=== PATIENT | female | born 1990 | race Hispanic/Latino ===

== ENCOUNTER 2017-11-10 06:38 | Inpatient (IN) | payer MEDICAID ==
[~2017-11-10] VITALS: Ht 160 cm; Wt 65.3 kg
[2017-11-10 07:06] LABS: HEMATOCRIT 28.2 % (36-48); MEAN CORPUSCULAR HEMOGLOBIN 31.5 pg (27.0-33.0); MEAN CORPUSCULAR HGB CONC 34.1 g/dL (32.0-36.0); MEAN CORPUSCULAR VOLUME 92.4 fL (79-99); NUCLEATED RED BLOOD CELLS 0.1 % (0.0-0.19); PLATELET COUNT (AUTO) 209 K/uL (130-400); RED BLOOD CELL COUNT(AUTO) 3.05 MIL/uL (4.00-5.50); RED CELL DISTRIBUTION WIDTH 19.4 % (11.0-15.5); WHITE BLOOD COUNT (AUTO) 13.5 K/uL (4.8-10.8)
[2017-11-10] MEDS ORDERED: VANCOMYCIN 1GM+NS 250ML 250 ML IV ONE (07:13)
[2017-11-10] MEDS ORDERED: SODIUM CHLORIDE 0.9% 1000ML 2,000 ML IV ONE (07:13)
[2017-11-10] MEDS ORDERED: MEROPENEM 1 GM VIAL ONE (07:13)
[2017-11-10 07:14] LABS: APPEARANCE,URINE Cloudy (CLEAR); BILIRUBIN,URINE Negative (NEGATIVE); COLOR,URINE Yellow (YELLOW); GLUCOSE, URINE (UA) Negative (NEGATIVE); KETONES,URINE Trace mg/dL (NEGATIVE); LEUKOCYTE ESTERASE ,URINE Trace (NEGATIVE); NITRATE,URINE Negative (NEGATIVE); OCCULT BLOOD,URINE Moderate (NEGATIVE); PH,URINE 7.5 (5.0-8.0); PROTEIN,URINE POS 1+ (NEGATIVE); UROBILINOGEN,URINE 0.2 mg/dL (0.2-1.0)
[2017-11-10 07:20] LABS: CARBON DIOXIDE 24 mmol/L (21-32); CHLORIDE 105 mmol/L (101-111); CREATININE 0.9 mg/dL (0.5-1.5); GLOMERULAR FILTR. RATE CALC 81 mL/min (>60); GLUCOSE,RANDOM 169 mg/dL (70-105); POTASSIUM 4.1 mmol/L (3.5-5.1); SODIUM SERUM 141 mmol/L (136-145); UREA NITROGEN, BLOOD 21 mg/dL (7-18)
[2017-11-10 07:22] LABS: INR 1.11 (0.85-1.15); PARTIAL THROMBOPLASTIN TIME 19.3 SEC (26.3-35.5); PROTHROMBIN TIME 11.6 SEC (9.6-11.6)
[2017-11-10 07:29] LABS: LYMPHOCYTES % (MANUAL) 5 % (22-44); MAN.DIFF COMMENT-IMPRESSION MANUAL DIFFERENTIAL; MONOCYTES % (MANUAL) 8 % (2-9); PLATELET MORPHOLOGY COMMENT ADEQUATE; SEGMENTED NEUTROPHILS % 87 % (40-70)
[2017-11-10 07:37] LABS: ALANINE AMINOTRANSFERASE 33 U/L (12-78); ALBUMIN 2.8 g/dL (3.5-5.0); ASPARTATE AMINOTRANSFERASE 58 U/L (10-37); BILIRUBIN,TOTAL 0.3 mg/dL (0.2-1.0); CREATINE KINASE MB 5.1 ng/mL (0.5-3.6); MYOGLOBIN 236 ng/mL (10-92); TOTAL PROTEIN, SERUM 8.4 g/dL (6.0-8.3); TROPONIN I < 0.04 ng/mL (0.00-0.06)
[2017-11-10 07:38] LABS: BACTERIA,URINE Few /HPF (None Seen); SQUAMOUS EPITHELIAL CELL,UR Rare /LPF (0-2)
[2017-11-10 07:50] LABS: CREATINE KINASE, TOTAL 617 U/L (21-232)
[2017-11-10] MEDS ORDERED: ACETAMINOPHEN ELIXIR 650 MG/20.3 ML UDCUP ONE (09:48)
[2017-11-10] MEDS ORDERED: SODIUM CHLORIDE 0.9% 1000ML 1,000 ML IV ONE (11:46)
[2017-11-10] MEDS: SODIUM CHLORIDE 0.9% 1000ML 1,000 ML IV SCH (12:45)
[2017-11-10 13:43] VITALS: BP 149/99
[2017-11-10] MEDS: IPRATROPIUM/ALBUTEROL SULFATE 3 ML SOLUTION IH SCH (14:00)
[2017-11-10] MEDS: MEROPENEM 1 GM VIAL IVP SCH ×2 (14:00→23:26)
[2017-11-10 16:00] VITALS: BP 128/112
[2017-11-10] MEDS ORDERED: ZINC220T PEG (16:02)
[2017-11-10] MEDS ORDERED: VALP250S4 PEG (16:02)
[2017-11-10] MEDS ORDERED: TEMA15CA (16:02)
[2017-11-10] MEDS ORDERED: BACL20TA PEG (16:02)
[2017-11-10] MEDS ORDERED: CLON1TAB5 PEG (16:02)
[2017-11-10] MEDS ORDERED: MULT-1192 PEG (16:02)
[2017-11-10] MEDS ORDERED: ASCO250T5 PEG (16:02)
[2017-11-10] MEDS ORDERED: CARB15DR OP (16:02)
[2017-11-10] MEDS ORDERED: BISA10S PR (16:02)
[2017-11-10] MEDS ORDERED: METO50TA18 PEG (16:02)
[2017-11-10] MEDS ORDERED: FENT-77 TD (16:02)
[2017-11-10] MEDS ORDERED: FAMO20TA8 PEG (16:02)
[2017-11-10] MEDS ORDERED: CLON0.2T PEG (16:02)
[2017-11-10] MEDS ORDERED: PERA12TA PEG (16:02)
[2017-11-10] MEDS ORDERED: ZOLP10TA2 PEG (16:02)
[2017-11-10] MEDS ORDERED: ACET650S28 PEG (16:02)
[2017-11-10] MEDS ORDERED: ENOX40DI8 SQ (16:02)
[2017-11-10] MEDS ORDERED: POLY17PO4 PEG (16:02)
[2017-11-10] MEDS ORDERED: DILT30TA3 PEG (16:02)
[2017-11-10] MEDS ORDERED: BISACODYL 10 MG SUPP.RECT RC PRN (16:45)
[2017-11-10] MEDS ORDERED: NON-FORMULARY MEDICATION 1 EACH (Fentanyl 1 EACH) TD SCH (16:45)
[2017-11-10] MEDS ORDERED: MORPHINE SULFATE 20MG/ML ORAL 0.25 ML PO ONE (17:15)
[2017-11-10] MEDS: ACETAMINOPHEN ELIXIR 650 MG/20.3 ML UDCUP PEG SCH ×2 (17:26→23:51)
[2017-11-10] MEDS: CLONIDINE HCL 0.2 MG TABLET PO SCH (17:27)
[2017-11-10] MEDS ORDERED: MORPHINE SULFATE 2 MG/ML 1ML SYG IVP ONE (17:49)
[2017-11-10 20:00] VITALS: BP 105/76
[2017-11-10] MEDS ORDERED: TEMAZEPAM 15 MG CAPSULE PEG SCH (21:00)
[2017-11-10] MEDS ORDERED: ZOLPIDEM TARTRATE 5 MG TAB PEG SCH (21:00)
[2017-11-10] MEDS: BACLOFEN 10 MG TABLET PO SCH (23:22)
[2017-11-10] MEDS: DILTIAZEM HCL 60 MG TABLET PEG SCH (23:23)
[2017-11-10] MEDS: ARTIFICAL TEARS SOL 15 ML OP SCH (23:23)
[2017-11-10] MEDS: METOPROLOL TARTRATE 50 MG TAB PEG SCH (23:24)
[2017-11-10] MEDS: CLONAZEPAM 0.5 MG TABLET PEG SCH (23:24)
[2017-11-10] MEDS: VALPROATE SOD 250 MG/5 ML (PO) PEG SCH (23:24)
[2017-11-10] MEDS: FAMOTIDINE 20MG TAB 20 MG TAB PEG SCH (23:25)
[2017-11-10] MEDS: ASCORBIC ACID 500 MG TAB PEG SCH (23:25)
[2017-11-10 23:39] VITALS: BP 125/79
[2017-11-10] MEDS: MORPHINE SULFATE 2 MG/ML 1ML SYG IV PRN (23:51)
[2017-11-11] VITALS (7 sets, daily range): BP systolic 120–151; BP diastolic 53–91
[2017-11-11] MEDS: IPRATROPIUM/ALBUTEROL SULFATE 3 ML SOLUTION IH SCH ×7 (00:24→22:35)
[2017-11-11] MEDS: BACLOFEN 10 MG TABLET PO SCH ×4 (02:44→21:28)
[2017-11-11] MEDS: CLONIDINE HCL 0.2 MG TABLET PO SCH ×3 (02:44→17:31)
[2017-11-11] MEDS: DILTIAZEM HCL 60 MG TABLET PEG SCH ×3 (04:30→21:26)
[2017-11-11] MEDS: CLONAZEPAM 0.5 MG TABLET PEG SCH ×4 (04:30→21:26)
[2017-11-11] MEDS: MORPHINE SULFATE 2 MG/ML 1ML SYG IV PRN ×2 (04:30→09:42)
[2017-11-11] MEDS: VALPROATE SOD 250 MG/5 ML (PO) PEG SCH ×3 (04:44→21:28)
[2017-11-11] MEDS: SODIUM CHLORIDE 0.9% 1000ML 1,000 ML IV SCH ×2 (05:42→17:36)
[2017-11-11] MEDS: MEROPENEM 1 GM VIAL IVP SCH ×3 (05:43→22:27)
[2017-11-11 06:11] LABS: MEAN CORPUSCULAR HEMOGLOBIN 30.3 pg (27.0-33.0); MEAN CORPUSCULAR HGB CONC 33.2 g/dL (32.0-36.0); MEAN CORPUSCULAR VOLUME 91.5 fL (79-99); PLATELET COUNT (AUTO) 346 K/uL (130-400); RED BLOOD CELL COUNT(AUTO) 3.39 MIL/uL (4.00-5.50); RED CELL DISTRIBUTION WIDTH 18.9 % (11.0-15.5); WHITE BLOOD COUNT (AUTO) 17.4 K/uL (4.8-10.8)
[2017-11-11 06:32] LABS: CREATININE 0.6 mg/dL (0.5-1.5); POTASSIUM 5.2 mmol/L (3.5-5.1)
[2017-11-11 06:33] LABS: BAND NEUTROPHILS % (MANUAL) 7 % (0-2); BASOPHILS % (MANUAL) 1 % (0-2); LYMPHOCYTES % (MANUAL) 22 % (22-44); MAN.DIFF COMMENT-IMPRESSION MANUAL DIFFERENTIAL; MONOCYTES % (MANUAL) 10 % (2-9); PLATELET MORPHOLOGY COMMENT ADEQUATE; REACTIVE LYMPHOCYTES 2 % (0-0); SEGMENTED NEUTROPHILS % 58 % (40-70)
[2017-11-11] MEDS: SODIUM POLYSTYRENE SULFONATE 15 GM/60 ML ML PO SCH ×2 (06:56→19:27)
[2017-11-11] MEDS: PERAMPANEL 12 MG PEG SCH (09:00)
[2017-11-11] MEDS: MULTIVITAMIN TABLET PEG SCH (09:17)
[2017-11-11] MEDS: ASCORBIC ACID 500 MG TAB PEG SCH ×2 (09:17→21:27)
[2017-11-11] MEDS: ARTIFICAL TEARS SOL 15 ML OP SCH ×2 (09:18→21:29)
[2017-11-11] MEDS: FAMOTIDINE 20MG TAB 20 MG TAB PEG SCH ×2 (09:18→21:26)
[2017-11-11] MEDS: METOPROLOL TARTRATE 50 MG TAB PEG SCH ×2 (09:18→21:29)
[2017-11-11] MEDS: POLYETHYLENE GLYCOL 3350 17 GM POWD.PACK PEG SCH (09:18)
[2017-11-11] MEDS: ENOXAPARIN SODIUM 40 MG/0.4 ML SYRINGE SQ SCH (09:22)
[2017-11-11] MEDS: ZINC SULFATE 220 CAPSULE PEG SCH (11:15)
[2017-11-11] MEDS: FENTANYL 50 MCG/HR PATCH TD SCH (11:24)
[2017-11-11] MEDS: ACETAMINOPHEN ELIXIR 650 MG/20.3 ML UDCUP PEG SCH ×2 (14:01→21:30)
[2017-11-12] MEDS: CLONIDINE HCL 0.2 MG TABLET PO SCH ×3 (00:45→15:42)
[2017-11-12] MEDS: IPRATROPIUM/ALBUTEROL SULFATE 3 ML SOLUTION IH SCH ×6 (02:42→21:37)
[2017-11-12] MEDS: CLONAZEPAM 0.5 MG TABLET PEG SCH ×4 (03:02→23:03)
[2017-11-12] MEDS: BACLOFEN 10 MG TABLET PO SCH ×4 (03:03→23:05)
[2017-11-12 04:12] VITALS: BP 106/52
[2017-11-12 04:22] LABS: BASOPHILS % (AUTO) 0.7 % (0.0-5.0); EOSINOPHILS % (AUTO) 0.4 % (0.0-8.0); LYMPHOCYTES % (AUTO) 25.7 % (21.0-51.0); MEAN CORPUSCULAR HEMOGLOBIN 30.8 pg (27.0-33.0); MEAN CORPUSCULAR HGB CONC 33.1 g/dL (32.0-36.0); MONOCYTES % (AUTO) 14.1 % (3.0-13.0); NEUTROPHILS % (AUTO) 59.1 % (40.0-77.0); NUCLEATED RED BLOOD CELLS 0.1 % (0.0-0.19); PLATELET COUNT (AUTO) 236 K/uL (130-400); RED BLOOD CELL COUNT(AUTO) 3.76 MIL/uL (4.00-5.50); RED CELL DISTRIBUTION WIDTH 18.8 % (11.0-15.5); WHITE BLOOD COUNT (AUTO) 16.5 K/uL (4.8-10.8)
[2017-11-12] MEDS: DILTIAZEM HCL 60 MG TABLET PEG SCH ×3 (05:00→23:03)
[2017-11-12] MEDS: VALPROATE SOD 250 MG/5 ML (PO) PEG SCH ×3 (06:22→23:02)
[2017-11-12] MEDS: MEROPENEM 1 GM VIAL IVP SCH ×3 (06:23→23:01)
[2017-11-12] MEDS: SODIUM CHLORIDE 0.9% 1000ML 1,000 ML IV SCH ×2 (06:27→18:05)
[2017-11-12 07:39] VITALS: BP 111/82
[2017-11-12] MEDS: METOPROLOL TARTRATE 50 MG TAB PEG SCH ×2 (09:00→23:03)
[2017-11-12] MEDS: PERAMPANEL 12 MG PEG SCH (09:00)
[2017-11-12 11:49] VITALS: BP 117/79
[2017-11-12] MEDS: FAMOTIDINE 20MG TAB 20 MG TAB PEG SCH ×2 (11:55→23:03)
[2017-11-12] MEDS: ASCORBIC ACID 500 MG TAB PEG SCH ×2 (11:55→23:02)
[2017-11-12] MEDS: MULTIVITAMIN TABLET PEG SCH (11:55)
[2017-11-12] MEDS: FENTANYL 50 MCG/HR PATCH TD SCH (11:56)
[2017-11-12] MEDS: ENOXAPARIN SODIUM 40 MG/0.4 ML SYRINGE SQ SCH (11:56)
[2017-11-12] MEDS: POLYETHYLENE GLYCOL 3350 17 GM POWD.PACK PEG SCH (11:56)
[2017-11-12] MEDS: ARTIFICAL TEARS SOL 15 ML OP SCH ×2 (11:57→23:05)
[2017-11-12 12:02] LABS: ALBUMIN 2.7 g/dL (3.5-5.0); BILIRUBIN,TOTAL 0.4 mg/dL (0.2-1.0); CREATININE 0.4 mg/dL (0.5-1.5); POTASSIUM 4.7 mmol/L (3.5-5.1); TOTAL PROTEIN, SERUM 7.4 g/dL (6.0-8.3)
[2017-11-12] MEDS: MORPHINE SULFATE 2 MG/ML 1ML SYG IV PRN ×2 (14:09→21:48)
[2017-11-12] MEDS: ZINC SULFATE 220 CAPSULE PEG SCH (15:41)
[2017-11-12 16:16] VITALS: BP 149/114
[2017-11-12] MEDS ORDERED: DIAZEPAM 5 MG/ML 2 ML SYG IM SCH (16:30)
[2017-11-12] MEDS: ACETAMINOPHEN ELIXIR 650 MG/20.3 ML UDCUP PEG SCH (16:31)
[2017-11-12 20:02] VITALS: BP 156/80
[2017-11-12] MEDS ORDERED: BACLOFEN 10 MG TABLET PO ONE ×2 (22:26→22:45)
[2017-11-12] MEDS: LORAZEPAM 2 MG/ML 1 ML VIAL IVP PRN (23:58)
[2017-11-13] VITALS (7 sets, daily range): BP systolic 102–161; BP diastolic 59–99
[2017-11-13] MEDS: ACETAMINOPHEN ELIXIR 650 MG/20.3 ML UDCUP PEG SCH (00:07)
[2017-11-13] MEDS: CLONIDINE HCL 0.2 MG TABLET PO SCH ×3 (01:50→15:47)
[2017-11-13] MEDS: IPRATROPIUM/ALBUTEROL SULFATE 3 ML SOLUTION IH SCH ×6 (02:27→21:33)
[2017-11-13] MEDS: BACLOFEN 10 MG TABLET PO SCH ×4 (02:49→20:05)
[2017-11-13] MEDS: CLONAZEPAM 0.5 MG TABLET PEG SCH ×4 (02:49→20:04)
[2017-11-13] MEDS: MORPHINE SULFATE 2 MG/ML 1ML SYG IV PRN ×3 (03:31→20:02)
[2017-11-13] MEDS: MEROPENEM 1 GM VIAL IVP SCH ×3 (04:57→20:03)
[2017-11-13] MEDS: DILTIAZEM HCL 60 MG TABLET PEG SCH ×3 (04:57→20:04)
[2017-11-13] MEDS: VALPROATE SOD 250 MG/5 ML (PO) PEG SCH ×3 (04:57→20:03)
[2017-11-13] MEDS: SODIUM POLYSTYRENE SULFONATE 15 GM/60 ML ML PO SCH ×2 (05:09→19:36)
[2017-11-13] MEDS: SODIUM CHLORIDE 0.9% 1000ML 1,000 ML IV SCH (06:40)
[2017-11-13] MEDS: MULTIVITAMIN TABLET PEG SCH (08:55)
[2017-11-13] MEDS: METOPROLOL TARTRATE 50 MG TAB PEG SCH ×2 (08:55→20:05)
[2017-11-13] MEDS: POLYETHYLENE GLYCOL 3350 17 GM POWD.PACK PEG SCH (08:55)
[2017-11-13] MEDS: FAMOTIDINE 20MG TAB 20 MG TAB PEG SCH ×2 (08:55→20:04)
[2017-11-13] MEDS: ASCORBIC ACID 500 MG TAB PEG SCH ×2 (08:55→20:04)
[2017-11-13] MEDS: ARTIFICAL TEARS SOL 15 ML OP SCH ×2 (08:55→20:05)
[2017-11-13] MEDS: PERAMPANEL 12 MG PEG SCH (08:55)
[2017-11-13] MEDS: ZINC SULFATE 220 CAPSULE PEG SCH (08:55)
[2017-11-13] MEDS: ENOXAPARIN SODIUM 40 MG/0.4 ML SYRINGE SQ SCH (08:56)
[2017-11-13] MEDS: LORAZEPAM 2 MG/ML 1 ML VIAL IVP PRN (08:59)
[2017-11-13] MEDS ORDERED: HONEY 1 APPL/ML TUBE TP SCH (18:14)
[2017-11-13] MEDS ORDERED: NEOMY SULF/BACITRAC ZN/POLY OINT 30GM TUBE TP SCH (18:15)
[2017-11-13] MEDS ORDERED: FENTANYL 50 MCG/HR PATCH TD SCH (21:00)
[2017-11-14] MEDS: CLONIDINE HCL 0.2 MG TABLET PO SCH ×3 (01:02→21:46)
[2017-11-14] MEDS: BACLOFEN 10 MG TABLET PO SCH ×5 (01:51→23:57)
[2017-11-14] MEDS: CLONAZEPAM 0.5 MG TABLET PEG SCH ×5 (01:51→23:57)
[2017-11-14] MEDS: IPRATROPIUM/ALBUTEROL SULFATE 3 ML SOLUTION IH SCH ×6 (02:10→22:13)
[2017-11-14 03:33] VITALS: BP 122/65
[2017-11-14 04:25] LABS: MEAN CORPUSCULAR HEMOGLOBIN 31.5 pg (27.0-33.0); MEAN CORPUSCULAR HGB CONC 33.9 g/dL (32.0-36.0); MEAN CORPUSCULAR VOLUME 92.8 fL (79-99); PLATELET COUNT (AUTO) 303 K/uL (130-400); RED BLOOD CELL COUNT(AUTO) 2.59 MIL/uL (4.00-5.50); RED CELL DISTRIBUTION WIDTH 17.9 % (11.0-15.5); WHITE BLOOD COUNT (AUTO) 7.4 K/uL (4.8-10.8)
[2017-11-14 04:46] LABS: ALBUMIN 2.5 g/dL (3.5-5.0); BILIRUBIN,TOTAL 0.2 mg/dL (0.2-1.0); CREATININE 0.4 mg/dL (0.5-1.5); POTASSIUM 3.1 mmol/L (3.5-5.1); TOTAL PROTEIN, SERUM 6.7 g/dL (6.0-8.3)
[2017-11-14] MEDS: VALPROATE SOD 250 MG/5 ML (PO) PEG SCH ×3 (05:02→18:03)
[2017-11-14] MEDS: MEROPENEM 1 GM VIAL IVP SCH ×3 (05:03→21:43)
[2017-11-14] MEDS: DILTIAZEM HCL 60 MG TABLET PEG SCH ×3 (05:03→21:45)
[2017-11-14] MEDS: MORPHINE SULFATE 2 MG/ML 1ML SYG IV PRN ×2 (06:41→17:50)
[2017-11-14 07:00] VITALS: BP 146/69
[2017-11-14] MEDS: METOPROLOL TARTRATE 50 MG TAB PEG SCH ×2 (07:59→21:44)
[2017-11-14] MEDS: ASCORBIC ACID 500 MG TAB PEG SCH ×2 (07:59→21:44)
[2017-11-14] MEDS: FAMOTIDINE 20MG TAB 20 MG TAB PEG SCH ×2 (07:59→21:44)
[2017-11-14] MEDS: MULTIVITAMIN TABLET PEG SCH (08:00)
[2017-11-14] MEDS: POLYETHYLENE GLYCOL 3350 17 GM POWD.PACK PEG SCH (08:00)
[2017-11-14] MEDS: ENOXAPARIN SODIUM 40 MG/0.4 ML SYRINGE SQ SCH (08:00)
[2017-11-14] MEDS: LORAZEPAM 2 MG/ML 1 ML VIAL IVP PRN ×2 (08:09→21:53)
[2017-11-14] MEDS: ACETAMINOPHEN ELIXIR 650 MG/20.3 ML UDCUP PEG SCH ×2 (08:09→12:48)
[2017-11-14] MEDS: ARTIFICAL TEARS SOL 15 ML OP SCH ×2 (08:44→21:41)
[2017-11-14] MEDS: PERAMPANEL 12 MG PEG SCH (08:45)
[2017-11-14 11:00] VITALS: BP 93/59
[2017-11-14] MEDS: FENTANYL 50 MCG/HR PATCH TD SCH (11:27)
[2017-11-14] MEDS: ZINC SULFATE 220 CAPSULE PEG SCH (12:45)
[2017-11-14] MEDS ORDERED: VANCOMYCIN PROTOCOL PER PHARMACY IV SCH (13:15)
[2017-11-14 16:36] VITALS: BP 129/65
[2017-11-14] MEDS ORDERED: LIDOCAINE HCL-MPF 1% 2ML VIAL IVP PRN (17:15)
[2017-11-14] MEDS ORDERED: POTASSIUM CHLORIDE 20 MEQ ERTAB PO PRN (17:15)
[2017-11-14] MEDS: POTASSIUM CHLORIDE 10% ELIXIR 20 MEQ/15 ML UDCUP PO PRN (17:40)
[2017-11-14 19:03] VITALS: BP 137/98
[2017-11-14] MEDS: LACTATED RINGERS 1000ML 1,000 ML IV SCH (19:31)
[2017-11-14] MEDS ORDERED: VALPROATE SOD 250 MG/5 ML (PO) PEG SCH (21:00)
[2017-11-14] MEDS ORDERED: CLONAZEPAM 0.5 MG TABLET PEG SCH (21:00)
[2017-11-14] MEDS: VANCOMYCIN 1GM+NS 250ML 250 ML IV SCH (21:41)
[2017-11-14] MEDS: HONEY 1 APPL/ML TUBE TP SCH (21:41)
[2017-11-14] MEDS: NEOMY SULF/BACITRAC ZN/POLY OINT 30GM TUBE TP SCH (21:43)
[2017-11-14 23:37] VITALS: BP 128/75
[2017-11-14] MEDS: SODIUM POLYSTYRENE SULFONATE 15 GM/60 ML ML PO SCH (23:52)
[2017-11-15] MEDS: VALPROATE SOD 250 MG/5 ML (PO) PEG SCH ×3 (02:04→17:32)
[2017-11-15] MEDS: IPRATROPIUM/ALBUTEROL SULFATE 3 ML SOLUTION IH SCH ×6 (02:10→21:43)
[2017-11-15 03:22] VITALS: BP 136/54
[2017-11-15 03:32] LABS: ABG BASE EXCESS 3.7 mmol/L (-2.0-3.0); ABG HCO3 29.8 mmol/L (21.0-28.0); ABG OXYGEN SATURATION 88.1 % (95.0-99.0); ABG PCO2 50 mmHg (32-45)
[2017-11-15] MEDS: DILTIAZEM HCL 60 MG TABLET PEG SCH ×3 (04:58→20:42)
[2017-11-15] MEDS: BACLOFEN 10 MG TABLET PO SCH ×3 (04:59→18:00)
[2017-11-15] MEDS: MEROPENEM 1 GM VIAL IVP SCH ×2 (04:59→17:32)
[2017-11-15] MEDS: CLONIDINE HCL 0.2 MG TABLET PO SCH ×3 (05:00→22:00)
[2017-11-15] MEDS: CLONAZEPAM 0.5 MG TABLET PEG SCH ×3 (05:01→17:32)
[2017-11-15 05:02] LABS: HEMATOCRIT 24.9 % (36-48); MEAN CORPUSCULAR HEMOGLOBIN 30.9 pg (27.0-33.0); MEAN CORPUSCULAR HGB CONC 33.5 g/dL (32.0-36.0); MEAN CORPUSCULAR VOLUME 92.2 fL (79-99); PLATELET COUNT (AUTO) 333 K/uL (130-400); RED CELL DISTRIBUTION WIDTH 17.9 % (11.0-15.5); WHITE BLOOD COUNT (AUTO) 13.2 K/uL (4.8-10.8)
[2017-11-15 05:37] LABS: ALBUMIN 2.9 g/dL (3.5-5.0); BILIRUBIN,TOTAL 0.4 mg/dL (0.2-1.0); CREATININE 0.5 mg/dL (0.5-1.5); PHOSPHORUS 2.8 mg/dL (2.5-4.9); POTASSIUM 3.8 mmol/L (3.5-5.1); TOTAL PROTEIN, SERUM 7.5 g/dL (6.0-8.3)
[2017-11-15 07:00] VITALS: BP 153/79
[2017-11-15] MEDS: LACTATED RINGERS 1000ML 1,000 ML IV SCH ×2 (08:05→21:25)
[2017-11-15] MEDS: ARTIFICAL TEARS SOL 15 ML OP SCH (09:00)
[2017-11-15] MEDS: NEOMY SULF/BACITRAC ZN/POLY OINT 30GM TUBE TP SCH (09:00)
[2017-11-15] MEDS: PERAMPANEL 12 MG PEG SCH (09:00)
[2017-11-15] MEDS: HONEY 1 APPL/ML TUBE TP SCH (09:00)
[2017-11-15] MEDS: LORAZEPAM 2 MG/ML 1 ML VIAL IVP PRN (10:57)
[2017-11-15 11:00] VITALS: BP 144/76
[2017-11-15] MEDS: VANCOMYCIN 1GM+NS 250ML 250 ML IV SCH ×2 (11:00→20:42)
[2017-11-15] MEDS: ASCORBIC ACID 500 MG TAB PEG SCH ×2 (11:01→20:40)
[2017-11-15] MEDS: ZINC SULFATE 220 CAPSULE PEG SCH (11:02)
[2017-11-15] MEDS: FAMOTIDINE 20MG TAB 20 MG TAB PEG SCH ×2 (11:03→20:41)
[2017-11-15] MEDS: MULTIVITAMIN TABLET PEG SCH (11:03)
[2017-11-15] MEDS: METOPROLOL TARTRATE 50 MG TAB PEG SCH ×2 (11:03→20:41)
[2017-11-15] MEDS: ENOXAPARIN SODIUM 40 MG/0.4 ML SYRINGE SQ SCH (11:04)
[2017-11-15] MEDS: POLYETHYLENE GLYCOL 3350 17 GM POWD.PACK PEG SCH (11:04)
[2017-11-15 16:00] VITALS: BP 137/79
[2017-11-15 19:52] VITALS: BP 107/70
[2017-11-15 23:30] VITALS: BP 106/67
[2017-11-16] VITALS (9 sets, daily range): BP systolic 109–162; BP diastolic 43–107
[2017-11-16] MEDS: CLONAZEPAM 0.5 MG TABLET PEG SCH ×5 (00:01→21:39)
[2017-11-16] MEDS: MEROPENEM 1 GM VIAL IVP SCH ×4 (00:01→22:24)
[2017-11-16] MEDS: BACLOFEN 10 MG TABLET PO SCH ×5 (00:01→21:40)
[2017-11-16] MEDS: ARTIFICAL TEARS SOL 15 ML OP SCH ×3 (00:45→20:32)
[2017-11-16] MEDS: IPRATROPIUM/ALBUTEROL SULFATE 3 ML SOLUTION IH SCH ×6 (02:05→22:51)
[2017-11-16 03:59] LABS: ABG HCO3 28.9 mmol/L (21.0-28.0); ABG PCO2 44 mmHg (32-45)
[2017-11-16] MEDS: VALPROATE SOD 250 MG/5 ML (PO) PEG SCH ×3 (05:07→17:51)
[2017-11-16] MEDS: DILTIAZEM HCL 60 MG TABLET PEG SCH ×3 (05:07→20:32)
[2017-11-16] MEDS: CLONIDINE HCL 0.2 MG TABLET PO SCH ×3 (06:00→22:00)
[2017-11-16] MEDS: SODIUM POLYSTYRENE SULFONATE 15 GM/60 ML ML PO SCH ×2 (06:33→19:52)
[2017-11-16 06:58] LABS: CREATININE 0.5 mg/dL (0.5-1.5); MAGNESIUM 1.6 mg/dL (1.80-2.40); PHOSPHORUS 3.3 mg/dL (2.5-4.9); POTASSIUM 3.6 mmol/L (3.5-5.1)
[2017-11-16 07:17] LABS: HEMATOCRIT 24.8 % (36-48); MEAN CORPUSCULAR HEMOGLOBIN 30.9 pg (27.0-33.0); MEAN CORPUSCULAR HGB CONC 33.3 g/dL (32.0-36.0); MEAN CORPUSCULAR VOLUME 92.9 fL (79-99); PLATELET COUNT (AUTO) 285 K/uL (130-400); RED BLOOD CELL COUNT(AUTO) 2.67 MIL/uL (4.00-5.50); RED CELL DISTRIBUTION WIDTH 17.9 % (11.0-15.5)
[2017-11-16] MEDS: POLYETHYLENE GLYCOL 3350 17 GM POWD.PACK PEG SCH (08:17)
[2017-11-16] MEDS: VANCOMYCIN 1GM+NS 250ML 250 ML IV SCH (08:17)
[2017-11-16] MEDS: ENOXAPARIN SODIUM 40 MG/0.4 ML SYRINGE SQ SCH (08:18)
[2017-11-16] MEDS: MORPHINE SULFATE 2 MG/ML 1ML SYG IV PRN ×2 (08:18→12:00)
[2017-11-16] MEDS: NEOMY SULF/BACITRAC ZN/POLY OINT 30GM TUBE TP SCH (08:18)
[2017-11-16] MEDS: HONEY 1 APPL/ML TUBE TP SCH (08:19)
[2017-11-16] MEDS: FAMOTIDINE 20MG TAB 20 MG TAB PEG SCH ×2 (08:19→20:32)
[2017-11-16] MEDS: ASCORBIC ACID 500 MG TAB PEG SCH ×2 (08:19→20:33)
[2017-11-16] MEDS: METOPROLOL TARTRATE 50 MG TAB PEG SCH ×2 (08:19→20:33)
[2017-11-16] MEDS: MULTIVITAMIN TABLET PEG SCH (08:19)
[2017-11-16] MEDS: ZINC SULFATE 220 CAPSULE PEG SCH (08:24)
[2017-11-16] MEDS: PERAMPANEL 12 MG PEG SCH (08:24)
[2017-11-16] MEDS ORDERED: COMPOUND IV REFRIGERATED 1 EACH IVSOLN MISC PRN (10:30)
[2017-11-16] MEDS: LACTATED RINGERS 1000ML 1,000 ML IV SCH ×2 (10:58→21:40)
[2017-11-16] MEDS: VANCOMYCIN 750MG + NS 250 ML IV SCH ×4 (16:06→22:24)
[2017-11-16] MEDS: ACETAMINOPHEN ELIXIR 650 MG/20.3 ML UDCUP PEG SCH (18:23)
[2017-11-16] MEDS ORDERED: SODIUM CHLORIDE 0.9% 1000ML 1,000 ML IV SCH (18:30)
[2017-11-16] MEDS ORDERED: NOREPINEPHRINE 4MG/NS 250ML 250 ML IV SCH (18:30)
[2017-11-16] MEDS: PROPOFOL 1000 MG/100 ML 100 ML IV PRN (18:51)
[2017-11-16 20:31] LABS: ABG BASE EXCESS 1.3 mmol/L (-2.0-3.0); ABG HCO3 24.8 mmol/L (21.0-28.0); ABG OXYGEN SATURATION 99.6 % (95.0-99.0); ABG PCO2 36 mmHg (32-45)
[2017-11-16] MEDS ORDERED: CLONIDINE HCL 0.1 MG TABLET ONE (22:22)
[2017-11-16] MEDS: SODIUM CHLORIDE 0.9% 1000ML 1,000 ML IV SCH (22:24)
[2017-11-17] VITALS (24 sets, daily range): BP systolic 102–154; BP diastolic 51–99
[2017-11-17] MEDS: IPRATROPIUM/ALBUTEROL SULFATE 3 ML SOLUTION IH SCH ×6 (01:43→21:57)
[2017-11-17] MEDS: VALPROATE SOD 250 MG/5 ML (PO) PEG SCH ×3 (02:51→17:29)
[2017-11-17] MEDS: PROPOFOL 1000 MG/100 ML 100 ML IV PRN ×4 (03:01→22:05)
[2017-11-17] MEDS: DILTIAZEM HCL 60 MG TABLET PEG SCH ×3 (04:14→20:12)
[2017-11-17] MEDS: CLONAZEPAM 0.5 MG TABLET PEG SCH ×4 (04:16→23:28)
[2017-11-17] MEDS: BACLOFEN 10 MG TABLET PO SCH ×4 (04:16→23:28)
[2017-11-17] MEDS: VANCOMYCIN 750MG + NS 250 ML IV SCH ×4 (05:12→14:34)
[2017-11-17] MEDS: CLONIDINE HCL 0.2 MG TABLET PO SCH ×3 (05:13→21:47)
[2017-11-17] MEDS: MEROPENEM 1 GM VIAL IVP SCH ×3 (05:16→21:47)
[2017-11-17 06:17] LABS: CREATININE 0.3 mg/dL (0.5-1.5)
[2017-11-17 06:18] LABS: MEAN CORPUSCULAR HEMOGLOBIN 32.8 pg (27.0-33.0); MEAN CORPUSCULAR HGB CONC 35.6 g/dL (32.0-36.0); MEAN CORPUSCULAR VOLUME 92.2 fL (79-99); PLATELET COUNT (AUTO) 255 K/uL (130-400); RED BLOOD CELL COUNT(AUTO) 2.13 MIL/uL (4.00-5.50); RED CELL DISTRIBUTION WIDTH 18.1 % (11.0-15.5); WHITE BLOOD COUNT (AUTO) 6.9 K/uL (4.8-10.8)
[2017-11-17 06:23] LABS: HEMATOCRIT 19.7 % (36-48)
[2017-11-17 07:26] LABS: POTASSIUM 2.3 mmol/L (3.5-5.1)
[2017-11-17] MEDS: POTASSIUM CHLORIDE 20MEQ/100ML 100 ML IV PRN ×3 (07:38→12:32)
[2017-11-17] MEDS: PERAMPANEL 12 MG PEG SCH (09:00)
[2017-11-17] MEDS: FAMOTIDINE 20MG TAB 20 MG TAB PEG SCH ×2 (10:25→20:13)
[2017-11-17] MEDS: ZINC SULFATE 220 CAPSULE PEG SCH (10:25)
[2017-11-17] MEDS: ASCORBIC ACID 500 MG TAB PEG SCH ×2 (10:26→20:13)
[2017-11-17] MEDS: POLYETHYLENE GLYCOL 3350 17 GM POWD.PACK PEG SCH (10:26)
[2017-11-17] MEDS: MULTIVITAMIN TABLET PEG SCH (10:26)
[2017-11-17] MEDS: METOPROLOL TARTRATE 50 MG TAB PEG SCH ×2 (10:26→20:12)
[2017-11-17] MEDS: NEOMY SULF/BACITRAC ZN/POLY OINT 30GM TUBE TP SCH (10:27)
[2017-11-17] MEDS: HONEY 1 APPL/ML TUBE TP SCH (10:27)
[2017-11-17] MEDS: ENOXAPARIN SODIUM 40 MG/0.4 ML SYRINGE SQ SCH (10:27)
[2017-11-17] MEDS: ARTIFICAL TEARS SOL 15 ML OP SCH ×2 (10:37→20:18)
[2017-11-17] MEDS: FENTANYL 50 MCG/HR PATCH TD SCH (10:47)
[2017-11-17] MEDS: LACTATED RINGERS 1000ML 1,000 ML IV SCH ×2 (12:33→23:18)
[2017-11-17] MEDS: SODIUM CHLORIDE 0.9% 1000ML 1,000 ML IV SCH (13:05)
[2017-11-17] MEDS: MORPHINE SULFATE 2 MG/ML 1ML SYG IV PRN (13:43)
[2017-11-17 13:50] LABS: POTASSIUM 3.8 mmol/L (3.5-5.1)
[2017-11-17] MEDS ORDERED: CLONAZEPAM 0.5 MG TABLET PEG SCH (18:00)
[2017-11-17] MEDS: VANCOMYCIN 1GM+NS 250ML 250 ML IV SCH (20:12)
[2017-11-17] MEDS: SODIUM POLYSTYRENE SULFONATE 15 GM/60 ML ML PO SCH (23:19)
[2017-11-18] VITALS (25 sets, daily range): BP systolic 106–176; BP diastolic 36–98
[2017-11-18] MEDS: VALPROATE SOD 250 MG/5 ML (PO) PEG SCH ×3 (01:50→17:06)
[2017-11-18] MEDS: PROPOFOL 1000 MG/100 ML 100 ML IV PRN (01:50)
[2017-11-18] MEDS: IPRATROPIUM/ALBUTEROL SULFATE 3 ML SOLUTION IH SCH ×6 (02:11→22:14)
[2017-11-18] MEDS: VANCOMYCIN 1GM+NS 250ML 250 ML IV SCH (04:00)
[2017-11-18 04:22] LABS: HEMATOCRIT 24.5 % (36-48); MEAN CORPUSCULAR HEMOGLOBIN 30.4 pg (27.0-33.0); MEAN CORPUSCULAR HGB CONC 32.9 g/dL (32.0-36.0); MEAN CORPUSCULAR VOLUME 92.5 fL (79-99); PLATELET COUNT (AUTO) 267 K/uL (130-400); RED BLOOD CELL COUNT(AUTO) 2.65 MIL/uL (4.00-5.50); RED CELL DISTRIBUTION WIDTH 18.5 % (11.0-15.5); WHITE BLOOD COUNT (AUTO) 6.4 K/uL (4.8-10.8)
[2017-11-18 04:44] LABS: CREATININE 0.3 mg/dL (0.5-1.5); MAGNESIUM 1.6 mg/dL (1.80-2.40); POTASSIUM 3.4 mmol/L (3.5-5.1)
[2017-11-18 05:11] LABS: BAND NEUTROPHILS % (MANUAL) 13 % (0-2); BASOPHILS % (MANUAL) 1 % (0-2); EOSINOPHILS % (MANUAL) 1 % (1-6); LYMPHOCYTES % (MANUAL) 36 % (22-44); MAN.DIFF COMMENT-IMPRESSION MANUAL DIFFERENTIAL; MONOCYTES % (MANUAL) 4 % (2-9); SEGMENTED NEUTROPHILS % 45 % (40-70)
[2017-11-18 05:12] LABS: PLATELET MORPHOLOGY COMMENT ADEQUATE
[2017-11-18] MEDS: MEROPENEM 1 GM VIAL IVP SCH (05:15)
[2017-11-18] MEDS: POTASSIUM CHLORIDE 20MEQ/100ML 100 ML IV PRN ×2 (05:16→18:25)
[2017-11-18] MEDS: BACLOFEN 10 MG TABLET PO SCH ×4 (05:17→23:22)
[2017-11-18] MEDS: DILTIAZEM HCL 60 MG TABLET PEG SCH ×3 (05:17→21:37)
[2017-11-18] MEDS: CLONAZEPAM 0.5 MG TABLET PEG SCH ×4 (05:18→23:23)
[2017-11-18] MEDS: CLONIDINE HCL 0.2 MG TABLET PO SCH ×3 (05:19→21:36)
[2017-11-18] MEDS: PERAMPANEL 12 MG PEG SCH (09:00)
[2017-11-18] MEDS: ZINC SULFATE 220 CAPSULE PEG SCH (09:37)
[2017-11-18] MEDS: FAMOTIDINE 20MG TAB 20 MG TAB PEG SCH ×2 (09:37→21:37)
[2017-11-18] MEDS: MULTIVITAMIN TABLET PEG SCH (09:37)
[2017-11-18] MEDS: POLYETHYLENE GLYCOL 3350 17 GM POWD.PACK PEG SCH (09:37)
[2017-11-18] MEDS: ENOXAPARIN SODIUM 40 MG/0.4 ML SYRINGE SQ SCH (09:37)
[2017-11-18] MEDS: ARTIFICAL TEARS SOL 15 ML OP SCH ×2 (09:38→21:35)
[2017-11-18] MEDS: METOPROLOL TARTRATE 50 MG TAB PEG SCH ×2 (09:38→21:36)
[2017-11-18] MEDS: SODIUM CHLORIDE 0.9% 1000ML 1,000 ML IV SCH ×2 (09:38→18:26)
[2017-11-18] MEDS: ASCORBIC ACID 500 MG TAB PEG SCH ×2 (09:39→21:36)
[2017-11-18] MEDS: HONEY 1 APPL/ML TUBE TP SCH (09:41)
[2017-11-18] MEDS: NEOMY SULF/BACITRAC ZN/POLY OINT 30GM TUBE TP SCH (09:41)
[2017-11-18] MEDS: MORPHINE SULFATE 2 MG/ML 1ML SYG IV PRN (11:28)
[2017-11-18] MEDS: MAGNESIUM 2GM PREMIX 50ML 50 ML IV PRN (11:29)
[2017-11-18 14:37] LABS: MAGNESIUM 2.3 mg/dL (1.80-2.40); POTASSIUM 3.3 mmol/L (3.5-5.1)
[2017-11-18] MEDS: LACTATED RINGERS 1000ML 1,000 ML IV SCH (15:48)
[2017-11-18] MEDS ORDERED: PHARMACY COMMUNICATION MISC SCH (19:30)
[2017-11-18] MEDS: LORAZEPAM 2 MG/ML 1 ML VIAL IVP PRN ×2 (19:40→22:45)
[2017-11-19] VITALS (25 sets, daily range): BP systolic 96–169; BP diastolic 20–108
[2017-11-19] MEDS: LORAZEPAM 2 MG/ML 1 ML VIAL IVP PRN ×5 (01:59→20:29)
[2017-11-19] MEDS: VALPROATE SOD 250 MG/5 ML (PO) PEG SCH ×3 (01:59→17:14)
[2017-11-19] MEDS: SODIUM CHLORIDE 0.9% 1000ML 1,000 ML IV SCH ×2 (02:21→20:19)
[2017-11-19] MEDS: IPRATROPIUM/ALBUTEROL SULFATE 3 ML SOLUTION IH SCH ×6 (02:21→22:22)
[2017-11-19 04:05] LABS: BASOPHILS % (AUTO) 0.7 % (0.0-5.0); EOSINOPHILS % (AUTO) 2.1 % (0.0-8.0); HEMATOCRIT 26.3 % (36-48); LYMPHOCYTES % (AUTO) 33.4 % (21.0-51.0); MEAN CORPUSCULAR HEMOGLOBIN 30.7 pg (27.0-33.0); MEAN CORPUSCULAR HGB CONC 33.3 g/dL (32.0-36.0); MEAN CORPUSCULAR VOLUME 92.3 fL (79-99); MONOCYTES % (AUTO) 8.9 % (3.0-13.0); NEUTROPHILS % (AUTO) 54.9 % (40.0-77.0); PLATELET COUNT (AUTO) 241 K/uL (130-400); RED BLOOD CELL COUNT(AUTO) 2.85 MIL/uL (4.00-5.50); RED CELL DISTRIBUTION WIDTH 18.2 % (11.0-15.5); WHITE BLOOD COUNT (AUTO) 11.8 K/uL (4.8-10.8)
[2017-11-19 04:14] LABS: CREATININE 0.4 mg/dL (0.5-1.5); MAGNESIUM 1.8 mg/dL (1.80-2.40); POTASSIUM 4.1 mmol/L (3.5-5.1)
[2017-11-19] MEDS: CLONIDINE HCL 0.2 MG TABLET PO SCH ×3 (05:21→21:35)
[2017-11-19] MEDS: BACLOFEN 10 MG TABLET PO SCH ×3 (05:21→17:14)
[2017-11-19] MEDS: DILTIAZEM HCL 60 MG TABLET PEG SCH ×3 (05:22→20:23)
[2017-11-19] MEDS: CLONAZEPAM 0.5 MG TABLET PEG SCH ×3 (05:22→17:14)
[2017-11-19] MEDS: SODIUM POLYSTYRENE SULFONATE 15 GM/60 ML ML PO SCH ×2 (05:22→20:48)
[2017-11-19] MEDS: METOPROLOL TARTRATE 50 MG TAB PEG SCH ×2 (08:43→20:21)
[2017-11-19] MEDS: MULTIVITAMIN TABLET PEG SCH (08:43)
[2017-11-19] MEDS: MAGNESIUM 2GM PREMIX 50ML 50 ML IV PRN (08:43)
[2017-11-19] MEDS: ZINC SULFATE 220 CAPSULE PEG SCH (08:44)
[2017-11-19] MEDS: POLYETHYLENE GLYCOL 3350 17 GM POWD.PACK PEG SCH (08:44)
[2017-11-19] MEDS: ASCORBIC ACID 500 MG TAB PEG SCH ×2 (08:44→20:21)
[2017-11-19] MEDS: PERAMPANEL 12 MG PEG SCH (08:44)
[2017-11-19] MEDS: ARTIFICAL TEARS SOL 15 ML OP SCH ×2 (08:44→20:22)
[2017-11-19] MEDS: FAMOTIDINE 20MG TAB 20 MG TAB PEG SCH ×2 (08:44→20:21)
[2017-11-19] MEDS: HONEY 1 APPL/ML TUBE TP SCH (08:45)
[2017-11-19] MEDS: NEOMY SULF/BACITRAC ZN/POLY OINT 30GM TUBE TP SCH (08:45)
[2017-11-19] MEDS: ENOXAPARIN SODIUM 40 MG/0.4 ML SYRINGE SQ SCH (09:02)
[2017-11-19] MEDS: MORPHINE SULFATE 2 MG/ML 1ML SYG IV PRN ×3 (11:05→22:42)
[2017-11-19 12:11] LABS: MAGNESIUM 2.9 mg/dL (1.80-2.40)
[2017-11-19 12:17] LABS: POTASSIUM 2.3 mmol/L (3.5-5.1)
[2017-11-19] MEDS: POTASSIUM CHLORIDE 20MEQ/100ML 100 ML IV PRN (12:33)
[2017-11-19 18:36] LABS: POTASSIUM 3.8 mmol/L (3.5-5.1)
[2017-11-19] MEDS: ZOLPIDEM TARTRATE 5 MG TAB PEG PRN (20:21)
[2017-11-20] VITALS (19 sets, daily range): BP systolic 108–171; BP diastolic 25–91
[2017-11-20] MEDS: CLONAZEPAM 0.5 MG TABLET PEG SCH ×5 (00:21→23:52)
[2017-11-20] MEDS: ACETAMINOPHEN ELIXIR 650 MG/20.3 ML UDCUP PEG SCH (00:21)
[2017-11-20] MEDS: BACLOFEN 10 MG TABLET PO SCH ×5 (00:21→23:52)
[2017-11-20] MEDS: IPRATROPIUM/ALBUTEROL SULFATE 3 ML SOLUTION IH SCH ×6 (02:03→22:28)
[2017-11-20] MEDS: VALPROATE SOD 250 MG/5 ML (PO) PEG SCH ×3 (02:11→18:49)
[2017-11-20] MEDS: LORAZEPAM 2 MG/ML 1 ML VIAL IVP PRN ×2 (03:10→13:59)
[2017-11-20 04:46] LABS: BASOPHILS % (AUTO) 1.1 % (0.0-5.0); EOSINOPHILS % (AUTO) 2.6 % (0.0-8.0); HEMATOCRIT 27.2 % (36-48); LYMPHOCYTES % (AUTO) 34.3 % (21.0-51.0); MEAN CORPUSCULAR HEMOGLOBIN 30.3 pg (27.0-33.0); MEAN CORPUSCULAR HGB CONC 32.7 g/dL (32.0-36.0); MEAN CORPUSCULAR VOLUME 92.4 fL (79-99); MONOCYTES % (AUTO) 9.5 % (3.0-13.0); NEUTROPHILS % (AUTO) 52.5 % (40.0-77.0); NUCLEATED RED BLOOD CELLS 0.1 % (0.0-0.19); PLATELET COUNT (AUTO) 316 K/uL (130-400); RED BLOOD CELL COUNT(AUTO) 2.95 MIL/uL (4.00-5.50); WHITE BLOOD COUNT (AUTO) 8.3 K/uL (4.8-10.8)
[2017-11-20 04:49] LABS: CREATININE 0.4 mg/dL (0.5-1.5); POTASSIUM 4.9 mmol/L (3.5-5.1)
[2017-11-20] MEDS: DILTIAZEM HCL 60 MG TABLET PEG SCH ×3 (05:19→21:34)
[2017-11-20] MEDS: CLONIDINE HCL 0.2 MG TABLET PO SCH ×3 (05:23→21:35)
[2017-11-20] MEDS: MULTIVITAMIN TABLET PEG SCH (08:49)
[2017-11-20] MEDS: ZINC SULFATE 220 CAPSULE PEG SCH (08:49)
[2017-11-20] MEDS: ASCORBIC ACID 500 MG TAB PEG SCH ×2 (08:49→21:35)
[2017-11-20] MEDS: FAMOTIDINE 20MG TAB 20 MG TAB PEG SCH ×2 (08:49→21:34)
[2017-11-20] MEDS: NEOMY SULF/BACITRAC ZN/POLY OINT 30GM TUBE TP SCH (08:50)
[2017-11-20] MEDS: ENOXAPARIN SODIUM 40 MG/0.4 ML SYRINGE SQ SCH (08:50)
[2017-11-20] MEDS: ARTIFICAL TEARS SOL 15 ML OP SCH ×2 (08:50→21:34)
[2017-11-20] MEDS: POLYETHYLENE GLYCOL 3350 17 GM POWD.PACK PEG SCH (08:51)
[2017-11-20] MEDS: HONEY 1 APPL/ML TUBE TP SCH (08:51)
[2017-11-20] MEDS: METOPROLOL TARTRATE 50 MG TAB PEG SCH ×2 (08:59→21:34)
[2017-11-20] MEDS: PERAMPANEL 12 MG PEG SCH (09:00)
[2017-11-20] MEDS: FENTANYL 50 MCG/HR PATCH TD SCH (12:50)
[2017-11-20] MEDS: SODIUM CHLORIDE 0.9% 1000ML 1,000 ML IV SCH (12:51)
[2017-11-20] MEDS: MORPHINE SULFATE 2 MG/ML 1ML SYG IV PRN (15:57)
[2017-11-21] MEDS: VALPROATE SOD 250 MG/5 ML (PO) PEG SCH ×3 (01:03→17:15)
[2017-11-21] MEDS: SODIUM CHLORIDE 0.9% 1000ML 1,000 ML IV SCH ×3 (01:03→15:52)
[2017-11-21] MEDS: IPRATROPIUM/ALBUTEROL SULFATE 3 ML SOLUTION IH SCH ×6 (02:34→21:47)
[2017-11-21 03:49] VITALS: BP 119/54
[2017-11-21] MEDS: CLONIDINE HCL 0.2 MG TABLET PO SCH ×3 (05:26→21:10)
[2017-11-21] MEDS: DILTIAZEM HCL 60 MG TABLET PEG SCH ×3 (05:26→21:10)
[2017-11-21] MEDS: CLONAZEPAM 0.5 MG TABLET PEG SCH ×4 (05:27→22:38)
[2017-11-21] MEDS: BACLOFEN 10 MG TABLET PO SCH ×4 (05:27→22:39)
[2017-11-21] MEDS: SODIUM POLYSTYRENE SULFONATE 15 GM/60 ML ML PO SCH (05:45)
[2017-11-21 07:28] VITALS: BP 128/76
[2017-11-21] MEDS: POLYETHYLENE GLYCOL 3350 17 GM POWD.PACK PEG SCH (07:34)
[2017-11-21] MEDS: PERAMPANEL 12 MG PEG SCH (07:34)
[2017-11-21] MEDS: FAMOTIDINE 20MG TAB 20 MG TAB PEG SCH ×2 (07:54→21:09)
[2017-11-21] MEDS: ASCORBIC ACID 500 MG TAB PEG SCH ×2 (07:54→21:09)
[2017-11-21] MEDS: METOPROLOL TARTRATE 50 MG TAB PEG SCH ×2 (07:54→21:09)
[2017-11-21] MEDS: ZINC SULFATE 220 CAPSULE PEG SCH (07:54)
[2017-11-21] MEDS: MULTIVITAMIN TABLET PEG SCH (07:54)
[2017-11-21] MEDS: ENOXAPARIN SODIUM 40 MG/0.4 ML SYRINGE SQ SCH (07:55)
[2017-11-21] MEDS: HONEY 1 APPL/ML TUBE TP SCH (08:08)
[2017-11-21] MEDS: NEOMY SULF/BACITRAC ZN/POLY OINT 30GM TUBE TP SCH (08:08)
[2017-11-21] MEDS: ARTIFICAL TEARS SOL 15 ML OP SCH ×2 (08:08→21:11)
[2017-11-21 11:28] VITALS: BP 132/67
[2017-11-21 16:26] VITALS: BP 156/80
[2017-11-21 19:51] VITALS: BP 152/94
[2017-11-21] MEDS: ACETAMINOPHEN ELIXIR 650 MG/20.3 ML UDCUP PEG SCH (21:09)
[2017-11-21] MEDS: LORAZEPAM 2 MG/ML 1 ML VIAL IVP PRN (21:29)
[2017-11-21 23:35] VITALS: BP 120/66
[2017-11-22] MEDS: IPRATROPIUM/ALBUTEROL SULFATE 3 ML SOLUTION IH SCH ×5 (02:00→18:00)
[2017-11-22] MEDS: VALPROATE SOD 250 MG/5 ML (PO) PEG SCH ×3 (02:03→17:54)
[2017-11-22] MEDS: LORAZEPAM 2 MG/ML 1 ML VIAL IVP PRN ×4 (03:24→13:16)
[2017-11-22] MEDS: MORPHINE SULFATE 2 MG/ML 1ML SYG IV PRN ×3 (03:47→17:55)
[2017-11-22 04:01] VITALS: BP 100/70
[2017-11-22] MEDS: SODIUM CHLORIDE 0.9% 1000ML 1,000 ML IV SCH ×2 (05:08→20:11)
[2017-11-22] MEDS: CLONAZEPAM 0.5 MG TABLET PEG SCH ×3 (05:09→17:54)
[2017-11-22] MEDS: DILTIAZEM HCL 60 MG TABLET PEG SCH ×3 (05:09→20:02)
[2017-11-22] MEDS: BACLOFEN 10 MG TABLET PO SCH ×3 (05:10→18:04)
[2017-11-22] MEDS: CLONIDINE HCL 0.2 MG TABLET PO SCH ×3 (05:10→20:01)
[2017-11-22 05:27] LABS: HEMATOCRIT 24.9 % (36-48); MEAN CORPUSCULAR HEMOGLOBIN 30.4 pg (27.0-33.0); MEAN CORPUSCULAR HGB CONC 32.8 g/dL (32.0-36.0); MEAN CORPUSCULAR VOLUME 92.6 fL (79-99); PLATELET COUNT (AUTO) 347 K/uL (130-400); RED BLOOD CELL COUNT(AUTO) 2.68 MIL/uL (4.00-5.50); RED CELL DISTRIBUTION WIDTH 17.7 % (11.0-15.5); WHITE BLOOD COUNT (AUTO) 12.1 K/uL (4.8-10.8)
[2017-11-22 05:32] LABS: CREATININE 0.4 mg/dL (0.5-1.5); POTASSIUM 3.2 mmol/L (3.5-5.1)
[2017-11-22] MEDS: POTASSIUM CHLORIDE 20MEQ/100ML 100 ML IV PRN ×2 (06:55→19:56)
[2017-11-22 07:20] VITALS: BP 110/62
[2017-11-22] MEDS: PERAMPANEL 12 MG PEG SCH (09:00)
[2017-11-22] MEDS: ZINC SULFATE 220 CAPSULE PEG SCH (09:00)
[2017-11-22] MEDS: ASCORBIC ACID 500 MG TAB PEG SCH ×2 (10:30→20:02)
[2017-11-22] MEDS: MULTIVITAMIN TABLET PEG SCH (10:30)
[2017-11-22] MEDS: METOPROLOL TARTRATE 50 MG TAB PEG SCH ×2 (10:31→20:01)
[2017-11-22] MEDS: ENOXAPARIN SODIUM 40 MG/0.4 ML SYRINGE SQ SCH (10:31)
[2017-11-22] MEDS: FAMOTIDINE 20MG TAB 20 MG TAB PEG SCH ×2 (10:31→20:01)
[2017-11-22] MEDS: ARTIFICAL TEARS SOL 15 ML OP SCH ×2 (10:31→20:00)
[2017-11-22] MEDS: POLYETHYLENE GLYCOL 3350 17 GM POWD.PACK PEG SCH (10:31)
[2017-11-22] MEDS: HONEY 1 APPL/ML TUBE TP SCH (10:50)
[2017-11-22] MEDS: NEOMY SULF/BACITRAC ZN/POLY OINT 30GM TUBE TP SCH (10:50)
[2017-11-22] MEDS ORDERED: PHARMACY COMMUNICATION MISC SCH (11:45)
[2017-11-22 12:08] VITALS: BP 130/93
[2017-11-22 16:23] VITALS: BP 128/66
[2017-11-22] MEDS ORDERED: ZOSYN 3.375GM+NS 50ML 50 ML IV SCH (17:15)
[2017-11-22] MEDS: MEROPENEM 1 GM VIAL IVP SCH (18:11)
[2017-11-22 19:53] VITALS: BP 119/65
[2017-11-23 00:09] VITALS: BP 121/70
[2017-11-23] MEDS: IPRATROPIUM 0.5 MG/2.5 ML INH IH SCH ×4 (00:30→19:24)
[2017-11-23] MEDS: MEROPENEM 1 GM VIAL IVP SCH ×3 (01:12→18:09)
[2017-11-23] MEDS: VALPROATE SOD 250 MG/5 ML (PO) PEG SCH ×3 (01:12→18:09)
[2017-11-23 04:00] VITALS: BP 135/76
[2017-11-23 04:10] LABS: HEMATOCRIT 24.2 % (36-48); MEAN CORPUSCULAR HGB CONC 33.8 g/dL (32.0-36.0); MEAN CORPUSCULAR VOLUME 91.8 fL (79-99); PLATELET COUNT (AUTO) 210 K/uL (130-400); RED BLOOD CELL COUNT(AUTO) 2.64 MIL/uL (4.00-5.50); RED CELL DISTRIBUTION WIDTH 17.7 % (11.0-15.5); WHITE BLOOD COUNT (AUTO) 10.3 K/uL (4.8-10.8)
[2017-11-23 04:12] LABS: CREATININE 0.4 mg/dL (0.5-1.5); POTASSIUM 3.5 mmol/L (3.5-5.1)
[2017-11-23] MEDS: CLONAZEPAM 0.5 MG TABLET PEG SCH ×5 (05:06→23:27)
[2017-11-23] MEDS: BACLOFEN 10 MG TABLET PO SCH ×5 (05:06→23:27)
[2017-11-23] MEDS: DILTIAZEM HCL 60 MG TABLET PEG SCH ×3 (05:06→21:01)
[2017-11-23] MEDS: CLONIDINE HCL 0.2 MG TABLET PO SCH ×3 (05:08→21:02)
[2017-11-23] MEDS: POTASSIUM CHLORIDE 20MEQ/100ML 100 ML IV PRN (05:17)
[2017-11-23 07:00] VITALS: BP 120/65
[2017-11-23] MEDS: POLYETHYLENE GLYCOL 3350 17 GM POWD.PACK PEG SCH (08:20)
[2017-11-23] MEDS: ASCORBIC ACID 500 MG TAB PEG SCH ×2 (08:20→21:02)
[2017-11-23] MEDS: FAMOTIDINE 20MG TAB 20 MG TAB PEG SCH ×2 (08:20→21:01)
[2017-11-23] MEDS: MULTIVITAMIN TABLET PEG SCH (08:20)
[2017-11-23] MEDS: METOPROLOL TARTRATE 50 MG TAB PEG SCH ×2 (08:20→21:02)
[2017-11-23] MEDS: ENOXAPARIN SODIUM 40 MG/0.4 ML SYRINGE SQ SCH (08:21)
[2017-11-23] MEDS: HONEY 1 APPL/ML TUBE TP SCH (08:22)
[2017-11-23] MEDS: MORPHINE SULFATE 2 MG/ML 1ML SYG IV PRN ×2 (08:22→17:08)
[2017-11-23] MEDS: ZINC SULFATE 220 CAPSULE PEG SCH (08:22)
[2017-11-23] MEDS: PERAMPANEL 12 MG PEG SCH (08:22)
[2017-11-23] MEDS: ARTIFICAL TEARS SOL 15 ML OP SCH ×2 (08:22→21:03)
[2017-11-23] MEDS: NEOMY SULF/BACITRAC ZN/POLY OINT 30GM TUBE TP SCH (08:23)
[2017-11-23 11:00] VITALS: BP 122/61
[2017-11-23] MEDS: FENTANYL 50 MCG/HR PATCH TD SCH (11:31)
[2017-11-23] MEDS: SODIUM CHLORIDE 0.9% 1000ML 1,000 ML IV SCH (11:32)
[2017-11-23 16:00] VITALS: BP 125/70
[2017-11-23 19:47] VITALS: BP 130/72
[2017-11-24] VITALS (7 sets, daily range): BP systolic 103–158; BP diastolic 64–78
[2017-11-24] MEDS: IPRATROPIUM 0.5 MG/2.5 ML INH IH SCH ×4 (01:14→19:11)
[2017-11-24] MEDS: VALPROATE SOD 250 MG/5 ML (PO) PEG SCH ×3 (02:25→18:11)
[2017-11-24] MEDS: MEROPENEM 1 GM VIAL IVP SCH ×3 (02:25→18:08)
[2017-11-24] MEDS: SODIUM CHLORIDE 0.9% 1000ML 1,000 ML IV SCH ×2 (02:25→18:11)
[2017-11-24] MEDS: DILTIAZEM HCL 60 MG TABLET PEG SCH ×3 (05:19→22:37)
[2017-11-24] MEDS: BACLOFEN 10 MG TABLET PO SCH ×3 (05:20→18:09)
[2017-11-24] MEDS: CLONAZEPAM 0.5 MG TABLET PEG SCH ×4 (05:20→23:46)
[2017-11-24] MEDS: CLONIDINE HCL 0.2 MG TABLET PO SCH ×2 (05:23→14:00)
[2017-11-24] MEDS: MORPHINE SULFATE 2 MG/ML 1ML SYG IV PRN (05:40)
[2017-11-24 05:54] LABS: HEMATOCRIT 26.1 % (36-48); MEAN CORPUSCULAR HGB CONC 33.7 g/dL (32.0-36.0); PLATELET COUNT (AUTO) 344 K/uL (130-400); RED BLOOD CELL COUNT(AUTO) 2.84 MIL/uL (4.00-5.50); RED CELL DISTRIBUTION WIDTH 17.1 % (11.0-15.5); WHITE BLOOD COUNT (AUTO) 6.7 K/uL (4.8-10.8)
[2017-11-24 06:01] LABS: CREATININE 0.4 mg/dL (0.5-1.5); POTASSIUM 3.8 mmol/L (3.5-5.1)
[2017-11-24] MEDS: POTASSIUM CHLORIDE 20MEQ/100ML 100 ML IV PRN (06:08)
[2017-11-24] MEDS: LORAZEPAM 2 MG/ML 1 ML VIAL IVP PRN ×2 (06:20→18:08)
[2017-11-24] MEDS: ASCORBIC ACID 500 MG TAB PEG SCH ×2 (11:35→22:37)
[2017-11-24] MEDS: FAMOTIDINE 20MG TAB 20 MG TAB PEG SCH ×2 (11:36→22:37)
[2017-11-24] MEDS: ZINC SULFATE 220 CAPSULE PEG SCH (11:36)
[2017-11-24] MEDS: MULTIVITAMIN TABLET PEG SCH (11:37)
[2017-11-24] MEDS: METOPROLOL TARTRATE 50 MG TAB PEG SCH ×2 (11:37→22:37)
[2017-11-24] MEDS: ENOXAPARIN SODIUM 40 MG/0.4 ML SYRINGE SQ SCH (11:37)
[2017-11-24] MEDS: PERAMPANEL 12 MG PEG SCH (11:38)
[2017-11-24] MEDS: POLYETHYLENE GLYCOL 3350 17 GM POWD.PACK PEG SCH (11:44)
[2017-11-24] MEDS: HONEY 1 APPL/ML TUBE TP SCH (12:01)
[2017-11-24] MEDS: ARTIFICAL TEARS SOL 15 ML OP SCH ×2 (12:01→21:00)
[2017-11-24] MEDS: NEOMY SULF/BACITRAC ZN/POLY OINT 30GM TUBE TP SCH (12:01)
[2017-11-24] MEDS ORDERED: ACETAMINOPHEN EXTRA STRENGTH 500 MG TABLET ONE (23:36)
[2017-11-25] MEDS: BACLOFEN 10 MG TABLET PO SCH ×5 (00:12→23:28)
[2017-11-25] MEDS: IPRATROPIUM 0.5 MG/2.5 ML INH IH SCH ×4 (00:23→19:47)
[2017-11-25] MEDS: CLONIDINE HCL 0.2 MG TABLET PO SCH ×4 (01:13→22:06)
[2017-11-25] MEDS: VALPROATE SOD 250 MG/5 ML (PO) PEG SCH ×3 (03:03→18:00)
[2017-11-25] MEDS: MEROPENEM 1 GM VIAL IVP SCH ×3 (03:03→18:00)
[2017-11-25 03:48] VITALS: BP 116/73
[2017-11-25] MEDS: LORAZEPAM 2 MG/ML 1 ML VIAL IVP PRN ×4 (04:01→16:18)
[2017-11-25] MEDS ORDERED: ACETAMINOPHEN EXTRA STRENGTH 500 MG TABLET ONE (04:09)
[2017-11-25] MEDS: DILTIAZEM HCL 60 MG TABLET PEG SCH ×3 (05:00→22:07)
[2017-11-25] MEDS: CLONAZEPAM 0.5 MG TABLET PEG SCH ×4 (06:00→23:28)
[2017-11-25] MEDS: SODIUM CHLORIDE 0.9% 1000ML 1,000 ML IV SCH ×2 (07:12→23:33)
[2017-11-25 07:40] VITALS: BP 141/94
[2017-11-25] MEDS: ARTIFICAL TEARS SOL 15 ML OP SCH ×2 (09:00→23:08)
[2017-11-25] MEDS: HONEY 1 APPL/ML TUBE TP SCH ×2 (09:00→23:13)
[2017-11-25] MEDS: NEOMY SULF/BACITRAC ZN/POLY OINT 30GM TUBE TP SCH (09:00)
[2017-11-25] MEDS: MORPHINE SULFATE 2 MG/ML 1ML SYG IV PRN ×3 (09:49→21:36)
[2017-11-25] MEDS: MULTIVITAMIN TABLET PEG SCH (09:59)
[2017-11-25] MEDS: PERAMPANEL 12 MG PEG SCH (09:59)
[2017-11-25] MEDS: ENOXAPARIN SODIUM 40 MG/0.4 ML SYRINGE SQ SCH (10:00)
[2017-11-25] MEDS: FAMOTIDINE 20MG TAB 20 MG TAB PEG SCH ×2 (10:00→22:06)
[2017-11-25] MEDS: POLYETHYLENE GLYCOL 3350 17 GM POWD.PACK PEG SCH (10:00)
[2017-11-25] MEDS: ASCORBIC ACID 500 MG TAB PEG SCH ×2 (10:01→21:59)
[2017-11-25] MEDS: METOPROLOL TARTRATE 50 MG TAB PEG SCH ×2 (10:01→22:06)
[2017-11-25] MEDS: ZINC SULFATE 220 CAPSULE PEG SCH (10:02)
[2017-11-25 11:29] VITALS: BP 121/70
[2017-11-25] MEDS ORDERED: PHARMACY COMMUNICATION MISC SCH (12:45)
[2017-11-25 16:27] VITALS: BP 124/59
[2017-11-25] MEDS: ZYVOX 600 MG TAB PO SCH (18:00)
[2017-11-25 20:06] VITALS: BP 143/96
[2017-11-25] MEDS: ACETAMINOPHEN ELIXIR 650 MG/20.3 ML UDCUP PEG SCH (21:59)
[2017-11-25 23:41] VITALS: BP 156/59
[2017-11-26] MEDS: IPRATROPIUM 0.5 MG/2.5 ML INH IH SCH ×4 (00:37→18:42)
[2017-11-26] MEDS: MEROPENEM 1 GM VIAL IVP SCH ×3 (02:49→18:22)
[2017-11-26] MEDS: VALPROATE SOD 250 MG/5 ML (PO) PEG SCH ×3 (02:50→18:22)
[2017-11-26] MEDS: ZYVOX 600 MG TAB PO SCH ×2 (02:50→13:11)
[2017-11-26 02:55] VITALS: BP 128/70
[2017-11-26 03:50] LABS: HEMATOCRIT 27.3 % (36-48); MEAN CORPUSCULAR HEMOGLOBIN 31.5 pg (27.0-33.0); MEAN CORPUSCULAR HGB CONC 34.8 g/dL (32.0-36.0); MEAN CORPUSCULAR VOLUME 90.5 fL (79-99); PLATELET COUNT (AUTO) 390 K/uL (130-400); RED BLOOD CELL COUNT(AUTO) 3.01 MIL/uL (4.00-5.50); RED CELL DISTRIBUTION WIDTH 16.8 % (11.0-15.5)
[2017-11-26 03:58] LABS: CREATININE 0.5 mg/dL (0.5-1.5); POTASSIUM 3.4 mmol/L (3.5-5.1)
[2017-11-26] MEDS: CLONIDINE HCL 0.2 MG TABLET PO SCH ×3 (06:20→22:00)
[2017-11-26] MEDS: BACLOFEN 10 MG TABLET PO SCH ×4 (06:20→23:55)
[2017-11-26] MEDS: CLONAZEPAM 0.5 MG TABLET PEG SCH ×4 (06:20→23:55)
[2017-11-26] MEDS: DILTIAZEM HCL 60 MG TABLET PEG SCH ×3 (06:21→22:11)
[2017-11-26 07:15] VITALS: BP 166/97
[2017-11-26] MEDS: MORPHINE SULFATE 2 MG/ML 1ML SYG IV PRN (07:58)
[2017-11-26] MEDS: NEOMY SULF/BACITRAC ZN/POLY OINT 30GM TUBE TP SCH (09:00)
[2017-11-26 11:30] VITALS: BP 156/97
[2017-11-26] MEDS: MULTIVITAMIN TABLET PEG SCH (13:09)
[2017-11-26] MEDS: POLYETHYLENE GLYCOL 3350 17 GM POWD.PACK PEG SCH (13:09)
[2017-11-26] MEDS: METOPROLOL TARTRATE 50 MG TAB PEG SCH ×2 (13:09→22:10)
[2017-11-26] MEDS: ENOXAPARIN SODIUM 40 MG/0.4 ML SYRINGE SQ SCH (13:10)
[2017-11-26] MEDS: FLUCONAZOLE 200 MG/NS 100 ML 100 ML IV SCH (13:11)
[2017-11-26] MEDS: ASCORBIC ACID 500 MG TAB PEG SCH ×2 (13:12→22:10)
[2017-11-26] MEDS: FAMOTIDINE 20MG TAB 20 MG TAB PEG SCH ×2 (13:12→22:11)
[2017-11-26] MEDS: PERAMPANEL 12 MG PEG SCH (13:12)
[2017-11-26] MEDS: FENTANYL 50 MCG/HR PATCH TD SCH (13:12)
[2017-11-26] MEDS: ZINC SULFATE 220 CAPSULE PEG SCH (13:14)
[2017-11-26 16:16] VITALS: BP 153/68
[2017-11-26 19:35] VITALS: BP 109/76
[2017-11-26] MEDS: ARTIFICAL TEARS SOL 15 ML OP SCH (21:00)
[2017-11-26] MEDS: SODIUM CHLORIDE 0.9% 1000ML 1,000 ML IV SCH (22:08)
[2017-11-26 23:25] VITALS: BP 100/72
[2017-11-27] MEDS: IPRATROPIUM 0.5 MG/2.5 ML INH IH SCH ×5 (00:05→23:25)
[2017-11-27] MEDS: SODIUM CHLORIDE 0.9% 1000ML 1,000 ML IV SCH ×2 (02:06→12:33)
[2017-11-27] MEDS: MEROPENEM 1 GM VIAL IVP SCH ×3 (02:28→17:23)
[2017-11-27] MEDS: VALPROATE SOD 250 MG/5 ML (PO) PEG SCH ×3 (02:32→17:23)
[2017-11-27] MEDS: ZYVOX 600 MG TAB PO SCH ×2 (02:32→14:19)
[2017-11-27 03:33] VITALS: BP 118/76
[2017-11-27 04:51] LABS: ABG BASE EXCESS 1.1 mmol/L (-2.0-3.0); ABG HCO3 26.1 mmol/L (21.0-28.0); ABG OXYGEN SATURATION 96.9 % (95.0-99.0); ABG PCO2 43 mmHg (32-45)
[2017-11-27 04:56] LABS: MEAN CORPUSCULAR HEMOGLOBIN 31.3 pg (27.0-33.0); MEAN CORPUSCULAR HGB CONC 33.9 g/dL (32.0-36.0); MEAN CORPUSCULAR VOLUME 92.4 fL (79-99); PLATELET COUNT (AUTO) 367 K/uL (130-400); RED BLOOD CELL COUNT(AUTO) 3.24 MIL/uL (4.00-5.50); RED CELL DISTRIBUTION WIDTH 16.9 % (11.0-15.5); WHITE BLOOD COUNT (AUTO) 6.7 K/uL (4.8-10.8)
[2017-11-27 05:02] LABS: CREATININE 0.4 mg/dL (0.5-1.5); POTASSIUM 3.6 mmol/L (3.5-5.1)
[2017-11-27] MEDS: BACLOFEN 10 MG TABLET PO SCH ×3 (06:00→17:23)
[2017-11-27] MEDS: LORAZEPAM 2 MG/ML 1 ML VIAL IM PRN ×2 (06:30→21:57)
[2017-11-27] MEDS: DILTIAZEM HCL 60 MG TABLET PEG SCH ×3 (06:39→21:00)
[2017-11-27] MEDS: CLONAZEPAM 0.5 MG TABLET PEG SCH ×3 (06:39→17:23)
[2017-11-27] MEDS: CLONIDINE HCL 0.2 MG TABLET PO SCH ×3 (06:40→21:41)
[2017-11-27 07:00] VITALS: BP 110/83
[2017-11-27] MEDS: ZINC SULFATE 220 CAPSULE PEG SCH (09:00)
[2017-11-27] MEDS: POLYETHYLENE GLYCOL 3350 17 GM POWD.PACK PEG SCH (09:00)
[2017-11-27] MEDS: FAMOTIDINE 20MG TAB 20 MG TAB PEG SCH ×2 (09:00→21:40)
[2017-11-27] MEDS: MULTIVITAMIN TABLET PEG SCH (09:00)
[2017-11-27] MEDS: PERAMPANEL 12 MG PEG SCH (09:00)
[2017-11-27] MEDS: METOPROLOL TARTRATE 50 MG TAB PEG SCH ×2 (09:00→21:00)
[2017-11-27] MEDS: ASCORBIC ACID 500 MG TAB PEG SCH ×2 (09:02→21:39)
[2017-11-27] MEDS: ENOXAPARIN SODIUM 40 MG/0.4 ML SYRINGE SQ SCH (09:02)
[2017-11-27] MEDS: HONEY 1 APPL/ML TUBE TP SCH (09:03)
[2017-11-27] MEDS: ARTIFICAL TEARS SOL 15 ML OP SCH ×2 (09:04→21:57)
[2017-11-27] MEDS: NEOMY SULF/BACITRAC ZN/POLY OINT 30GM TUBE TP SCH (09:04)
[2017-11-27 11:44] VITALS: BP 106/65
[2017-11-27] MEDS: FLUCONAZOLE 200 MG/NS 100 ML 100 ML IV SCH (12:17)
[2017-11-27 16:32] VITALS: BP 89/53
[2017-11-27] MEDS ORDERED: PHARMACY COMMUNICATION MISC SCH (17:00)
[2017-11-27] MEDS ORDERED: COMPOUND IV MISC 1 EACH IVSOLN MISC PRN (19:15)
[2017-11-27 20:00] VITALS: BP 91/61
[2017-11-27] MEDS: DAPTOMYCIN IV SCH (21:45)
[2017-11-27] MEDS: SODIUM CHLORIDE 0.9% IV SCH (21:45)
[2017-11-28] MEDS: CLONAZEPAM 0.5 MG TABLET PEG SCH ×4 (00:20→18:00)
[2017-11-28] MEDS: MEROPENEM 1 GM VIAL IVP SCH ×3 (01:53→18:00)
[2017-11-28] MEDS: VALPROATE SOD 250 MG/5 ML (PO) PEG SCH ×3 (01:54→18:47)
[2017-11-28 04:00] VITALS: BP 113/69
[2017-11-28] MEDS: DILTIAZEM HCL 60 MG TABLET PEG SCH ×3 (05:00→21:00)
[2017-11-28] MEDS: LORAZEPAM 2 MG/ML 1 ML VIAL IM PRN ×7 (05:25→22:14)
[2017-11-28] MEDS: CLONIDINE HCL 0.2 MG TABLET PO SCH ×2 (06:00→14:00)
[2017-11-28] MEDS: IPRATROPIUM 0.5 MG/2.5 ML INH IH SCH ×3 (06:05→18:34)
[2017-11-28] MEDS: BACLOFEN 10 MG TABLET PO SCH ×4 (07:01→18:46)
[2017-11-28] MEDS: ZINC SULFATE 220 CAPSULE PEG SCH (09:00)
[2017-11-28] MEDS: METOPROLOL TARTRATE 50 MG TAB PEG SCH ×2 (09:00→22:15)
[2017-11-28] MEDS: FAMOTIDINE 20MG TAB 20 MG TAB PEG SCH ×2 (09:00→22:16)
[2017-11-28] MEDS: PERAMPANEL 12 MG PEG SCH (09:00)
[2017-11-28] MEDS: POLYETHYLENE GLYCOL 3350 17 GM POWD.PACK PEG SCH (09:00)
[2017-11-28] MEDS: ASCORBIC ACID 500 MG TAB PEG SCH ×2 (09:00→22:16)
[2017-11-28] MEDS: MULTIVITAMIN TABLET PEG SCH (09:00)
[2017-11-28] MEDS: ARTIFICAL TEARS SOL 15 ML OP SCH ×2 (09:01→22:17)
[2017-11-28] MEDS: ENOXAPARIN SODIUM 40 MG/0.4 ML SYRINGE SQ SCH (09:02)
[2017-11-28 09:30] VITALS: BP 128/76
[2017-11-28] MEDS: HONEY 1 APPL/ML TUBE TP SCH (10:01)
[2017-11-28] MEDS: NEOMY SULF/BACITRAC ZN/POLY OINT 30GM TUBE TP SCH (10:02)
[2017-11-28] MEDS: FLUCONAZOLE 200 MG/NS 100 ML 100 ML IV SCH (12:15)
[2017-11-28] MEDS ORDERED: OLANZAPINE ODT 5 MG TAB PO SCH (12:30)
[2017-11-28] MEDS ORDERED: OLANZAPINE ODT 5 MG TAB PEG SCH (12:30)
[2017-11-28 16:27] VITALS: BP 114/44
[2017-11-28] MEDS: MORPHINE SULFATE 2 MG/ML 1ML SYG IVP PRN ×2 (16:27→20:45)
[2017-11-28 19:45] VITALS: BP 125/74
[2017-11-28] MEDS: SODIUM CHLORIDE 0.9% IV SCH (20:00)
[2017-11-28] MEDS: DAPTOMYCIN IV SCH (20:00)
[2017-11-28] MEDS: ZOLPIDEM TARTRATE 5 MG TAB PEG PRN (23:30)
[2017-11-29] VITALS (7 sets, daily range): BP systolic 111–185; BP diastolic 77–107
[2017-11-29] MEDS: IPRATROPIUM 0.5 MG/2.5 ML INH IH SCH ×4 (00:18→18:15)
[2017-11-29] MEDS: BACLOFEN 10 MG TABLET PO SCH ×4 (00:40→18:00)
[2017-11-29] MEDS: CLONAZEPAM 0.5 MG TABLET PEG SCH ×4 (00:42→18:00)
[2017-11-29] MEDS ORDERED: ALPRAZOLAM 0.25 MG TABLET PEG ONE (00:45)
[2017-11-29] MEDS: LORAZEPAM 2 MG/ML 1 ML VIAL IM PRN ×4 (01:52→11:37)
[2017-11-29] MEDS: VALPROATE SOD 250 MG/5 ML (PO) PEG SCH ×3 (02:00→18:00)
[2017-11-29] MEDS: MEROPENEM 1 GM VIAL IVP SCH ×3 (02:00→18:00)
[2017-11-29] MEDS: MORPHINE SULFATE 2 MG/ML 1ML SYG IVP PRN ×2 (03:51→09:18)
[2017-11-29 05:17] LABS: CREATININE 0.8 mg/dL (0.5-1.5); POTASSIUM 3.9 mmol/L (3.5-5.1)
[2017-11-29 05:23] LABS: HEMATOCRIT 31.4 % (36-48); MEAN CORPUSCULAR HEMOGLOBIN 31.1 pg (27.0-33.0); MEAN CORPUSCULAR VOLUME 91.4 fL (79-99); NUCLEATED RED BLOOD CELLS 0.1 % (0.0-0.19); PLATELET COUNT (AUTO) 535 K/uL (130-400); RED BLOOD CELL COUNT(AUTO) 3.44 MIL/uL (4.00-5.50)
[2017-11-29] MEDS: CLONIDINE HCL 0.2 MG TABLET PO SCH ×3 (05:48→23:09)
[2017-11-29] MEDS: DILTIAZEM HCL 60 MG TABLET PEG SCH ×3 (05:51→22:47)
[2017-11-29 06:16] LABS: INR 1.11 (0.85-1.15); PARTIAL THROMBOPLASTIN TIME 22.1 SEC (26.3-35.5); PROTHROMBIN TIME 11.6 SEC (9.6-11.6)
[2017-11-29 07:50] LABS: BASOPHILS % (MANUAL) 1 % (0-2); LYMPHOCYTES % (MANUAL) 4 % (22-44); MAN.DIFF COMMENT-IMPRESSION MANUAL DIFFERENTIAL; MONOCYTES % (MANUAL) 5 % (2-9); SEGMENTED NEUTROPHILS % 90 % (40-70)
[2017-11-29 07:51] LABS: PLATELET MORPHOLOGY COMMENT MARKED INCREASED
[2017-11-29] MEDS: ARTIFICAL TEARS SOL 15 ML OP SCH ×2 (09:00→22:43)
[2017-11-29] MEDS: ENOXAPARIN SODIUM 40 MG/0.4 ML SYRINGE SQ SCH (09:00)
[2017-11-29] MEDS: ZINC SULFATE 220 CAPSULE PEG SCH (09:00)
[2017-11-29] MEDS: HONEY 1 APPL/ML TUBE TP SCH (09:00)
[2017-11-29] MEDS: NEOMY SULF/BACITRAC ZN/POLY OINT 30GM TUBE TP SCH (09:00)
[2017-11-29] MEDS: ACETAMINOPHEN ELIXIR 650 MG/20.3 ML UDCUP PEG SCH (09:16)
[2017-11-29] MEDS: SODIUM CHLORIDE 0.9% 1000ML 1,000 ML IV SCH (11:18)
[2017-11-29] MEDS: ASCORBIC ACID 500 MG TAB PEG SCH ×2 (11:35→22:55)
[2017-11-29] MEDS: METOPROLOL TARTRATE 50 MG TAB PEG SCH ×2 (11:35→22:52)
[2017-11-29] MEDS: MULTIVITAMIN TABLET PEG SCH (11:35)
[2017-11-29] MEDS: FAMOTIDINE 20MG TAB 20 MG TAB PEG SCH ×2 (11:36→22:55)
[2017-11-29] MEDS: FLUCONAZOLE 200 MG/NS 100 ML 100 ML IV SCH (11:37)
[2017-11-29] MEDS: FENTANYL 50 MCG/HR PATCH TD SCH (11:37)
[2017-11-29] MEDS: PERAMPANEL 12 MG PEG SCH (11:41)
[2017-11-29] MEDS: POLYETHYLENE GLYCOL 3350 17 GM POWD.PACK PEG SCH (11:41)
[2017-11-29] MEDS: LACTATED RINGERS 1000ML 1,000 ML IV SCH ×2 (15:30→23:21)
[2017-11-29 19:59] LABS: SODIUM,URINE RANDOM 44 mmol/l (40-220)
[2017-11-29 20:12] LABS: BILIRUBIN,URINE NEGATIVE (NEGATIVE); COLOR,URINE YELLOW (YELLOW); GLUCOSE, URINE (UA) NEGATIVE (NEGATIVE); KETONES,URINE 15 mg/dL (NEGATIVE); LEUKOCYTE ESTERASE ,URINE NEGATIVE (NEGATIVE); NITRATE,URINE NEGATIVE (NEGATIVE); OCCULT BLOOD,URINE TRACE-INTACT (NEGATIVE); PROTEIN,URINE 100 (NEGATIVE); UROBILINOGEN,URINE 0.2 mg/dL (0.2-1.0)
[2017-11-29 20:24] LABS: APPEARANCE,URINE HAZY (CLEAR)
[2017-11-29 20:25] LABS: BACTERIA,URINE Few /HPF (None Seen); RBC,URINE None Seen /HPF (0-1)
[2017-11-29 20:26] LABS: CALCIUM OXALATE CRYSTALS,UR Rare /LPF (None Seen); MUCUS,URINE Many LPF (None Seen); TRANSITIONAL EPI CELLS,URINE Few /LPF (None Seen)
[2017-11-29] MEDS: SODIUM CHLORIDE 0.9% IV SCH (22:42)
[2017-11-29] MEDS: DAPTOMYCIN IV SCH (22:42)
[2017-11-30] VITALS (8 sets, daily range): BP systolic 90–129; BP diastolic 47–80
[2017-11-30] MEDS: IPRATROPIUM 0.5 MG/2.5 ML INH IH SCH ×5 (00:10→23:51)
[2017-11-30] MEDS: CLONAZEPAM 0.5 MG TABLET PEG SCH ×5 (00:14→23:25)
[2017-11-30] MEDS: BACLOFEN 10 MG TABLET PO SCH ×3 (00:14→12:12)
[2017-11-30] MEDS: VALPROATE SOD 250 MG/5 ML (PO) PEG SCH ×3 (01:58→18:27)
[2017-11-30] MEDS: MEROPENEM 1 GM VIAL IVP SCH ×3 (01:58→18:27)
[2017-11-30 04:34] LABS: ABG BASE EXCESS 3.6 mmol/L (-2.0-3.0); ABG PCO2 37 mmHg (32-45)
[2017-11-30] MEDS: DILTIAZEM HCL 60 MG TABLET PEG SCH ×2 (05:00→13:00)
[2017-11-30] MEDS: LACTATED RINGERS 1000ML 1,000 ML IV SCH ×3 (05:03→23:01)
[2017-11-30] MEDS: CLONIDINE HCL 0.2 MG TABLET PO SCH ×2 (06:00→13:35)
[2017-11-30 07:09] LABS: HEMATOCRIT 26.7 % (36-48); MEAN CORPUSCULAR HGB CONC 33.6 g/dL (32.0-36.0); MEAN CORPUSCULAR VOLUME 92.1 fL (79-99); PLATELET COUNT (AUTO) 346 K/uL (130-400); RED CELL DISTRIBUTION WIDTH 16.8 % (11.0-15.5); WHITE BLOOD COUNT (AUTO) 7.8 K/uL (4.8-10.8)
[2017-11-30 07:32] LABS: ALANINE AMINOTRANSFERASE 36 U/L (12-78); ALBUMIN 2.6 g/dL (3.5-5.0); ASPARTATE AMINOTRANSFERASE 27 U/L (10-37); BILIRUBIN,TOTAL 0.2 mg/dL (0.2-1.0); CARBON DIOXIDE 32 mmol/L (21-32); CHLORIDE 111 mmol/L (101-111); CREATINE KINASE MB 2.2 ng/mL (0.5-3.6); CREATINE KINASE, TOTAL 228 U/L (21-232); CREATININE 0.4 mg/dL (0.5-1.5); GLOMERULAR FILTR. RATE CALC 207 mL/min (>60); GLUCOSE,RANDOM 123 mg/dL (70-105); MYOGLOBIN 45 ng/mL (10-92); PHOSPHORUS 3.4 mg/dL (2.5-4.9); POTASSIUM 3.4 mmol/L (3.5-5.1); SODIUM SERUM 147 mmol/L (136-145); TOTAL PROTEIN, SERUM 7.1 g/dL (6.0-8.3); TROPONIN I < 0.04 ng/mL (0.00-0.06); UREA NITROGEN, BLOOD 23 mg/dL (7-18)
[2017-11-30 07:49] LABS: LYMPHOCYTES % (MANUAL) 43 % (22-44); MAN.DIFF COMMENT-IMPRESSION MANUAL DIFFERENTIAL; MONOCYTES % (MANUAL) 9 % (2-9); PLATELET MORPHOLOGY COMMENT ADEQUATE; SEGMENTED NEUTROPHILS % 48 % (40-70)
[2017-11-30] MEDS: HONEY 1 APPL/ML TUBE TP SCH (09:00)
[2017-11-30] MEDS: NEOMY SULF/BACITRAC ZN/POLY OINT 30GM TUBE TP SCH (09:00)
[2017-11-30] MEDS: ZINC SULFATE 220 CAPSULE PEG SCH (09:00)
[2017-11-30] MEDS: ARTIFICAL TEARS SOL 15 ML OP SCH ×2 (09:00→22:44)
[2017-11-30] MEDS: FAMOTIDINE 20MG TAB 20 MG TAB PEG SCH ×2 (12:12→22:34)
[2017-11-30] MEDS: ASCORBIC ACID 500 MG TAB PEG SCH ×2 (12:13→22:34)
[2017-11-30] MEDS: MULTIVITAMIN TABLET PEG SCH (12:13)
[2017-11-30] MEDS: METOPROLOL TARTRATE 50 MG TAB PEG SCH (12:13)
[2017-11-30] MEDS: ACETAMINOPHEN ELIXIR 650 MG/20.3 ML UDCUP PEG SCH (12:14)
[2017-11-30] MEDS: ENOXAPARIN SODIUM 40 MG/0.4 ML SYRINGE SQ SCH (12:15)
[2017-11-30] MEDS: FLUCONAZOLE 200 MG/NS 100 ML 100 ML IV SCH (12:15)
[2017-11-30] MEDS: POLYETHYLENE GLYCOL 3350 17 GM POWD.PACK PEG SCH (12:16)
[2017-11-30] MEDS: PERAMPANEL 12 MG PEG SCH (12:16)
[2017-11-30] MEDS: GLUCAGON 1MG KIT 1 MG ML SQ SCH (18:26)
[2017-11-30] MEDS: LEVOFLOXACIN 750 MG/D5W 150 ML 150 ML IV SCH (18:28)
[2017-11-30] MEDS: POTASSIUM CHLORIDE 10% ELIXIR 20 MEQ/15 ML UDCUP PO PRN ×2 (18:30→18:31)
[2017-11-30] MEDS: SODIUM CHLORIDE 0.9% IV SCH (22:34)
[2017-11-30] MEDS: DAPTOMYCIN IV SCH (22:34)
[2017-12-01] MEDS: MEROPENEM 1 GM VIAL IVP SCH ×3 (02:06→17:19)
[2017-12-01] MEDS: VALPROATE SOD 250 MG/5 ML (PO) PEG SCH ×3 (02:06→17:24)
[2017-12-01] MEDS: MORPHINE SULFATE 2 MG/ML 1ML SYG IVP PRN ×4 (02:19→18:17)
[2017-12-01] MEDS: LORAZEPAM 2 MG/ML 1 ML VIAL IM PRN ×4 (03:41→20:07)
[2017-12-01 03:51] VITALS: BP 119/74
[2017-12-01 03:57] LABS: HEMATOCRIT 28.9 % (36-48); MEAN CORPUSCULAR HEMOGLOBIN 29.9 pg (27.0-33.0); MEAN CORPUSCULAR HGB CONC 32.6 g/dL (32.0-36.0); MEAN CORPUSCULAR VOLUME 91.8 fL (79-99); PLATELET COUNT (AUTO) 367 K/uL (130-400); RED BLOOD CELL COUNT(AUTO) 3.15 MIL/uL (4.00-5.50); RED CELL DISTRIBUTION WIDTH 16.7 % (11.0-15.5); WHITE BLOOD COUNT (AUTO) 12.1 K/uL (4.8-10.8)
[2017-12-01 04:14] LABS: CREATININE 0.4 mg/dL (0.5-1.5); MAGNESIUM 1.7 mg/dL (1.80-2.40); POTASSIUM 4.3 mmol/L (3.5-5.1)
[2017-12-01 04:17] LABS: LYMPHOCYTES % (MANUAL) 20 % (22-44); MONOCYTES % (MANUAL) 3 % (2-9); SEGMENTED NEUTROPHILS % 77 % (40-70)
[2017-12-01 04:18] LABS: MAN.DIFF COMMENT-IMPRESSION MANUAL DIFFERENTIAL
[2017-12-01] MEDS: LACTATED RINGERS 1000ML 1,000 ML IV SCH ×2 (05:32→15:43)
[2017-12-01] MEDS: CLONAZEPAM 0.5 MG TABLET PEG SCH ×3 (05:52→17:24)
[2017-12-01] MEDS: IPRATROPIUM 0.5 MG/2.5 ML INH IH SCH ×4 (06:55→23:25)
[2017-12-01 07:24] VITALS: BP 88/75
[2017-12-01] MEDS: ENOXAPARIN SODIUM 40 MG/0.4 ML SYRINGE SQ SCH (08:10)
[2017-12-01] MEDS: POLYETHYLENE GLYCOL 3350 17 GM POWD.PACK PEG SCH (08:10)
[2017-12-01] MEDS: ASCORBIC ACID 500 MG TAB PEG SCH ×2 (08:11→20:06)
[2017-12-01] MEDS: MULTIVITAMIN TABLET PEG SCH (08:11)
[2017-12-01] MEDS: LEVOFLOXACIN 750 MG/D5W 150 ML 150 ML IV SCH (08:11)
[2017-12-01] MEDS: FAMOTIDINE 20MG TAB 20 MG TAB PEG SCH ×2 (08:11→20:06)
[2017-12-01] MEDS: ZINC SULFATE 220 CAPSULE PEG SCH (08:11)
[2017-12-01] MEDS: PERAMPANEL 12 MG PEG SCH (08:11)
[2017-12-01] MEDS: NEOMY SULF/BACITRAC ZN/POLY OINT 30GM TUBE TP SCH (08:12)
[2017-12-01] MEDS: HONEY 1 APPL/ML TUBE TP SCH (08:12)
[2017-12-01] MEDS: ARTIFICAL TEARS SOL 15 ML OP SCH ×2 (08:12→20:09)
[2017-12-01] MEDS ORDERED: MAGNESIUM SULFATE 1 GM in SODIUM CHLORIDE 0.9% 50 ML IV SCH (10:30)
[2017-12-01] MEDS: MAGNESIUM 2GM PREMIX 50ML 50 ML IV PRN (10:33)
[2017-12-01] MEDS: FLUCONAZOLE 200 MG/NS 100 ML 100 ML IV SCH (11:11)
[2017-12-01 11:21] VITALS: BP 139/65
[2017-12-01 16:04] VITALS: BP 139/56
[2017-12-01] MEDS: PROPRANOLOL HCL 10 MG TAB PO SCH (17:40)
[2017-12-01] MEDS: GLUCAGON 1MG KIT 1 MG ML SQ SCH (18:15)
[2017-12-01 19:20] VITALS: BP 156/69
[2017-12-01] MEDS: SODIUM CHLORIDE 0.9% IV SCH (21:37)
[2017-12-01] MEDS: DAPTOMYCIN IV SCH (21:37)
[2017-12-01 23:17] VITALS: BP 159/78
[2017-12-02] MEDS: LACTATED RINGERS 1000ML 1,000 ML IV SCH ×2 (00:38→07:29)
[2017-12-02] MEDS: CLONAZEPAM 0.5 MG TABLET PEG SCH ×4 (00:39→16:58)
[2017-12-02] MEDS: MEROPENEM 1 GM VIAL IVP SCH ×3 (02:25→22:10)
[2017-12-02] MEDS: VALPROATE SOD 250 MG/5 ML (PO) PEG SCH ×3 (02:25→16:58)
[2017-12-02] MEDS: PROPRANOLOL HCL 10 MG TAB PO SCH ×2 (02:26→16:57)
[2017-12-02 03:27] VITALS: BP 121/90
[2017-12-02 05:19] LABS: VITAMIN D, 25-HYDROXY 26.5 ng/mL (30.0-100.0)
[2017-12-02] MEDS: MORPHINE SULFATE 2 MG/ML 1ML SYG IVP PRN (06:11)
[2017-12-02 06:22] LABS: CREATININE 0.4 mg/dL (0.5-1.5); POTASSIUM 4.4 mmol/L (3.5-5.1)
[2017-12-02] MEDS: IPRATROPIUM 0.5 MG/2.5 ML INH IH SCH ×3 (06:40→18:13)
[2017-12-02 06:49] LABS: HEMATOCRIT 31.5 % (36-48); MEAN CORPUSCULAR HEMOGLOBIN 29.8 pg (27.0-33.0); MEAN CORPUSCULAR HGB CONC 32.8 g/dL (32.0-36.0); MEAN CORPUSCULAR VOLUME 90.8 fL (79-99); NUCLEATED RED BLOOD CELLS 0.1 % (0.0-0.19); PLATELET COUNT (AUTO) 460 K/uL (130-400); RED BLOOD CELL COUNT(AUTO) 3.47 MIL/uL (4.00-5.50); RED CELL DISTRIBUTION WIDTH 16.5 % (11.0-15.5); WHITE BLOOD COUNT (AUTO) 12.6 K/uL (4.8-10.8)
[2017-12-02 07:24] VITALS: BP 147/66
[2017-12-02] MEDS: LEVOFLOXACIN 750 MG/D5W 150 ML 150 ML IV SCH (07:29)
[2017-12-02] MEDS: PERAMPANEL 12 MG PEG SCH (07:29)
[2017-12-02] MEDS: ARTIFICAL TEARS SOL 15 ML OP SCH ×2 (07:29→21:00)
[2017-12-02] MEDS: ENOXAPARIN SODIUM 40 MG/0.4 ML SYRINGE SQ SCH (07:30)
[2017-12-02] MEDS: POLYETHYLENE GLYCOL 3350 17 GM POWD.PACK PEG SCH (07:30)
[2017-12-02] MEDS: FAMOTIDINE 20MG TAB 20 MG TAB PEG SCH ×2 (07:30→22:09)
[2017-12-02] MEDS: MULTIVITAMIN TABLET PEG SCH (07:30)
[2017-12-02] MEDS: ASCORBIC ACID 500 MG TAB PEG SCH ×2 (07:30→22:09)
[2017-12-02] MEDS: ZINC SULFATE 220 CAPSULE PEG SCH (07:30)
[2017-12-02 08:22] LABS: EOSINOPHILS % (MANUAL) 2 % (1-6); LYMPHOCYTES % (MANUAL) 26 % (22-44); MAN.DIFF COMMENT-IMPRESSION MANUAL DIFFERENTIAL; MONOCYTES % (MANUAL) 9 % (2-9); REACTIVE LYMPHOCYTES 5 % (0-0); SEGMENTED NEUTROPHILS % 58 % (40-70)
[2017-12-02 08:23] LABS: PLATELET MORPHOLOGY COMMENT SLIGHT INCREASED
[2017-12-02] MEDS: FENTANYL 50 MCG/HR PATCH TD SCH (09:46)
[2017-12-02] MEDS: GLUCAGON 1MG KIT 1 MG ML SQ SCH (11:09)
[2017-12-02] MEDS: FLUCONAZOLE 200 MG/NS 100 ML 100 ML IV SCH (11:13)
[2017-12-02 11:14] VITALS: BP 136/86
[2017-12-02 14:50] LABS: CREATINE KINASE MB 3.5 ng/mL (0.5-3.6)
[2017-12-02 16:18] VITALS: BP 122/61
[2017-12-02] MEDS ORDERED: MEROPENEM 1GM IVPB PREMIXED 1 GM IV SCH (21:00)
[2017-12-02] MEDS: DAPTOMYCIN IV SCH (22:10)
[2017-12-02] MEDS: SODIUM CHLORIDE 0.9% IV SCH (22:10)
[2017-12-02] MEDS: NEOMY SULF/BACITRAC ZN/POLY OINT 30GM TUBE TP SCH (22:11)
[2017-12-02] MEDS: HONEY 1 APPL/ML TUBE TP SCH (22:11)
[2017-12-03 00:14] VITALS: BP 112/78
[2017-12-03] MEDS: IPRATROPIUM 0.5 MG/2.5 ML INH IH SCH ×5 (00:22→23:45)
[2017-12-03] MEDS: CLONAZEPAM 0.5 MG TABLET PEG SCH ×4 (01:02→18:12)
[2017-12-03] MEDS: VALPROATE SOD 250 MG/5 ML (PO) PEG SCH ×3 (03:01→18:11)
[2017-12-03 04:26] VITALS: BP 119/89
[2017-12-03] MEDS: MEROPENEM 1 GM VIAL IVP SCH ×3 (06:05→20:32)
[2017-12-03] MEDS: PROPRANOLOL HCL 10 MG TAB PO SCH ×2 (06:05→18:11)
[2017-12-03] MEDS: FLUCONAZOLE 200 MG/NS 100 ML 100 ML IV SCH ×2 (06:06→11:26)
[2017-12-03 06:52] LABS: CREATININE 0.4 mg/dL (0.5-1.5); POTASSIUM 4.3 mmol/L (3.5-5.1)
[2017-12-03 06:53] LABS: HEMATOCRIT 32.7 % (36-48); MEAN CORPUSCULAR HEMOGLOBIN 30.6 pg (27.0-33.0); MEAN CORPUSCULAR HGB CONC 33.9 g/dL (32.0-36.0); MEAN CORPUSCULAR VOLUME 90.3 fL (79-99); NUCLEATED RED BLOOD CELLS 0.1 % (0.0-0.19); PLATELET COUNT (AUTO) 401 K/uL (130-400); RED BLOOD CELL COUNT(AUTO) 3.62 MIL/uL (4.00-5.50); RED CELL DISTRIBUTION WIDTH 16.7 % (11.0-15.5); WHITE BLOOD COUNT (AUTO) 7.2 K/uL (4.8-10.8)
[2017-12-03 07:00] VITALS: BP 132/91
[2017-12-03 07:57] LABS: BASOPHILS % (MANUAL) 1 % (0-2); EOSINOPHILS % (MANUAL) 3 % (1-6); LYMPHOCYTES % (MANUAL) 29 % (22-44); MONOCYTES % (MANUAL) 8 % (2-9); REACTIVE LYMPHOCYTES 1 % (0-0); SEGMENTED NEUTROPHILS % 58 % (40-70)
[2017-12-03 07:58] LABS: MAN.DIFF COMMENT-IMPRESSION MANUAL DIFFERENTIAL; PLATELET MORPHOLOGY COMMENT SLIGHT INCREASED
[2017-12-03] MEDS: PERAMPANEL 12 MG PEG SCH (09:00)
[2017-12-03] MEDS: LEVOFLOXACIN 750 MG/D5W 150 ML 150 ML IV SCH (10:35)
[2017-12-03] MEDS: POLYETHYLENE GLYCOL 3350 17 GM POWD.PACK PEG SCH (10:35)
[2017-12-03] MEDS: MULTIVITAMIN TABLET PEG SCH (10:35)
[2017-12-03] MEDS: FAMOTIDINE 20MG TAB 20 MG TAB PEG SCH ×2 (10:36→20:33)
[2017-12-03] MEDS: ZINC SULFATE 220 CAPSULE PEG SCH (10:36)
[2017-12-03] MEDS: ASCORBIC ACID 500 MG TAB PEG SCH ×2 (10:36→20:33)
[2017-12-03] MEDS: ENOXAPARIN SODIUM 40 MG/0.4 ML SYRINGE SQ SCH (10:37)
[2017-12-03] MEDS: HONEY 1 APPL/ML TUBE TP SCH (10:39)
[2017-12-03] MEDS: ARTIFICAL TEARS SOL 15 ML OP SCH ×2 (10:47→20:33)
[2017-12-03 11:00] VITALS: BP 137/93
[2017-12-03] MEDS: NEOMY SULF/BACITRAC ZN/POLY OINT 30GM TUBE TP SCH (11:26)
[2017-12-03 16:00] VITALS: BP 126/79
[2017-12-03 20:11] VITALS: BP 128/65
[2017-12-03] MEDS: DAPTOMYCIN IV SCH (20:32)
[2017-12-03] MEDS: SODIUM CHLORIDE 0.9% IV SCH (20:32)
[2017-12-04 00:18] VITALS: BP 119/59
[2017-12-04] MEDS: CLONAZEPAM 0.5 MG TABLET PEG SCH ×4 (00:20→17:00)
[2017-12-04] MEDS: VALPROATE SOD 250 MG/5 ML (PO) PEG SCH ×3 (03:00→17:00)
[2017-12-04] MEDS: MORPHINE SULFATE 2 MG/ML 1ML SYG IVP PRN ×3 (03:01→21:27)
[2017-12-04] MEDS: PROPRANOLOL HCL 10 MG TAB PO SCH ×2 (05:19→17:01)
[2017-12-04] MEDS: MEROPENEM 1 GM VIAL IVP SCH ×3 (05:19→20:48)
[2017-12-04 06:20] VITALS: BP 163/88
[2017-12-04] MEDS: IPRATROPIUM 0.5 MG/2.5 ML INH IH SCH ×4 (06:50→23:28)
[2017-12-04 07:00] LABS: HEMATOCRIT 31.9 % (36-48); MEAN CORPUSCULAR HEMOGLOBIN 30.2 pg (27.0-33.0); MEAN CORPUSCULAR HGB CONC 33.4 g/dL (32.0-36.0); MEAN CORPUSCULAR VOLUME 90.3 fL (79-99); NUCLEATED RED BLOOD CELLS 0.1 % (0.0-0.19); PLATELET COUNT (AUTO) 568 K/uL (130-400); RED BLOOD CELL COUNT(AUTO) 3.54 MIL/uL (4.00-5.50); RED CELL DISTRIBUTION WIDTH 16.5 % (11.0-15.5); WHITE BLOOD COUNT (AUTO) 12.8 K/uL (4.8-10.8)
[2017-12-04 07:14] LABS: CREATININE 0.5 mg/dL (0.5-1.5); POTASSIUM 3.8 mmol/L (3.5-5.1)
[2017-12-04 07:46] LABS: INR 0.97 (0.85-1.15); PROTHROMBIN TIME 10.2 SEC (9.6-11.6)
[2017-12-04 07:54] LABS: EOSINOPHILS % (MANUAL) 1 % (1-6); LYMPHOCYTES % (MANUAL) 18 % (22-44); MAN.DIFF COMMENT-IMPRESSION MANUAL DIFFERENTIAL; MONOCYTES % (MANUAL) 6 % (2-9); SEGMENTED NEUTROPHILS % 75 % (40-70)
[2017-12-04 08:00] VITALS: BP_SYST 148; BP_SYST 157; BP_DIAS 72; BP_DIAS 95
[2017-12-04] MEDS: PERAMPANEL 12 MG PEG SCH (09:00)
[2017-12-04] MEDS: LORAZEPAM 2 MG/ML 1 ML VIAL IVP PRN ×2 (09:28→20:22)
[2017-12-04] MEDS: LEVOFLOXACIN 750 MG/D5W 150 ML 150 ML IV SCH (09:38)
[2017-12-04] MEDS: ACETAMINOPHEN ELIXIR 650 MG/20.3 ML UDCUP PEG SCH ×2 (09:38→23:21)
[2017-12-04] MEDS: ZINC SULFATE 220 CAPSULE PEG SCH (09:39)
[2017-12-04] MEDS: MULTIVITAMIN TABLET PEG SCH (09:39)
[2017-12-04] MEDS: ASCORBIC ACID 500 MG TAB PEG SCH ×2 (09:39→20:48)
[2017-12-04] MEDS: POLYETHYLENE GLYCOL 3350 17 GM POWD.PACK PEG SCH (09:39)
[2017-12-04] MEDS: FAMOTIDINE 20MG TAB 20 MG TAB PEG SCH ×2 (09:39→20:48)
[2017-12-04] MEDS: ARTIFICAL TEARS SOL 15 ML OP SCH ×2 (09:40→20:49)
[2017-12-04] MEDS: NEOMY SULF/BACITRAC ZN/POLY OINT 30GM TUBE TP SCH (09:41)
[2017-12-04] MEDS: HONEY 1 APPL/ML TUBE TP SCH (09:42)
[2017-12-04] MEDS: ENOXAPARIN SODIUM 40 MG/0.4 ML SYRINGE SQ SCH (10:38)
[2017-12-04 11:00] VITALS: BP 92/61
[2017-12-04 12:40] LABS: CREATININE 0.5 mg/dL (0.5-1.5); POTASSIUM 3.8 mmol/L (3.5-5.1)
[2017-12-04] MEDS: FLUCONAZOLE 200 MG/NS 100 ML 100 ML IV SCH (13:22)
[2017-12-04 16:00] VITALS: BP 90/5
[2017-12-04] MEDS: SODIUM CHLORIDE 0.9% IV SCH (20:49)
[2017-12-04] MEDS: DAPTOMYCIN IV SCH (20:49)
[2017-12-04 20:52] VITALS: BP 129/79
[2017-12-04] MEDS: TEMAZEPAM 15 MG CAPSULE PEG PRN (22:20)
[2017-12-04] MEDS ORDERED: ALPRAZOLAM 0.5 MG TABLET PO ONE (22:30)
[2017-12-05] MEDS: CLONAZEPAM 0.5 MG TABLET PEG SCH ×4 (00:45→17:06)
[2017-12-05 00:54] VITALS: BP 150/69
[2017-12-05] MEDS: VALPROATE SOD 250 MG/5 ML (PO) PEG SCH ×3 (02:15→17:07)
[2017-12-05] MEDS: MEROPENEM 1 GM VIAL IVP SCH ×3 (04:09→19:49)
[2017-12-05] MEDS: ACETAMINOPHEN ELIXIR 650 MG/20.3 ML UDCUP PEG SCH ×2 (04:10→20:59)
[2017-12-05] MEDS: LORAZEPAM 2 MG/ML 1 ML VIAL IVP PRN (04:10)
[2017-12-05] MEDS: PROPRANOLOL HCL 10 MG TAB PO SCH ×2 (04:10→17:06)
[2017-12-05 04:37] VITALS: BP 130/67
[2017-12-05 05:35] LABS: HEMATOCRIT 34.6 % (36-48); MEAN CORPUSCULAR HEMOGLOBIN 30.7 pg (27.0-33.0); MEAN CORPUSCULAR VOLUME 90.4 fL (79-99); PLATELET COUNT (AUTO) 502 K/uL (130-400); RED BLOOD CELL COUNT(AUTO) 3.83 MIL/uL (4.00-5.50); RED CELL DISTRIBUTION WIDTH 16.7 % (11.0-15.5); WHITE BLOOD COUNT (AUTO) 14.7 K/uL (4.8-10.8)
[2017-12-05 05:44] LABS: CREATININE 0.7 mg/dL (0.5-1.5); POTASSIUM 4.3 mmol/L (3.5-5.1)
[2017-12-05] MEDS ORDERED: METOPROLOL TARTRATE 1 MG/ML 5ML VIAL IV ONE (06:00)
[2017-12-05] MEDS: METOPROLOL TARTRATE 1 MG/ML 5ML VIAL IV SCH (06:11)
[2017-12-05] MEDS: IPRATROPIUM 0.5 MG/2.5 ML INH IH SCH ×4 (06:21→23:37)
[2017-12-05 07:54] LABS: LYMPHOCYTES % (MANUAL) 24 % (22-44); MONOCYTES % (MANUAL) 6 % (2-9); REACTIVE LYMPHOCYTES 3 % (0-0); SEGMENTED NEUTROPHILS % 67 % (40-70)
[2017-12-05 07:55] LABS: MAN.DIFF COMMENT-IMPRESSION MANUAL DIFFERENTIAL
[2017-12-05 07:56] LABS: PLATELET MORPHOLOGY COMMENT INCREASED
[2017-12-05 08:00] VITALS: BP 164/112
[2017-12-05 08:04] VITALS: BP 123/72
[2017-12-05] MEDS: PERAMPANEL 12 MG PEG SCH (09:00)
[2017-12-05] MEDS: LEVOFLOXACIN 750 MG/D5W 150 ML 150 ML IV SCH (09:42)
[2017-12-05] MEDS: FAMOTIDINE 20MG TAB 20 MG TAB PEG SCH ×2 (10:02→19:49)
[2017-12-05] MEDS: ASCORBIC ACID 500 MG TAB PEG SCH ×2 (10:03→19:49)
[2017-12-05] MEDS: POLYETHYLENE GLYCOL 3350 17 GM POWD.PACK PEG SCH (10:03)
[2017-12-05] MEDS: ZINC SULFATE 220 CAPSULE PEG SCH (10:03)
[2017-12-05] MEDS: MULTIVITAMIN TABLET PEG SCH (10:03)
[2017-12-05] MEDS: ENOXAPARIN SODIUM 40 MG/0.4 ML SYRINGE SQ SCH (10:05)
[2017-12-05] MEDS: HONEY 1 APPL/ML TUBE TP SCH (10:06)
[2017-12-05] MEDS: ARTIFICAL TEARS SOL 15 ML OP SCH ×2 (10:06→20:14)
[2017-12-05] MEDS: NEOMY SULF/BACITRAC ZN/POLY OINT 30GM TUBE TP SCH (10:06)
[2017-12-05] MEDS: FENTANYL 50 MCG/HR PATCH TD SCH (10:14)
[2017-12-05] MEDS: FLUCONAZOLE 200 MG/NS 100 ML 100 ML IV SCH (10:17)
[2017-12-05 17:19] VITALS: BP 121/78
[2017-12-05 20:00] VITALS: BP 120/76
[2017-12-05] MEDS: SODIUM CHLORIDE 0.9% IV SCH (20:14)
[2017-12-05] MEDS: DAPTOMYCIN IV SCH (20:14)
[2017-12-06] VITALS: BP 125/88
[2017-12-06] MEDS: CLONAZEPAM 0.5 MG TABLET PEG SCH ×4 (00:23→17:52)
[2017-12-06] MEDS: VALPROATE SOD 250 MG/5 ML (PO) PEG SCH ×3 (02:23→17:52)
[2017-12-06 04:00] VITALS: BP 136/94
[2017-12-06] MEDS: METOPROLOL TARTRATE 1 MG/ML 5ML VIAL IV SCH (04:11)
[2017-12-06] MEDS: MEROPENEM 1 GM VIAL IVP SCH ×3 (05:24→20:50)
[2017-12-06] MEDS: PROPRANOLOL HCL 10 MG TAB PO SCH ×2 (05:24→17:52)
[2017-12-06 05:40] LABS: HEMATOCRIT 33.6 % (36-48); MEAN CORPUSCULAR HEMOGLOBIN 30.6 pg (27.0-33.0); MEAN CORPUSCULAR HGB CONC 33.5 g/dL (32.0-36.0); MEAN CORPUSCULAR VOLUME 91.2 fL (79-99); PLATELET COUNT (AUTO) 474 K/uL (130-400); RED BLOOD CELL COUNT(AUTO) 3.68 MIL/uL (4.00-5.50); RED CELL DISTRIBUTION WIDTH 16.4 % (11.0-15.5); WHITE BLOOD COUNT (AUTO) 9.6 K/uL (4.8-10.8)
[2017-12-06] MEDS: IPRATROPIUM 0.5 MG/2.5 ML INH IH SCH ×4 (06:29→23:31)
[2017-12-06 08:00] VITALS: BP 135/92
[2017-12-06] MEDS: PERAMPANEL 12 MG PEG SCH (09:00)
[2017-12-06] MEDS: NEOMY SULF/BACITRAC ZN/POLY OINT 30GM TUBE TP SCH (09:00)
[2017-12-06] MEDS: HONEY 1 APPL/ML TUBE TP SCH (09:00)
[2017-12-06] MEDS: ARTIFICAL TEARS SOL 15 ML OP SCH ×2 (09:00→21:00)
[2017-12-06] MEDS: FLUCONAZOLE 200 MG/NS 100 ML 100 ML IV SCH (09:53)
[2017-12-06] MEDS: ASCORBIC ACID 500 MG TAB PEG SCH ×2 (09:53→20:50)
[2017-12-06] MEDS: MULTIVITAMIN TABLET PEG SCH (09:53)
[2017-12-06] MEDS: FAMOTIDINE 20MG TAB 20 MG TAB PEG SCH ×2 (09:53→20:50)
[2017-12-06] MEDS: ENOXAPARIN SODIUM 40 MG/0.4 ML SYRINGE SQ SCH (09:54)
[2017-12-06 11:41] VITALS: BP 159/95
[2017-12-06] MEDS: POLYETHYLENE GLYCOL 3350 17 GM POWD.PACK PEG SCH (12:34)
[2017-12-06] MEDS: ZINC SULFATE 220 CAPSULE PEG SCH (12:34)
[2017-12-06 15:42] VITALS: BP 142/95
[2017-12-06 20:00] VITALS: BP 132/84
[2017-12-06] MEDS: SODIUM CHLORIDE 0.9% IV SCH (21:31)
[2017-12-06] MEDS: DAPTOMYCIN IV SCH (21:31)
[2017-12-07] VITALS: BP 130/79
[2017-12-07] MEDS: CLONAZEPAM 0.5 MG TABLET PEG SCH ×4 (00:52→18:00)
[2017-12-07] MEDS: VALPROATE SOD 250 MG/5 ML (PO) PEG SCH ×3 (00:53→17:18)
[2017-12-07 04:00] VITALS: BP 136/97
[2017-12-07] MEDS: PROPRANOLOL HCL 10 MG TAB PO SCH ×2 (04:41→17:18)
[2017-12-07] MEDS: MEROPENEM 1 GM VIAL IVP SCH ×3 (04:51→21:00)
[2017-12-07] MEDS: IPRATROPIUM 0.5 MG/2.5 ML INH IH SCH ×4 (06:00→23:22)
[2017-12-07 06:18] LABS: HEMATOCRIT 32.1 % (36-48); MEAN CORPUSCULAR HEMOGLOBIN 31.1 pg (27.0-33.0); MEAN CORPUSCULAR HGB CONC 34.1 g/dL (32.0-36.0); MEAN CORPUSCULAR VOLUME 91.3 fL (79-99); PLATELET COUNT (AUTO) 487 K/uL (130-400); RED BLOOD CELL COUNT(AUTO) 3.51 MIL/uL (4.00-5.50); RED CELL DISTRIBUTION WIDTH 16.5 % (11.0-15.5); WHITE BLOOD COUNT (AUTO) 10.1 K/uL (4.8-10.8)
[2017-12-07 06:36] LABS: CREATININE 0.5 mg/dL (0.5-1.5); POTASSIUM 3.5 mmol/L (3.5-5.1)
[2017-12-07 08:28] VITALS: BP 132/82
[2017-12-07] MEDS: FAMOTIDINE 20MG TAB 20 MG TAB PEG SCH ×2 (09:00→21:12)
[2017-12-07] MEDS: FLUCONAZOLE 200 MG/NS 100 ML 100 ML IV SCH (10:54)
[2017-12-07] MEDS: MORPHINE SULFATE 2 MG/ML 1ML SYG IM PRN ×2 (10:57→15:05)
[2017-12-07 11:00] VITALS: BP 142/89
[2017-12-07] MEDS: ARTIFICAL TEARS SOL 15 ML OP SCH ×2 (11:02→21:00)
[2017-12-07] MEDS: LORAZEPAM 2 MG/ML 1 ML VIAL IVP PRN ×2 (11:02→21:12)
[2017-12-07] MEDS: ASCORBIC ACID 500 MG TAB PEG SCH ×3 (11:03→21:11)
[2017-12-07] MEDS: PERAMPANEL 12 MG PEG SCH (11:03)
[2017-12-07] MEDS: POLYETHYLENE GLYCOL 3350 17 GM POWD.PACK PEG SCH (15:04)
[2017-12-07] MEDS: ACETAMINOPHEN 325 MG TAB PO PRN (15:08)
[2017-12-07] MEDS: ZINC SULFATE 220 CAPSULE PEG SCH (15:08)
[2017-12-07] MEDS: MULTIVITAMIN TABLET PEG SCH (15:08)
[2017-12-07] MEDS: ENOXAPARIN SODIUM 40 MG/0.4 ML SYRINGE SQ SCH (15:10)
[2017-12-07 16:00] VITALS: BP 154/84
[2017-12-07 20:00] VITALS: BP 140/96
[2017-12-07] MEDS: TEMAZEPAM 15 MG CAPSULE PEG PRN (21:11)
[2017-12-07] MEDS ORDERED: LORAZEPAM 2 MG/ML 1 ML VIAL IVP PRN (21:15)
[2017-12-07] MEDS: SODIUM CHLORIDE 0.9% IV SCH (23:58)
[2017-12-07] MEDS: DAPTOMYCIN IV SCH (23:58)
[2017-12-08] VITALS (8 sets, daily range): BP systolic 117–189; BP diastolic 73–109
[2017-12-08] MEDS: CLONAZEPAM 0.5 MG TABLET PEG SCH ×4 (00:18→19:32)
[2017-12-08] MEDS: VALPROATE SOD 250 MG/5 ML (PO) PEG SCH ×3 (00:24→19:33)
[2017-12-08 04:25] LABS: HEMATOCRIT 30.1 % (36-48); MEAN CORPUSCULAR HEMOGLOBIN 30.9 pg (27.0-33.0); MEAN CORPUSCULAR HGB CONC 34.4 g/dL (32.0-36.0); PLATELET COUNT (AUTO) 523 K/uL (130-400); RED BLOOD CELL COUNT(AUTO) 3.34 MIL/uL (4.00-5.50); WHITE BLOOD COUNT (AUTO) 10.5 K/uL (4.8-10.8)
[2017-12-08 04:52] LABS: INR 1.02 (0.85-1.15); PARTIAL THROMBOPLASTIN TIME 28.8 SEC (26.3-35.5); PROTHROMBIN TIME 10.7 SEC (9.6-11.6)
[2017-12-08 05:21] LABS: ALANINE AMINOTRANSFERASE 44 U/L (12-78); ASPARTATE AMINOTRANSFERASE 46 U/L (10-37); BILIRUBIN,TOTAL 0.3 mg/dL (0.2-1.0); CARBON DIOXIDE 30 mmol/L (21-32); CHLORIDE 105 mmol/L (101-111); CREATINE KINASE MB 4.8 ng/mL (0.5-3.6); CREATININE 0.5 mg/dL (0.5-1.5); GLOMERULAR FILTR. RATE CALC 160 mL/min (>60); GLUCOSE,RANDOM 120 mg/dL (70-105); MYOGLOBIN 98 ng/mL (10-92); PHOSPHORUS 3.3 mg/dL (2.5-4.9); POTASSIUM 3.7 mmol/L (3.5-5.1); SODIUM SERUM 143 mmol/L (136-145); TOTAL PROTEIN, SERUM 8.3 g/dL (6.0-8.3); TROPONIN I < 0.04 ng/mL (0.00-0.06); UREA NITROGEN, BLOOD 19 mg/dL (7-18)
[2017-12-08 05:29] LABS: CREATINE KINASE, TOTAL 621 U/L (21-232)
[2017-12-08] MEDS ORDERED: SODIUM CHLORIDE 0.9% 1000ML 1,000 ML IV SCH (05:45)
[2017-12-08] MEDS ORDERED: LACTATED RINGERS 1000ML 1,000 ML IV ONE (06:04)
[2017-12-08] MEDS: PROPRANOLOL HCL 10 MG TAB PO SCH ×2 (06:08→19:32)
[2017-12-08] MEDS: MEROPENEM 1 GM VIAL IVP SCH ×3 (06:11→21:00)
[2017-12-08] MEDS ORDERED: METOPROLOL TARTRATE 1 MG/ML 5ML VIAL IV ONE (08:41)
[2017-12-08] MEDS: ACETAMINOPHEN 325 MG TAB PO PRN (08:53)
[2017-12-08] MEDS: ARTIFICAL TEARS SOL 15 ML OP SCH ×2 (08:55→21:02)
[2017-12-08] MEDS: MORPHINE SULFATE 2 MG/ML 1ML SYG IM PRN ×3 (08:57→21:00)
[2017-12-08] MEDS: FAMOTIDINE 20MG TAB 20 MG TAB PEG SCH ×2 (08:58→21:00)
[2017-12-08] MEDS: MULTIVITAMIN TABLET PEG SCH (08:58)
[2017-12-08] MEDS: PERAMPANEL 12 MG PEG SCH (09:00)
[2017-12-08] MEDS: NEOMY SULF/BACITRAC ZN/POLY OINT 30GM TUBE TP SCH ×2 (09:00→09:19)
[2017-12-08] MEDS ORDERED: METOPROLOL TARTRATE 25 MG TAB ONE (09:14)
[2017-12-08] MEDS: FLUCONAZOLE 200 MG/NS 100 ML 100 ML IV SCH (09:19)
[2017-12-08] MEDS: HONEY 1 APPL/ML TUBE TP SCH (09:19)
[2017-12-08] MEDS: ZINC SULFATE 220 CAPSULE PEG SCH (09:20)
[2017-12-08] MEDS: POLYETHYLENE GLYCOL 3350 17 GM POWD.PACK PEG SCH (09:20)
[2017-12-08] MEDS: ENOXAPARIN SODIUM 40 MG/0.4 ML SYRINGE SQ SCH (09:22)
[2017-12-08] MEDS: LACTATED RINGERS 1000ML 1,000 ML IV SCH ×3 (09:23→19:33)
[2017-12-08] MEDS ORDERED: METOPROLOL TARTRATE 25 MG TAB PO PRN (13:00)
[2017-12-08] MEDS ORDERED: MAGNESIUM 2GM PREMIX 50ML 50 ML IV SCH (13:00)
[2017-12-08] MEDS: FENTANYL 50 MCG/HR PATCH TD SCH (13:18)
[2017-12-08] MEDS: ACETAMINOPHEN ELIXIR 650 MG/20.3 ML UDCUP PEG SCH (13:20)
[2017-12-08] MEDS: LORAZEPAM 2 MG/ML 1 ML VIAL IVP PRN ×2 (13:21→13:26)
[2017-12-08] MEDS: METOPROLOL TARTRATE 1 MG/ML 5ML VIAL IV PRN (13:21)
[2017-12-08 14:35] LABS: APPEARANCE,URINE CLOUDY (CLEAR); BILIRUBIN,URINE NEGATIVE (NEGATIVE); COLOR,URINE YELLOW (YELLOW); GLUCOSE, URINE (UA) NEGATIVE (NEGATIVE); KETONES,URINE 40 mg/dL (NEGATIVE); LEUKOCYTE ESTERASE ,URINE NEGATIVE (NEGATIVE); NITRATE,URINE NEGATIVE (NEGATIVE); OCCULT BLOOD,URINE LARGE (NEGATIVE); PH,URINE 8.5 (5.0-8.0); PROTEIN,URINE 100 (NEGATIVE); UROBILINOGEN,URINE 0.2 mg/dL (0.2-1.0)
[2017-12-08 14:52] LABS: BACTERIA,URINE Rare /HPF (None Seen); RBC,URINE TNTC /HPF (0-1); SQUAMOUS EPITHELIAL CELL,UR Rare /HPF (0-2); WBC,URINE 0-1 /HPF (0-1)
[2017-12-08] MEDS: SODIUM CHLORIDE 0.9% IV SCH (20:59)
[2017-12-08] MEDS: DAPTOMYCIN IV SCH (20:59)
[2017-12-08] MEDS: ASCORBIC ACID 500 MG TAB PEG SCH (21:01)
[2017-12-09] VITALS (7 sets, daily range): BP systolic 120–179; BP diastolic 55–101
[2017-12-09] MEDS: VALPROATE SOD 250 MG/5 ML (PO) PEG SCH ×3 (01:39→17:52)
[2017-12-09] MEDS: CLONAZEPAM 0.5 MG TABLET PEG SCH ×5 (01:39→23:43)
[2017-12-09] MEDS: LACTATED RINGERS 1000ML 1,000 ML IV SCH ×3 (01:40→20:34)
[2017-12-09 04:35] LABS: ABG BASE EXCESS 4.2 mmol/L (-2.0-3.0); ABG HCO3 29.4 mmol/L (21.0-28.0); ABG OXYGEN SATURATION 94.7 % (95.0-99.0); ABG PCO2 46 mmHg (32-45)
[2017-12-09 04:41] LABS: BASOPHILS % (AUTO) 0.6 % (0.0-5.0); EOSINOPHILS % (AUTO) 1.9 % (0.0-8.0); HEMATOCRIT 27.8 % (36-48); LYMPHOCYTES % (AUTO) 26.8 % (21.0-51.0); MEAN CORPUSCULAR HEMOGLOBIN 32.2 pg (27.0-33.0); MEAN CORPUSCULAR HGB CONC 35.3 g/dL (32.0-36.0); MEAN CORPUSCULAR VOLUME 91.4 fL (79-99); MONOCYTES % (AUTO) 15.2 % (3.0-13.0); NEUTROPHILS % (AUTO) 55.5 % (40.0-77.0); PLATELET COUNT (AUTO) 373 K/uL (130-400); RED BLOOD CELL COUNT(AUTO) 3.05 MIL/uL (4.00-5.50); RED CELL DISTRIBUTION WIDTH 16.4 % (11.0-15.5); WHITE BLOOD COUNT (AUTO) 8.1 K/uL (4.8-10.8)
[2017-12-09 05:22] LABS: ALANINE AMINOTRANSFERASE 34 U/L (12-78); ALBUMIN 2.4 g/dL (3.5-5.0); ASPARTATE AMINOTRANSFERASE 32 U/L (10-37); BILIRUBIN,TOTAL 0.2 mg/dL (0.2-1.0); CARBON DIOXIDE 33 mmol/L (21-32); CHLORIDE 110 mmol/L (101-111); CREATINE KINASE MB 3.3 ng/mL (0.5-3.6); CREATINE KINASE, TOTAL 232 U/L (21-232); CREATININE 0.4 mg/dL (0.5-1.5); GLOMERULAR FILTR. RATE CALC 207 mL/min (>60); GLUCOSE,RANDOM 101 mg/dL (70-105); MYOGLOBIN 70 ng/mL (10-92); PHOSPHORUS 4.5 mg/dL (2.5-4.9); POTASSIUM 3.4 mmol/L (3.5-5.1); SODIUM SERUM 147 mmol/L (136-145); TOTAL PROTEIN, SERUM 6.9 g/dL (6.0-8.3); TROPONIN I < 0.04 ng/mL (0.00-0.06); UREA NITROGEN, BLOOD 17 mg/dL (7-18)
[2017-12-09] MEDS: PROPRANOLOL HCL 10 MG TAB PO SCH ×2 (05:22→17:53)
[2017-12-09] MEDS: MEROPENEM 1 GM VIAL IVP SCH ×3 (05:22→20:34)
[2017-12-09] MEDS: LORAZEPAM 2 MG/ML 1 ML VIAL IVP PRN ×2 (05:23→16:02)
[2017-12-09] MEDS: FLUCONAZOLE 200 MG/NS 100 ML 100 ML IV SCH (10:56)
[2017-12-09] MEDS: NEOMY SULF/BACITRAC ZN/POLY OINT 30GM TUBE TP SCH (10:57)
[2017-12-09] MEDS: ARTIFICAL TEARS SOL 15 ML OP SCH ×2 (10:57→20:36)
[2017-12-09] MEDS: HONEY 1 APPL/ML TUBE TP SCH (10:57)
[2017-12-09] MEDS: POLYETHYLENE GLYCOL 3350 17 GM POWD.PACK PEG SCH (10:58)
[2017-12-09] MEDS: ASCORBIC ACID 500 MG TAB PEG SCH ×2 (10:59→20:34)
[2017-12-09] MEDS: ZINC SULFATE 220 CAPSULE PEG SCH (10:59)
[2017-12-09] MEDS: ENOXAPARIN SODIUM 40 MG/0.4 ML SYRINGE SQ SCH (10:59)
[2017-12-09] MEDS: PERAMPANEL 12 MG PEG SCH (10:59)
[2017-12-09] MEDS: FAMOTIDINE 20MG TAB 20 MG TAB PEG SCH ×2 (10:59→20:34)
[2017-12-09] MEDS: MULTIVITAMIN TABLET PEG SCH (10:59)
[2017-12-09] MEDS: ACETAMINOPHEN 325 MG TAB PO PRN ×2 (11:31→21:31)
[2017-12-09] MEDS: DILTIAZEM HCL 60 MG TABLET PEG SCH ×3 (12:36→23:43)
[2017-12-09] MEDS: MORPHINE SULFATE 2 MG/ML 1ML SYG IM PRN (14:46)
[2017-12-09] MEDS: DAPTOMYCIN IV SCH (20:33)
[2017-12-09] MEDS: SODIUM CHLORIDE 0.9% IV SCH (20:33)
[2017-12-09] MEDS: MORPHINE SULFATE 2 MG/ML 1ML SYG IVP PRN (20:46)
[2017-12-10] VITALS (7 sets, daily range): BP systolic 114–142; BP diastolic 60–99
[2017-12-10] MEDS: VALPROATE SOD 250 MG/5 ML (PO) PEG SCH ×3 (02:17→18:18)
[2017-12-10] MEDS: LORAZEPAM 2 MG/ML 1 ML VIAL IVP PRN ×3 (02:20→18:18)
[2017-12-10] MEDS: IPRATROPIUM 0.5 MG/2.5 ML INH IH PRN (02:46)
[2017-12-10] MEDS: MORPHINE SULFATE 2 MG/ML 1ML SYG IVP PRN ×2 (03:14→11:55)
[2017-12-10] MEDS: PROPRANOLOL HCL 10 MG TAB PO SCH ×2 (04:39→18:14)
[2017-12-10] MEDS: LACTATED RINGERS 1000ML 1,000 ML IV SCH ×2 (04:39→13:50)
[2017-12-10] MEDS: MEROPENEM 1 GM VIAL IVP SCH ×3 (04:39→22:28)
[2017-12-10] MEDS: CLONAZEPAM 0.5 MG TABLET PEG SCH ×4 (05:45→23:29)
[2017-12-10] MEDS: DILTIAZEM HCL 60 MG TABLET PEG SCH ×4 (05:45→23:29)
[2017-12-10 06:09] LABS: CREATININE 0.4 mg/dL (0.5-1.5); POTASSIUM 3.9 mmol/L (3.5-5.1)
[2017-12-10 06:15] LABS: HEMATOCRIT 32.9 % (36-48); MEAN CORPUSCULAR HEMOGLOBIN 29.7 pg (27.0-33.0); MEAN CORPUSCULAR HGB CONC 32.7 g/dL (32.0-36.0); MEAN CORPUSCULAR VOLUME 90.9 fL (79-99); NUCLEATED RED BLOOD CELLS 0.1 % (0.0-0.19); PLATELET COUNT (AUTO) 335 K/uL (130-400); RED BLOOD CELL COUNT(AUTO) 3.62 MIL/uL (4.00-5.50); RED CELL DISTRIBUTION WIDTH 16.1 % (11.0-15.5)
[2017-12-10] MEDS: PERAMPANEL 12 MG PEG SCH (09:00)
[2017-12-10] MEDS: POLYETHYLENE GLYCOL 3350 17 GM POWD.PACK PEG SCH (09:00)
[2017-12-10] MEDS: ASCORBIC ACID 500 MG TAB PEG SCH (10:55)
[2017-12-10] MEDS: FAMOTIDINE 20MG TAB 20 MG TAB PEG SCH (10:55)
[2017-12-10] MEDS: MULTIVITS W-MIN/FERROUS GLUC 237 ML BOTTLE PO SCH (10:58)
[2017-12-10] MEDS: FLUCONAZOLE 200 MG/NS 100 ML 100 ML IV SCH (11:25)
[2017-12-10] MEDS: ZINC SULFATE 220 CAPSULE PEG SCH (11:43)
[2017-12-10] MEDS: ARTIFICAL TEARS SOL 15 ML OP SCH (11:44)
[2017-12-10] MEDS: ENOXAPARIN SODIUM 40 MG/0.4 ML SYRINGE SQ SCH (11:44)
[2017-12-10] MEDS: HONEY 1 APPL/ML TUBE TP SCH (11:45)
[2017-12-10] MEDS: NEOMY SULF/BACITRAC ZN/POLY OINT 30GM TUBE TP SCH (11:46)
[2017-12-10] MEDS: OLANZAPINE 10MG/ML 1ML VIAL IM PRN (14:14)
[2017-12-10] MEDS: ACETAMINOPHEN ELIXIR 650 MG/20.3 ML UDCUP PEG SCH (14:48)
[2017-12-10] MEDS: METOPROLOL TARTRATE 1 MG/ML 5ML VIAL IV PRN (14:51)
[2017-12-10] MEDS: IBUPROFEN 400 MG TABLET PO PRN (18:36)
[2017-12-10] MEDS: DAPTOMYCIN IV SCH (22:28)
[2017-12-10] MEDS: SODIUM CHLORIDE 0.9% IV SCH (22:28)
[2017-12-10] MEDS: ACETAMINOPHEN 325 MG TAB PO PRN (23:30)
[2017-12-11] MEDS: MORPHINE SULFATE 2 MG/ML 1ML SYG IVP PRN ×2 (01:01→17:21)
[2017-12-11] MEDS: LACTATED RINGERS 1000ML 1,000 ML IV SCH (01:03)
[2017-12-11 04:00] VITALS: BP 124/82
[2017-12-11] MEDS: VALPROATE SOD 250 MG/5 ML (PO) PEG SCH ×3 (04:28→18:13)
[2017-12-11] MEDS: PROPRANOLOL HCL 10 MG TAB PO SCH ×2 (04:29→18:12)
[2017-12-11] MEDS: MEROPENEM 1 GM VIAL IVP SCH ×3 (04:29→20:52)
[2017-12-11] MEDS: DILTIAZEM HCL 60 MG TABLET PEG SCH ×3 (04:29→18:13)
[2017-12-11] MEDS: CLONAZEPAM 0.5 MG TABLET PEG SCH ×3 (06:09→18:13)
[2017-12-11 07:00] VITALS: BP 149/100
[2017-12-11] MEDS: IPRATROPIUM 0.5 MG/2.5 ML INH IH PRN ×2 (07:20→21:01)
[2017-12-11] MEDS: MORPHINE SULFATE 2 MG/ML 1ML SYG IM PRN (08:48)
[2017-12-11] MEDS: FLUCONAZOLE 200 MG/NS 100 ML 100 ML IV SCH (08:48)
[2017-12-11] MEDS: LORAZEPAM 2 MG/ML 1 ML VIAL IVP PRN ×2 (08:48→17:20)
[2017-12-11] MEDS: NEOMY SULF/BACITRAC ZN/POLY OINT 30GM TUBE TP SCH (08:49)
[2017-12-11] MEDS: MULTIVITS W-MIN/FERROUS GLUC 237 ML BOTTLE PO SCH (08:49)
[2017-12-11] MEDS: HONEY 1 APPL/ML TUBE TP SCH (08:50)
[2017-12-11 10:57] VITALS: BP 139/85
[2017-12-11] MEDS ORDERED: ZOLPIDEM TARTRATE 5 MG TAB PEG PRN (12:00)
[2017-12-11] MEDS ORDERED: MORPHINE SULFATE 2 MG/ML 1ML SYG IM PRN ×2 (12:00)
[2017-12-11] MEDS ORDERED: TEMAZEPAM 15 MG CAPSULE PEG PRN (12:00)
[2017-12-11] MEDS: ACETAMINOPHEN ELIXIR 650 MG/20.3 ML UDCUP PEG SCH (12:56)
[2017-12-11] MEDS: FENTANYL 50 MCG/HR PATCH TD SCH (12:57)
[2017-12-11] MEDS: OLANZAPINE 10MG/ML 1ML VIAL IM PRN (12:57)
[2017-12-11 15:48] VITALS: BP 192/107
[2017-12-11] MEDS: SODIUM CHLORIDE 0.9% IV SCH (15:57)
[2017-12-11] MEDS: DAPTOMYCIN IV SCH (15:57)
[2017-12-11 19:10] VITALS: BP 153/88
[2017-12-11] MEDS: FAMOTIDINE 20MG TAB 20 MG TAB PEG SCH (20:52)
[2017-12-11] MEDS: ASCORBIC ACID 500 MG TAB PEG SCH (20:52)
[2017-12-11] MEDS: IBUPROFEN 400 MG TABLET PO PRN (20:54)
[2017-12-11] MEDS: ARTIFICAL TEARS SOL 15 ML OP SCH (21:00)
[2017-12-11 23:10] VITALS: BP 139/90
[2017-12-12] MEDS: DILTIAZEM HCL 60 MG TABLET PEG SCH ×4 (00:33→18:04)
[2017-12-12] MEDS: CLONAZEPAM 0.5 MG TABLET PEG SCH ×2 (00:34→07:09)
[2017-12-12] MEDS: VALPROATE SOD 250 MG/5 ML (PO) PEG SCH ×3 (00:37→18:05)
[2017-12-12 03:10] VITALS: BP 149/97
[2017-12-12] MEDS: MEROPENEM 1 GM VIAL IVP SCH ×3 (04:50→20:12)
[2017-12-12] MEDS: PROPRANOLOL HCL 10 MG TAB PO SCH ×2 (04:50→18:04)
[2017-12-12 06:01] LABS: HEMATOCRIT 31.7 % (36-48); MEAN CORPUSCULAR HEMOGLOBIN 29.7 pg (27.0-33.0); MEAN CORPUSCULAR HGB CONC 33.7 g/dL (32.0-36.0); MEAN CORPUSCULAR VOLUME 88.3 fL (79-99); PLATELET COUNT (AUTO) 459 K/uL (130-400); RED BLOOD CELL COUNT(AUTO) 3.59 MIL/uL (4.00-5.50); RED CELL DISTRIBUTION WIDTH 15.7 % (11.0-15.5); WHITE BLOOD COUNT (AUTO) 4.3 K/uL (4.8-10.8)
[2017-12-12 06:49] LABS: MAN.DIFF COMMENT-IMPRESSION MANUAL DIFFERENTIAL; PLATELET MORPHOLOGY COMMENT ADEQUATE
[2017-12-12 06:58] LABS: LYMPHOCYTES % (MANUAL) 68 % (22-44); MONOCYTES % (MANUAL) 6 % (2-9); SEGMENTED NEUTROPHILS % 26 % (40-70)
[2017-12-12 07:00] VITALS: BP 178/100
[2017-12-12] MEDS: IPRATROPIUM 0.5 MG/2.5 ML INH IH PRN (07:35)
[2017-12-12] MEDS: ARTIFICAL TEARS SOL 15 ML OP SCH ×2 (09:00→20:21)
[2017-12-12] MEDS: PERAMPANEL 12 MG PEG SCH (09:00)
[2017-12-12 10:29] VITALS: BP 134/86
[2017-12-12] MEDS: ZINC SULFATE 220 CAPSULE PEG SCH (10:30)
[2017-12-12] MEDS: FLUCONAZOLE 200 MG/NS 100 ML 100 ML IV SCH (10:30)
[2017-12-12] MEDS: FAMOTIDINE 20MG TAB 20 MG TAB PEG SCH ×2 (10:31→20:12)
[2017-12-12] MEDS: ASCORBIC ACID 500 MG TAB PEG SCH ×2 (10:35→20:13)
[2017-12-12] MEDS: POLYETHYLENE GLYCOL 3350 17 GM POWD.PACK PEG SCH (10:42)
[2017-12-12] MEDS: ENOXAPARIN SODIUM 40 MG/0.4 ML SYRINGE SQ SCH (10:43)
[2017-12-12] MEDS: MULTIVITS W-MIN/FERROUS GLUC 237 ML BOTTLE PO SCH (16:39)
[2017-12-12] MEDS: DAPTOMYCIN IV SCH (16:40)
[2017-12-12] MEDS: HONEY 1 APPL/ML TUBE TP SCH (16:40)
[2017-12-12] MEDS: SODIUM CHLORIDE 0.9% IV SCH (16:40)
[2017-12-12] MEDS: NEOMY SULF/BACITRAC ZN/POLY OINT 30GM TUBE TP SCH (16:42)
[2017-12-12] MEDS: CLONAZEPAM 1 MG TABLET PEG SCH (18:00)
[2017-12-12] MEDS: CLONAZEPAM 2 MG TABLET PEG SCH (18:00)
[2017-12-12 19:15] VITALS: BP 118/73
[2017-12-12] MEDS: ACETAMINOPHEN ELIXIR 650 MG/20.3 ML UDCUP PEG SCH (20:12)
[2017-12-12] MEDS: LORAZEPAM 2 MG/ML 1 ML VIAL IVP PRN (21:50)
[2017-12-12 23:10] VITALS: BP 132/78
[2017-12-13] MEDS: CLONAZEPAM 1 MG TABLET PEG SCH ×5 (00:19→23:48)
[2017-12-13] MEDS: CLONAZEPAM 2 MG TABLET PEG SCH ×5 (00:19→23:48)
[2017-12-13] MEDS: DILTIAZEM HCL 60 MG TABLET PEG SCH ×5 (00:20→23:48)
[2017-12-13 03:10] VITALS: BP 138/97
[2017-12-13] MEDS: VALPROATE SOD 250 MG/5 ML (PO) PEG SCH ×3 (03:25→16:28)
[2017-12-13] MEDS: MORPHINE SULFATE 2 MG/ML 1ML SYG IVP PRN ×3 (03:28→16:31)
[2017-12-13 04:47] LABS: HEMATOCRIT 29.9 % (36-48); MEAN CORPUSCULAR HGB CONC 35.3 g/dL (32.0-36.0); MEAN CORPUSCULAR VOLUME 87.7 fL (79-99); PLATELET COUNT (AUTO) 449 K/uL (130-400); RED BLOOD CELL COUNT(AUTO) 3.41 MIL/uL (4.00-5.50); RED CELL DISTRIBUTION WIDTH 15.8 % (11.0-15.5)
[2017-12-13 04:57] LABS: CREATININE 0.5 mg/dL (0.5-1.5); POTASSIUM 3.3 mmol/L (3.5-5.1)
[2017-12-13 05:21] LABS: BAND NEUTROPHILS % (MANUAL) 4 % (0-2); LYMPHOCYTES % (MANUAL) 30 % (22-44); MAN.DIFF COMMENT-IMPRESSION MANUAL DIFFERENTIAL; MONOCYTES % (MANUAL) 2 % (2-9); PLATELET MORPHOLOGY COMMENT SLIGHT INCREASED; SEGMENTED NEUTROPHILS % 64 % (40-70)
[2017-12-13] MEDS: MEROPENEM 1 GM VIAL IVP SCH ×2 (05:33→13:00)
[2017-12-13] MEDS: PROPRANOLOL HCL 10 MG TAB PO SCH ×2 (05:34→16:27)
[2017-12-13] MEDS: LORAZEPAM 2 MG/ML 1 ML VIAL IVP PRN ×3 (05:34→22:10)
[2017-12-13] MEDS: ACETAMINOPHEN ELIXIR 650 MG/20.3 ML UDCUP PEG SCH ×2 (05:37→23:50)
[2017-12-13] MEDS: POTASSIUM CHLORIDE 10% ELIXIR 20 MEQ/15 ML UDCUP PO PRN (05:38)
[2017-12-13 08:00] VITALS: BP 178/80
[2017-12-13] MEDS: FLUCONAZOLE 200 MG/NS 100 ML 100 ML IV SCH (08:01)
[2017-12-13] MEDS: POLYETHYLENE GLYCOL 3350 17 GM POWD.PACK PEG SCH (08:06)
[2017-12-13] MEDS: FAMOTIDINE 20MG TAB 20 MG TAB PEG SCH ×2 (08:07→22:09)
[2017-12-13] MEDS: ASCORBIC ACID 500 MG TAB PEG SCH ×2 (08:07→22:09)
[2017-12-13] MEDS: ZINC SULFATE 220 CAPSULE PEG SCH (08:07)
[2017-12-13] MEDS: PERAMPANEL 12 MG PEG SCH (09:00)
[2017-12-13] MEDS: ACETAMINOPHEN 325 MG TAB PO PRN (09:10)
[2017-12-13] MEDS: ENOXAPARIN SODIUM 40 MG/0.4 ML SYRINGE SQ SCH (09:15)
[2017-12-13] MEDS: MULTIVITS W-MIN/FERROUS GLUC 237 ML BOTTLE PO SCH (09:25)
[2017-12-13] MEDS: HONEY 1 APPL/ML TUBE TP SCH (09:27)
[2017-12-13] MEDS: ARTIFICAL TEARS SOL 15 ML OP SCH ×2 (09:28→22:22)
[2017-12-13] MEDS: NEOMY SULF/BACITRAC ZN/POLY OINT 30GM TUBE TP SCH (09:29)
[2017-12-13 12:00] VITALS: BP 170/73
[2017-12-13] MEDS: DAPTOMYCIN IV SCH (14:22)
[2017-12-13] MEDS: METOPROLOL TARTRATE 1 MG/ML 5ML VIAL IV PRN (14:22)
[2017-12-13] MEDS: SODIUM CHLORIDE 0.9% IV SCH (14:22)
[2017-12-13 16:00] VITALS: BP 144/74
[2017-12-13] MEDS: DOXYCYCLINE 100MG+NS 250ML 250 ML IV SCH (16:28)
[2017-12-13 19:30] VITALS: BP 163/87
[2017-12-14] MEDS: VALPROATE SOD 250 MG/5 ML (PO) PEG SCH ×3 (02:07→19:57)
[2017-12-14 03:29] VITALS: BP 116/44
[2017-12-14] MEDS: DOXYCYCLINE 100MG+NS 250ML 250 ML IV SCH ×2 (04:24→14:52)
[2017-12-14] MEDS ORDERED: LACTULOSE 20 GM/30 ML UDCUP PO PRN (04:45)
[2017-12-14] MEDS: PROPRANOLOL HCL 10 MG TAB PO SCH ×2 (05:15→19:55)
[2017-12-14] MEDS: DILTIAZEM HCL 60 MG TABLET PEG SCH ×3 (05:16→19:56)
[2017-12-14] MEDS: CLONAZEPAM 1 MG TABLET PEG SCH ×3 (05:16→19:56)
[2017-12-14] MEDS: CLONAZEPAM 2 MG TABLET PEG SCH ×3 (05:17→19:57)
[2017-12-14 06:38] LABS: CREATININE 0.5 mg/dL (0.5-1.5); POTASSIUM 3.9 mmol/L (3.5-5.1)
[2017-12-14 07:59] LABS: BASOPHILS % (AUTO) 1.3 % (0.0-5.0); EOSINOPHILS % (AUTO) 0.3 % (0.0-8.0); HEMATOCRIT 33.5 % (36-48); LYMPHOCYTES % (AUTO) 33.2 % (21.0-51.0); MEAN CORPUSCULAR HEMOGLOBIN 29.3 pg (27.0-33.0); MEAN CORPUSCULAR HGB CONC 33.2 g/dL (32.0-36.0); MEAN CORPUSCULAR VOLUME 88.5 fL (79-99); MONOCYTES % (AUTO) 13.7 % (3.0-13.0); NEUTROPHILS % (AUTO) 51.5 % (40.0-77.0); PLATELET COUNT (AUTO) 379 K/uL (130-400); RED BLOOD CELL COUNT(AUTO) 3.79 MIL/uL (4.00-5.50); RED CELL DISTRIBUTION WIDTH 15.8 % (11.0-15.5); WHITE BLOOD COUNT (AUTO) 10.8 K/uL (4.8-10.8)
[2017-12-14 08:00] VITALS: BP 131/72
[2017-12-14] MEDS: PERAMPANEL 12 MG PEG SCH (09:00)
[2017-12-14] MEDS: METOPROLOL TARTRATE 1 MG/ML 5ML VIAL IV PRN (10:20)
[2017-12-14] MEDS: MORPHINE SULFATE 2 MG/ML 1ML SYG IVP PRN ×3 (10:25→15:10)
[2017-12-14] MEDS: ARTIFICAL TEARS SOL 15 ML OP SCH ×2 (10:31→21:00)
[2017-12-14] MEDS: FAMOTIDINE 20MG TAB 20 MG TAB PEG SCH ×2 (10:33→21:52)
[2017-12-14] MEDS: POLYETHYLENE GLYCOL 3350 17 GM POWD.PACK PEG SCH (10:33)
[2017-12-14] MEDS: ASCORBIC ACID 500 MG TAB PEG SCH ×2 (10:34→21:52)
[2017-12-14] MEDS: MULTIVITS W-MIN/FERROUS GLUC 237 ML BOTTLE PO SCH (10:35)
[2017-12-14] MEDS: ZINC SULFATE 220 CAPSULE PEG SCH (10:35)
[2017-12-14] MEDS: ENOXAPARIN SODIUM 40 MG/0.4 ML SYRINGE SQ SCH (10:36)
[2017-12-14] MEDS: HONEY 1 APPL/ML TUBE TP SCH (10:36)
[2017-12-14] MEDS: NEOMY SULF/BACITRAC ZN/POLY OINT 30GM TUBE TP SCH (10:37)
[2017-12-14] MEDS: ACETAMINOPHEN 325 MG TAB PO PRN (11:04)
[2017-12-14] MEDS: FENTANYL 50 MCG/HR PATCH TD SCH (11:07)
[2017-12-14 12:00] VITALS: BP 190/104
[2017-12-14] MEDS: LORAZEPAM 2 MG/ML 1 ML VIAL IVP PRN (14:51)
[2017-12-14] MEDS: IBUPROFEN 400 MG TABLET PO PRN (14:52)
[2017-12-14] MEDS ORDERED: DIATR MEGLU/DIATRIZOATE SODIUM 30 ML BOTTLE ONE (15:40)
[2017-12-14 16:00] VITALS: BP 169/99
[2017-12-14] MEDS: SODIUM CHLORIDE 0.9% IV SCH (16:32)
[2017-12-14] MEDS: DAPTOMYCIN IV SCH (16:32)
[2017-12-14 19:22] VITALS: BP 133/76
[2017-12-14] MEDS: LACTATED RINGERS 1000ML 1,000 ML IV SCH (19:54)
[2017-12-14 23:28] VITALS: BP 126/71
[2017-12-14] MEDS ORDERED: IOPAMIDOL-370 75 ML VIAL IV ONE (23:41)
[2017-12-15] MEDS ORDERED: NALOXONE HCL 0.4 MG/1 ML ML ONE ×3 (00:47→01:58)
[2017-12-15] MEDS: NALOXONE HCL 0.4 MG/1 ML ML IVP SCH (01:15)
[2017-12-15] MEDS: VALPROATE SOD 250 MG/5 ML (PO) PEG SCH ×4 (02:00→17:31)
[2017-12-15] MEDS: LACTATED RINGERS 1000ML 1,000 ML IV SCH ×4 (02:10→18:07)
[2017-12-15 03:33] VITALS: BP 155/85
[2017-12-15] MEDS: DOXYCYCLINE 100MG+NS 250ML 250 ML IV SCH ×2 (03:46→16:39)
[2017-12-15] MEDS: PROPRANOLOL HCL 10 MG TAB PO SCH ×2 (06:22→16:38)
[2017-12-15] MEDS: DILTIAZEM HCL 60 MG TABLET PEG SCH ×4 (06:22→16:38)
[2017-12-15 08:00] LABS: HEMATOCRIT 31.5 % (36-48); MEAN CORPUSCULAR HEMOGLOBIN 30.7 pg (27.0-33.0); MEAN CORPUSCULAR HGB CONC 34.9 g/dL (32.0-36.0); NUCLEATED RED BLOOD CELLS 0.1 % (0.0-0.19); PLATELET COUNT (AUTO) 399 K/uL (130-400); RED BLOOD CELL COUNT(AUTO) 3.58 MIL/uL (4.00-5.50); RED CELL DISTRIBUTION WIDTH 16.2 % (11.0-15.5); WHITE BLOOD COUNT (AUTO) 5.4 K/uL (4.8-10.8)
[2017-12-15 08:26] LABS: CARBON DIOXIDE 29 mmol/L (21-32); CREATINE KINASE MB 9.8 ng/mL (0.5-3.6); CREATININE 0.5 mg/dL (0.5-1.5); GLOMERULAR FILTR. RATE CALC 160 mL/min (>60); GLUCOSE,RANDOM 107 mg/dL (70-105); MYOGLOBIN 216 ng/mL (10-92); PHOSPHORUS 4.5 mg/dL (2.5-4.9); TROPONIN I < 0.04 ng/mL (0.00-0.06); UREA NITROGEN, BLOOD 16 mg/dL (7-18)
[2017-12-15 08:28] LABS: CREATINE KINASE, TOTAL 819 U/L (21-232)
[2017-12-15 08:31] LABS: CHLORIDE 103 mmol/L (101-111); POTASSIUM 3.6 mmol/L (3.5-5.1); SODIUM SERUM 140 mmol/L (136-145)
[2017-12-15] MEDS ORDERED: ALTEPLASE 2 MG/2 ML IVCATH SCH (08:45)
[2017-12-15 08:57] VITALS: BP 147/79
[2017-12-15] MEDS: PERAMPANEL 12 MG PEG SCH (09:00)
[2017-12-15] MEDS: HONEY 1 APPL/ML TUBE TP SCH (09:00)
[2017-12-15] MEDS: ASCORBIC ACID 500 MG TAB PEG SCH ×2 (10:21→21:22)
[2017-12-15] MEDS: POLYETHYLENE GLYCOL 3350 17 GM POWD.PACK PEG SCH (10:21)
[2017-12-15] MEDS: ZINC SULFATE 220 CAPSULE PEG SCH (10:21)
[2017-12-15] MEDS: FAMOTIDINE 20MG TAB 20 MG TAB PEG SCH ×2 (10:21→21:22)
[2017-12-15] MEDS: MULTIVITS W-MIN/FERROUS GLUC 237 ML BOTTLE PO SCH (10:22)
[2017-12-15] MEDS: NEOMY SULF/BACITRAC ZN/POLY OINT 30GM TUBE TP SCH (10:24)
[2017-12-15] MEDS: ARTIFICAL TEARS SOL 15 ML OP SCH ×2 (10:25→21:24)
[2017-12-15] MEDS: ENOXAPARIN SODIUM 40 MG/0.4 ML SYRINGE SQ SCH (10:28)
[2017-12-15 11:00] VITALS: BP 141/80
[2017-12-15] MEDS: DAPTOMYCIN IV SCH (14:11)
[2017-12-15] MEDS: SODIUM CHLORIDE 0.9% IV SCH (14:11)
[2017-12-15 16:00] VITALS: BP 170/94
[2017-12-15 19:20] VITALS: BP 145/78
[2017-12-15 23:35] VITALS: BP 137/85
[2017-12-16] MEDS ORDERED: MORPHINE SULFATE 4 MG/1ML SYG ONE ×4 (00:27→17:55)
[2017-12-16] MEDS: DILTIAZEM HCL 60 MG TABLET PEG SCH ×4 (00:32→18:01)
[2017-12-16] MEDS: NALOXONE HCL 0.4 MG/1 ML ML IVP SCH (01:15)
[2017-12-16] MEDS: VALPROATE SOD 250 MG/5 ML (PO) PEG SCH ×3 (02:06→18:01)
[2017-12-16] MEDS: LACTATED RINGERS 1000ML 1,000 ML IV SCH ×4 (02:07→22:28)
[2017-12-16 03:25] VITALS: BP 167/83
[2017-12-16] MEDS: DOXYCYCLINE 100MG+NS 250ML 250 ML IV SCH (03:54)
[2017-12-16] MEDS: METOPROLOL TARTRATE 1 MG/ML 5ML VIAL IV PRN (03:55)
[2017-12-16 04:33] LABS: BASOPHILS % (AUTO) 1.5 % (0.0-5.0); EOSINOPHILS % (AUTO) 0.9 % (0.0-8.0); HEMATOCRIT 29.3 % (36-48); LYMPHOCYTES % (AUTO) 27.7 % (21.0-51.0); MEAN CORPUSCULAR HEMOGLOBIN 29.6 pg (27.0-33.0); MEAN CORPUSCULAR HGB CONC 33.8 g/dL (32.0-36.0); MEAN CORPUSCULAR VOLUME 87.6 fL (79-99); MONOCYTES % (AUTO) 11.8 % (3.0-13.0); NEUTROPHILS % (AUTO) 58.1 % (40.0-77.0); PLATELET COUNT (AUTO) 393 K/uL (130-400); RED BLOOD CELL COUNT(AUTO) 3.35 MIL/uL (4.00-5.50); RED CELL DISTRIBUTION WIDTH 16.1 % (11.0-15.5); WHITE BLOOD COUNT (AUTO) 10.1 K/uL (4.8-10.8)
[2017-12-16 04:42] LABS: CREATININE 0.5 mg/dL (0.5-1.5); POTASSIUM 3.2 mmol/L (3.5-5.1)
[2017-12-16 05:25] VITALS: BP 145/76
[2017-12-16] MEDS: PROPRANOLOL HCL 10 MG TAB PO SCH ×2 (05:38→18:01)
[2017-12-16 07:00] VITALS: BP 170/89
[2017-12-16] MEDS: HONEY 1 APPL/ML TUBE TP SCH (09:00)
[2017-12-16] MEDS: NEOMY SULF/BACITRAC ZN/POLY OINT 30GM TUBE TP SCH (09:03)
[2017-12-16] MEDS: ARTIFICAL TEARS SOL 15 ML OP SCH ×2 (09:03→22:42)
[2017-12-16] MEDS: ASCORBIC ACID 500 MG TAB PEG SCH ×2 (09:04→22:23)
[2017-12-16] MEDS: FAMOTIDINE 20MG TAB 20 MG TAB PEG SCH ×2 (09:04→22:23)
[2017-12-16] MEDS: MULTIVITS W-MIN/FERROUS GLUC 237 ML BOTTLE PO SCH (09:04)
[2017-12-16] MEDS: ZINC SULFATE 220 CAPSULE PEG SCH (09:05)
[2017-12-16] MEDS: ENOXAPARIN SODIUM 40 MG/0.4 ML SYRINGE SQ SCH (09:05)
[2017-12-16] MEDS: POLYETHYLENE GLYCOL 3350 17 GM POWD.PACK PEG SCH (09:05)
[2017-12-16] MEDS: PERAMPANEL 12 MG PEG SCH (09:06)
[2017-12-16] MEDS: MORPHINE SULFATE 2 MG/ML 1ML SYG IVP PRN (09:18)
[2017-12-16] MEDS: ACETAMINOPHEN ELIXIR 650 MG/20.3 ML UDCUP PEG SCH (09:29)
[2017-12-16 11:00] VITALS: BP 161/83
[2017-12-16] MEDS ORDERED: IOPAMIDOL-370 100 ML VIAL IV ONE (12:34)
[2017-12-16 16:00] VITALS: BP 143/74
[2017-12-16 20:00] VITALS: BP 144/75
[2017-12-17] VITALS (7 sets, daily range): BP systolic 127–166; BP diastolic 63–102
[2017-12-17] MEDS: DILTIAZEM HCL 60 MG TABLET PEG SCH ×4 (01:59→17:09)
[2017-12-17] MEDS: VALPROATE SOD 250 MG/5 ML (PO) PEG SCH ×2 (01:59→10:03)
[2017-12-17] MEDS: LACTATED RINGERS 1000ML 1,000 ML IV SCH ×2 (04:10→08:57)
[2017-12-17] MEDS: PROPRANOLOL HCL 10 MG TAB PO SCH ×2 (04:40→17:09)
[2017-12-17 05:45] LABS: BASOPHILS % (AUTO) 0.8 % (0.0-5.0); EOSINOPHILS % (AUTO) 2.2 % (0.0-8.0); HEMATOCRIT 29.6 % (36-48); LYMPHOCYTES % (AUTO) 32.7 % (21.0-51.0); MEAN CORPUSCULAR HEMOGLOBIN 30.2 pg (27.0-33.0); MEAN CORPUSCULAR HGB CONC 34.7 g/dL (32.0-36.0); MEAN CORPUSCULAR VOLUME 86.9 fL (79-99); MONOCYTES % (AUTO) 11.3 % (3.0-13.0); PLATELET COUNT (AUTO) 368 K/uL (130-400); RED CELL DISTRIBUTION WIDTH 15.7 % (11.0-15.5); WHITE BLOOD COUNT (AUTO) 7.4 K/uL (4.8-10.8)
[2017-12-17 06:00] LABS: CREATININE 0.4 mg/dL (0.5-1.5); POTASSIUM 3.8 mmol/L (3.5-5.1)
[2017-12-17] MEDS: FAMOTIDINE 20MG TAB 20 MG TAB PEG SCH ×2 (08:39→20:45)
[2017-12-17] MEDS: ZINC SULFATE 220 CAPSULE PEG SCH (08:39)
[2017-12-17] MEDS: ASCORBIC ACID 500 MG TAB PEG SCH ×2 (08:40→20:45)
[2017-12-17] MEDS: HONEY 1 APPL/ML TUBE TP SCH (08:40)
[2017-12-17] MEDS: ENOXAPARIN SODIUM 40 MG/0.4 ML SYRINGE SQ SCH (08:40)
[2017-12-17] MEDS: POLYETHYLENE GLYCOL 3350 17 GM POWD.PACK PEG SCH (08:40)
[2017-12-17] MEDS: NEOMY SULF/BACITRAC ZN/POLY OINT 30GM TUBE TP SCH (08:41)
[2017-12-17] MEDS: MULTIVITS W-MIN/FERROUS GLUC 237 ML BOTTLE PO SCH (08:42)
[2017-12-17] MEDS: PERAMPANEL 12 MG PEG SCH (08:42)
[2017-12-17] MEDS: ARTIFICAL TEARS SOL 15 ML OP SCH ×2 (08:42→20:45)
[2017-12-17] MEDS ORDERED: MORPHINE SULFATE 4 MG/1ML SYG ONE (17:35)
[2017-12-17] MEDS ORDERED: MORPHINE SULFATE 2 MG/ML 1ML SYG IM PRN (22:15)
[2017-12-17] MEDS ORDERED: LORAZEPAM 2 MG/ML 1 ML VIAL ONE (22:21)
[2017-12-17] MEDS: ACETAMINOPHEN ELIXIR 650 MG/20.3 ML UDCUP PEG SCH (22:44)
[2017-12-18] MEDS: DILTIAZEM HCL 60 MG TABLET PEG SCH ×4 (00:02→17:19)
[2017-12-18] MEDS: MORPHINE SULFATE 2 MG/ML 1ML SYG IV PRN ×2 (00:13→13:23)
[2017-12-18] MEDS: ACETAMINOPHEN ELIXIR 650 MG/20.3 ML UDCUP PEG SCH (03:10)
[2017-12-18 03:20] VITALS: BP 148/76
[2017-12-18] MEDS: PROPRANOLOL HCL 10 MG TAB PO SCH ×2 (05:15→17:19)
[2017-12-18 05:35] LABS: BASOPHILS % (AUTO) 0.5 % (0.0-5.0); EOSINOPHILS % (AUTO) 0.6 % (0.0-8.0); HEMATOCRIT 29.2 % (36-48); LYMPHOCYTES % (AUTO) 16.5 % (21.0-51.0); MEAN CORPUSCULAR HEMOGLOBIN 29.4 pg (27.0-33.0); MEAN CORPUSCULAR HGB CONC 33.7 g/dL (32.0-36.0); MEAN CORPUSCULAR VOLUME 87.1 fL (79-99); MONOCYTES % (AUTO) 9.5 % (3.0-13.0); NEUTROPHILS % (AUTO) 72.9 % (40.0-77.0); PLATELET COUNT (AUTO) 347 K/uL (130-400); RED BLOOD CELL COUNT(AUTO) 3.35 MIL/uL (4.00-5.50); RED CELL DISTRIBUTION WIDTH 16.1 % (11.0-15.5); WHITE BLOOD COUNT (AUTO) 9.2 K/uL (4.8-10.8)
[2017-12-18 05:47] LABS: CREATININE 0.4 mg/dL (0.5-1.5)
[2017-12-18 05:50] LABS: POTASSIUM 2.9 mmol/L (3.5-5.1)
[2017-12-18] MEDS ORDERED: POTASSIUM CHLORIDE 10% ELIXIR 20 MEQ/15 ML UDCUP PO SCH (08:00)
[2017-12-18 08:21] VITALS: BP 147/90
[2017-12-18] MEDS: ZINC SULFATE 220 CAPSULE PEG SCH (13:12)
[2017-12-18] MEDS: FAMOTIDINE 20MG TAB 20 MG TAB PEG SCH ×2 (13:12→22:38)
[2017-12-18] MEDS: ASCORBIC ACID 500 MG TAB PEG SCH ×2 (13:12→22:38)
[2017-12-18] MEDS: ENOXAPARIN SODIUM 40 MG/0.4 ML SYRINGE SQ SCH (13:13)
[2017-12-18] MEDS: POLYETHYLENE GLYCOL 3350 17 GM POWD.PACK PEG SCH (13:14)
[2017-12-18] MEDS: MAGNESIUM 2GM PREMIX 50ML 50 ML IV SCH (13:15)
[2017-12-18 14:19] VITALS: BP 125/67
[2017-12-18] MEDS: OLANZAPINE 10MG/ML 1ML VIAL IM PRN (14:45)
[2017-12-18] MEDS: PERAMPANEL 12 MG PEG SCH (16:57)
[2017-12-18] MEDS: MULTIVITS W-MIN/FERROUS GLUC 237 ML BOTTLE PO SCH (16:57)
[2017-12-18] MEDS: ARTIFICAL TEARS SOL 15 ML OP SCH ×2 (16:57→22:39)
[2017-12-18] MEDS: NEOMY SULF/BACITRAC ZN/POLY OINT 30GM TUBE TP SCH (16:58)
[2017-12-18] MEDS: HONEY 1 APPL/ML TUBE TP SCH (16:58)
[2017-12-18] MEDS: LORAZEPAM 2 MG/ML 1 ML VIAL IVP PRN (17:21)
[2017-12-18 19:00] VITALS: BP 121/61
[2017-12-18] MEDS ORDERED: MORPHINE SULFATE 4 MG/1ML SYG ONE (19:42)
[2017-12-18] MEDS: ACETAMINOPHEN 325 MG TAB PO PRN (23:27)
[2017-12-19] MEDS: DILTIAZEM HCL 60 MG TABLET PEG SCH ×4 (00:41→17:28)
[2017-12-19] MEDS ORDERED: MORPHINE SULFATE 4 MG/1ML SYG ONE (02:06)
[2017-12-19 03:00] VITALS: BP 162/83
[2017-12-19] MEDS: IBUPROFEN 400 MG TABLET PO PRN ×3 (03:49→21:48)
[2017-12-19 04:39] LABS: BASOPHILS % (AUTO) 0.8 % (0.0-5.0); HEMATOCRIT 31.8 % (36-48); LYMPHOCYTES % (AUTO) 14.6 % (21.0-51.0); MEAN CORPUSCULAR HEMOGLOBIN 29.6 pg (27.0-33.0); MEAN CORPUSCULAR HGB CONC 34.1 g/dL (32.0-36.0); MONOCYTES % (AUTO) 8.5 % (3.0-13.0); NEUTROPHILS % (AUTO) 76.1 % (40.0-77.0); PLATELET COUNT (AUTO) 431 K/uL (130-400); RED BLOOD CELL COUNT(AUTO) 3.66 MIL/uL (4.00-5.50); RED CELL DISTRIBUTION WIDTH 16.2 % (11.0-15.5); WHITE BLOOD COUNT (AUTO) 8.6 K/uL (4.8-10.8)
[2017-12-19 04:47] LABS: CREATININE 0.7 mg/dL (0.5-1.5); MAGNESIUM 2.3 mg/dL (1.80-2.40); POTASSIUM 3.3 mmol/L (3.5-5.1)
[2017-12-19] MEDS: PROPRANOLOL HCL 10 MG TAB PO SCH ×2 (05:36→17:28)
[2017-12-19 07:37] VITALS: BP 185/93
[2017-12-19] MEDS ORDERED: LIDOCAINE HCL-MPF 1% 2ML VIAL IVP PRN (08:45)
[2017-12-19] MEDS ORDERED: POTASSIUM CHLORIDE 20MEQ/100ML 100 ML IV PRN (08:45)
[2017-12-19] MEDS ORDERED: POTASSIUM CHLORIDE 20 MEQ ERTAB PO PRN (08:45)
[2017-12-19] MEDS: ZINC SULFATE 220 CAPSULE PEG SCH (10:39)
[2017-12-19] MEDS: ASCORBIC ACID 500 MG TAB PEG SCH ×2 (10:39→21:30)
[2017-12-19] MEDS: POLYETHYLENE GLYCOL 3350 17 GM POWD.PACK PEG SCH (10:39)
[2017-12-19] MEDS: FAMOTIDINE 20MG TAB 20 MG TAB PEG SCH ×2 (10:40→21:31)
[2017-12-19] MEDS: ACETAMINOPHEN ELIXIR 650 MG/20.3 ML UDCUP PEG SCH ×2 (10:41→17:27)
[2017-12-19] MEDS: LORAZEPAM 2 MG/ML 1 ML VIAL IVP PRN (10:41)
[2017-12-19] MEDS: POTASSIUM CHLORIDE 10% ELIXIR 20 MEQ/15 ML UDCUP PO PRN ×2 (10:43→14:00)
[2017-12-19] MEDS: ARTIFICAL TEARS SOL 15 ML OP SCH ×2 (10:44→21:56)
[2017-12-19] MEDS: MULTIVITS W-MIN/FERROUS GLUC 237 ML BOTTLE PO SCH (10:46)
[2017-12-19] MEDS: NEOMY SULF/BACITRAC ZN/POLY OINT 30GM TUBE TP SCH (10:47)
[2017-12-19] MEDS: ENOXAPARIN SODIUM 40 MG/0.4 ML SYRINGE SQ SCH (10:48)
[2017-12-19] MEDS: HONEY 1 APPL/ML TUBE TP SCH (10:52)
[2017-12-19] MEDS: PERAMPANEL 12 MG PEG SCH (10:59)
[2017-12-19 11:37] VITALS: BP 114/59
[2017-12-19] MEDS: D5W-1/2 NS/20MEQ KCL 1,000 ML IV SCH (12:32)
[2017-12-19] MEDS: OLANZAPINE 10MG/ML 1ML VIAL IM PRN (13:18)
[2017-12-19 16:20] VITALS: BP 120/56
[2017-12-19 20:00] VITALS: BP 116/65
[2017-12-20] VITALS (7 sets, daily range): BP systolic 116–192; BP diastolic 58–112
[2017-12-20] MEDS: DILTIAZEM HCL 60 MG TABLET PEG SCH ×4 (00:51→16:59)
[2017-12-20] MEDS: ACETAMINOPHEN ELIXIR 650 MG/20.3 ML UDCUP PEG SCH (00:52)
[2017-12-20] MEDS: OLANZAPINE 10MG/ML 1ML VIAL IM PRN (01:25)
[2017-12-20] MEDS: D5W-1/2 NS/20MEQ KCL 1,000 ML IV SCH ×2 (01:26→16:59)
[2017-12-20] MEDS: LORAZEPAM 2 MG/ML 1 ML VIAL IVP PRN ×2 (03:16→21:01)
[2017-12-20] MEDS: PROPRANOLOL HCL 10 MG TAB PO SCH ×2 (07:46→16:59)
[2017-12-20 08:26] LABS: CREATININE 0.5 mg/dL (0.5-1.5); MAGNESIUM 2.1 mg/dL (1.80-2.40); POTASSIUM 4.1 mmol/L (3.5-5.1)
[2017-12-20] MEDS: HONEY 1 APPL/ML TUBE TP SCH (10:55)
[2017-12-20] MEDS: NEOMY SULF/BACITRAC ZN/POLY OINT 30GM TUBE TP SCH (10:55)
[2017-12-20] MEDS: MULTIVITS W-MIN/FERROUS GLUC 237 ML BOTTLE PO SCH (10:55)
[2017-12-20] MEDS: ASCORBIC ACID 500 MG TAB PEG SCH ×2 (10:56→20:25)
[2017-12-20] MEDS: ZINC SULFATE 220 CAPSULE PEG SCH (10:58)
[2017-12-20] MEDS: FAMOTIDINE 20MG TAB 20 MG TAB PEG SCH ×2 (10:58→20:25)
[2017-12-20] MEDS: POLYETHYLENE GLYCOL 3350 17 GM POWD.PACK PEG SCH (10:59)
[2017-12-20] MEDS: ENOXAPARIN SODIUM 40 MG/0.4 ML SYRINGE SQ SCH (11:02)
[2017-12-20] MEDS: PERAMPANEL 12 MG PEG SCH (11:03)
[2017-12-20] MEDS: ARTIFICAL TEARS SOL 15 ML OP SCH ×2 (11:04→20:33)
[2017-12-20] MEDS ORDERED: MORPHINE SULFATE 4 MG/1ML SYG ONE (20:20)
[2017-12-21] VITALS (13 sets, daily range): BP systolic 104–143; BP diastolic 52–90
[2017-12-21] MEDS: DILTIAZEM HCL 60 MG TABLET PEG SCH ×4 (00:31→17:34)
[2017-12-21] MEDS: D5W-1/2 NS/20MEQ KCL 1,000 ML IV SCH ×2 (00:39→21:28)
[2017-12-21] MEDS: PROPRANOLOL HCL 10 MG TAB PO SCH ×2 (05:17→17:34)
[2017-12-21 05:48] LABS: ALBUMIN 2.7 g/dL (3.5-5.0); BILIRUBIN,TOTAL 0.2 mg/dL (0.2-1.0); CREATININE 0.5 mg/dL (0.5-1.5); POTASSIUM 4.5 mmol/L (3.5-5.1); TOTAL PROTEIN, SERUM 7.1 g/dL (6.0-8.3)
[2017-12-21] MEDS: NEOMY SULF/BACITRAC ZN/POLY OINT 30GM TUBE TP SCH (09:00)
[2017-12-21] MEDS: HONEY 1 APPL/ML TUBE TP SCH (09:00)
[2017-12-21] MEDS: ZINC SULFATE 220 CAPSULE PEG SCH (09:47)
[2017-12-21] MEDS: POLYETHYLENE GLYCOL 3350 17 GM POWD.PACK PEG SCH (09:47)
[2017-12-21] MEDS: VALPROATE SOD 250 MG/5 ML (PO) PEG SCH ×2 (09:47→17:33)
[2017-12-21] MEDS: FAMOTIDINE 20MG TAB 20 MG TAB PEG SCH ×2 (09:48→20:43)
[2017-12-21] MEDS: ASCORBIC ACID 500 MG TAB PEG SCH ×2 (09:48→20:42)
[2017-12-21] MEDS: ARTIFICAL TEARS SOL 15 ML OP SCH ×2 (09:49→20:42)
[2017-12-21] MEDS: PERAMPANEL 12 MG PEG SCH (09:50)
[2017-12-21] MEDS: MULTIVITS W-MIN/FERROUS GLUC 237 ML BOTTLE PO SCH (09:50)
[2017-12-21] MEDS: ENOXAPARIN SODIUM 40 MG/0.4 ML SYRINGE SQ SCH (09:53)
[2017-12-21] MEDS ORDERED: MORPHINE SULFATE 4 MG/1ML SYG ONE (10:01)
[2017-12-21] MEDS: LORAZEPAM 2 MG/ML 1 ML VIAL IVP PRN (10:42)
[2017-12-21] MEDS ORDERED: LORAZEPAM 2 MG/ML 1 ML VIAL IVP SCH (11:00)
[2017-12-21] MEDS ORDERED: TEMAZEPAM 15 MG CAPSULE PO PRN (11:45)
[2017-12-21] MEDS: CLONAZEPAM 2 MG TABLET PO SCH ×2 (13:23→18:00)
[2017-12-21 14:21] LABS: BASOPHILS % (AUTO) 0.5 % (0.0-5.0); EOSINOPHILS % (AUTO) 0.5 % (0.0-8.0); HEMATOCRIT 29.4 % (36-48); LYMPHOCYTES % (AUTO) 18.1 % (21.0-51.0); MEAN CORPUSCULAR HEMOGLOBIN 29.3 pg (27.0-33.0); MEAN CORPUSCULAR HGB CONC 33.2 g/dL (32.0-36.0); MEAN CORPUSCULAR VOLUME 88.3 fL (79-99); MONOCYTES % (AUTO) 6.6 % (3.0-13.0); NEUTROPHILS % (AUTO) 74.3 % (40.0-77.0); PLATELET COUNT (AUTO) 381 K/uL (130-400); RED BLOOD CELL COUNT(AUTO) 3.34 MIL/uL (4.00-5.50); RED CELL DISTRIBUTION WIDTH 16.3 % (11.0-15.5); WHITE BLOOD COUNT (AUTO) 15.8 K/uL (4.8-10.8)
[2017-12-21 14:25] LABS: ALBUMIN 2.9 g/dL (3.5-5.0); BILIRUBIN,TOTAL 0.3 mg/dL (0.2-1.0); CREATININE 0.6 mg/dL (0.5-1.5); POTASSIUM 3.9 mmol/L (3.5-5.1); TOTAL PROTEIN, SERUM 7.5 g/dL (6.0-8.3)
[2017-12-21] MEDS: PROPOFOL 1000 MG/100 ML 100 ML IV PRN ×2 (15:07→21:56)
[2017-12-21] MEDS ORDERED: CLONAZEPAM 0.5 MG TABLET ONE ×2 (18:31→18:33)
[2017-12-22] VITALS (30 sets, daily range): BP systolic 98–138; BP diastolic 51–95
[2017-12-22] MEDS: CLONAZEPAM 2 MG TABLET PO SCH ×5 (00:02→23:31)
[2017-12-22] MEDS: DILTIAZEM HCL 60 MG TABLET PEG SCH ×5 (00:03→23:31)
[2017-12-22] MEDS: VALPROATE SOD 250 MG/5 ML (PO) PEG SCH ×3 (00:26→17:18)
[2017-12-22] MEDS: ACETAMINOPHEN ELIXIR 650 MG/20.3 ML UDCUP PEG SCH ×2 (01:05→16:03)
[2017-12-22 04:37] LABS: BASOPHILS % (AUTO) 0.8 % (0.0-5.0); EOSINOPHILS % (AUTO) 2.1 % (0.0-8.0); HEMATOCRIT 26.8 % (36-48); LYMPHOCYTES % (AUTO) 38.1 % (21.0-51.0); MEAN CORPUSCULAR HGB CONC 32.9 g/dL (32.0-36.0); MONOCYTES % (AUTO) 8.8 % (3.0-13.0); NEUTROPHILS % (AUTO) 50.2 % (40.0-77.0); PLATELET COUNT (AUTO) 323 K/uL (130-400); RED BLOOD CELL COUNT(AUTO) 3.04 MIL/uL (4.00-5.50); RED CELL DISTRIBUTION WIDTH 16.3 % (11.0-15.5); WHITE BLOOD COUNT (AUTO) 8.6 K/uL (4.8-10.8)
[2017-12-22 04:58] LABS: CREATININE 0.5 mg/dL (0.5-1.5); POTASSIUM 3.5 mmol/L (3.5-5.1)
[2017-12-22] MEDS: PROPRANOLOL HCL 10 MG TAB PO SCH ×2 (05:00→17:18)
[2017-12-22] MEDS: PROPOFOL 1000 MG/100 ML 100 ML IV PRN ×3 (05:00→19:54)
[2017-12-22] MEDS: CEFAZOLIN 2GM / 50 ML 50 ML IV SCH ×2 (06:00→10:05)
[2017-12-22] MEDS: ENOXAPARIN SODIUM 40 MG/0.4 ML SYRINGE SQ SCH (09:00)
[2017-12-22] MEDS: ARTIFICAL TEARS SOL 15 ML OP SCH ×2 (09:00→19:41)
[2017-12-22] MEDS ORDERED: PROPOFOL 10 MG/ML 20ML VIAL IV ONE (09:34)
[2017-12-22] MEDS ORDERED: CEFAZOLIN SODIUM 1 GM VIAL ONE (10:15)
[2017-12-22] MEDS: IPRATROPIUM 0.5 MG/2.5 ML INH IH PRN (11:01)
[2017-12-22] MEDS: ZINC SULFATE 220 CAPSULE PEG SCH (12:42)
[2017-12-22] MEDS: FAMOTIDINE 20MG TAB 20 MG TAB PEG SCH ×2 (12:42→20:17)
[2017-12-22] MEDS: POLYETHYLENE GLYCOL 3350 17 GM POWD.PACK PEG SCH (12:43)
[2017-12-22] MEDS: ASCORBIC ACID 500 MG TAB PEG SCH ×2 (12:43→20:17)
[2017-12-22] MEDS ORDERED: CEFTAZIDIME 1GM+NS 50ML 50 ML IV SCH (15:30)
[2017-12-22] MEDS ORDERED: VANCOMYCIN PROTOCOL PER PHARMACY IV SCH (15:30)
[2017-12-22] MEDS: CEFTAZIDIME PENTAHYDRATE 1 GM/VIAL IVP SCH ×2 (16:04→23:32)
[2017-12-22] MEDS: PERAMPANEL 12 MG PEG SCH (17:00)
[2017-12-22] MEDS: D5W-1/2 NS/20MEQ KCL 1,000 ML IV SCH (17:00)
[2017-12-22] MEDS: MULTIVITS W-MIN/FERROUS GLUC 237 ML BOTTLE PO SCH (17:16)
[2017-12-22] MEDS: VANCOMYCIN 1GM+NS 250ML 250 ML IV SCH (17:16)
[2017-12-22] MEDS ORDERED: ENOXAPARIN SODIUM 40 MG/0.4 ML SYRINGE SQ SCH (21:00)
[2017-12-23] VITALS (24 sets, daily range): BP systolic 104–139; BP diastolic 60–88
[2017-12-23] MEDS: VALPROATE SOD 250 MG/5 ML (PO) PEG SCH ×3 (01:48→16:02)
[2017-12-23] MEDS: D5W-1/2 NS/20MEQ KCL 1,000 ML IV SCH ×2 (01:56→14:37)
[2017-12-23 04:25] LABS: HEMATOCRIT 24.1 % (36-48); MEAN CORPUSCULAR HEMOGLOBIN 30.1 pg (27.0-33.0); MEAN CORPUSCULAR HGB CONC 33.9 g/dL (32.0-36.0); MEAN CORPUSCULAR VOLUME 88.9 fL (79-99); PLATELET COUNT (AUTO) 293 K/uL (130-400); RED BLOOD CELL COUNT(AUTO) 2.71 MIL/uL (4.00-5.50); RED CELL DISTRIBUTION WIDTH 16.3 % (11.0-15.5); WHITE BLOOD COUNT (AUTO) 6.8 K/uL (4.8-10.8)
[2017-12-23 04:26] LABS: CREATININE 0.5 mg/dL (0.5-1.5); POTASSIUM 3.5 mmol/L (3.5-5.1)
[2017-12-23] MEDS: CLONAZEPAM 2 MG TABLET PO SCH ×4 (05:54→23:59)
[2017-12-23] MEDS: DILTIAZEM HCL 60 MG TABLET PEG SCH ×4 (05:54→23:58)
[2017-12-23] MEDS: PROPRANOLOL HCL 10 MG TAB PO SCH ×2 (05:54→16:02)
[2017-12-23] MEDS: CEFAZOLIN 2GM / 50 ML 50 ML IV SCH (05:55)
[2017-12-23] MEDS: CEFTAZIDIME PENTAHYDRATE 1 GM/VIAL IVP SCH ×3 (06:52→22:52)
[2017-12-23] MEDS: ENOXAPARIN SODIUM 40 MG/0.4 ML SYRINGE SQ SCH (08:31)
[2017-12-23] MEDS: FAMOTIDINE 20MG TAB 20 MG TAB PEG SCH ×2 (08:31→20:28)
[2017-12-23] MEDS: POLYETHYLENE GLYCOL 3350 17 GM POWD.PACK PEG SCH (08:31)
[2017-12-23] MEDS: ZINC SULFATE 220 CAPSULE PEG SCH (08:31)
[2017-12-23] MEDS: VANCOMYCIN 1GM+NS 250ML 250 ML IV SCH ×2 (08:32→20:29)
[2017-12-23] MEDS: ARTIFICAL TEARS SOL 15 ML OP SCH ×2 (08:32→20:29)
[2017-12-23] MEDS: ASCORBIC ACID 500 MG TAB PEG SCH ×2 (08:32→20:28)
[2017-12-23] MEDS: MULTIVITS W-MIN/FERROUS GLUC 237 ML BOTTLE PO SCH (08:39)
[2017-12-23] MEDS: POTASSIUM CHLORIDE 10% ELIXIR 20 MEQ/15 ML UDCUP PO PRN ×2 (08:40→11:04)
[2017-12-23] MEDS: PERAMPANEL 12 MG PEG SCH (08:51)
[2017-12-23] MEDS: PROPOFOL 1000 MG/100 ML 100 ML IV PRN (09:26)
[2017-12-23] MEDS: LORAZEPAM 2 MG/ML 1 ML VIAL IVP PRN ×2 (15:48→20:57)
[2017-12-23] MEDS ORDERED: IPRATROPIUM 0.5 MG/2.5 ML INH IH ONE (22:57)
[2017-12-24] MEDS: VALPROATE SOD 250 MG/5 ML (PO) PEG SCH ×3 (00:37→17:09)
[2017-12-24 03:49] VITALS: BP 151/87
[2017-12-24] MEDS: PROPRANOLOL HCL 10 MG TAB PO SCH ×2 (05:40→17:09)
[2017-12-24] MEDS: CLONAZEPAM 2 MG TABLET PO SCH ×3 (06:00→17:09)
[2017-12-24] MEDS: DILTIAZEM HCL 60 MG TABLET PEG SCH ×3 (06:00→17:09)
[2017-12-24 06:03] LABS: HEMATOCRIT 32.5 % (36-48); MEAN CORPUSCULAR HEMOGLOBIN 29.2 pg (27.0-33.0); MEAN CORPUSCULAR HGB CONC 33.4 g/dL (32.0-36.0); MEAN CORPUSCULAR VOLUME 87.3 fL (79-99); NUCLEATED RED BLOOD CELLS 0.1 % (0.0-0.19); PLATELET COUNT (AUTO) 354 K/uL (130-400); RED BLOOD CELL COUNT(AUTO) 3.72 MIL/uL (4.00-5.50); RED CELL DISTRIBUTION WIDTH 15.9 % (11.0-15.5)
[2017-12-24 06:14] LABS: CREATININE 0.4 mg/dL (0.5-1.5); POTASSIUM 4.3 mmol/L (3.5-5.1)
[2017-12-24] MEDS: D5W-1/2 NS/20MEQ KCL 1,000 ML IV SCH ×3 (06:23→20:58)
[2017-12-24] MEDS: CEFTAZIDIME PENTAHYDRATE 1 GM/VIAL IVP SCH ×3 (06:32→22:56)
[2017-12-24 07:00] VITALS: BP 150/71
[2017-12-24] MEDS: ZINC SULFATE 220 CAPSULE PEG SCH (10:35)
[2017-12-24] MEDS: FAMOTIDINE 20MG TAB 20 MG TAB PEG SCH ×2 (10:35→21:28)
[2017-12-24] MEDS: PERAMPANEL 12 MG PEG SCH (10:36)
[2017-12-24] MEDS: POLYETHYLENE GLYCOL 3350 17 GM POWD.PACK PEG SCH (10:36)
[2017-12-24] MEDS: ASCORBIC ACID 500 MG TAB PEG SCH ×2 (10:36→21:28)
[2017-12-24] MEDS: MULTIVITS W-MIN/FERROUS GLUC 237 ML BOTTLE PO SCH (10:37)
[2017-12-24] MEDS: ENOXAPARIN SODIUM 40 MG/0.4 ML SYRINGE SQ SCH (10:37)
[2017-12-24] MEDS: ARTIFICAL TEARS SOL 15 ML OP SCH ×2 (10:37→21:29)
[2017-12-24 11:00] VITALS: BP 145/97
[2017-12-24] MEDS: VANCOMYCIN 1GM+NS 250ML 250 ML IV SCH ×2 (11:22→23:03)
[2017-12-24 16:00] VITALS: BP 123/74
[2017-12-24 20:10] VITALS: BP 112/71
[2017-12-24 23:32] VITALS: BP 125/66
[2017-12-25] MEDS: DILTIAZEM HCL 60 MG TABLET PEG SCH ×5 (00:23→23:38)
[2017-12-25] MEDS: CLONAZEPAM 2 MG TABLET PO SCH ×5 (00:24→23:39)
[2017-12-25] MEDS: VALPROATE SOD 250 MG/5 ML (PO) PEG SCH ×4 (00:25→23:39)
[2017-12-25 04:03] VITALS: BP 141/70
[2017-12-25] MEDS: PROPRANOLOL HCL 10 MG TAB PO SCH ×2 (05:51→17:10)
[2017-12-25] MEDS: CEFTAZIDIME PENTAHYDRATE 1 GM/VIAL IVP SCH ×3 (05:54→23:38)
[2017-12-25 05:58] LABS: HEMATOCRIT 30.9 % (36-48); MEAN CORPUSCULAR HEMOGLOBIN 30.1 pg (27.0-33.0); MEAN CORPUSCULAR HGB CONC 34.2 g/dL (32.0-36.0); MEAN CORPUSCULAR VOLUME 87.8 fL (79-99); PLATELET COUNT (AUTO) 342 K/uL (130-400); RED BLOOD CELL COUNT(AUTO) 3.51 MIL/uL (4.00-5.50); RED CELL DISTRIBUTION WIDTH 16.4 % (11.0-15.5); WHITE BLOOD COUNT (AUTO) 8.2 K/uL (4.8-10.8)
[2017-12-25 07:29] VITALS: BP 135/42
[2017-12-25] MEDS: POLYETHYLENE GLYCOL 3350 17 GM POWD.PACK PEG SCH (10:11)
[2017-12-25] MEDS: ASCORBIC ACID 500 MG TAB PEG SCH ×2 (10:11→20:12)
[2017-12-25] MEDS: ENOXAPARIN SODIUM 40 MG/0.4 ML SYRINGE SQ SCH (10:12)
[2017-12-25] MEDS: VANCOMYCIN 1GM+NS 250ML 250 ML IV SCH ×2 (10:40→23:53)
[2017-12-25] MEDS: PERAMPANEL 12 MG PEG SCH (10:41)
[2017-12-25] MEDS: ARTIFICAL TEARS SOL 15 ML OP SCH ×2 (10:41→20:13)
[2017-12-25] MEDS: MULTIVITS W-MIN/FERROUS GLUC 237 ML BOTTLE PO SCH (10:41)
[2017-12-25] MEDS: FAMOTIDINE 20MG TAB 20 MG TAB PEG SCH ×2 (10:41→20:11)
[2017-12-25] MEDS: ZINC SULFATE 220 CAPSULE PEG SCH (10:41)
[2017-12-25] MEDS: D5W-1/2 NS/20MEQ KCL 1,000 ML IV SCH (11:38)
[2017-12-25 11:52] VITALS: BP 110/71
[2017-12-25] MEDS: IBUPROFEN 400 MG TABLET PO PRN ×2 (12:10→17:10)
[2017-12-25 16:27] VITALS: BP 113/71
[2017-12-25 20:01] VITALS: BP 122/51
[2017-12-25 23:42] VITALS: BP 122/66
[2017-12-26 04:00] VITALS: BP 156/82
[2017-12-26 04:47] LABS: CREATININE 0.4 mg/dL (0.5-1.5); POTASSIUM 4.3 mmol/L (3.5-5.1)
[2017-12-26] MEDS: PROPRANOLOL HCL 10 MG TAB PO SCH ×2 (05:04→18:03)
[2017-12-26] MEDS: D5W-1/2 NS/20MEQ KCL 1,000 ML IV SCH ×2 (05:10→20:27)
[2017-12-26] MEDS: CLONAZEPAM 2 MG TABLET PO SCH ×3 (05:22→18:03)
[2017-12-26] MEDS: DILTIAZEM HCL 60 MG TABLET PEG SCH ×3 (05:22→18:03)
[2017-12-26] MEDS: CEFTAZIDIME PENTAHYDRATE 1 GM/VIAL IVP SCH ×3 (06:12→22:43)
[2017-12-26 07:00] VITALS: BP 128/60
[2017-12-26] MEDS: ASCORBIC ACID 500 MG TAB PEG SCH ×2 (09:25→20:21)
[2017-12-26] MEDS: FAMOTIDINE 20MG TAB 20 MG TAB PEG SCH ×2 (09:25→20:21)
[2017-12-26] MEDS: POLYETHYLENE GLYCOL 3350 17 GM POWD.PACK PEG SCH (09:25)
[2017-12-26] MEDS: MULTIVITS W-MIN/FERROUS GLUC 237 ML BOTTLE PO SCH (09:26)
[2017-12-26] MEDS: VALPROATE SOD 250 MG/5 ML (PO) PEG SCH ×2 (09:26→18:06)
[2017-12-26] MEDS: ARTIFICAL TEARS SOL 15 ML OP SCH ×2 (09:27→20:21)
[2017-12-26] MEDS: ENOXAPARIN SODIUM 40 MG/0.4 ML SYRINGE SQ SCH (09:30)
[2017-12-26 11:47] VITALS: BP 132/77
[2017-12-26] MEDS: ZINC SULFATE 220 CAPSULE PEG SCH (12:18)
[2017-12-26] MEDS: VANCOMYCIN 1GM+NS 250ML 250 ML IV SCH ×2 (12:19→22:44)
[2017-12-26] MEDS: PERAMPANEL 12 MG PEG SCH (14:11)
[2017-12-26 16:46] VITALS: BP 143/57
[2017-12-26 19:57] VITALS: BP 152/92
[2017-12-26] MEDS: LORAZEPAM 2 MG/ML 1 ML VIAL IVP PRN (21:44)
[2017-12-27] VITALS (21 sets, daily range): BP systolic 115–190; BP diastolic 49–112
[2017-12-27] MEDS: VALPROATE SOD 250 MG/5 ML (PO) PEG SCH ×3 (00:08→16:54)
[2017-12-27] MEDS: CLONAZEPAM 2 MG TABLET PO SCH ×6 (00:08→23:41)
[2017-12-27] MEDS: DILTIAZEM HCL 60 MG TABLET PEG SCH ×5 (00:09→23:41)
[2017-12-27] MEDS: PROPRANOLOL HCL 10 MG TAB PO SCH ×2 (04:10→16:12)
[2017-12-27 04:11] LABS: MEAN CORPUSCULAR HEMOGLOBIN 29.6 pg (27.0-33.0); MEAN CORPUSCULAR HGB CONC 34.2 g/dL (32.0-36.0); MEAN CORPUSCULAR VOLUME 86.3 fL (79-99); PLATELET COUNT (AUTO) 380 K/uL (130-400); RED BLOOD CELL COUNT(AUTO) 3.47 MIL/uL (4.00-5.50); WHITE BLOOD COUNT (AUTO) 8.7 K/uL (4.8-10.8)
[2017-12-27 04:19] LABS: INR 0.99 (0.85-1.15); PROTHROMBIN TIME 10.4 SEC (9.6-11.6)
[2017-12-27 04:27] LABS: CREATININE 0.3 mg/dL (0.5-1.5); PHOSPHORUS 3.8 mg/dL (2.5-4.9); POTASSIUM 3.6 mmol/L (3.5-5.1)
[2017-12-27] MEDS: D5W-1/2 NS/20MEQ KCL 1,000 ML IV SCH ×3 (06:10→20:23)
[2017-12-27] MEDS: LORAZEPAM 2 MG/ML 1 ML VIAL IVP PRN (06:11)
[2017-12-27] MEDS: CEFTAZIDIME PENTAHYDRATE 1 GM/VIAL IVP SCH ×3 (08:00→23:37)
[2017-12-27] MEDS: PERAMPANEL 12 MG PEG SCH (09:00)
[2017-12-27] MEDS: ZINC SULFATE 220 CAPSULE PEG SCH (09:00)
[2017-12-27] MEDS: MULTIVITS W-MIN/FERROUS GLUC 237 ML BOTTLE PO SCH (09:00)
[2017-12-27] MEDS: FAMOTIDINE 20MG TAB 20 MG TAB PEG SCH ×2 (09:00→20:24)
[2017-12-27] MEDS: ENOXAPARIN SODIUM 40 MG/0.4 ML SYRINGE SQ SCH (09:00)
[2017-12-27] MEDS: ASCORBIC ACID 500 MG TAB PEG SCH ×2 (09:00→20:24)
[2017-12-27] MEDS: POLYETHYLENE GLYCOL 3350 17 GM POWD.PACK PEG SCH (09:00)
[2017-12-27] MEDS: VANCOMYCIN 1GM+NS 250ML 250 ML IV SCH ×2 (10:43→23:46)
[2017-12-27] MEDS: ARTIFICAL TEARS SOL 15 ML OP SCH ×2 (10:50→20:30)
[2017-12-27] MEDS ORDERED: FENTANYL CITRATE PF 50 MCG/1 ML 2ML VIAL ONE (13:37)
[2017-12-27] MEDS ORDERED: PROPOFOL 10 MG/ML 20ML VIAL IV ONE (13:44)
[2017-12-27] MEDS ORDERED: SUCCINYLCHOLINE CHLORIDE 20 MG/ML 10 ML VIAL ONE (14:02)
[2017-12-27] MEDS ORDERED: PROPOFOL 1000 MG/100 ML IV PRN (15:30)
[2017-12-27] MEDS ORDERED: PROPOFOL 1000 MG/100 ML 100 ML IV PRN (15:45)
[2017-12-27 16:39] LABS: ABG BASE EXCESS -1.2 mmol/L (-2.0-3.0); ABG HCO3 23.5 mmol/L (21.0-28.0); ABG OXYGEN SATURATION 99.4 % (95.0-99.0); ABG PCO2 39 mmHg (32-45)
[2017-12-28] VITALS (24 sets, daily range): BP systolic 103–180; BP diastolic 37–112
[2017-12-28] MEDS: VALPROATE SOD 250 MG/5 ML (PO) PEG SCH ×3 (00:12→18:18)
[2017-12-28 04:10] LABS: ABG BASE EXCESS 0.8 mmol/L (-2.0-3.0); ABG HCO3 25.5 mmol/L (21.0-28.0); ABG PCO2 41 mmHg (32-45)
[2017-12-28 04:30] LABS: HEMATOCRIT 28.9 % (36-48); MEAN CORPUSCULAR HEMOGLOBIN 30.1 pg (27.0-33.0); MEAN CORPUSCULAR HGB CONC 34.8 g/dL (32.0-36.0); MEAN CORPUSCULAR VOLUME 86.5 fL (79-99); PLATELET COUNT (AUTO) 346 K/uL (130-400); RED BLOOD CELL COUNT(AUTO) 3.34 MIL/uL (4.00-5.50); RED CELL DISTRIBUTION WIDTH 16.1 % (11.0-15.5); WHITE BLOOD COUNT (AUTO) 8.3 K/uL (4.8-10.8)
[2017-12-28] MEDS: CLONAZEPAM 2 MG TABLET PO SCH ×4 (04:47→23:13)
[2017-12-28] MEDS: PROPRANOLOL HCL 10 MG TAB PO SCH ×2 (04:47→16:43)
[2017-12-28] MEDS: DILTIAZEM HCL 60 MG TABLET PEG SCH ×4 (04:48→23:14)
[2017-12-28 05:00] LABS: ALBUMIN 2.6 g/dL (3.5-5.0); BILIRUBIN,TOTAL 0.1 mg/dL (0.2-1.0); CREATININE 0.3 mg/dL (0.5-1.5); MAGNESIUM 1.9 mg/dL (1.80-2.40); PHOSPHORUS 4.1 mg/dL (2.5-4.9); POTASSIUM 3.5 mmol/L (3.5-5.1); TOTAL PROTEIN, SERUM 6.9 g/dL (6.0-8.3)
[2017-12-28] MEDS: MAGNESIUM 2GM PREMIX 50ML 50 ML IV SCH (05:47)
[2017-12-28] MEDS: CEFTAZIDIME PENTAHYDRATE 1 GM/VIAL IVP SCH ×3 (06:28→23:13)
[2017-12-28] MEDS: LORAZEPAM 2 MG/ML 1 ML VIAL IVP PRN (08:59)
[2017-12-28] MEDS: POLYETHYLENE GLYCOL 3350 17 GM POWD.PACK PEG SCH ×2 (09:00→10:04)
[2017-12-28] MEDS: ENOXAPARIN SODIUM 40 MG/0.4 ML SYRINGE SQ SCH (10:03)
[2017-12-28] MEDS: ASCORBIC ACID 500 MG TAB PEG SCH ×2 (10:04→20:09)
[2017-12-28] MEDS: VANCOMYCIN 1GM+NS 250ML 250 ML IV SCH (10:04)
[2017-12-28] MEDS: ZINC SULFATE 220 CAPSULE PEG SCH (10:04)
[2017-12-28] MEDS: FAMOTIDINE 20MG TAB 20 MG TAB PEG SCH ×2 (10:05→20:09)
[2017-12-28] MEDS: ARTIFICAL TEARS SOL 15 ML OP SCH ×2 (10:07→19:32)
[2017-12-28] MEDS: MULTIVITS W-MIN/FERROUS GLUC 237 ML BOTTLE PO SCH (10:18)
[2017-12-28] MEDS: PERAMPANEL 12 MG PEG SCH (10:18)
[2017-12-28] MEDS: ACETAMINOPHEN-CODEINE ELIXIR 5 ML UDCUP PO PRN ×3 (11:46→20:10)
[2017-12-28] MEDS: D5W-1/2 NS/20MEQ KCL 1,000 ML IV SCH (18:13)
[2017-12-29] VITALS (17 sets, daily range): BP systolic 108–154; BP diastolic 62–93
[2017-12-29] MEDS: ACETAMINOPHEN-CODEINE ELIXIR 5 ML UDCUP PO PRN ×3 (00:01→09:31)
[2017-12-29] MEDS: VALPROATE SOD 250 MG/5 ML (PO) PEG SCH ×3 (00:01→18:30)
[2017-12-29 03:55] LABS: BASOPHILS % (AUTO) 0.6 % (0.0-5.0); EOSINOPHILS % (AUTO) 1.5 % (0.0-8.0); HEMATOCRIT 28.9 % (36-48); LYMPHOCYTES % (AUTO) 21.5 % (21.0-51.0); MEAN CORPUSCULAR HEMOGLOBIN 28.9 pg (27.0-33.0); MEAN CORPUSCULAR HGB CONC 33.2 g/dL (32.0-36.0); MONOCYTES % (AUTO) 11.1 % (3.0-13.0); NEUTROPHILS % (AUTO) 65.3 % (40.0-77.0); PLATELET COUNT (AUTO) 377 K/uL (130-400); RED BLOOD CELL COUNT(AUTO) 3.32 MIL/uL (4.00-5.50); RED CELL DISTRIBUTION WIDTH 16.3 % (11.0-15.5); WHITE BLOOD COUNT (AUTO) 10.5 K/uL (4.8-10.8)
[2017-12-29 04:11] LABS: ALBUMIN 2.4 g/dL (3.5-5.0); BILIRUBIN,TOTAL 0.2 mg/dL (0.2-1.0); CREATININE 0.4 mg/dL (0.5-1.5); TOTAL PROTEIN, SERUM 6.8 g/dL (6.0-8.3)
[2017-12-29] MEDS: PROPRANOLOL HCL 10 MG TAB PO SCH ×2 (04:20→19:08)
[2017-12-29] MEDS: DILTIAZEM HCL 60 MG TABLET PEG SCH ×4 (05:04→23:19)
[2017-12-29] MEDS: CLONAZEPAM 2 MG TABLET PO SCH ×4 (05:04→23:19)
[2017-12-29] MEDS: CEFTAZIDIME PENTAHYDRATE 1 GM/VIAL IVP SCH ×3 (06:41→23:08)
[2017-12-29] MEDS: ASCORBIC ACID 500 MG TAB PEG SCH ×2 (08:57→21:49)
[2017-12-29] MEDS: FAMOTIDINE 20MG TAB 20 MG TAB PEG SCH ×2 (08:57→21:49)
[2017-12-29] MEDS: ZINC SULFATE 220 CAPSULE PEG SCH (08:57)
[2017-12-29] MEDS: POLYETHYLENE GLYCOL 3350 17 GM POWD.PACK PEG SCH (09:00)
[2017-12-29] MEDS: MULTIVITS W-MIN/FERROUS GLUC 237 ML BOTTLE PO SCH (09:01)
[2017-12-29] MEDS: PERAMPANEL 12 MG PEG SCH (09:01)
[2017-12-29] MEDS: ARTIFICAL TEARS SOL 15 ML OP SCH ×2 (09:01→21:50)
[2017-12-29] MEDS: ENOXAPARIN SODIUM 40 MG/0.4 ML SYRINGE SQ SCH (09:02)
[2017-12-29] MEDS: D5W-1/2 NS/20MEQ KCL 1,000 ML IV SCH (09:02)
[2017-12-29] MEDS: LORAZEPAM 2 MG/ML 1 ML VIAL IVP PRN (10:38)
[2017-12-30] VITALS: BP 146/70
[2017-12-30] MEDS: VALPROATE SOD 250 MG/5 ML (PO) PEG SCH ×3 (01:05→17:56)
[2017-12-30 04:00] VITALS: BP 109/63
[2017-12-30] MEDS: PROPRANOLOL HCL 10 MG TAB PO SCH ×2 (05:19→17:58)
[2017-12-30] MEDS: ACETAMINOPHEN-CODEINE ELIXIR 5 ML UDCUP PO PRN ×2 (05:21→17:57)
[2017-12-30] MEDS: CLONAZEPAM 2 MG TABLET PO SCH ×3 (05:48→18:39)
[2017-12-30] MEDS: DILTIAZEM HCL 60 MG TABLET PEG SCH ×3 (05:48→17:58)
[2017-12-30] MEDS: CEFTAZIDIME PENTAHYDRATE 1 GM/VIAL IVP SCH ×2 (05:49→15:30)
[2017-12-30 08:00] VITALS: BP 92/56
[2017-12-30] MEDS: ASCORBIC ACID 500 MG TAB PEG SCH ×2 (10:34→21:12)
[2017-12-30] MEDS: POLYETHYLENE GLYCOL 3350 17 GM POWD.PACK PEG SCH (10:34)
[2017-12-30] MEDS: ZINC SULFATE 220 CAPSULE PEG SCH (10:34)
[2017-12-30] MEDS: ENOXAPARIN SODIUM 40 MG/0.4 ML SYRINGE SQ SCH (10:34)
[2017-12-30] MEDS: FAMOTIDINE 20MG TAB 20 MG TAB PEG SCH ×2 (10:34→21:12)
[2017-12-30] MEDS: MULTIVITS W-MIN/FERROUS GLUC 237 ML BOTTLE PO SCH (10:35)
[2017-12-30] MEDS: PERAMPANEL 12 MG PEG SCH (10:35)
[2017-12-30] MEDS: ARTIFICAL TEARS SOL 15 ML OP SCH ×2 (10:35→21:12)
[2017-12-30 12:00] VITALS: BP 138/90
[2017-12-30 16:00] VITALS: BP 141/91
[2017-12-30 19:00] VITALS: BP 130/92
== END 2017-12-30 21:35 | DRG 710 ==
LOC: EDH 06:38 → EDHIP 06:39 → 2DH 13:04 → 2BH 11-16 18:37 → 2DH 11-20 21:07 → 3DH 12-02 20:40 → 2BH 12-21 14:33 → 2AH 12-23 18:00 → 2BH 12-27 15:00 → 3BH 12-29 16:26 → 3AH 12-29 16:34
PROVIDERS: ADMIT Family Medicine; ATTEND Family Medicine
PROC: 5A1955Z Respiratory Ventilation, Greater than 96 Consecutive Hours (ICD-10-PCS; principal; 2017-11-12)
PROC: 0PBL0ZZ Excision of Left Ulna, Open Approach (ICD-10-PCS; 2017-12-22 09:55)
PROC: 0PBL0ZZ Excision of Left Ulna, Open Approach (ICD-10-PCS; 2017-12-27)
DX: A41.9 Sepsis, unspecified organism (principal); J96.21 Acute and chronic respiratory failure with hypoxia; E43 Unspecified severe protein-calorie malnutrition; J18.9 Pneumonia, unspecified organism; G93.1 Anoxic brain damage, not elsewhere classified; R53.2 Functional quadriplegia; Z93.0 Tracheostomy status; G40.89 Other seizures; E87.0 Hyperosmolality and hypernatremia; M62.82 Rhabdomyolysis; R13.12 Dysphagia, oropharyngeal phase; G24.8 Other dystonia; D63.8 Anemia in other chronic diseases classified elsewhere; J96.22 Acute and chronic respiratory failure with hypercapnia; G90.1 Familial dysautonomia [Riley-Day]; I10 Essential (primary) hypertension; I34.0 Nonrheumatic mitral (valve) insufficiency; L89.029 Pressure ulcer of left elbow, unspecified stage; N39.0 Urinary tract infection, site not specified; R62.7 Adult failure to thrive; Y95 Nosocomial condition; Z16.24 Resistance to multiple antibiotics; Z86.14 Personal history of Methicillin resistant Staphylococcus aureus infection; Z87.820 Personal history of traumatic brain injury; Z87.01 Personal history of pneumonia (recurrent); Z86.74 Personal history of sudden cardiac arrest; Z95.2 Presence of prosthetic heart valve; M86.9 Osteomyelitis, unspecified; D63.1 Anemia in chronic kidney disease; E83.42 Hypomagnesemia; E83.51 Hypocalcemia; E83.52 Hypercalcemia; E86.0 Dehydration; E87.1 Hypo-osmolality and hyponatremia; I12.9 Hypertensive chronic kidney disease with stage 1 through stage 4 chronic kidney disease, or unspecified chronic kidney disease
CPT/HCPCS: 36415; 36600; 70450; 71045; 71260; 73070; 73201; 74177; 76536; 80048; 80053; 80164; 80202; 81001; 81025; 82306; 82330; 82550; 82553; 82803; 82948; 83605; 83735; 83874; 83935; 83970; 84100; 84132; 84300; 84484; 84703; 85025; 85027; 85610; 85651; 85730; 86141; 87040; 87070; 87071; 87076; 87077; 87088; 87186; 87205; 87804; 88304; 93005; 94002; 94003; 94640; 94660; 94664; A4218; A4344; A6234; A6250; C1894; J0330; J0690; J0713; J0878; J1450; J1610; J1650; J1956; J2060; J2185; J2270; J2310; J2704; J2997; J3010; J3370; J3475; J3480; J3490; J7030; J7120; Q9963; Q9967

== ENCOUNTER 2018-01-07 09:41 | Inpatient (IN) | payer MEDICAID ==
[~2018-01-07] VITALS: Ht 160 cm; Wt 63.5 kg
[~2018-01-07 09:41] MED LIST: ACET650S28 PEG; ASCO250T5 PEG; BACL20TA PEG; BISA10S PR; CARB15DR OP; CLON0.2T PEG; CLON1TAB5 PEG; DILT30TA3 PEG; ENOX40DI8 SQ; FAMO20TA8 PEG; FENT-77 TD; METO50TA18 PEG; MULT-1192 PEG; PERA12TA PEG; POLY17PO4 PEG; TEMA15CA; VALP250S4 PEG; ZINC220T PEG; ZOLP10TA2 PEG
[2018-01-07] MEDS ORDERED: MEROPENEM 1 GM VIAL ONE (09:56)
[2018-01-07 10:03] LABS: BASOPHILS % (AUTO) 0.3 % (0.0-5.0); HEMATOCRIT 29.5 % (36-48); LYMPHOCYTES % (AUTO) 6.1 % (21.0-51.0); MEAN CORPUSCULAR HEMOGLOBIN 28.3 pg (27.0-33.0); MEAN CORPUSCULAR HGB CONC 32.5 g/dL (32.0-36.0); MEAN CORPUSCULAR VOLUME 86.9 fL (79-99); MONOCYTES % (AUTO) 11.3 % (3.0-13.0); NEUTROPHILS % (AUTO) 82.3 % (40.0-77.0); PLATELET COUNT (AUTO) 335 K/uL (130-400); RED CELL DISTRIBUTION WIDTH 16.3 % (11.0-15.5); WHITE BLOOD COUNT (AUTO) 12.4 K/uL (4.8-10.8)
[2018-01-07 10:10] LABS: CREATININE 0.9 mg/dL (0.5-1.5); POTASSIUM 3.3 mmol/L (3.5-5.1)
[2018-01-07 10:11] LABS: INR 1.17 (0.85-1.15); PROTHROMBIN TIME 12.2 SEC (9.6-11.6)
[2018-01-07] MEDS ORDERED: VANCOMYCIN 750MG + NS 250 ML IV SCH ×2 (10:15)
[2018-01-07 10:26] LABS: ALBUMIN 2.6 g/dL (3.5-5.0); BILIRUBIN,TOTAL 0.2 mg/dL (0.2-1.0); TROPONIN I 0.05 ng/mL (0.00-0.06)
[2018-01-07 10:34] LABS: APPEARANCE,URINE Cloudy (CLEAR); BILIRUBIN,URINE Negative (NEGATIVE); COLOR,URINE Dark Yellow (YELLOW); GLUCOSE, URINE (UA) Negative (NEGATIVE); KETONES,URINE Trace mg/dL (NEGATIVE); LEUKOCYTE ESTERASE ,URINE Negative (NEGATIVE); NITRATE,URINE Negative (NEGATIVE); OCCULT BLOOD,URINE Nonhemolyzed Trace (NEGATIVE); PROTEIN,URINE POS 2+ (NEGATIVE)
[2018-01-07 10:40] LABS: BACTERIA,URINE Rare /HPF (None Seen); RBC,URINE 0-1 /HPF (0-1); WBC,URINE None Seen /HPF (0-1)
[2018-01-07 10:42] LABS: MUCUS,URINE Few LPF (None Seen); SQUAMOUS EPITHELIAL CELL,UR Rare /HPF (0-2)
[2018-01-07] MEDS ORDERED: IBUPROFEN 600 MG TABLET ONE (11:09)
[2018-01-07] MEDS ORDERED: ZIPRASIDONE MESYLATE 20 MG/VIAL IM ONE (11:32)
[2018-01-07] MEDS ORDERED: VANCOMYCIN PROTOCOL PER PHARMACY IV PRN (15:15)
[2018-01-07] MEDS ORDERED: CALDOLOR 800MG+NS 250ML 250 ML IV SCH (15:15)
[2018-01-07] MEDS ORDERED: ONDANSETRON HCL MDV 20ML 2 MG/ML VIAL IV PRN (15:15)
[2018-01-07] MEDS ORDERED: LACTULOSE 20 GM/30 ML UDCUP PO PRN ×2 (15:15→22:15)
[2018-01-07] MEDS ORDERED: MEROPENEM 500MG+NS 50ML 50 ML IV SCH (15:15)
[2018-01-07] MEDS ORDERED: HYDRALAZINE HCL 20 MG/ML VIAL IV PRN (15:15)
[2018-01-07] MEDS: DEXTROSE 5%-WATER 1,000 ML IV SCH (15:30)
[2018-01-07] MEDS: INSULIN HUMULIN R 100 UNIT/ML 3ML SQ SCH ×2 (15:30→21:30)
[2018-01-07] MEDS ORDERED: MEROPENEM 500 MG VIAL IVP SCH (16:00)
[2018-01-07 17:44] VITALS: BP 130/93
[2018-01-07] MEDS ORDERED: MEROPENEM 1GM IVPB PREMIXED 1 GM IV SCH (18:45)
[2018-01-07 19:00] VITALS: BP 128/68
[2018-01-07] MEDS ORDERED: POTASSIUM CHLORIDE 20 MEQ ERTAB PO PRN (19:00)
[2018-01-07] MEDS ORDERED: LIDOCAINE HCL-MPF 1% 2ML VIAL IVP PRN (19:00)
[2018-01-07] MEDS ORDERED: MORPHINE SULFATE 4 MG/1ML SYG ONE (19:47)
[2018-01-07] MEDS: MEROPENEM 1 GM VIAL IVP SCH (19:51)
[2018-01-07] MEDS: ACETAMINOPHEN 325 MG TAB PO PRN (19:51)
[2018-01-07] MEDS: POTASSIUM CHLORIDE 10% ELIXIR 20 MEQ/15 ML UDCUP PO PRN (19:53)
[2018-01-07] MEDS: VANCOMYCIN 1GM+NS 250ML 250 ML IV SCH (20:45)
[2018-01-07] MEDS ORDERED: BISACODYL 10 MG SUPP.RECT RC PRN (22:15)
[2018-01-07] MEDS ORDERED: IBUPROFEN 200 MG TABLET PO PRN (22:15)
[2018-01-07] MEDS ORDERED: NON-FORMULARY MEDICATION 1 EACH (Fentanyl 1 EACH) TD SCH (22:15)
[2018-01-07] MEDS ORDERED: VALPROATE SODIUM 250 MG PEG SCH (22:15)
[2018-01-07] MEDS ORDERED: TYL3LL PO (22:24)
[2018-01-07] MEDS ORDERED: ALBU0.63 IH (22:24)
[2018-01-07] MEDS ORDERED: CLON1TAB23 PEG (22:24)
[2018-01-07] MEDS ORDERED: LACT10SO9 PO (22:24)
[2018-01-07] MEDS ORDERED: DEXT1DRO OP (22:24)
[2018-01-07] MEDS ORDERED: PROP20TA7 PEG (22:24)
[2018-01-07] MEDS ORDERED: ENOX40DI8 SQ (22:24)
[2018-01-07] MEDS ORDERED: IBUP-2353 PEG (22:24)
[2018-01-07 23:00] VITALS: BP 148/65
[2018-01-07] MEDS ORDERED: IBUPROFEN 400 MG TABLET ONE (23:11)
[2018-01-08] MEDS: CLONIDINE HCL 0.2 MG TABLET PO SCH ×4 (00:24→22:41)
[2018-01-08] MEDS: LORAZEPAM 2 MG/ML 1 ML VIAL IM PRN ×2 (01:27→11:42)
[2018-01-08] MEDS: ACETAMINOPHEN ELIXIR 650 MG/20.3 ML UDCUP PEG SCH ×2 (01:27→22:42)
[2018-01-08 03:00] VITALS: BP 92/56
[2018-01-08] MEDS: INSULIN HUMULIN R 100 UNIT/ML 3ML SQ SCH ×3 (03:30→15:30)
[2018-01-08] MEDS: MEROPENEM 1 GM VIAL IVP SCH ×3 (03:36→19:32)
[2018-01-08] MEDS: DEXTROSE 5%-WATER 1,000 ML IV SCH ×2 (04:50→15:03)
[2018-01-08] MEDS ORDERED: VALP250S23 PEG (04:57)
[2018-01-08] MEDS: MORPHINE SULFATE 4 MG/1ML SYG IVP PRN ×2 (05:08→14:53)
[2018-01-08] MEDS: BACLOFEN 10 MG TABLET PO SCH ×3 (06:43→19:32)
[2018-01-08] MEDS: VALPROATE SOD 250 MG/5 ML (PO) PEG SCH ×3 (06:44→20:57)
[2018-01-08] MEDS ORDERED: ACETAMINOPHEN-CODEINE ELIXIR 5 ML UDCUP PO PRN (06:45)
[2018-01-08 08:00] VITALS: BP 96/58
[2018-01-08] MEDS: METOPROLOL TARTRATE 50 MG TAB PEG SCH ×2 (08:51→20:57)
[2018-01-08] MEDS: FAMOTIDINE 20MG TAB 20 MG TAB PEG SCH ×2 (08:51→20:57)
[2018-01-08] MEDS: PROPRANOLOL HCL 20 MG TAB PEG SCH ×2 (08:51→20:57)
[2018-01-08] MEDS: POLYETHYLENE GLYCOL 3350 17 GM POWD.PACK PEG SCH (08:51)
[2018-01-08] MEDS: VANCOMYCIN 1GM+NS 250ML 250 ML IV SCH ×2 (08:51→20:56)
[2018-01-08] MEDS: ASCORBIC ACID 500 MG TAB PEG SCH ×2 (08:51→20:57)
[2018-01-08] MEDS: MULTIVITAMIN TABLET PEG SCH (08:51)
[2018-01-08] MEDS: ENOXAPARIN SODIUM 40 MG/0.4 ML SYRINGE SQ SCH (08:53)
[2018-01-08] MEDS ORDERED: ENOXAPARIN SODIUM 40 MG/0.4 ML SYRINGE SQ SCH ×2 (09:00)
[2018-01-08] MEDS: FYCOMPA 12 MG PEG SCH (09:00)
[2018-01-08] MEDS ORDERED: ALBUTEROL 0.63 MG IH SCH (09:00)
[2018-01-08] MEDS ORDERED: CARBOXYMETHYLCELLULOSE SODIUM OP SCH (09:00)
[2018-01-08] MEDS: LEVOFLOXACIN 750 MG/D5W 150 ML 150 ML IV SCH (09:46)
[2018-01-08] MEDS: ARTIFICAL TEARS SOL 15 ML OP SCH ×2 (09:46→21:01)
[2018-01-08] MEDS: DILTIAZEM HCL 60 MG TABLET PEG SCH ×3 (09:47→21:01)
[2018-01-08] MEDS: CLONAZEPAM 1 MG TABLET PEG SCH ×3 (09:47→22:40)
[2018-01-08] MEDS: ZINC SULFATE 220 CAPSULE PEG SCH (09:48)
[2018-01-08] MEDS: ACETAMINOPHEN 325 MG TAB PO PRN (09:48)
[2018-01-08 11:00] VITALS: BP 127/47
[2018-01-08 16:00] VITALS: BP 124/74
[2018-01-08 20:06] VITALS: BP 119/59
[2018-01-08] MEDS ORDERED: ZOLPIDEM TARTRATE 5 MG TAB PEG SCH (21:00)
[2018-01-08] MEDS ORDERED: TEMAZEPAM 15 MG CAPSULE GT SCH (21:00)
[2018-01-08] MEDS: GUAIFENESIN-DM 200/20 MG 10 ML PO PRN (22:40)
[2018-01-08 23:45] VITALS: BP 92/42
[2018-01-09] VITALS (8 sets, daily range): BP systolic 84–140; BP diastolic 41–100
[2018-01-09] MEDS ORDERED: ALBUTEROL SULFATE 0.083% 2.5 MG/3 ML INH IH ONE ×2 (00:30→06:59)
[2018-01-09] MEDS ORDERED: ALBUTEROL SULFATE 0.042% 1.25 MG/3 ML INH IH ONE (00:30)
[2018-01-09] MEDS: BACLOFEN 10 MG TABLET PO SCH ×4 (00:44→19:00)
[2018-01-09] MEDS: MEROPENEM 1 GM VIAL IVP SCH ×3 (03:16→19:41)
[2018-01-09] MEDS: DILTIAZEM HCL 60 MG TABLET PEG SCH ×4 (03:16→21:27)
[2018-01-09] MEDS: DEXTROSE 5%-WATER 1,000 ML IV SCH ×2 (03:17→06:09)
[2018-01-09 03:49] LABS: HEMATOCRIT 23.5 % (36-48); MEAN CORPUSCULAR HEMOGLOBIN 27.9 pg (27.0-33.0); MEAN CORPUSCULAR HGB CONC 31.8 g/dL (32.0-36.0); MEAN CORPUSCULAR VOLUME 87.7 fL (79-99); PLATELET COUNT (AUTO) 228 K/uL (130-400); RED BLOOD CELL COUNT(AUTO) 2.68 MIL/uL (4.00-5.50); RED CELL DISTRIBUTION WIDTH 15.8 % (11.0-15.5); WHITE BLOOD COUNT (AUTO) 10.9 K/uL (4.8-10.8)
[2018-01-09 04:16] LABS: CREATININE 0.7 mg/dL (0.5-1.5); MAGNESIUM 2.4 mg/dL (1.80-2.40)
[2018-01-09] MEDS: VALPROATE SOD 250 MG/5 ML (PO) PEG SCH ×3 (04:16→21:02)
[2018-01-09] MEDS: CLONAZEPAM 1 MG TABLET PEG SCH ×4 (04:16→21:27)
[2018-01-09 04:32] LABS: POTASSIUM 2.9 mmol/L (3.5-5.1)
[2018-01-09] MEDS: GUAIFENESIN-DM 200/20 MG 10 ML PO PRN (05:37)
[2018-01-09] MEDS: POTASSIUM CHLORIDE 10% ELIXIR 20 MEQ/15 ML UDCUP PO PRN ×3 (05:37→15:45)
[2018-01-09] MEDS: POTASSIUM CHLORIDE 20MEQ/100ML 100 ML IV PRN (05:38)
[2018-01-09] MEDS: CLONIDINE HCL 0.2 MG TABLET PO SCH ×3 (05:51→21:38)
[2018-01-09] MEDS: INSULIN HUMULIN R 100 UNIT/ML 3ML SQ SCH ×4 (06:00→18:00)
[2018-01-09] MEDS: FYCOMPA 12 MG PEG SCH (09:00)
[2018-01-09] MEDS: METOPROLOL TARTRATE 50 MG TAB PEG SCH ×2 (09:00→21:05)
[2018-01-09] MEDS: POLYETHYLENE GLYCOL 3350 17 GM POWD.PACK PEG SCH (09:41)
[2018-01-09] MEDS: MULTIVITAMIN TABLET PEG SCH (09:42)
[2018-01-09] MEDS: FAMOTIDINE 20MG TAB 20 MG TAB PEG SCH ×2 (09:42→21:03)
[2018-01-09] MEDS: ASCORBIC ACID 500 MG TAB PEG SCH ×2 (09:42→21:05)
[2018-01-09] MEDS: PROPRANOLOL HCL 20 MG TAB PEG SCH ×2 (09:42→21:03)
[2018-01-09] MEDS: ENOXAPARIN SODIUM 40 MG/0.4 ML SYRINGE SQ SCH (09:43)
[2018-01-09] MEDS: LEVOFLOXACIN 750 MG/D5W 150 ML 150 ML IV SCH (09:44)
[2018-01-09] MEDS: ARTIFICAL TEARS SOL 15 ML OP SCH ×2 (10:03→21:02)
[2018-01-09] MEDS: ZINC SULFATE 220 CAPSULE PEG SCH (10:17)
[2018-01-09] MEDS: MORPHINE SULFATE 4 MG/1ML SYG IVP PRN ×2 (11:37→21:10)
[2018-01-09] MEDS: VANCOMYCIN 1GM+NS 250ML 250 ML IV SCH ×2 (11:58→21:02)
[2018-01-09] MEDS: LORAZEPAM 2 MG/ML 1 ML VIAL IM PRN (12:07)
[2018-01-09] MEDS: ALBUTEROL SULFATE 0.083% 2.5 MG/3 ML INH IH SCH ×2 (14:41→22:17)
[2018-01-09] MEDS ORDERED: LORAZEPAM 2 MG/ML 1 ML VIAL IVP ONE ×3 (17:30→20:45)
[2018-01-09] MEDS: D5 NS WITH 20 mEq KCl 1000ML 1,000 ML IV SCH ×2 (18:45→21:43)
[2018-01-09 20:05] LABS: ABG BASE EXCESS -0.4 mmol/L (-2.0-3.0); ABG HCO3 23.6 mmol/L (21.0-28.0); ABG PCO2 37 mmHg (32-45)
[2018-01-10] VITALS (25 sets, daily range): BP systolic 83–159; BP diastolic 38–97
[2018-01-10] MEDS: BACLOFEN 10 MG TABLET PO SCH ×4 (00:39→19:00)
[2018-01-10] MEDS: MEROPENEM 1 GM VIAL IVP SCH ×3 (02:51→21:00)
[2018-01-10] MEDS: CLONAZEPAM 1 MG TABLET PEG SCH ×4 (02:52→21:51)
[2018-01-10] MEDS: DILTIAZEM HCL 60 MG TABLET PEG SCH ×4 (02:52→21:51)
[2018-01-10] MEDS: MORPHINE SULFATE 4 MG/1ML SYG IVP PRN ×4 (02:52→23:41)
[2018-01-10 04:44] LABS: HEMATOCRIT 22.9 % (36-48); MEAN CORPUSCULAR HEMOGLOBIN 29.3 pg (27.0-33.0); MEAN CORPUSCULAR HGB CONC 33.3 g/dL (32.0-36.0); MEAN CORPUSCULAR VOLUME 87.8 fL (79-99); PLATELET COUNT (AUTO) 258 K/uL (130-400); RED BLOOD CELL COUNT(AUTO) 2.61 MIL/uL (4.00-5.50); RED CELL DISTRIBUTION WIDTH 15.7 % (11.0-15.5); WHITE BLOOD COUNT (AUTO) 8.2 K/uL (4.8-10.8)
[2018-01-10] MEDS: VALPROATE SOD 250 MG/5 ML (PO) PEG SCH ×3 (04:58→21:51)
[2018-01-10 05:00] LABS: BILIRUBIN,TOTAL 0.2 mg/dL (0.2-1.0); CREATININE 0.6 mg/dL (0.5-1.5); MAGNESIUM 1.9 mg/dL (1.80-2.40); PHOSPHORUS 3.1 mg/dL (2.5-4.9); POTASSIUM 4.2 mmol/L (3.5-5.1)
[2018-01-10] MEDS: INSULIN HUMULIN R 100 UNIT/ML 3ML SQ SCH ×3 (05:20→12:00)
[2018-01-10] MEDS: CLONIDINE HCL 0.2 MG TABLET PO SCH ×3 (05:22→21:52)
[2018-01-10] MEDS: ALBUTEROL SULFATE 0.083% 2.5 MG/3 ML INH IH SCH ×3 (07:14→21:53)
[2018-01-10] MEDS: LORAZEPAM 2 MG/ML 1 ML VIAL IVP PRN ×3 (07:42→20:14)
[2018-01-10] MEDS ORDERED: LORAZEPAM 2 MG TABLET PO PRN (08:15)
[2018-01-10] MEDS ORDERED: LORAZEPAM 1 MG TABLET ONE (08:20)
[2018-01-10] MEDS: LORAZEPAM 1 MG TABLET PO PRN (08:20)
[2018-01-10] MEDS: MULTIVITAMIN TABLET PEG SCH (09:00)
[2018-01-10] MEDS: FYCOMPA 12 MG PEG SCH (09:00)
[2018-01-10] MEDS: PROPRANOLOL HCL 20 MG TAB PEG SCH ×2 (09:48→21:51)
[2018-01-10] MEDS: FAMOTIDINE 20MG TAB 20 MG TAB PEG SCH ×2 (09:48→21:51)
[2018-01-10] MEDS: POLYETHYLENE GLYCOL 3350 17 GM POWD.PACK PEG SCH (09:48)
[2018-01-10] MEDS: ZINC SULFATE 220 CAPSULE PEG SCH (09:48)
[2018-01-10] MEDS: ASCORBIC ACID 500 MG TAB PEG SCH ×2 (09:48→21:51)
[2018-01-10] MEDS: METOPROLOL TARTRATE 50 MG TAB PEG SCH ×2 (09:49→21:51)
[2018-01-10] MEDS: ARTIFICAL TEARS SOL 15 ML OP SCH ×2 (09:51→21:51)
[2018-01-10] MEDS: ENOXAPARIN SODIUM 40 MG/0.4 ML SYRINGE SQ SCH (09:51)
[2018-01-10] MEDS: VANCOMYCIN 1GM+NS 250ML 250 ML IV SCH ×2 (11:03→21:51)
[2018-01-10] MEDS ORDERED: ZIPRASIDONE MESYLATE 20 MG/VIAL IM PRN (11:30)
[2018-01-10] MEDS ORDERED: GENTAMICIN SULFATE 0.3% 3.5 GM OPHTH OINT OU SCH (12:00)
[2018-01-10 12:31] LABS: INR 1.01 (0.85-1.15); PARTIAL THROMBOPLASTIN TIME 32.5 SEC (26.3-35.5); PROTHROMBIN TIME 10.6 SEC (9.6-11.6)
[2018-01-10] MEDS: LEVOFLOXACIN 750 MG/D5W 150 ML 150 ML IV SCH (13:20)
[2018-01-10] MEDS: GENTAMICIN SULFATE 0.3% 5ML DROPS OU SCH ×3 (13:24→21:51)
[2018-01-10] MEDS ORDERED: FENTANYL CITRATE PF 50 MCG/1 ML 5ML AMP IV ONE (20:17)
[2018-01-10] MEDS: D5 NS WITH 20 mEq KCl 1000ML 1,000 ML IV SCH (21:51)
[2018-01-10] MEDS ORDERED: FENTANYL CITRATE PF 50 MCG/1 ML 2ML VIAL IVP ONE (22:00)
[2018-01-11] VITALS (30 sets, daily range): BP systolic 78–172; BP diastolic 42–94
[2018-01-11] MEDS: BACLOFEN 10 MG TABLET PO SCH ×4 (00:55→23:13)
[2018-01-11] MEDS: CLONAZEPAM 1 MG TABLET PEG SCH ×4 (02:46→20:20)
[2018-01-11] MEDS: DILTIAZEM HCL 60 MG TABLET PEG SCH ×4 (02:47→20:20)
[2018-01-11] MEDS: MEROPENEM 1 GM VIAL IVP SCH ×3 (03:19→19:55)
[2018-01-11] MEDS: MORPHINE SULFATE 4 MG/1ML SYG IVP PRN ×3 (04:07→21:20)
[2018-01-11 04:28] LABS: BASOPHILS % (AUTO) 0.3 % (0.0-5.0); HEMATOCRIT 23.7 % (36-48); LYMPHOCYTES % (AUTO) 28.2 % (21.0-51.0); MEAN CORPUSCULAR HGB CONC 32.2 g/dL (32.0-36.0); MEAN CORPUSCULAR VOLUME 87.2 fL (79-99); MONOCYTES % (AUTO) 7.1 % (3.0-13.0); NEUTROPHILS % (AUTO) 63.4 % (40.0-77.0); PLATELET COUNT (AUTO) 279 K/uL (130-400); RED BLOOD CELL COUNT(AUTO) 2.72 MIL/uL (4.00-5.50); RED CELL DISTRIBUTION WIDTH 15.8 % (11.0-15.5); WHITE BLOOD COUNT (AUTO) 5.7 K/uL (4.8-10.8)
[2018-01-11 04:44] LABS: CREATININE 0.5 mg/dL (0.5-1.5); POTASSIUM 4.1 mmol/L (3.5-5.1)
[2018-01-11] MEDS: CLONIDINE HCL 0.2 MG TABLET PO SCH ×3 (05:17→19:57)
[2018-01-11] MEDS: VALPROATE SOD 250 MG/5 ML (PO) PEG SCH ×3 (05:30→20:20)
[2018-01-11] MEDS: ALBUTEROL SULFATE 0.083% 2.5 MG/3 ML INH IH SCH ×3 (06:36→21:59)
[2018-01-11] MEDS: FAMOTIDINE 20MG TAB 20 MG TAB PEG SCH ×2 (08:30→20:21)
[2018-01-11] MEDS: ZINC SULFATE 220 CAPSULE PEG SCH (08:30)
[2018-01-11] MEDS: METOPROLOL TARTRATE 50 MG TAB PEG SCH ×2 (08:31→20:20)
[2018-01-11] MEDS: ASCORBIC ACID 500 MG TAB PEG SCH ×2 (08:31→20:21)
[2018-01-11] MEDS: LEVOFLOXACIN 750 MG/D5W 150 ML 150 ML IV SCH (08:32)
[2018-01-11] MEDS: GENTAMICIN SULFATE 0.3% 5ML DROPS OU SCH ×4 (08:32→20:19)
[2018-01-11] MEDS: ENOXAPARIN SODIUM 40 MG/0.4 ML SYRINGE SQ SCH (09:00)
[2018-01-11] MEDS: FYCOMPA 12 MG PEG SCH (09:00)
[2018-01-11] MEDS: LORAZEPAM 2 MG/ML 1 ML VIAL IVP PRN (09:29)
[2018-01-11] MEDS: POLYETHYLENE GLYCOL 3350 17 GM POWD.PACK PEG SCH (09:29)
[2018-01-11] MEDS: MULTIVITS W-MIN/FERROUS GLUC 237 ML BOTTLE PO SCH (09:30)
[2018-01-11] MEDS: PROPRANOLOL HCL 20 MG TAB PEG SCH ×2 (09:50→20:21)
[2018-01-11] MEDS: D5 NS WITH 20 mEq KCl 1000ML 1,000 ML IV SCH ×2 (10:45→20:23)
[2018-01-11] MEDS: LORAZEPAM 1 MG TABLET PO PRN (10:57)
[2018-01-11] MEDS: ARTIFICAL TEARS SOL 15 ML OP SCH ×2 (11:00→20:19)
[2018-01-11] MEDS ORDERED: PROPOFOL 1000 MG/100 ML IV PRN (11:10)
[2018-01-11] MEDS ORDERED: PROPOFOL 1000 MG/100 ML 100 ML IV ONE ×2 (11:11→19:02)
[2018-01-11] MEDS ORDERED: ZIPRASIDONE MESYLATE 20 MG/VIAL IM SCH (11:15)
[2018-01-11] MEDS ORDERED: COMPOUND IV REFRIGERATED 1 EACH IVSOLN MISC PRN (11:15)
[2018-01-11] MEDS: VANCOMYCIN 1GM+NS 250ML 250 ML IV SCH (11:30)
[2018-01-11] MEDS ORDERED: NOREPINEPHRINE 4MG/NS 250ML 250 ML IV SCH (12:00)
[2018-01-11] MEDS ORDERED: VANCOMYCIN 750MG + NS 250 ML IV SCH ×4 (14:00→21:00)
[2018-01-11] MEDS: ZIPRASIDONE HCL 20 MG CAPSULE PO SCH (20:20)
[2018-01-11] MEDS: VANCOMYCIN 0.75 GM in SODIUM CHLORIDE 0.9% 250 ML IV SCH (20:22)
[2018-01-11] MEDS ORDERED: FENTANYL 2500MCG+NS 250ML 250 ML IV ONE (21:30)
[2018-01-12] VITALS (24 sets, daily range): BP systolic 99–138; BP diastolic 48–90
[2018-01-12] MEDS: CLONAZEPAM 1 MG TABLET PEG SCH ×4 (03:19→20:09)
[2018-01-12] MEDS: DILTIAZEM HCL 60 MG TABLET PEG SCH ×4 (03:20→20:10)
[2018-01-12] MEDS: MEROPENEM 1 GM VIAL IVP SCH ×3 (03:20→20:08)
[2018-01-12] MEDS: VALPROATE SOD 250 MG/5 ML (PO) PEG SCH ×3 (04:08→20:16)
[2018-01-12] MEDS: VANCOMYCIN 0.75 GM in SODIUM CHLORIDE 0.9% 250 ML IV SCH ×3 (05:03→21:09)
[2018-01-12] MEDS: CLONIDINE HCL 0.2 MG TABLET PO SCH ×3 (05:03→20:12)
[2018-01-12] MEDS: BACLOFEN 10 MG TABLET PO SCH ×4 (05:03→23:43)
[2018-01-12] MEDS: ALBUTEROL SULFATE 0.083% 2.5 MG/3 ML INH IH SCH ×3 (07:17→21:14)
[2018-01-12] MEDS: FYCOMPA 12 MG PEG SCH (09:00)
[2018-01-12] MEDS: LEVOFLOXACIN 750 MG/D5W 150 ML 150 ML IV SCH (09:12)
[2018-01-12] MEDS: ZINC SULFATE 220 CAPSULE PEG SCH (09:16)
[2018-01-12] MEDS: ENOXAPARIN SODIUM 40 MG/0.4 ML SYRINGE SQ SCH (09:16)
[2018-01-12] MEDS: PROPRANOLOL HCL 20 MG TAB PEG SCH ×2 (09:16→20:09)
[2018-01-12] MEDS: ZIPRASIDONE HCL 20 MG CAPSULE PO SCH ×2 (09:16→21:09)
[2018-01-12] MEDS: POLYETHYLENE GLYCOL 3350 17 GM POWD.PACK PEG SCH (09:17)
[2018-01-12] MEDS: METOPROLOL TARTRATE 50 MG TAB PEG SCH ×2 (09:17→20:10)
[2018-01-12] MEDS: ASCORBIC ACID 500 MG TAB PEG SCH ×2 (09:17→20:10)
[2018-01-12] MEDS: FAMOTIDINE 20MG TAB 20 MG TAB PEG SCH ×2 (09:17→20:09)
[2018-01-12] MEDS: ARTIFICAL TEARS SOL 15 ML OP SCH ×2 (09:28→20:08)
[2018-01-12] MEDS: GENTAMICIN SULFATE 0.3% 5ML DROPS OU SCH ×4 (09:46→20:09)
[2018-01-12] MEDS: MULTIVITS W-MIN/FERROUS GLUC 237 ML BOTTLE PO SCH (09:47)
[2018-01-12] MEDS: D5 NS WITH 20 mEq KCl 1000ML 1,000 ML IV SCH (12:26)
[2018-01-12] MEDS: FENTANYL 2500MCG+NS 250ML 250 ML IV PRN (18:19)
[2018-01-13] VITALS (25 sets, daily range): BP systolic 93–149; BP diastolic 46–98
[2018-01-13] MEDS: DILTIAZEM HCL 60 MG TABLET PEG SCH ×4 (03:00→22:37)
[2018-01-13] MEDS: MEROPENEM 1 GM VIAL IVP SCH ×3 (03:05→20:48)
[2018-01-13] MEDS: D5 NS WITH 20 mEq KCl 1000ML 1,000 ML IV SCH ×2 (03:06→16:34)
[2018-01-13] MEDS: CLONAZEPAM 1 MG TABLET PEG SCH ×4 (03:06→20:56)
[2018-01-13] MEDS: VALPROATE SOD 250 MG/5 ML (PO) PEG SCH ×3 (04:41→20:49)
[2018-01-13] MEDS: BACLOFEN 10 MG TABLET PO SCH ×3 (05:25→16:34)
[2018-01-13] MEDS: CLONIDINE HCL 0.2 MG TABLET PO SCH ×3 (05:26→22:32)
[2018-01-13] MEDS: VANCOMYCIN 0.75 GM in SODIUM CHLORIDE 0.9% 250 ML IV SCH ×3 (06:01→22:33)
[2018-01-13] MEDS: ALBUTEROL SULFATE 0.083% 2.5 MG/3 ML INH IH SCH ×3 (06:12→21:58)
[2018-01-13] MEDS: FYCOMPA 12 MG PEG SCH (07:42)
[2018-01-13] MEDS: PROPRANOLOL HCL 20 MG TAB PEG SCH ×2 (08:36→22:34)
[2018-01-13] MEDS: LEVOFLOXACIN 750 MG/D5W 150 ML 150 ML IV SCH (08:36)
[2018-01-13] MEDS: ASCORBIC ACID 500 MG TAB PEG SCH ×2 (08:37→22:35)
[2018-01-13] MEDS: POLYETHYLENE GLYCOL 3350 17 GM POWD.PACK PEG SCH (08:38)
[2018-01-13] MEDS: ZINC SULFATE 220 CAPSULE PEG SCH (08:38)
[2018-01-13] MEDS: FAMOTIDINE 20MG TAB 20 MG TAB PEG SCH ×2 (08:38→22:34)
[2018-01-13] MEDS: METOPROLOL TARTRATE 50 MG TAB PEG SCH ×2 (08:39→22:37)
[2018-01-13] MEDS: ENOXAPARIN SODIUM 40 MG/0.4 ML SYRINGE SQ SCH (08:40)
[2018-01-13] MEDS: MULTIVITS W-MIN/FERROUS GLUC 237 ML BOTTLE PO SCH (08:40)
[2018-01-13] MEDS: ARTIFICAL TEARS SOL 15 ML OP SCH ×2 (08:41→22:39)
[2018-01-13] MEDS: GENTAMICIN SULFATE 0.3% 5ML DROPS OU SCH ×4 (08:43→22:40)
[2018-01-13] MEDS: ZIPRASIDONE HCL 20 MG CAPSULE PO SCH ×2 (09:48→20:49)
[2018-01-14] VITALS (22 sets, daily range): BP systolic 92–136; BP diastolic 34–75
[2018-01-14] MEDS: BACLOFEN 10 MG TABLET PO SCH ×5 (00:51→23:39)
[2018-01-14] MEDS: DILTIAZEM HCL 60 MG TABLET PEG SCH ×4 (03:11→21:03)
[2018-01-14] MEDS: MEROPENEM 1 GM VIAL IVP SCH ×3 (03:11→20:37)
[2018-01-14] MEDS: CLONAZEPAM 1 MG TABLET PEG SCH ×4 (03:11→21:03)
[2018-01-14] MEDS: ALBUTEROL SULFATE 0.083% 2.5 MG/3 ML INH IH SCH ×3 (06:00→22:23)
[2018-01-14] MEDS: VALPROATE SOD 250 MG/5 ML (PO) PEG SCH ×3 (06:01→21:04)
[2018-01-14] MEDS: VANCOMYCIN 0.75 GM in SODIUM CHLORIDE 0.9% 250 ML IV SCH ×3 (06:01→22:13)
[2018-01-14] MEDS: CLONIDINE HCL 0.2 MG TABLET PO SCH ×3 (06:02→22:15)
[2018-01-14] MEDS: LORAZEPAM 2 MG/ML 1 ML VIAL IVP PRN (08:32)
[2018-01-14] MEDS: FENTANYL 2500MCG+NS 250ML 250 ML IV PRN (08:36)
[2018-01-14] MEDS: FYCOMPA 12 MG PEG SCH (08:43)
[2018-01-14] MEDS: POLYETHYLENE GLYCOL 3350 17 GM POWD.PACK PEG SCH (09:30)
[2018-01-14] MEDS: ASCORBIC ACID 500 MG TAB PEG SCH ×2 (09:30→21:04)
[2018-01-14] MEDS: PROPRANOLOL HCL 20 MG TAB PEG SCH ×2 (09:30→21:04)
[2018-01-14] MEDS: METOPROLOL TARTRATE 50 MG TAB PEG SCH ×2 (09:30→21:04)
[2018-01-14] MEDS: FAMOTIDINE 20MG TAB 20 MG TAB PEG SCH ×2 (09:30→21:04)
[2018-01-14] MEDS: ZINC SULFATE 220 CAPSULE PEG SCH (09:31)
[2018-01-14] MEDS: LEVOFLOXACIN 750 MG/D5W 150 ML 150 ML IV SCH (09:32)
[2018-01-14] MEDS: MULTIVITS W-MIN/FERROUS GLUC 237 ML BOTTLE PO SCH (09:32)
[2018-01-14] MEDS: ZIPRASIDONE HCL 20 MG CAPSULE PO SCH ×2 (09:32→21:05)
[2018-01-14] MEDS: ARTIFICAL TEARS SOL 15 ML OP SCH ×2 (09:33→21:00)
[2018-01-14] MEDS: GENTAMICIN SULFATE 0.3% 5ML DROPS OU SCH ×4 (09:33→21:00)
[2018-01-14] MEDS: ENOXAPARIN SODIUM 40 MG/0.4 ML SYRINGE SQ SCH (09:34)
[2018-01-14] MEDS: D5 NS WITH 20 mEq KCl 1000ML 1,000 ML IV SCH ×2 (12:14→17:29)
[2018-01-14] MEDS: FENTANYL 75 MCG/HR PATCH TD SCH (18:44)
[2018-01-15] VITALS (22 sets, daily range): BP systolic 82–136; BP diastolic 42–74
[2018-01-15] MEDS: DILTIAZEM HCL 60 MG TABLET PEG SCH ×4 (03:01→22:40)
[2018-01-15] MEDS: MEROPENEM 1 GM VIAL IVP SCH ×3 (03:02→21:25)
[2018-01-15] MEDS: CLONAZEPAM 1 MG TABLET PEG SCH ×4 (03:02→21:34)
[2018-01-15] MEDS: VALPROATE SOD 250 MG/5 ML (PO) PEG SCH ×3 (05:04→21:34)
[2018-01-15] MEDS: BACLOFEN 10 MG TABLET PO SCH ×3 (05:29→17:03)
[2018-01-15] MEDS: VANCOMYCIN 0.75 GM in SODIUM CHLORIDE 0.9% 250 ML IV SCH ×3 (05:29→22:45)
[2018-01-15] MEDS: D5 NS WITH 20 mEq KCl 1000ML 1,000 ML IV SCH ×2 (05:29→22:40)
[2018-01-15] MEDS: CLONIDINE HCL 0.2 MG TABLET PO SCH ×3 (05:30→21:48)
[2018-01-15] MEDS: ALBUTEROL SULFATE 0.083% 2.5 MG/3 ML INH IH SCH ×3 (06:24→22:24)
[2018-01-15] MEDS: LEVOFLOXACIN 750 MG/D5W 150 ML 150 ML IV SCH (08:30)
[2018-01-15] MEDS: ARTIFICAL TEARS SOL 15 ML OP SCH ×2 (08:30→21:37)
[2018-01-15] MEDS: POLYETHYLENE GLYCOL 3350 17 GM POWD.PACK PEG SCH (08:30)
[2018-01-15] MEDS: GENTAMICIN SULFATE 0.3% 5ML DROPS OU SCH ×4 (08:30→21:38)
[2018-01-15] MEDS: FAMOTIDINE 20MG TAB 20 MG TAB PEG SCH ×2 (08:31→21:26)
[2018-01-15] MEDS: ZINC SULFATE 220 CAPSULE PEG SCH (08:31)
[2018-01-15] MEDS: ENOXAPARIN SODIUM 40 MG/0.4 ML SYRINGE SQ SCH (08:31)
[2018-01-15] MEDS: PROPRANOLOL HCL 20 MG TAB PEG SCH ×2 (08:32→21:26)
[2018-01-15] MEDS: FYCOMPA 12 MG PEG SCH (08:32)
[2018-01-15] MEDS: ASCORBIC ACID 500 MG TAB PEG SCH ×2 (08:32→21:26)
[2018-01-15] MEDS: METOPROLOL TARTRATE 50 MG TAB PEG SCH ×2 (08:32→21:26)
[2018-01-15] MEDS: MULTIVITS W-MIN/FERROUS GLUC 237 ML BOTTLE PO SCH (08:34)
[2018-01-15] MEDS: ZIPRASIDONE HCL 20 MG CAPSULE PO SCH ×2 (10:45→21:26)
[2018-01-15 11:37] LABS: BASOPHILS % (AUTO) 0.5 % (0.0-5.0); EOSINOPHILS % (AUTO) 1.8 % (0.0-8.0); LYMPHOCYTES % (AUTO) 33.8 % (21.0-51.0); MEAN CORPUSCULAR HEMOGLOBIN 27.7 pg (27.0-33.0); MEAN CORPUSCULAR HGB CONC 32.4 g/dL (32.0-36.0); MEAN CORPUSCULAR VOLUME 85.3 fL (79-99); MONOCYTES % (AUTO) 16.6 % (3.0-13.0); NEUTROPHILS % (AUTO) 47.3 % (40.0-77.0); PLATELET COUNT (AUTO) 412 K/uL (130-400); RED BLOOD CELL COUNT(AUTO) 3.17 MIL/uL (4.00-5.50); RED CELL DISTRIBUTION WIDTH 16.3 % (11.0-15.5)
[2018-01-15 11:43] LABS: CREATININE 0.4 mg/dL (0.5-1.5); POTASSIUM 4.7 mmol/L (3.5-5.1)
[2018-01-15] MEDS: ACETAMINOPHEN 325 MG TAB PO PRN (16:48)
[2018-01-16] VITALS (24 sets, daily range): BP systolic 91–130; BP diastolic 45–80
[2018-01-16] MEDS: BACLOFEN 10 MG TABLET PO SCH ×4 (00:56→16:48)
[2018-01-16] MEDS: CLONAZEPAM 1 MG TABLET PEG SCH ×4 (02:40→21:12)
[2018-01-16] MEDS: DILTIAZEM HCL 60 MG TABLET PEG SCH ×4 (02:40→21:11)
[2018-01-16] MEDS: MEROPENEM 1 GM VIAL IVP SCH ×3 (03:50→21:05)
[2018-01-16] MEDS: VALPROATE SOD 250 MG/5 ML (PO) PEG SCH ×3 (03:50→21:06)
[2018-01-16] MEDS: VANCOMYCIN 0.75 GM in SODIUM CHLORIDE 0.9% 250 ML IV SCH ×2 (05:01→13:25)
[2018-01-16 05:36] LABS: BASOPHILS % (AUTO) 0.7 % (0.0-5.0); EOSINOPHILS % (AUTO) 1.1 % (0.0-8.0); HEMATOCRIT 22.8 % (36-48); LYMPHOCYTES % (AUTO) 28.4 % (21.0-51.0); MEAN CORPUSCULAR HEMOGLOBIN 28.8 pg (27.0-33.0); MEAN CORPUSCULAR HGB CONC 33.7 g/dL (32.0-36.0); MEAN CORPUSCULAR VOLUME 85.5 fL (79-99); MONOCYTES % (AUTO) 19.3 % (3.0-13.0); NEUTROPHILS % (AUTO) 50.5 % (40.0-77.0); PLATELET COUNT (AUTO) 362 K/uL (130-400); RED BLOOD CELL COUNT(AUTO) 2.67 MIL/uL (4.00-5.50); RED CELL DISTRIBUTION WIDTH 16.1 % (11.0-15.5); WHITE BLOOD COUNT (AUTO) 5.5 K/uL (4.8-10.8)
[2018-01-16 05:43] LABS: CREATININE 0.4 mg/dL (0.5-1.5); POTASSIUM 4.7 mmol/L (3.5-5.1)
[2018-01-16] MEDS: ALBUTEROL SULFATE 0.083% 2.5 MG/3 ML INH IH SCH ×3 (06:13→22:33)
[2018-01-16] MEDS: CLONIDINE HCL 0.2 MG TABLET PO SCH ×3 (06:15→22:15)
[2018-01-16] MEDS: ARTIFICAL TEARS SOL 15 ML OP SCH ×2 (08:42→21:11)
[2018-01-16] MEDS: GENTAMICIN SULFATE 0.3% 5ML DROPS OU SCH ×4 (08:42→21:11)
[2018-01-16] MEDS: LEVOFLOXACIN 750 MG/D5W 150 ML 150 ML IV SCH (08:42)
[2018-01-16] MEDS: PROPRANOLOL HCL 20 MG TAB PEG SCH ×2 (08:44→21:06)
[2018-01-16] MEDS: FAMOTIDINE 20MG TAB 20 MG TAB PEG SCH ×2 (08:44→21:06)
[2018-01-16] MEDS: POLYETHYLENE GLYCOL 3350 17 GM POWD.PACK PEG SCH (08:44)
[2018-01-16] MEDS: METOPROLOL TARTRATE 50 MG TAB PEG SCH ×2 (08:44→21:08)
[2018-01-16] MEDS: ZIPRASIDONE HCL 20 MG CAPSULE PO SCH ×2 (08:45→21:06)
[2018-01-16] MEDS: ZINC SULFATE 220 CAPSULE PEG SCH (08:45)
[2018-01-16] MEDS: ASCORBIC ACID 500 MG TAB PEG SCH ×2 (08:45→21:07)
[2018-01-16] MEDS: ENOXAPARIN SODIUM 40 MG/0.4 ML SYRINGE SQ SCH (08:48)
[2018-01-16] MEDS: FYCOMPA 12 MG PEG SCH (09:23)
[2018-01-16] MEDS: MULTIVITS W-MIN/FERROUS GLUC 237 ML BOTTLE PO SCH (09:24)
[2018-01-16] MEDS: D5 NS WITH 20 mEq KCl 1000ML 1,000 ML IV SCH (10:45)
[2018-01-16] MEDS: VANCOMYCIN 1GM+NS 250ML 250 ML IV SCH (21:05)
[2018-01-17] VITALS (17 sets, daily range): BP systolic 87–143; BP diastolic 48–80
[2018-01-17] MEDS: BACLOFEN 10 MG TABLET PO SCH ×5 (00:28→23:41)
[2018-01-17] MEDS: CLONAZEPAM 1 MG TABLET PEG SCH ×4 (03:00→21:16)
[2018-01-17] MEDS: MEROPENEM 1 GM VIAL IVP SCH ×3 (03:29→21:09)
[2018-01-17] MEDS: VANCOMYCIN 1GM+NS 250ML 250 ML IV SCH ×3 (03:29→21:09)
[2018-01-17] MEDS: DILTIAZEM HCL 60 MG TABLET PEG SCH ×4 (03:30→21:16)
[2018-01-17] MEDS: CLONAZEPAM 0.5 MG TABLET PO SCH ×2 (03:30→08:45)
[2018-01-17] MEDS: VALPROATE SOD 250 MG/5 ML (PO) PEG SCH ×3 (04:00→21:11)
[2018-01-17] MEDS: D5 NS WITH 20 mEq KCl 1000ML 1,000 ML IV SCH ×2 (04:01→11:54)
[2018-01-17 05:17] LABS: BASOPHILS % (AUTO) 0.8 % (0.0-5.0); EOSINOPHILS % (AUTO) 0.6 % (0.0-8.0); HEMATOCRIT 24.9 % (36-48); LYMPHOCYTES % (AUTO) 20.8 % (21.0-51.0); MEAN CORPUSCULAR HEMOGLOBIN 28.1 pg (27.0-33.0); MEAN CORPUSCULAR HGB CONC 33.1 g/dL (32.0-36.0); MEAN CORPUSCULAR VOLUME 85.1 fL (79-99); MONOCYTES % (AUTO) 14.4 % (3.0-13.0); NEUTROPHILS % (AUTO) 63.4 % (40.0-77.0); PLATELET COUNT (AUTO) 427 K/uL (130-400); RED BLOOD CELL COUNT(AUTO) 2.93 MIL/uL (4.00-5.50); RED CELL DISTRIBUTION WIDTH 16.4 % (11.0-15.5); WHITE BLOOD COUNT (AUTO) 6.7 K/uL (4.8-10.8)
[2018-01-17 05:27] LABS: CREATININE 0.4 mg/dL (0.5-1.5); POTASSIUM 4.1 mmol/L (3.5-5.1)
[2018-01-17] MEDS: CLONIDINE HCL 0.2 MG TABLET PO SCH (05:57)
[2018-01-17] MEDS: ALBUTEROL SULFATE 0.083% 2.5 MG/3 ML INH IH SCH ×3 (06:41→22:12)
[2018-01-17] MEDS: ENOXAPARIN SODIUM 40 MG/0.4 ML SYRINGE SQ SCH (08:40)
[2018-01-17] MEDS: ARTIFICAL TEARS SOL 15 ML OP SCH ×2 (08:40→21:21)
[2018-01-17] MEDS: GENTAMICIN SULFATE 0.3% 5ML DROPS OU SCH ×4 (08:40→21:20)
[2018-01-17] MEDS: FYCOMPA 12 MG PEG SCH (08:41)
[2018-01-17] MEDS: ZIPRASIDONE HCL 20 MG CAPSULE PO SCH ×2 (08:43→21:12)
[2018-01-17] MEDS: ZINC SULFATE 220 CAPSULE PEG SCH (08:43)
[2018-01-17] MEDS: METOPROLOL TARTRATE 50 MG TAB PEG SCH ×2 (08:43→21:00)
[2018-01-17] MEDS: FAMOTIDINE 20MG TAB 20 MG TAB PEG SCH ×2 (08:43→21:12)
[2018-01-17] MEDS: ASCORBIC ACID 500 MG TAB PEG SCH ×2 (08:44→21:12)
[2018-01-17] MEDS: PROPRANOLOL HCL 20 MG TAB PEG SCH ×2 (08:44→21:11)
[2018-01-17] MEDS: LEVOFLOXACIN 750 MG/D5W 150 ML 150 ML IV SCH (08:44)
[2018-01-17] MEDS: MULTIVITS W-MIN/FERROUS GLUC 237 ML BOTTLE PO SCH (08:47)
[2018-01-17] MEDS: POLYETHYLENE GLYCOL 3350 17 GM POWD.PACK PEG SCH (08:49)
[2018-01-17] MEDS ORDERED: CLONIDINE HCL 0.2 MG TABLET PO PRN (14:15)
[2018-01-17] MEDS: FENTANYL 75 MCG/HR PATCH TD SCH (17:53)
[2018-01-17] MEDS ORDERED: DRONABINOL 2.5 MG CAP PO ONE (21:00)
[2018-01-18] VITALS (7 sets, daily range): BP systolic 90–151; BP diastolic 45–86
[2018-01-18] MEDS: VANCOMYCIN 1GM+NS 250ML 250 ML IV SCH ×3 (03:49→19:27)
[2018-01-18] MEDS: MEROPENEM 1 GM VIAL IVP SCH ×3 (03:50→19:27)
[2018-01-18] MEDS: DILTIAZEM HCL 60 MG TABLET PEG SCH ×4 (03:50→21:41)
[2018-01-18] MEDS: CLONAZEPAM 1 MG TABLET PEG SCH ×4 (03:50→21:41)
[2018-01-18] MEDS: VALPROATE SOD 250 MG/5 ML (PO) PEG SCH ×3 (04:06→21:34)
[2018-01-18 05:32] LABS: BASOPHILS % (AUTO) 0.5 % (0.0-5.0); EOSINOPHILS % (AUTO) 0.8 % (0.0-8.0); HEMATOCRIT 25.4 % (36-48); LYMPHOCYTES % (AUTO) 42.6 % (21.0-51.0); MEAN CORPUSCULAR HEMOGLOBIN 29.5 pg (27.0-33.0); MEAN CORPUSCULAR HGB CONC 34.5 g/dL (32.0-36.0); MEAN CORPUSCULAR VOLUME 85.5 fL (79-99); MONOCYTES % (AUTO) 14.2 % (3.0-13.0); NEUTROPHILS % (AUTO) 41.9 % (40.0-77.0); PLATELET COUNT (AUTO) 413 K/uL (130-400); RED BLOOD CELL COUNT(AUTO) 2.97 MIL/uL (4.00-5.50); RED CELL DISTRIBUTION WIDTH 15.8 % (11.0-15.5); WHITE BLOOD COUNT (AUTO) 4.8 K/uL (4.8-10.8)
[2018-01-18 05:40] LABS: CREATININE 0.4 mg/dL (0.5-1.5); POTASSIUM 3.9 mmol/L (3.5-5.1)
[2018-01-18] MEDS: BACLOFEN 10 MG TABLET PO SCH ×3 (05:47→18:34)
[2018-01-18] MEDS: ALBUTEROL SULFATE 0.083% 2.5 MG/3 ML INH IH SCH ×3 (06:16→21:59)
[2018-01-18] MEDS: POLYETHYLENE GLYCOL 3350 17 GM POWD.PACK PEG SCH (09:00)
[2018-01-18] MEDS: D5 NS WITH 20 mEq KCl 1000ML 1,000 ML IV SCH (09:34)
[2018-01-18] MEDS: LEVOFLOXACIN 750 MG/D5W 150 ML 150 ML IV SCH (10:27)
[2018-01-18] MEDS: GENTAMICIN SULFATE 0.3% 5ML DROPS OU SCH ×4 (10:28→19:28)
[2018-01-18] MEDS: ARTIFICAL TEARS SOL 15 ML OP SCH ×2 (10:28→19:29)
[2018-01-18] MEDS: PROPRANOLOL HCL 20 MG TAB PEG SCH ×2 (10:28→21:34)
[2018-01-18] MEDS: ASCORBIC ACID 500 MG TAB PEG SCH ×2 (10:28→21:34)
[2018-01-18] MEDS: METOPROLOL TARTRATE 50 MG TAB PEG SCH ×2 (10:28→21:00)
[2018-01-18] MEDS: FAMOTIDINE 20MG TAB 20 MG TAB PEG SCH ×2 (10:29→21:34)
[2018-01-18] MEDS: ZIPRASIDONE HCL 20 MG CAPSULE PO SCH ×2 (10:29→21:34)
[2018-01-18] MEDS: ENOXAPARIN SODIUM 40 MG/0.4 ML SYRINGE SQ SCH (10:29)
[2018-01-18] MEDS: ZINC SULFATE 220 CAPSULE PEG SCH (10:29)
[2018-01-18] MEDS: MULTIVITS W-MIN/FERROUS GLUC 237 ML BOTTLE PO SCH (10:32)
[2018-01-18] MEDS: FYCOMPA 12 MG PEG SCH (10:32)
[2018-01-19] VITALS (24 sets, daily range): BP systolic 74–139; BP diastolic 39–79
[2018-01-19] MEDS: BACLOFEN 10 MG TABLET PO SCH ×4 (00:10→17:06)
[2018-01-19] MEDS: CLONAZEPAM 0.5 MG TABLET PO SCH (03:00)
[2018-01-19 03:57] LABS: HEMATOCRIT 25.4 % (36-48); MEAN CORPUSCULAR HGB CONC 33.1 g/dL (32.0-36.0); MEAN CORPUSCULAR VOLUME 84.8 fL (79-99); PLATELET COUNT (AUTO) 394 K/uL (130-400); RED BLOOD CELL COUNT(AUTO) 2.99 MIL/uL (4.00-5.50); RED CELL DISTRIBUTION WIDTH 15.4 % (11.0-15.5); WHITE BLOOD COUNT (AUTO) 4.9 K/uL (4.8-10.8)
[2018-01-19] MEDS: VALPROATE SOD 250 MG/5 ML (PO) PEG SCH ×3 (04:11→21:26)
[2018-01-19] MEDS: DILTIAZEM HCL 60 MG TABLET PEG SCH ×4 (04:11→21:27)
[2018-01-19] MEDS: CLONAZEPAM 1 MG TABLET PEG SCH ×4 (04:11→21:26)
[2018-01-19] MEDS: MEROPENEM 1 GM VIAL IVP SCH ×3 (04:11→20:17)
[2018-01-19 04:12] LABS: BAND NEUTROPHILS % (MANUAL) 8 % (0-2); BASOPHILS % (MANUAL) 2 % (0-2); CREATININE 0.3 mg/dL (0.5-1.5); LYMPHOCYTES % (MANUAL) 30 % (22-44); POTASSIUM 4.3 mmol/L (3.5-5.1); SEGMENTED NEUTROPHILS % 60 % (40-70)
[2018-01-19] MEDS: VANCOMYCIN 1GM+NS 250ML 250 ML IV SCH ×3 (04:12→20:17)
[2018-01-19 04:13] LABS: MAN.DIFF COMMENT-IMPRESSION MANUAL DIFFERENTIAL; PLATELET MORPHOLOGY COMMENT ADEQUATE
[2018-01-19] MEDS: ALBUTEROL SULFATE 0.083% 2.5 MG/3 ML INH IH SCH ×3 (05:58→21:39)
[2018-01-19] MEDS ORDERED: FENTANYL CITRATE PF 50 MCG/1 ML 2ML VIAL ONE (07:18)
[2018-01-19] MEDS: ENOXAPARIN SODIUM 40 MG/0.4 ML SYRINGE SQ SCH (09:00)
[2018-01-19] MEDS: FYCOMPA 12 MG PEG SCH (09:00)
[2018-01-19] MEDS: LEVOFLOXACIN 750 MG/D5W 150 ML 150 ML IV SCH (09:58)
[2018-01-19] MEDS: ASCORBIC ACID 500 MG TAB PEG SCH ×2 (09:58→21:27)
[2018-01-19] MEDS: PROPRANOLOL HCL 20 MG TAB PEG SCH ×2 (09:58→21:27)
[2018-01-19] MEDS: ZIPRASIDONE HCL 20 MG CAPSULE PO SCH ×2 (09:58→21:26)
[2018-01-19] MEDS: POLYETHYLENE GLYCOL 3350 17 GM POWD.PACK PEG SCH (09:58)
[2018-01-19] MEDS: FAMOTIDINE 20MG TAB 20 MG TAB PEG SCH ×2 (09:58→21:27)
[2018-01-19] MEDS: METOPROLOL TARTRATE 50 MG TAB PEG SCH (09:58)
[2018-01-19] MEDS: MULTIVITS W-MIN/FERROUS GLUC 237 ML BOTTLE PO SCH (10:04)
[2018-01-19] MEDS: ARTIFICAL TEARS SOL 15 ML OP SCH ×2 (10:04→20:25)
[2018-01-19] MEDS: GENTAMICIN SULFATE 0.3% 5ML DROPS OU SCH ×4 (10:07→20:26)
[2018-01-19] MEDS: ZINC SULFATE 220 CAPSULE PEG SCH (10:18)
[2018-01-19] MEDS: D5 NS WITH 20 mEq KCl 1000ML 1,000 ML IV SCH ×3 (10:52→16:58)
[2018-01-19] MEDS: ACETAMINOPHEN 325 MG TAB PO PRN (17:54)
[2018-01-20] MEDS: METOPROLOL TARTRATE 50 MG TAB PEG SCH ×3 (01:10→20:49)
[2018-01-20] MEDS: BACLOFEN 10 MG TABLET PO SCH ×4 (01:10→17:27)
[2018-01-20] MEDS: CLONAZEPAM 0.5 MG TABLET PO SCH (03:00)
[2018-01-20] MEDS: CLONAZEPAM 1 MG TABLET PEG SCH ×4 (03:14→21:32)
[2018-01-20] MEDS: DILTIAZEM HCL 60 MG TABLET PEG SCH ×4 (03:14→20:49)
[2018-01-20] MEDS: MEROPENEM 1 GM VIAL IVP SCH ×3 (03:14→21:01)
[2018-01-20] MEDS: VANCOMYCIN 1GM+NS 250ML 250 ML IV SCH ×3 (03:15→21:00)
[2018-01-20 03:56] VITALS: BP 106/66
[2018-01-20 04:25] LABS: BASOPHILS % (AUTO) 0.5 % (0.0-5.0); EOSINOPHILS % (AUTO) 0.3 % (0.0-8.0); HEMATOCRIT 25.4 % (36-48); LYMPHOCYTES % (AUTO) 14.4 % (21.0-51.0); MEAN CORPUSCULAR HGB CONC 34.3 g/dL (32.0-36.0); MEAN CORPUSCULAR VOLUME 84.5 fL (79-99); MONOCYTES % (AUTO) 7.5 % (3.0-13.0); NEUTROPHILS % (AUTO) 77.3 % (40.0-77.0); PLATELET COUNT (AUTO) 428 K/uL (130-400); RED CELL DISTRIBUTION WIDTH 15.8 % (11.0-15.5); WHITE BLOOD COUNT (AUTO) 8.7 K/uL (4.8-10.8)
[2018-01-20] MEDS: ACETAMINOPHEN ELIXIR 650 MG/20.3 ML UDCUP PEG SCH (04:32)
[2018-01-20 04:45] LABS: CREATININE 0.5 mg/dL (0.5-1.5); POTASSIUM 4.2 mmol/L (3.5-5.1)
[2018-01-20] MEDS: VALPROATE SOD 250 MG/5 ML (PO) PEG SCH ×3 (05:45→21:28)
[2018-01-20] MEDS: ALBUTEROL SULFATE 0.083% 2.5 MG/3 ML INH IH SCH ×3 (06:32→21:55)
[2018-01-20 07:27] VITALS: BP 118/71
[2018-01-20] MEDS: LEVOFLOXACIN 750 MG/D5W 150 ML 150 ML IV SCH (07:42)
[2018-01-20] MEDS: POLYETHYLENE GLYCOL 3350 17 GM POWD.PACK PEG SCH (07:43)
[2018-01-20] MEDS: ENOXAPARIN SODIUM 40 MG/0.4 ML SYRINGE SQ SCH (07:43)
[2018-01-20] MEDS: FAMOTIDINE 20MG TAB 20 MG TAB PEG SCH ×2 (07:43→21:28)
[2018-01-20] MEDS: ASCORBIC ACID 500 MG TAB PEG SCH ×2 (07:43→21:28)
[2018-01-20] MEDS: ZIPRASIDONE HCL 20 MG CAPSULE PO SCH ×2 (07:43→21:29)
[2018-01-20] MEDS: PROPRANOLOL HCL 20 MG TAB PEG SCH ×2 (07:43→20:49)
[2018-01-20] MEDS: MULTIVITS W-MIN/FERROUS GLUC 237 ML BOTTLE PO SCH (07:45)
[2018-01-20] MEDS: FYCOMPA 12 MG PEG SCH (07:45)
[2018-01-20] MEDS: ARTIFICAL TEARS SOL 15 ML OP SCH ×2 (07:45→21:01)
[2018-01-20] MEDS: GENTAMICIN SULFATE 0.3% 5ML DROPS OU SCH ×4 (07:45→21:02)
[2018-01-20] MEDS: ZINC SULFATE 220 CAPSULE PEG SCH (07:52)
[2018-01-20] MEDS: D5 NS WITH 20 mEq KCl 1000ML 1,000 ML IV SCH (07:53)
[2018-01-20] MEDS: ACETAMINOPHEN 325 MG TAB PO PRN (09:10)
[2018-01-20 11:01] VITALS: BP 95/54
[2018-01-20 16:03] VITALS: BP 96/62
[2018-01-20] MEDS: FENTANYL 75 MCG/HR PATCH TD SCH (17:27)
[2018-01-20 19:28] VITALS: BP 94/59
[2018-01-20 23:34] VITALS: BP 101/41
[2018-01-21] VITALS (7 sets, daily range): BP systolic 99–137; BP diastolic 57–95
[2018-01-21] MEDS: CLONAZEPAM 0.5 MG TABLET PO SCH (00:01)
[2018-01-21] MEDS: BACLOFEN 10 MG TABLET PO SCH ×5 (00:21→23:59)
[2018-01-21] MEDS: D5 NS WITH 20 mEq KCl 1000ML 1,000 ML IV SCH ×3 (01:08→23:38)
[2018-01-21] MEDS: MEROPENEM 1 GM VIAL IVP SCH ×3 (03:35→20:18)
[2018-01-21] MEDS: VANCOMYCIN 1GM+NS 250ML 250 ML IV SCH ×3 (03:35→20:18)
[2018-01-21] MEDS: CLONAZEPAM 1 MG TABLET PEG SCH ×4 (03:53→23:59)
[2018-01-21] MEDS: DILTIAZEM HCL 60 MG TABLET PEG SCH ×4 (03:53→23:59)
[2018-01-21 04:28] LABS: BASOPHILS % (AUTO) 1.3 % (0.0-5.0); EOSINOPHILS % (AUTO) 0.7 % (0.0-8.0); HEMATOCRIT 24.3 % (36-48); LYMPHOCYTES % (AUTO) 33.6 % (21.0-51.0); MEAN CORPUSCULAR HEMOGLOBIN 27.5 pg (27.0-33.0); MEAN CORPUSCULAR HGB CONC 32.5 g/dL (32.0-36.0); MEAN CORPUSCULAR VOLUME 84.5 fL (79-99); MONOCYTES % (AUTO) 11.7 % (3.0-13.0); NEUTROPHILS % (AUTO) 52.7 % (40.0-77.0); PLATELET COUNT (AUTO) 326 K/uL (130-400); RED BLOOD CELL COUNT(AUTO) 2.88 MIL/uL (4.00-5.50); RED CELL DISTRIBUTION WIDTH 15.5 % (11.0-15.5)
[2018-01-21 04:40] LABS: CREATININE 0.4 mg/dL (0.5-1.5)
[2018-01-21] MEDS: VALPROATE SOD 250 MG/5 ML (PO) PEG SCH ×3 (05:14→21:12)
[2018-01-21] MEDS: ALBUTEROL SULFATE 0.083% 2.5 MG/3 ML INH IH SCH ×3 (06:21→21:51)
[2018-01-21] MEDS: LEVOFLOXACIN 750 MG/D5W 150 ML 150 ML IV SCH (07:54)
[2018-01-21] MEDS: PROPRANOLOL HCL 20 MG TAB PEG SCH ×2 (07:54→21:15)
[2018-01-21] MEDS: ASCORBIC ACID 500 MG TAB PEG SCH ×2 (07:54→21:13)
[2018-01-21] MEDS: ZIPRASIDONE HCL 20 MG CAPSULE PO SCH ×2 (07:54→21:00)
[2018-01-21] MEDS: METOPROLOL TARTRATE 50 MG TAB PEG SCH ×2 (07:54→21:12)
[2018-01-21] MEDS: FAMOTIDINE 20MG TAB 20 MG TAB PEG SCH ×2 (07:54→21:14)
[2018-01-21] MEDS: POLYETHYLENE GLYCOL 3350 17 GM POWD.PACK PEG SCH (07:54)
[2018-01-21] MEDS: ENOXAPARIN SODIUM 40 MG/0.4 ML SYRINGE SQ SCH (07:55)
[2018-01-21] MEDS: ZINC SULFATE 220 CAPSULE PEG SCH (07:58)
[2018-01-21] MEDS: GENTAMICIN SULFATE 0.3% 5ML DROPS OU SCH ×4 (08:08→21:23)
[2018-01-21] MEDS: ARTIFICAL TEARS SOL 15 ML OP SCH ×2 (08:08→21:22)
[2018-01-21] MEDS: FYCOMPA 12 MG PEG SCH (08:09)
[2018-01-21] MEDS: MULTIVITS W-MIN/FERROUS GLUC 237 ML BOTTLE PO SCH (08:09)
[2018-01-22 03:00] VITALS: BP 133/67
[2018-01-22] MEDS: VANCOMYCIN 1GM+NS 250ML 250 ML IV SCH ×3 (03:53→21:31)
[2018-01-22] MEDS: MEROPENEM 1 GM VIAL IVP SCH ×3 (03:53→21:31)
[2018-01-22] MEDS: BACLOFEN 10 MG TABLET PO SCH ×3 (05:00→17:56)
[2018-01-22] MEDS: CLONAZEPAM 1 MG TABLET PEG SCH ×4 (05:00→21:30)
[2018-01-22] MEDS: VALPROATE SOD 250 MG/5 ML (PO) PEG SCH ×3 (05:00→21:18)
[2018-01-22] MEDS: DILTIAZEM HCL 60 MG TABLET PEG SCH ×4 (05:02→21:19)
[2018-01-22 06:00] LABS: BASOPHILS % (AUTO) 0.8 % (0.0-5.0); EOSINOPHILS % (AUTO) 0.7 % (0.0-8.0); HEMATOCRIT 24.1 % (36-48); LYMPHOCYTES % (AUTO) 35.3 % (21.0-51.0); MEAN CORPUSCULAR HEMOGLOBIN 28.1 pg (27.0-33.0); MEAN CORPUSCULAR HGB CONC 33.3 g/dL (32.0-36.0); MEAN CORPUSCULAR VOLUME 84.3 fL (79-99); MONOCYTES % (AUTO) 9.1 % (3.0-13.0); NEUTROPHILS % (AUTO) 54.1 % (40.0-77.0); NUCLEATED RED BLOOD CELLS 0.1 % (0.0-0.19); PLATELET COUNT (AUTO) 364 K/uL (130-400); RED BLOOD CELL COUNT(AUTO) 2.86 MIL/uL (4.00-5.50); RED CELL DISTRIBUTION WIDTH 15.7 % (11.0-15.5); WHITE BLOOD COUNT (AUTO) 4.6 K/uL (4.8-10.8)
[2018-01-22 06:04] LABS: CREATININE 0.4 mg/dL (0.5-1.5); POTASSIUM 3.8 mmol/L (3.5-5.1)
[2018-01-22] MEDS: ALBUTEROL SULFATE 0.083% 2.5 MG/3 ML INH IH SCH ×3 (06:33→22:01)
[2018-01-22 08:08] VITALS: BP 123/68
[2018-01-22] MEDS: FYCOMPA 12 MG PEG SCH (09:00)
[2018-01-22] MEDS: GENTAMICIN SULFATE 0.3% 5ML DROPS OU SCH ×4 (11:22→21:21)
[2018-01-22] MEDS: ARTIFICAL TEARS SOL 15 ML OP SCH ×2 (11:23→21:20)
[2018-01-22] MEDS: POLYETHYLENE GLYCOL 3350 17 GM POWD.PACK PEG SCH (11:24)
[2018-01-22 11:26] VITALS: BP 144/72
[2018-01-22] MEDS: PROPRANOLOL HCL 20 MG TAB PEG SCH ×2 (11:26→21:18)
[2018-01-22] MEDS: METOPROLOL TARTRATE 50 MG TAB PEG SCH ×2 (11:27→21:18)
[2018-01-22] MEDS: ASCORBIC ACID 500 MG TAB PEG SCH ×2 (11:27→21:19)
[2018-01-22] MEDS: ZINC SULFATE 220 CAPSULE PEG SCH (11:27)
[2018-01-22] MEDS: ZIPRASIDONE HCL 20 MG CAPSULE PO SCH ×2 (11:27→21:19)
[2018-01-22] MEDS: FAMOTIDINE 20MG TAB 20 MG TAB PEG SCH ×2 (11:28→21:19)
[2018-01-22] MEDS: MULTIVITS W-MIN/FERROUS GLUC 237 ML BOTTLE PO SCH (11:29)
[2018-01-22] MEDS: ENOXAPARIN SODIUM 40 MG/0.4 ML SYRINGE SQ SCH (11:31)
[2018-01-22 12:05] LABS: INR 0.97 (0.85-1.15); PROTHROMBIN TIME 10.2 SEC (9.6-11.6)
[2018-01-22] MEDS: D5 NS WITH 20 mEq KCl 1000ML 1,000 ML IV SCH (15:17)
[2018-01-22 16:28] VITALS: BP 147/84
[2018-01-22 19:40] VITALS: BP 131/78
[2018-01-23] VITALS (27 sets, daily range): BP systolic 118–173; BP diastolic 53–95
[2018-01-23] MEDS: BACLOFEN 10 MG TABLET PO SCH ×4 (01:02→17:52)
[2018-01-23] MEDS: DILTIAZEM HCL 60 MG TABLET PEG SCH ×4 (03:22→20:53)
[2018-01-23] MEDS: CLONAZEPAM 1 MG TABLET PEG SCH ×4 (03:23→20:52)
[2018-01-23] MEDS: D5 NS WITH 20 mEq KCl 1000ML 1,000 ML IV SCH ×2 (03:23→17:53)
[2018-01-23] MEDS: VANCOMYCIN 1GM+NS 250ML 250 ML IV SCH ×4 (04:23→20:50)
[2018-01-23] MEDS: MEROPENEM 1 GM VIAL IVP SCH ×4 (04:24→20:49)
[2018-01-23] MEDS: ACETAMINOPHEN 325 MG TAB PO PRN (04:25)
[2018-01-23] MEDS: VALPROATE SOD 250 MG/5 ML (PO) PEG SCH ×3 (04:27→20:53)
[2018-01-23 04:59] LABS: EOSINOPHILS % (AUTO) 0.4 % (0.0-8.0); HEMATOCRIT 25.2 % (36-48); LYMPHOCYTES % (AUTO) 19.9 % (21.0-51.0); MEAN CORPUSCULAR HEMOGLOBIN 27.5 pg (27.0-33.0); MEAN CORPUSCULAR VOLUME 83.3 fL (79-99); MONOCYTES % (AUTO) 9.6 % (3.0-13.0); NEUTROPHILS % (AUTO) 69.1 % (40.0-77.0); PLATELET COUNT (AUTO) 406 K/uL (130-400); RED BLOOD CELL COUNT(AUTO) 3.02 MIL/uL (4.00-5.50); RED CELL DISTRIBUTION WIDTH 15.5 % (11.0-15.5); WHITE BLOOD COUNT (AUTO) 6.5 K/uL (4.8-10.8)
[2018-01-23 05:08] LABS: CREATININE 0.4 mg/dL (0.5-1.5); POTASSIUM 4.5 mmol/L (3.5-5.1)
[2018-01-23] MEDS: ALBUTEROL SULFATE 0.083% 2.5 MG/3 ML INH IH SCH ×3 (06:37→21:46)
[2018-01-23] MEDS: FYCOMPA 12 MG PEG SCH (09:00)
[2018-01-23] MEDS ORDERED: LACTATED RINGERS 1000ML 1,000 ML IV ONE (10:46)
[2018-01-23] MEDS ORDERED: PROPOFOL 10 MG/ML 20ML VIAL IV ONE (11:11)
[2018-01-23] MEDS: ARTIFICAL TEARS SOL 15 ML OP SCH ×2 (15:52→21:11)
[2018-01-23] MEDS: GENTAMICIN SULFATE 0.3% 5ML DROPS OU SCH ×4 (15:52→21:11)
[2018-01-23] MEDS: METOPROLOL TARTRATE 50 MG TAB PEG SCH ×2 (15:53→20:53)
[2018-01-23] MEDS: PROPRANOLOL HCL 20 MG TAB PEG SCH ×2 (15:53→20:52)
[2018-01-23] MEDS: POLYETHYLENE GLYCOL 3350 17 GM POWD.PACK PEG SCH (15:54)
[2018-01-23] MEDS: ASCORBIC ACID 500 MG TAB PEG SCH ×2 (15:54→20:53)
[2018-01-23] MEDS: FAMOTIDINE 20MG TAB 20 MG TAB PEG SCH ×2 (15:54→20:52)
[2018-01-23] MEDS: MULTIVITS W-MIN/FERROUS GLUC 237 ML BOTTLE PO SCH (15:55)
[2018-01-23] MEDS: ZIPRASIDONE HCL 20 MG CAPSULE PO SCH ×2 (15:55→20:52)
[2018-01-23] MEDS: ZINC SULFATE 220 CAPSULE PEG SCH (15:55)
[2018-01-23] MEDS: ENOXAPARIN SODIUM 40 MG/0.4 ML SYRINGE SQ SCH (15:56)
[2018-01-23] MEDS: FENTANYL 75 MCG/HR PATCH TD SCH (17:57)
[2018-01-24] VITALS: BP 115/64
[2018-01-24] MEDS: BACLOFEN 10 MG TABLET PO SCH ×4 (00:35→18:02)
[2018-01-24] MEDS: D5 NS WITH 20 mEq KCl 1000ML 1,000 ML IV SCH ×2 (02:24→18:02)
[2018-01-24] MEDS: CLONAZEPAM 1 MG TABLET PEG SCH ×4 (03:22→21:03)
[2018-01-24] MEDS: DILTIAZEM HCL 60 MG TABLET PEG SCH ×4 (03:22→21:02)
[2018-01-24] MEDS: MEROPENEM 1 GM VIAL IVP SCH ×3 (03:23→21:06)
[2018-01-24] MEDS: VANCOMYCIN 1GM+NS 250ML 250 ML IV SCH ×3 (03:23→20:57)
[2018-01-24 04:00] VITALS: BP 116/69
[2018-01-24] MEDS: VALPROATE SOD 250 MG/5 ML (PO) PEG SCH ×3 (06:12→20:57)
[2018-01-24] MEDS: ALBUTEROL SULFATE 0.083% 2.5 MG/3 ML INH IH SCH ×3 (06:31→22:10)
[2018-01-24 08:03] VITALS: BP 145/97
[2018-01-24] MEDS: ACETAMINOPHEN 325 MG TAB PO PRN ×2 (08:16→15:04)
[2018-01-24] MEDS: FYCOMPA 12 MG PEG SCH (09:00)
[2018-01-24] MEDS: POLYETHYLENE GLYCOL 3350 17 GM POWD.PACK PEG SCH (10:02)
[2018-01-24] MEDS: ASCORBIC ACID 500 MG TAB PEG SCH ×2 (10:03→20:58)
[2018-01-24] MEDS: ENOXAPARIN SODIUM 40 MG/0.4 ML SYRINGE SQ SCH (10:03)
[2018-01-24] MEDS: PROPRANOLOL HCL 20 MG TAB PEG SCH ×2 (10:03→20:58)
[2018-01-24] MEDS: ZIPRASIDONE HCL 20 MG CAPSULE PO SCH ×2 (10:04→20:58)
[2018-01-24] MEDS: METOPROLOL TARTRATE 50 MG TAB PEG SCH ×2 (10:04→21:03)
[2018-01-24] MEDS: ZINC SULFATE 220 CAPSULE PEG SCH (10:04)
[2018-01-24] MEDS: FAMOTIDINE 20MG TAB 20 MG TAB PEG SCH ×2 (10:04→20:58)
[2018-01-24] MEDS: GENTAMICIN SULFATE 0.3% 5ML DROPS OU SCH ×3 (10:07→21:31)
[2018-01-24] MEDS: ARTIFICAL TEARS SOL 15 ML OP SCH ×2 (10:07→21:31)
[2018-01-24] MEDS: MULTIVITS W-MIN/FERROUS GLUC 237 ML BOTTLE PO SCH (10:08)
[2018-01-24 11:02] VITALS: BP 134/85
[2018-01-24 16:30] VITALS: BP 95/56
[2018-01-24] MEDS: FLUCONAZOLE 400 MG/NS 200 ML 200 ML IV SCH (18:02)
[2018-01-24 19:00] VITALS: BP 107/62
[2018-01-24] MEDS: ACETAMINOPHEN ELIXIR 650 MG/20.3 ML UDCUP PEG SCH (21:07)
[2018-01-25] VITALS (24 sets, daily range): BP systolic 85–137; BP diastolic 44–96
[2018-01-25] MEDS: BACLOFEN 10 MG TABLET PO SCH ×4 (00:29→17:30)
[2018-01-25 04:22] LABS: EOSINOPHILS % (AUTO) 0.5 % (0.0-8.0); HEMATOCRIT 25.2 % (36-48); LYMPHOCYTES % (AUTO) 15.8 % (21.0-51.0); MEAN CORPUSCULAR HEMOGLOBIN 27.6 pg (27.0-33.0); MEAN CORPUSCULAR HGB CONC 32.9 g/dL (32.0-36.0); MONOCYTES % (AUTO) 9.8 % (3.0-13.0); NEUTROPHILS % (AUTO) 72.9 % (40.0-77.0); PLATELET COUNT (AUTO) 307 K/uL (130-400); RED CELL DISTRIBUTION WIDTH 15.7 % (11.0-15.5); WHITE BLOOD COUNT (AUTO) 9.5 K/uL (4.8-10.8)
[2018-01-25 04:43] LABS: CREATININE 0.3 mg/dL (0.5-1.5); POTASSIUM 4.1 mmol/L (3.5-5.1)
[2018-01-25] MEDS: VALPROATE SOD 250 MG/5 ML (PO) PEG SCH ×3 (05:00→22:59)
[2018-01-25] MEDS: DILTIAZEM HCL 60 MG TABLET PEG SCH ×4 (05:39→23:01)
[2018-01-25] MEDS: CLONAZEPAM 1 MG TABLET PEG SCH ×4 (05:40→23:00)
[2018-01-25] MEDS: MEROPENEM 1 GM VIAL IVP SCH ×3 (05:42→22:59)
[2018-01-25] MEDS: VANCOMYCIN 1GM+NS 250ML 250 ML IV SCH ×3 (05:50→23:00)
[2018-01-25] MEDS: ALBUTEROL SULFATE 0.083% 2.5 MG/3 ML INH IH SCH ×3 (06:46→21:21)
[2018-01-25] MEDS: FYCOMPA 12 MG PEG SCH (09:00)
[2018-01-25] MEDS: ENOXAPARIN SODIUM 40 MG/0.4 ML SYRINGE SQ SCH ×2 (09:00→09:15)
[2018-01-25] MEDS: ASCORBIC ACID 500 MG TAB PEG SCH ×2 (09:16→23:01)
[2018-01-25] MEDS: FAMOTIDINE 20MG TAB 20 MG TAB PEG SCH ×2 (09:16→23:02)
[2018-01-25] MEDS: ZINC SULFATE 220 CAPSULE PEG SCH (09:16)
[2018-01-25] MEDS: PROPRANOLOL HCL 20 MG TAB PEG SCH ×2 (09:16→23:01)
[2018-01-25] MEDS: METOPROLOL TARTRATE 50 MG TAB PEG SCH ×2 (09:17→23:02)
[2018-01-25] MEDS: ZIPRASIDONE HCL 20 MG CAPSULE PO SCH ×2 (09:17→23:01)
[2018-01-25] MEDS: ARTIFICAL TEARS SOL 15 ML OP SCH ×2 (09:18→23:36)
[2018-01-25] MEDS: GENTAMICIN SULFATE 0.3% 5ML DROPS OU SCH ×4 (09:19→23:36)
[2018-01-25] MEDS: POLYETHYLENE GLYCOL 3350 17 GM POWD.PACK PEG SCH (09:20)
[2018-01-25] MEDS: MULTIVITS W-MIN/FERROUS GLUC 237 ML BOTTLE PO SCH (09:26)
[2018-01-25] MEDS: D5 NS WITH 20 mEq KCl 1000ML 1,000 ML IV SCH ×2 (10:09→21:25)
[2018-01-25] MEDS ORDERED: LACTATED RINGERS 1000ML 1,000 ML IV ONE (11:32)
[2018-01-25] MEDS ORDERED: FENTANYL CITRATE PF 50 MCG/1 ML 2ML VIAL ONE (12:19)
[2018-01-25] MEDS: FLUCONAZOLE 400 MG/NS 200 ML 200 ML IV SCH (15:56)
[2018-01-26] VITALS: BP 109/73
[2018-01-26] MEDS: BACLOFEN 10 MG TABLET PO SCH ×4 (00:21→18:15)
[2018-01-26] MEDS: CLONAZEPAM 1 MG TABLET PEG SCH ×3 (02:57→12:34)
[2018-01-26] MEDS: DILTIAZEM HCL 60 MG TABLET PEG SCH ×4 (02:57→21:57)
[2018-01-26] MEDS: ACETAMINOPHEN ELIXIR 650 MG/20.3 ML UDCUP PEG SCH ×2 (03:02→15:16)
[2018-01-26 04:35] VITALS: BP 128/80
[2018-01-26] MEDS: VALPROATE SOD 250 MG/5 ML (PO) PEG SCH ×3 (05:02→21:54)
[2018-01-26] MEDS: VANCOMYCIN 1GM+NS 250ML 250 ML IV SCH ×3 (05:03→20:41)
[2018-01-26] MEDS: MEROPENEM 1 GM VIAL IVP SCH ×3 (05:03→20:47)
[2018-01-26] MEDS: ALBUTEROL SULFATE 0.083% 2.5 MG/3 ML INH IH SCH ×3 (06:36→21:11)
[2018-01-26 08:00] VITALS: BP 130/91
[2018-01-26] MEDS: ARTIFICAL TEARS SOL 15 ML OP SCH ×2 (09:00→21:55)
[2018-01-26] MEDS: MULTIVITS W-MIN/FERROUS GLUC 237 ML BOTTLE PO SCH (09:00)
[2018-01-26] MEDS: GENTAMICIN SULFATE 0.3% 5ML DROPS OU SCH ×4 (09:00→21:55)
[2018-01-26] MEDS: FYCOMPA 12 MG PEG SCH (09:00)
[2018-01-26] MEDS ORDERED: MORPHINE SULFATE 4 MG/1ML SYG IVP PRN (10:00)
[2018-01-26] MEDS: POLYETHYLENE GLYCOL 3350 17 GM POWD.PACK PEG SCH (10:28)
[2018-01-26] MEDS: PROPRANOLOL HCL 20 MG TAB PEG SCH ×2 (10:28→20:46)
[2018-01-26] MEDS: ENOXAPARIN SODIUM 40 MG/0.4 ML SYRINGE SQ SCH (10:28)
[2018-01-26] MEDS: ZIPRASIDONE HCL 20 MG CAPSULE PO SCH ×2 (10:29→20:47)
[2018-01-26] MEDS: FAMOTIDINE 20MG TAB 20 MG TAB PEG SCH ×2 (10:29→20:46)
[2018-01-26] MEDS: ZINC SULFATE 220 CAPSULE PEG SCH (10:29)
[2018-01-26] MEDS: METOPROLOL TARTRATE 50 MG TAB PEG SCH ×2 (10:29→20:46)
[2018-01-26] MEDS: ASCORBIC ACID 500 MG TAB PEG SCH ×2 (10:29→20:47)
[2018-01-26] MEDS: D5 NS WITH 20 mEq KCl 1000ML 1,000 ML IV SCH ×2 (10:45→19:59)
[2018-01-26 11:45] VITALS: BP 120/72
[2018-01-26 16:00] VITALS: BP 136/91
[2018-01-26] MEDS: FLUCONAZOLE 400 MG/NS 200 ML 200 ML IV SCH (16:52)
[2018-01-26] MEDS: FENTANYL 75 MCG/HR PATCH TD SCH (18:14)
[2018-01-26 19:30] VITALS: BP 113/57
[2018-01-26] MEDS: CLONAZEPAM 2 MG TABLET PEG SCH (23:09)
[2018-01-27] MEDS: BACLOFEN 10 MG TABLET PO SCH ×4 (00:04→17:14)
[2018-01-27 00:40] VITALS: BP 139/77
[2018-01-27] MEDS: DILTIAZEM HCL 60 MG TABLET PEG SCH ×4 (03:06→20:16)
[2018-01-27] MEDS: VANCOMYCIN 1GM+NS 250ML 250 ML IV SCH ×3 (04:05→20:04)
[2018-01-27] MEDS: CLONAZEPAM 2 MG TABLET PEG SCH ×3 (04:06→17:13)
[2018-01-27] MEDS: MEROPENEM 1 GM VIAL IVP SCH ×3 (04:31→21:33)
[2018-01-27 04:45] VITALS: BP 137/67
[2018-01-27] MEDS: VALPROATE SOD 250 MG/5 ML (PO) PEG SCH ×3 (05:09→20:15)
[2018-01-27] MEDS: ALBUTEROL SULFATE 0.083% 2.5 MG/3 ML INH IH SCH ×3 (06:39→22:17)
[2018-01-27 08:00] VITALS: BP 94/47
[2018-01-27] MEDS: POLYETHYLENE GLYCOL 3350 17 GM POWD.PACK PEG SCH (08:59)
[2018-01-27] MEDS: FYCOMPA 12 MG PEG SCH (09:00)
[2018-01-27] MEDS: ZIPRASIDONE HCL 20 MG CAPSULE PO SCH ×2 (09:00→20:04)
[2018-01-27] MEDS: ZINC SULFATE 220 CAPSULE PEG SCH (09:00)
[2018-01-27] MEDS: ENOXAPARIN SODIUM 40 MG/0.4 ML SYRINGE SQ SCH (09:00)
[2018-01-27] MEDS: MULTIVITS W-MIN/FERROUS GLUC 237 ML BOTTLE PO SCH (09:00)
[2018-01-27] MEDS: ASCORBIC ACID 500 MG TAB PEG SCH ×2 (09:01→20:04)
[2018-01-27] MEDS: FAMOTIDINE 20MG TAB 20 MG TAB PEG SCH ×2 (09:01→20:04)
[2018-01-27] MEDS: GENTAMICIN SULFATE 0.3% 5ML DROPS OU SCH ×4 (09:13→21:34)
[2018-01-27] MEDS: ARTIFICAL TEARS SOL 15 ML OP SCH ×2 (09:13→21:34)
[2018-01-27 11:50] VITALS: BP 119/72
[2018-01-27] MEDS: METOPROLOL TARTRATE 50 MG TAB PEG SCH (13:00)
[2018-01-27] MEDS: PROPRANOLOL HCL 20 MG TAB PEG SCH ×2 (13:00→17:13)
[2018-01-27] MEDS: D5 NS WITH 20 mEq KCl 1000ML 1,000 ML IV SCH (13:25)
[2018-01-27 16:00] VITALS: BP 116/57
[2018-01-27] MEDS: FLUCONAZOLE 400 MG/NS 200 ML 200 ML IV SCH (17:12)
[2018-01-27 20:00] VITALS: BP 137/98
[2018-01-28] VITALS (7 sets, daily range): BP systolic 118–157; BP diastolic 58–74
[2018-01-28] MEDS: BACLOFEN 10 MG TABLET PO SCH ×4 (00:22→16:46)
[2018-01-28] MEDS: CLONAZEPAM 2 MG TABLET PEG SCH ×5 (00:23→20:46)
[2018-01-28] MEDS: PROPRANOLOL HCL 20 MG TAB PEG SCH ×3 (01:01→16:46)
[2018-01-28] MEDS: D5 NS WITH 20 mEq KCl 1000ML 1,000 ML IV SCH ×2 (02:09→16:05)
[2018-01-28] MEDS: VANCOMYCIN 1GM+NS 250ML 250 ML IV SCH ×3 (04:18→20:43)
[2018-01-28] MEDS: DILTIAZEM HCL 60 MG TABLET PEG SCH ×4 (04:24→20:44)
[2018-01-28] MEDS: VALPROATE SOD 250 MG/5 ML (PO) PEG SCH ×3 (04:56→20:49)
[2018-01-28] MEDS: MEROPENEM 1 GM VIAL IVP SCH ×3 (04:57→20:43)
[2018-01-28 06:25] LABS: HEMATOCRIT 25.2 % (36-48); MEAN CORPUSCULAR HEMOGLOBIN 28.5 pg (27.0-33.0); MEAN CORPUSCULAR HGB CONC 34.4 g/dL (32.0-36.0); MEAN CORPUSCULAR VOLUME 82.9 fL (79-99); NUCLEATED RED BLOOD CELLS 0.1 % (0.0-0.19); PLATELET COUNT (AUTO) 406 K/uL (130-400); RED BLOOD CELL COUNT(AUTO) 3.04 MIL/uL (4.00-5.50); RED CELL DISTRIBUTION WIDTH 15.8 % (11.0-15.5); WHITE BLOOD COUNT (AUTO) 3.8 K/uL (4.8-10.8)
[2018-01-28 06:35] LABS: CREATININE 0.4 mg/dL (0.5-1.5); MAGNESIUM 1.5 mg/dL (1.80-2.40); POTASSIUM 4.4 mmol/L (3.5-5.1)
[2018-01-28 06:37] LABS: INR 0.97 (0.85-1.15); PARTIAL THROMBOPLASTIN TIME 30.8 SEC (26.3-35.5); PROTHROMBIN TIME 10.2 SEC (9.6-11.6)
[2018-01-28] MEDS: ALBUTEROL SULFATE 0.083% 2.5 MG/3 ML INH IH SCH (06:56)
[2018-01-28] MEDS: ENOXAPARIN SODIUM 40 MG/0.4 ML SYRINGE SQ SCH (09:12)
[2018-01-28] MEDS: POLYETHYLENE GLYCOL 3350 17 GM POWD.PACK PEG SCH (09:12)
[2018-01-28] MEDS: ACETAMINOPHEN ELIXIR 650 MG/20.3 ML UDCUP PEG SCH (09:13)
[2018-01-28] MEDS: ZINC SULFATE 220 CAPSULE PEG SCH (09:13)
[2018-01-28] MEDS: FYCOMPA 12 MG PEG SCH (09:14)
[2018-01-28] MEDS: ZIPRASIDONE HCL 20 MG CAPSULE PO SCH ×2 (09:14→20:49)
[2018-01-28] MEDS: GENTAMICIN SULFATE 0.3% 5ML DROPS OU SCH ×4 (09:14→20:48)
[2018-01-28] MEDS: FAMOTIDINE 20MG TAB 20 MG TAB PEG SCH ×2 (09:14→20:49)
[2018-01-28] MEDS: ARTIFICAL TEARS SOL 15 ML OP SCH ×2 (09:14→20:48)
[2018-01-28] MEDS: ASCORBIC ACID 500 MG TAB PEG SCH ×2 (09:14→20:50)
[2018-01-28] MEDS: MULTIVITS W-MIN/FERROUS GLUC 237 ML BOTTLE PO SCH (09:45)
[2018-01-28] MEDS: MAGNESIUM 2GM PREMIX 50ML 50 ML IV SCH (11:59)
[2018-01-28] MEDS: IPRATROPIUM 0.5 MG/2.5 ML INH IH SCH ×2 (13:10→21:26)
[2018-01-28] MEDS: FLUCONAZOLE 400 MG/NS 200 ML 200 ML IV SCH (16:46)
[2018-01-29] VITALS (7 sets, daily range): BP systolic 105–151; BP diastolic 58–98
[2018-01-29] MEDS: BACLOFEN 10 MG TABLET PO SCH ×4 (00:36→18:25)
[2018-01-29] MEDS: PROPRANOLOL HCL 20 MG TAB PEG SCH ×3 (01:38→17:05)
[2018-01-29] MEDS: DILTIAZEM HCL 60 MG TABLET PEG SCH ×4 (03:02→21:22)
[2018-01-29] MEDS: D5 NS WITH 20 mEq KCl 1000ML 1,000 ML IV SCH ×2 (03:08→19:41)
[2018-01-29] MEDS: VANCOMYCIN 1GM+NS 250ML 250 ML IV SCH ×3 (04:06→21:23)
[2018-01-29] MEDS: CLONAZEPAM 2 MG TABLET PEG SCH ×4 (04:06→21:22)
[2018-01-29] MEDS: VALPROATE SOD 250 MG/5 ML (PO) PEG SCH ×3 (05:08→21:23)
[2018-01-29] MEDS: MEROPENEM 1 GM VIAL IVP SCH ×2 (05:09→13:11)
[2018-01-29 06:27] LABS: HEMATOCRIT 28.2 % (36-48); MEAN CORPUSCULAR HEMOGLOBIN 26.9 pg (27.0-33.0); MEAN CORPUSCULAR HGB CONC 32.9 g/dL (32.0-36.0); MEAN CORPUSCULAR VOLUME 81.6 fL (79-99); PLATELET COUNT (AUTO) 501 K/uL (130-400); RED BLOOD CELL COUNT(AUTO) 3.45 MIL/uL (4.00-5.50); RED CELL DISTRIBUTION WIDTH 15.8 % (11.0-15.5); WHITE BLOOD COUNT (AUTO) 5.1 K/uL (4.8-10.8)
[2018-01-29 06:39] LABS: CREATININE 0.5 mg/dL (0.5-1.5); MAGNESIUM 1.8 mg/dL (1.80-2.40); POTASSIUM 4.8 mmol/L (3.5-5.1)
[2018-01-29] MEDS: IPRATROPIUM 0.5 MG/2.5 ML INH IH SCH ×3 (07:18→21:39)
[2018-01-29] MEDS: MULTIVITS W-MIN/FERROUS GLUC 237 ML BOTTLE PO SCH (09:00)
[2018-01-29] MEDS: ENOXAPARIN SODIUM 40 MG/0.4 ML SYRINGE SQ SCH (09:00)
[2018-01-29] MEDS: FYCOMPA 12 MG PEG SCH (09:00)
[2018-01-29] MEDS: ARTIFICAL TEARS SOL 15 ML OP SCH ×2 (09:30→21:24)
[2018-01-29] MEDS: GENTAMICIN SULFATE 0.3% 5ML DROPS OU SCH ×4 (09:30→21:24)
[2018-01-29] MEDS: ZINC SULFATE 220 CAPSULE PEG SCH (09:38)
[2018-01-29] MEDS: FAMOTIDINE 20MG TAB 20 MG TAB PEG SCH ×2 (09:38→21:22)
[2018-01-29] MEDS: ASCORBIC ACID 500 MG TAB PEG SCH ×2 (09:38→21:22)
[2018-01-29] MEDS: ZIPRASIDONE HCL 20 MG CAPSULE PO SCH ×2 (09:39→21:22)
[2018-01-29] MEDS: POLYETHYLENE GLYCOL 3350 17 GM POWD.PACK PEG SCH (09:39)
[2018-01-29] MEDS: ACETAMINOPHEN 325 MG TAB PO PRN (14:04)
[2018-01-29] MEDS: FLUCONAZOLE 400 MG/NS 200 ML 200 ML IV SCH (17:05)
[2018-01-29] MEDS: FENTANYL 75 MCG/HR PATCH TD SCH (17:50)
[2018-01-30] MEDS: BACLOFEN 10 MG TABLET PO SCH ×4 (01:19→17:33)
[2018-01-30] MEDS: PROPRANOLOL HCL 20 MG TAB PEG SCH ×3 (01:19→17:00)
[2018-01-30] MEDS: DILTIAZEM HCL 60 MG TABLET PEG SCH ×4 (03:17→20:39)
[2018-01-30 03:20] VITALS: BP 127/76
[2018-01-30] MEDS: VANCOMYCIN 1GM+NS 250ML 250 ML IV SCH ×2 (03:30→12:16)
[2018-01-30] MEDS: CLONAZEPAM 2 MG TABLET PEG SCH ×4 (03:30→21:01)
[2018-01-30] MEDS: VALPROATE SOD 250 MG/5 ML (PO) PEG SCH ×3 (04:42→20:39)
[2018-01-30] MEDS: IPRATROPIUM 0.5 MG/2.5 ML INH IH SCH ×3 (07:18→21:13)
[2018-01-30 08:32] VITALS: BP 111/55
[2018-01-30] MEDS: D5 NS WITH 20 mEq KCl 1000ML 1,000 ML IV SCH (08:41)
[2018-01-30] MEDS: MULTIVITS W-MIN/FERROUS GLUC 237 ML BOTTLE PO SCH (09:00)
[2018-01-30] MEDS: ENOXAPARIN SODIUM 40 MG/0.4 ML SYRINGE SQ SCH ×2 (09:00→09:05)
[2018-01-30] MEDS: POLYETHYLENE GLYCOL 3350 17 GM POWD.PACK PEG SCH (09:00)
[2018-01-30] MEDS: FYCOMPA 12 MG PEG SCH (09:00)
[2018-01-30] MEDS: FAMOTIDINE 20MG TAB 20 MG TAB PEG SCH ×2 (09:05→20:39)
[2018-01-30] MEDS: ASCORBIC ACID 500 MG TAB PEG SCH ×2 (09:05→20:40)
[2018-01-30] MEDS: ZINC SULFATE 220 CAPSULE PEG SCH (09:05)
[2018-01-30] MEDS: ZIPRASIDONE HCL 20 MG CAPSULE PO SCH ×2 (09:06→20:38)
[2018-01-30] MEDS: ARTIFICAL TEARS SOL 15 ML OP SCH ×2 (09:07→20:44)
[2018-01-30] MEDS: GENTAMICIN SULFATE 0.3% 5ML DROPS OU SCH ×4 (09:07→20:44)
[2018-01-30] MEDS: ACETAMINOPHEN ELIXIR 650 MG/20.3 ML UDCUP PEG SCH (09:10)
[2018-01-30 12:09] VITALS: BP 99/57
[2018-01-30] MEDS: FLUCONAZOLE 400 MG/NS 200 ML 200 ML IV SCH (15:46)
[2018-01-30 16:28] VITALS: BP 110/65
[2018-01-30 19:59] VITALS: BP 118/69
[2018-01-31] VITALS: BP 124/69
[2018-01-31] MEDS: BACLOFEN 10 MG TABLET PO SCH ×5 (00:11→23:43)
[2018-01-31] MEDS: PROPRANOLOL HCL 20 MG TAB PEG SCH ×3 (00:11→17:45)
[2018-01-31] MEDS: CLONAZEPAM 2 MG TABLET PEG SCH ×4 (03:28→23:43)
[2018-01-31] MEDS: DILTIAZEM HCL 60 MG TABLET PEG SCH ×4 (03:28→17:45)
[2018-01-31] MEDS: D5 NS WITH 20 mEq KCl 1000ML 1,000 ML IV SCH ×2 (03:51→10:45)
[2018-01-31 04:00] VITALS: BP 116/68
[2018-01-31] MEDS: VALPROATE SOD 250 MG/5 ML (PO) PEG SCH ×3 (05:24→23:43)
[2018-01-31] MEDS: IPRATROPIUM 0.5 MG/2.5 ML INH IH SCH ×3 (05:57→22:18)
[2018-01-31 06:27] LABS: HEMATOCRIT 26.4 % (36-48); MEAN CORPUSCULAR HEMOGLOBIN 26.1 pg (27.0-33.0); MEAN CORPUSCULAR HGB CONC 31.8 g/dL (32.0-36.0); PLATELET COUNT (AUTO) 392 K/uL (130-400); RED BLOOD CELL COUNT(AUTO) 3.21 MIL/uL (4.00-5.50); RED CELL DISTRIBUTION WIDTH 16.1 % (11.0-15.5); WHITE BLOOD COUNT (AUTO) 6.1 K/uL (4.8-10.8)
[2018-01-31 06:37] LABS: CREATININE 0.4 mg/dL (0.5-1.5); MAGNESIUM 1.6 mg/dL (1.80-2.40); POTASSIUM 5.6 mmol/L (3.5-5.1)
[2018-01-31 06:41] LABS: PARTIAL THROMBOPLASTIN TIME 30.5 SEC (26.3-35.5); PROTHROMBIN TIME 10.5 SEC (9.6-11.6)
[2018-01-31 08:17] VITALS: BP 109/70
[2018-01-31] MEDS ORDERED: MAGNESIUM 2GM PREMIX 50ML 50 ML IV SCH (10:15)
[2018-01-31] MEDS: ZINC SULFATE 220 CAPSULE PEG SCH (11:24)
[2018-01-31] MEDS: SODIUM POLYSTYRENE SULFONATE 15 GM/60 ML ML PO SCH (11:24)
[2018-01-31] MEDS: ASCORBIC ACID 500 MG TAB PEG SCH ×2 (11:24→23:44)
[2018-01-31] MEDS: ZIPRASIDONE HCL 20 MG CAPSULE PO SCH ×2 (11:24→23:43)
[2018-01-31] MEDS: FAMOTIDINE 20MG TAB 20 MG TAB PEG SCH ×2 (11:25→23:43)
[2018-01-31] MEDS: POLYETHYLENE GLYCOL 3350 17 GM POWD.PACK PEG SCH (11:25)
[2018-01-31] MEDS: FYCOMPA 12 MG PEG SCH (11:26)
[2018-01-31] MEDS: GENTAMICIN SULFATE 0.3% 5ML DROPS OU SCH ×4 (11:27→21:00)
[2018-01-31] MEDS: ARTIFICAL TEARS SOL 15 ML OP SCH ×2 (11:27→21:00)
[2018-01-31] MEDS: MULTIVITS W-MIN/FERROUS GLUC 237 ML BOTTLE PO SCH (11:28)
[2018-01-31] MEDS: ENOXAPARIN SODIUM 40 MG/0.4 ML SYRINGE SQ SCH (11:32)
[2018-01-31 12:06] VITALS: BP 135/77
[2018-01-31] MEDS: FLUCONAZOLE 400 MG/NS 200 ML 200 ML IV SCH (15:31)
[2018-01-31] MEDS: VANCOMYCIN 1GM+NS 250ML 250 ML IV SCH ×2 (15:31→23:42)
[2018-01-31] MEDS: MAGNESIUM 2GM PREMIX 50ML 50 ML IV SCH (15:31)
[2018-01-31 17:12] VITALS: BP 129/79
[2018-01-31] MEDS: LORAZEPAM 1 MG TABLET PO PRN (17:45)
[2018-01-31 20:00] VITALS: BP 128/81
[2018-01-31] MEDS ORDERED: IOPAMIDOL-370 75 ML VIAL IV ONE ×2 (21:16→23:21)
[2018-01-31] MEDS: DEXTROSE 5 % AND 0.9 % NACL 1,000 ML IV SCH (23:42)
[2018-02-01] VITALS (7 sets, daily range): BP systolic 109–160; BP diastolic 51–79
[2018-02-01] MEDS: PROPRANOLOL HCL 20 MG TAB PEG SCH ×3 (01:00→18:41)
[2018-02-01] MEDS: DILTIAZEM HCL 60 MG TABLET PEG SCH ×4 (03:00→18:18)
[2018-02-01] MEDS ORDERED: LORAZEPAM 2 MG/ML 1 ML VIAL IVP PRN (03:15)
[2018-02-01] MEDS: BACLOFEN 10 MG TABLET PO SCH ×4 (03:57→23:51)
[2018-02-01] MEDS: CLONAZEPAM 2 MG TABLET PEG SCH ×4 (03:57→23:50)
[2018-02-01] MEDS: VALPROATE SOD 250 MG/5 ML (PO) PEG SCH ×3 (03:57→23:50)
[2018-02-01 05:33] LABS: CREATININE 0.4 mg/dL (0.5-1.5); MAGNESIUM 1.6 mg/dL (1.80-2.40); POTASSIUM 4.1 mmol/L (3.5-5.1)
[2018-02-01] MEDS: MAGNESIUM 2GM PREMIX 50ML 50 ML IV SCH (05:48)
[2018-02-01] MEDS: IPRATROPIUM 0.5 MG/2.5 ML INH IH SCH ×3 (06:54→21:49)
[2018-02-01] MEDS: VANCOMYCIN 1GM+NS 250ML 250 ML IV SCH ×3 (06:55→23:51)
[2018-02-01] MEDS: FYCOMPA 12 MG PEG SCH ×2 (09:00→15:00)
[2018-02-01] MEDS: ASCORBIC ACID 500 MG TAB PEG SCH ×3 (09:00→23:51)
[2018-02-01] MEDS: FAMOTIDINE 20MG TAB 20 MG TAB PEG SCH ×3 (09:00→23:51)
[2018-02-01] MEDS: ZIPRASIDONE HCL 20 MG CAPSULE PO SCH ×2 (09:00→23:51)
[2018-02-01] MEDS: POLYETHYLENE GLYCOL 3350 17 GM POWD.PACK PEG SCH ×2 (09:00→14:59)
[2018-02-01] MEDS: ZINC SULFATE 220 CAPSULE PEG SCH (09:00)
[2018-02-01] MEDS: MULTIVITS W-MIN/FERROUS GLUC 237 ML BOTTLE PO SCH ×2 (09:00→15:20)
[2018-02-01] MEDS: ENOXAPARIN SODIUM 40 MG/0.4 ML SYRINGE SQ SCH ×2 (09:00→15:03)
[2018-02-01] MEDS: SODIUM POLYSTYRENE SULFONATE 15 GM/60 ML ML PO SCH (10:15)
[2018-02-01] MEDS: LORAZEPAM 1 MG TABLET PO PRN ×2 (14:56→23:51)
[2018-02-01] MEDS: FLUCONAZOLE 400 MG/NS 200 ML 200 ML IV SCH (15:00)
[2018-02-01] MEDS: FENTANYL 75 MCG/HR PATCH TD SCH (17:04)
[2018-02-01] MEDS: ACETAMINOPHEN 325 MG TAB PO PRN (18:19)
[2018-02-02] MEDS: GENTAMICIN SULFATE 0.3% 5ML DROPS OU SCH ×5 (00:20→21:07)
[2018-02-02] MEDS: ARTIFICAL TEARS SOL 15 ML OP SCH ×3 (00:20→21:07)
[2018-02-02] MEDS: PROPRANOLOL HCL 20 MG TAB PEG SCH ×3 (03:57→17:01)
[2018-02-02] MEDS: DILTIAZEM HCL 60 MG TABLET PEG SCH ×4 (04:48→21:07)
[2018-02-02] MEDS: CLONAZEPAM 2 MG TABLET PEG SCH ×4 (04:49→21:04)
[2018-02-02] MEDS: VALPROATE SOD 250 MG/5 ML (PO) PEG SCH ×3 (04:49→21:03)
[2018-02-02 04:55] VITALS: BP 128/63
[2018-02-02] MEDS: BACLOFEN 10 MG TABLET PO SCH ×4 (05:22→23:46)
[2018-02-02] MEDS: IPRATROPIUM 0.5 MG/2.5 ML INH IH SCH ×3 (07:08→22:41)
[2018-02-02] MEDS: VANCOMYCIN 1GM+NS 250ML 250 ML IV SCH ×3 (07:29→23:46)
[2018-02-02] MEDS: DEXTROSE 5 % AND 0.9 % NACL 1,000 ML IV SCH ×2 (07:37→12:30)
[2018-02-02 08:00] VITALS: BP 112/53
[2018-02-02] MEDS: ZINC SULFATE 220 CAPSULE PEG SCH (09:32)
[2018-02-02] MEDS: ZIPRASIDONE HCL 20 MG CAPSULE PO SCH ×2 (09:32→21:03)
[2018-02-02] MEDS: FYCOMPA 12 MG PEG SCH (09:34)
[2018-02-02] MEDS: FAMOTIDINE 20MG TAB 20 MG TAB PEG SCH (09:35)
[2018-02-02] MEDS: ASCORBIC ACID 500 MG TAB PEG SCH (09:36)
[2018-02-02] MEDS: ENOXAPARIN SODIUM 40 MG/0.4 ML SYRINGE SQ SCH (09:37)
[2018-02-02] MEDS: POLYETHYLENE GLYCOL 3350 17 GM POWD.PACK PEG SCH (09:38)
[2018-02-02] MEDS: MULTIVITS W-MIN/FERROUS GLUC 237 ML BOTTLE PO SCH (09:39)
[2018-02-02] MEDS: SODIUM POLYSTYRENE SULFONATE 15 GM/60 ML ML PO SCH (10:15)
[2018-02-02 11:35] VITALS: BP 129/71
[2018-02-02] MEDS: FLUCONAZOLE 400 MG/NS 200 ML 200 ML IV SCH (15:26)
[2018-02-02 15:59] VITALS: BP 114/53
[2018-02-02 19:19] VITALS: BP 111/59
[2018-02-02] MEDS ORDERED: ALTEPLASE 2 MG/2 ML IVCATH SCH (21:30)
[2018-02-02 23:17] VITALS: BP 121/72
[2018-02-03] MEDS: MAGNESIUM 2GM PREMIX 50ML 50 ML IV SCH (00:45)
[2018-02-03] MEDS: PROPRANOLOL HCL 20 MG TAB PEG SCH ×3 (01:06→17:01)
[2018-02-03] MEDS: DILTIAZEM HCL 60 MG TABLET PEG SCH ×4 (03:00→20:22)
[2018-02-03 03:19] VITALS: BP 123/67
[2018-02-03] MEDS: CLONAZEPAM 2 MG TABLET PEG SCH ×4 (04:07→23:12)
[2018-02-03 04:46] LABS: INR 1.09 (0.85-1.15); PARTIAL THROMBOPLASTIN TIME 33.8 SEC (26.3-35.5); PROTHROMBIN TIME 11.4 SEC (9.6-11.6)
[2018-02-03] MEDS: VALPROATE SOD 250 MG/5 ML (PO) PEG SCH ×3 (05:00→20:22)
[2018-02-03] MEDS: DEXTROSE 5 % AND 0.9 % NACL 1,000 ML IV SCH ×2 (05:00→17:14)
[2018-02-03 05:59] LABS: HEMATOCRIT 30.8 % (36-48)
[2018-02-03 06:13] LABS: ALBUMIN 2.5 g/dL (3.5-5.0); BILIRUBIN,TOTAL 0.1 mg/dL (0.2-1.0); CREATININE 0.4 mg/dL (0.5-1.5); POTASSIUM 4.1 mmol/L (3.5-5.1); TOTAL PROTEIN, SERUM 7.9 g/dL (6.0-8.3)
[2018-02-03] MEDS: BACLOFEN 10 MG TABLET PO SCH ×4 (06:14→23:12)
[2018-02-03 06:23] LABS: MEAN CORPUSCULAR HEMOGLOBIN 27.4 pg (27.0-33.0); MEAN CORPUSCULAR HGB CONC 32.8 g/dL (32.0-36.0); MEAN CORPUSCULAR VOLUME 83.6 fL (79-99); PLATELET COUNT (AUTO) 531 K/uL (130-400); RED BLOOD CELL COUNT(AUTO) 3.68 MIL/uL (4.00-5.50)
[2018-02-03] MEDS: VANCOMYCIN 1GM+NS 250ML 250 ML IV SCH ×3 (07:10→23:12)
[2018-02-03] MEDS: IPRATROPIUM 0.5 MG/2.5 ML INH IH SCH ×3 (07:14→22:31)
[2018-02-03 08:00] VITALS: BP 133/78
[2018-02-03 11:00] VITALS: BP 146/95
[2018-02-03] MEDS: ARTIFICAL TEARS SOL 15 ML OP SCH ×2 (11:00→20:14)
[2018-02-03] MEDS: GENTAMICIN SULFATE 0.3% 5ML DROPS OU SCH ×4 (11:00→20:27)
[2018-02-03] MEDS: ZINC SULFATE 220 CAPSULE PEG SCH (11:11)
[2018-02-03] MEDS: ZIPRASIDONE HCL 20 MG CAPSULE PO SCH ×2 (11:11→20:15)
[2018-02-03] MEDS: ASCORBIC ACID 500 MG TAB PEG SCH ×2 (11:12→20:15)
[2018-02-03] MEDS: FAMOTIDINE 20MG TAB 20 MG TAB PEG SCH ×2 (11:12→20:15)
[2018-02-03] MEDS: SODIUM POLYSTYRENE SULFONATE 15 GM/60 ML ML PO SCH (12:55)
[2018-02-03] MEDS: FYCOMPA 12 MG PEG SCH (13:01)
[2018-02-03] MEDS: ENOXAPARIN SODIUM 40 MG/0.4 ML SYRINGE SQ SCH (13:05)
[2018-02-03 15:52] VITALS: BP 118/62
[2018-02-03] MEDS: FLUCONAZOLE 400 MG/NS 200 ML 200 ML IV SCH (17:26)
[2018-02-03 19:52] VITALS: BP 128/72
[2018-02-03 23:40] VITALS: BP 118/77
[2018-02-04] MEDS: PROPRANOLOL HCL 20 MG TAB PEG SCH ×3 (00:58→17:00)
[2018-02-04] MEDS: DILTIAZEM HCL 60 MG TABLET PEG SCH ×4 (03:35→20:44)
[2018-02-04] MEDS: CLONAZEPAM 2 MG TABLET PEG SCH ×4 (03:36→22:01)
[2018-02-04 03:59] VITALS: BP 122/74
[2018-02-04] MEDS: IPRATROPIUM 0.5 MG/2.5 ML INH IH SCH ×3 (06:15→22:18)
[2018-02-04 06:26] LABS: CREATININE 0.3 mg/dL (0.5-1.5); POTASSIUM 3.6 mmol/L (3.5-5.1)
[2018-02-04 06:44] LABS: BASOPHILS % (AUTO) 0.6 % (0.0-5.0); EOSINOPHILS % (AUTO) 3.6 % (0.0-8.0); HEMATOCRIT 26.8 % (36-48); LYMPHOCYTES % (AUTO) 34.8 % (21.0-51.0); MEAN CORPUSCULAR HGB CONC 33.6 g/dL (32.0-36.0); MEAN CORPUSCULAR VOLUME 80.3 fL (79-99); MONOCYTES % (AUTO) 9.5 % (3.0-13.0); NEUTROPHILS % (AUTO) 51.5 % (40.0-77.0); PLATELET COUNT (AUTO) 412 K/uL (130-400); RED BLOOD CELL COUNT(AUTO) 3.34 MIL/uL (4.00-5.50); WHITE BLOOD COUNT (AUTO) 4.5 K/uL (4.8-10.8)
[2018-02-04] MEDS: BACLOFEN 10 MG TABLET PO SCH ×4 (06:45→23:52)
[2018-02-04] MEDS: VANCOMYCIN 1GM+NS 250ML 250 ML IV SCH ×3 (06:45→22:54)
[2018-02-04] MEDS: VALPROATE SOD 250 MG/5 ML (PO) PEG SCH ×3 (06:45→20:44)
[2018-02-04 08:00] VITALS: BP 142/76
[2018-02-04] MEDS: ARTIFICAL TEARS SOL 15 ML OP SCH ×2 (09:21→20:45)
[2018-02-04] MEDS: GENTAMICIN SULFATE 0.3% 5ML DROPS OU SCH ×4 (09:22→20:46)
[2018-02-04] MEDS: ZINC SULFATE 220 CAPSULE PEG SCH (09:26)
[2018-02-04] MEDS: ASCORBIC ACID 500 MG TAB PEG SCH ×2 (09:26→20:44)
[2018-02-04] MEDS: ZIPRASIDONE HCL 20 MG CAPSULE PO SCH ×2 (09:27→20:44)
[2018-02-04] MEDS: FAMOTIDINE 20MG TAB 20 MG TAB PEG SCH ×2 (09:27→20:44)
[2018-02-04] MEDS: POLYETHYLENE GLYCOL 3350 17 GM POWD.PACK PEG SCH (09:29)
[2018-02-04] MEDS: MULTIVITS W-MIN/FERROUS GLUC 237 ML BOTTLE PO SCH (09:30)
[2018-02-04] MEDS: SODIUM POLYSTYRENE SULFONATE 15 GM/60 ML ML PO SCH (09:47)
[2018-02-04 11:00] VITALS: BP 140/75
[2018-02-04] MEDS: DEXTROSE 5 % AND 0.9 % NACL 1,000 ML IV SCH ×2 (11:31→17:31)
[2018-02-04] MEDS: FLUCONAZOLE 400 MG/NS 200 ML 200 ML IV SCH (15:42)
[2018-02-04 16:00] VITALS: BP 126/54
[2018-02-04] MEDS: FENTANYL 75 MCG/HR PATCH TD SCH (17:37)
[2018-02-04 19:32] VITALS: BP 114/54
[2018-02-04 23:50] VITALS: BP 124/76
[2018-02-05] VITALS (18 sets, daily range): BP systolic 109–151; BP diastolic 63–105
[2018-02-05] MEDS: PROPRANOLOL HCL 20 MG TAB PEG SCH ×3 (01:04→17:00)
[2018-02-05] MEDS: DILTIAZEM HCL 60 MG TABLET PEG SCH ×4 (03:01→20:37)
[2018-02-05] MEDS: CLONAZEPAM 2 MG TABLET PEG SCH ×4 (04:00→21:18)
[2018-02-05] MEDS: VALPROATE SOD 250 MG/5 ML (PO) PEG SCH ×3 (04:57→20:38)
[2018-02-05] MEDS: BACLOFEN 10 MG TABLET PO SCH ×4 (06:18→23:09)
[2018-02-05] MEDS: VANCOMYCIN 1GM+NS 250ML 250 ML IV SCH ×4 (06:42→23:00)
[2018-02-05] MEDS: IPRATROPIUM 0.5 MG/2.5 ML INH IH SCH ×3 (06:48→21:38)
[2018-02-05 06:54] LABS: BASOPHILS % (AUTO) 0.9 % (0.0-5.0); EOSINOPHILS % (AUTO) 3.7 % (0.0-8.0); HEMATOCRIT 27.8 % (36-48); LYMPHOCYTES % (AUTO) 31.8 % (21.0-51.0); MEAN CORPUSCULAR HEMOGLOBIN 25.6 pg (27.0-33.0); MEAN CORPUSCULAR HGB CONC 31.2 g/dL (32.0-36.0); MEAN CORPUSCULAR VOLUME 82.1 fL (79-99); MONOCYTES % (AUTO) 7.3 % (3.0-13.0); NEUTROPHILS % (AUTO) 56.3 % (40.0-77.0); NUCLEATED RED BLOOD CELLS 0.1 % (0.0-0.19); PLATELET COUNT (AUTO) 351 K/uL (130-400); RED BLOOD CELL COUNT(AUTO) 3.39 MIL/uL (4.00-5.50); RED CELL DISTRIBUTION WIDTH 16.2 % (11.0-15.5); WHITE BLOOD COUNT (AUTO) 5.6 K/uL (4.8-10.8)
[2018-02-05] MEDS ORDERED: LACTATED RINGERS 1000ML 1,000 ML IV ONE (07:03)
[2018-02-05 07:10] LABS: INR 0.99 (0.85-1.15); PARTIAL THROMBOPLASTIN TIME 29.7 SEC (26.3-35.5); PROTHROMBIN TIME 10.4 SEC (9.6-11.6)
[2018-02-05] MEDS: DEXTROSE 5 % AND 0.9 % NACL 1,000 ML IV SCH ×2 (07:10→19:51)
[2018-02-05 07:29] LABS: CREATININE 0.5 mg/dL (0.5-1.5); POTASSIUM 3.5 mmol/L (3.5-5.1)
[2018-02-05] MEDS ORDERED: PROPOFOL 10 MG/ML 20ML VIAL IV ONE (08:14)
[2018-02-05] MEDS ORDERED: FENTANYL CITRATE PF 50 MCG/1 ML 2ML VIAL ONE (08:17)
[2018-02-05] MEDS ORDERED: LIDOCAINE HCL/EPINEPHRINE 50 ML VIAL IJ ONE (08:26)
[2018-02-05] MEDS ORDERED: ROCURONIUM BROMIDE 10MG/1ML 5ML VL ONE ×2 (08:28→10:52)
[2018-02-05] MEDS: POLYETHYLENE GLYCOL 3350 17 GM POWD.PACK PEG SCH (09:00)
[2018-02-05] MEDS: MULTIVITS W-MIN/FERROUS GLUC 237 ML BOTTLE PO SCH (09:00)
[2018-02-05] MEDS: ASCORBIC ACID 500 MG TAB PEG SCH ×2 (09:00→20:38)
[2018-02-05] MEDS: GENTAMICIN SULFATE 0.3% 5ML DROPS OU SCH ×4 (09:00→20:39)
[2018-02-05] MEDS: ENOXAPARIN SODIUM 40 MG/0.4 ML SYRINGE SQ SCH (09:00)
[2018-02-05] MEDS: ZINC SULFATE 220 CAPSULE PEG SCH (09:00)
[2018-02-05] MEDS: ARTIFICAL TEARS SOL 15 ML OP SCH ×2 (09:00→20:39)
[2018-02-05] MEDS ORDERED: LIDOCAINE HCL 1% 20 ML VIAL ONE (09:13)
[2018-02-05] MEDS ORDERED: PAPAVERINE HCL 30 MG/ML 2ML VIAL ONE (11:23)
[2018-02-05] MEDS ORDERED: GENTAMICIN SULFATE 80 MG/2 ML VIAL ONE (16:25)
[2018-02-05] MEDS ORDERED: CEFAZOLIN SODIUM 1 GM VIAL ONE (16:25)
[2018-02-05] MEDS ORDERED: BACITRACIN 50,000 UNIT VIAL ONE (16:25)
[2018-02-05] MEDS: FYCOMPA 12 MG PEG SCH (19:25)
[2018-02-05] MEDS: FAMOTIDINE 20MG TAB 20 MG TAB PEG SCH ×2 (19:25→20:38)
[2018-02-05] MEDS: ZIPRASIDONE HCL 20 MG CAPSULE PO SCH ×2 (19:26→20:36)
[2018-02-05] MEDS: SODIUM POLYSTYRENE SULFONATE 15 GM/60 ML ML PO SCH (19:27)
[2018-02-05] MEDS ORDERED: PHARMACY COMMUNICATION MISC SCH (19:30)
[2018-02-05] MEDS ORDERED: MIDAZOLAM 100MG-0.9% NS 100ML 100 ML IV PRN (19:30)
[2018-02-05] MEDS ORDERED: FENTANYL 2500MCG+NS 250ML 250 ML IV PRN (19:30)
[2018-02-05] MEDS ORDERED: CISATRACURIUM BESYLATE 200 MG in SODIUM CHLORIDE 0.9% 180 ML IV SCH (19:45)
[2018-02-05] MEDS: FLUCONAZOLE 400 MG/NS 200 ML 200 ML IV SCH (20:21)
[2018-02-06] VITALS (27 sets, daily range): BP systolic 100–138; BP diastolic 43–92
[2018-02-06] MEDS: PROPRANOLOL HCL 20 MG TAB PEG SCH ×3 (00:11→17:56)
[2018-02-06] MEDS: DILTIAZEM HCL 60 MG TABLET PEG SCH ×4 (02:14→19:58)
[2018-02-06] MEDS: CLONAZEPAM 2 MG TABLET PEG SCH ×4 (03:05→21:07)
[2018-02-06 03:55] LABS: BASOPHILS % (AUTO) 0.1 % (0.0-5.0); EOSINOPHILS % (AUTO) 0.9 % (0.0-8.0); HEMATOCRIT 24.1 % (36-48); MEAN CORPUSCULAR HEMOGLOBIN 26.4 pg (27.0-33.0); MEAN CORPUSCULAR HGB CONC 32.7 g/dL (32.0-36.0); MEAN CORPUSCULAR VOLUME 80.7 fL (79-99); PLATELET COUNT (AUTO) 367 K/uL (130-400); RED BLOOD CELL COUNT(AUTO) 2.99 MIL/uL (4.00-5.50); RED CELL DISTRIBUTION WIDTH 16.1 % (11.0-15.5); WHITE BLOOD COUNT (AUTO) 9.2 K/uL (4.8-10.8)
[2018-02-06 04:11] LABS: CREATININE 0.4 mg/dL (0.5-1.5); POTASSIUM 3.6 mmol/L (3.5-5.1)
[2018-02-06] MEDS: VALPROATE SOD 250 MG/5 ML (PO) PEG SCH ×3 (04:11→19:59)
[2018-02-06 04:12] LABS: ABG BASE EXCESS 0.9 mmol/L (-2.0-3.0); ABG HCO3 24.4 mmol/L (21.0-28.0); ABG OXYGEN SATURATION 97.9 % (95.0-99.0); ABG PCO2 36 mmHg (32-45)
[2018-02-06] MEDS: POTASSIUM CHLORIDE 20MEQ/100ML 100 ML IV PRN (04:39)
[2018-02-06] MEDS: BACLOFEN 10 MG TABLET PO SCH ×4 (05:39→23:36)
[2018-02-06] MEDS: VANCOMYCIN 1GM+NS 250ML 250 ML IV SCH (06:22)
[2018-02-06] MEDS: IPRATROPIUM 0.5 MG/2.5 ML INH IH SCH ×3 (06:29→21:07)
[2018-02-06] MEDS ORDERED: COMPOUND IV REFRIGERATED 1 EACH IVSOLN MISC PRN (07:30)
[2018-02-06] MEDS: FYCOMPA 12 MG PEG SCH (09:00)
[2018-02-06] MEDS: POLYETHYLENE GLYCOL 3350 17 GM POWD.PACK PEG SCH (09:12)
[2018-02-06] MEDS: GENTAMICIN SULFATE 0.3% 5ML DROPS OU SCH ×4 (09:13→20:02)
[2018-02-06] MEDS: ARTIFICAL TEARS SOL 15 ML OP SCH ×2 (09:13→20:02)
[2018-02-06] MEDS: ZINC SULFATE 220 CAPSULE PEG SCH (09:14)
[2018-02-06] MEDS: ASCORBIC ACID 500 MG TAB PEG SCH ×2 (09:15→19:59)
[2018-02-06] MEDS: FAMOTIDINE 20MG TAB 20 MG TAB PEG SCH ×2 (09:16→19:58)
[2018-02-06] MEDS: MULTIVITS W-MIN/FERROUS GLUC 237 ML BOTTLE PO SCH (09:16)
[2018-02-06] MEDS: ZIPRASIDONE HCL 20 MG CAPSULE PO SCH ×2 (09:16→19:59)
[2018-02-06] MEDS: SODIUM POLYSTYRENE SULFONATE 15 GM/60 ML ML PO SCH (10:15)
[2018-02-06 15:14] LABS: ABG BASE EXCESS 1.5 mmol/L (-2.0-3.0); ABG HCO3 25.8 mmol/L (21.0-28.0); ABG OXYGEN SATURATION 97.3 % (95.0-99.0); ABG PCO2 40 mmHg (32-45)
[2018-02-06] MEDS: VANCOMYCIN 750MG + NS 250 ML IV SCH ×4 (15:30→22:33)
[2018-02-06] MEDS: DEXTROSE 5 % AND 0.9 % NACL 1,000 ML IV SCH ×2 (16:33→23:05)
[2018-02-06] MEDS: ENOXAPARIN SODIUM 40 MG/0.4 ML SYRINGE SQ SCH (17:56)
[2018-02-06] MEDS: FLUCONAZOLE 400 MG/NS 200 ML 200 ML IV SCH (19:26)
[2018-02-06] MEDS: ACETAMINOPHEN ELIXIR 650 MG/20.3 ML UDCUP PEG SCH (20:33)
[2018-02-07] VITALS (13 sets, daily range): BP systolic 115–149; BP diastolic 65–89
[2018-02-07] MEDS: PROPRANOLOL HCL 20 MG TAB PEG SCH ×3 (00:14→16:26)
[2018-02-07] MEDS: DILTIAZEM HCL 60 MG TABLET PEG SCH (02:53)
[2018-02-07] MEDS: CLONAZEPAM 2 MG TABLET PEG SCH ×4 (03:40→21:23)
[2018-02-07 03:59] LABS: BASOPHILS % (AUTO) 0.7 % (0.0-5.0); EOSINOPHILS % (AUTO) 0.8 % (0.0-8.0); HEMATOCRIT 24.1 % (36-48); LYMPHOCYTES % (AUTO) 16.8 % (21.0-51.0); MEAN CORPUSCULAR HEMOGLOBIN 25.4 pg (27.0-33.0); MEAN CORPUSCULAR VOLUME 79.6 fL (79-99); MONOCYTES % (AUTO) 6.9 % (3.0-13.0); NEUTROPHILS % (AUTO) 74.8 % (40.0-77.0); PLATELET COUNT (AUTO) 292 K/uL (130-400); RED BLOOD CELL COUNT(AUTO) 3.02 MIL/uL (4.00-5.50); RED CELL DISTRIBUTION WIDTH 16.5 % (11.0-15.5); WHITE BLOOD COUNT (AUTO) 9.5 K/uL (4.8-10.8)
[2018-02-07 04:31] LABS: CREATININE 0.4 mg/dL (0.5-1.5); POTASSIUM 3.8 mmol/L (3.5-5.1)
[2018-02-07] MEDS: IPRATROPIUM 0.5 MG/2.5 ML INH IH SCH ×3 (05:34→21:36)
[2018-02-07] MEDS: BACLOFEN 10 MG TABLET PO SCH ×3 (05:35→18:29)
[2018-02-07] MEDS: VANCOMYCIN 750MG + NS 250 ML IV SCH ×2 (06:19)
[2018-02-07] MEDS: MULTIVITS W-MIN/FERROUS GLUC 237 ML BOTTLE PO SCH (08:47)
[2018-02-07] MEDS: GENTAMICIN SULFATE 0.3% 5ML DROPS OU SCH ×4 (08:47→21:22)
[2018-02-07] MEDS: ZIPRASIDONE HCL 20 MG CAPSULE PO SCH ×2 (08:48→21:23)
[2018-02-07] MEDS: SODIUM POLYSTYRENE SULFONATE 15 GM/60 ML ML PO SCH (08:50)
[2018-02-07] MEDS: FLUCONAZOLE 400 MG/NS 200 ML 200 ML IV SCH (14:33)
[2018-02-07] MEDS: VANCOMYCIN 1GM+NS 250ML 250 ML IV SCH (18:26)
[2018-02-07] MEDS: FENTANYL 75 MCG/HR PATCH TD SCH (18:27)
[2018-02-08] MEDS: VANCOMYCIN 1GM+NS 250ML 250 ML IV SCH ×2 (01:09→09:18)
[2018-02-08] MEDS: PROPRANOLOL HCL 20 MG TAB PEG SCH ×3 (01:10→17:04)
[2018-02-08] MEDS: BACLOFEN 10 MG TABLET PO SCH ×5 (01:10→22:20)
[2018-02-08 03:16] VITALS: BP 123/88
[2018-02-08] MEDS: CLONAZEPAM 2 MG TABLET PEG SCH ×4 (04:29→22:20)
[2018-02-08 05:18] LABS: BASOPHILS % (AUTO) 0.8 % (0.0-5.0); EOSINOPHILS % (AUTO) 1.4 % (0.0-8.0); HEMATOCRIT 23.9 % (36-48); LYMPHOCYTES % (AUTO) 21.4 % (21.0-51.0); MEAN CORPUSCULAR HGB CONC 32.9 g/dL (32.0-36.0); MONOCYTES % (AUTO) 5.4 % (3.0-13.0); NUCLEATED RED BLOOD CELLS 0.1 % (0.0-0.19); PLATELET COUNT (AUTO) 124 K/uL (130-400); RED BLOOD CELL COUNT(AUTO) 3.02 MIL/uL (4.00-5.50); RED CELL DISTRIBUTION WIDTH 16.4 % (11.0-15.5); WHITE BLOOD COUNT (AUTO) 8.4 K/uL (4.8-10.8)
[2018-02-08 05:29] LABS: CREATININE 0.4 mg/dL (0.5-1.5); POTASSIUM 3.5 mmol/L (3.5-5.1)
[2018-02-08] MEDS: IPRATROPIUM 0.5 MG/2.5 ML INH IH SCH ×3 (07:04→21:38)
[2018-02-08 08:20] VITALS: BP 135/91
[2018-02-08] MEDS: ZIPRASIDONE HCL 20 MG CAPSULE PO SCH ×2 (09:18→20:21)
[2018-02-08] MEDS: SODIUM POLYSTYRENE SULFONATE 15 GM/60 ML ML PO SCH (10:15)
[2018-02-08 11:41] VITALS: BP 134/86
[2018-02-08] MEDS: MULTIVITS W-MIN/FERROUS GLUC 237 ML BOTTLE PO SCH (11:48)
[2018-02-08] MEDS: FLUCONAZOLE 400 MG/NS 200 ML 200 ML IV SCH (16:07)
[2018-02-08 16:23] VITALS: BP 131/78
[2018-02-08] MEDS: LORAZEPAM 1 MG TABLET PO PRN (16:52)
[2018-02-08 19:37] VITALS: BP 126/79
[2018-02-08] MEDS: VANCOMYCIN 1.25 GM in SODIUM CHLORIDE 0.9% 250 ML IV SCH (20:20)
[2018-02-08 23:24] VITALS: BP 145/98
[2018-02-09] MEDS: CLONAZEPAM 2 MG TABLET PEG SCH ×4 (03:34→22:35)
[2018-02-09] MEDS: LORAZEPAM 1 MG TABLET PO PRN ×3 (03:34→22:35)
[2018-02-09 03:50] VITALS: BP 141/93
[2018-02-09 05:27] LABS: BASOPHILS % (AUTO) 0.6 % (0.0-5.0); EOSINOPHILS % (AUTO) 1.2 % (0.0-8.0); HEMATOCRIT 25.9 % (36-48); LYMPHOCYTES % (AUTO) 15.6 % (21.0-51.0); MEAN CORPUSCULAR HEMOGLOBIN 26.5 pg (27.0-33.0); MEAN CORPUSCULAR HGB CONC 33.5 g/dL (32.0-36.0); MONOCYTES % (AUTO) 9.1 % (3.0-13.0); NEUTROPHILS % (AUTO) 73.5 % (40.0-77.0); PLATELET COUNT (AUTO) 320 K/uL (130-400); RED BLOOD CELL COUNT(AUTO) 3.28 MIL/uL (4.00-5.50); RED CELL DISTRIBUTION WIDTH 16.4 % (11.0-15.5); WHITE BLOOD COUNT (AUTO) 11.6 K/uL (4.8-10.8)
[2018-02-09] MEDS: BACLOFEN 10 MG TABLET PO SCH ×3 (05:28→18:11)
[2018-02-09 05:38] LABS: CREATININE 0.5 mg/dL (0.5-1.5); POTASSIUM 4.1 mmol/L (3.5-5.1)
[2018-02-09] MEDS: IPRATROPIUM 0.5 MG/2.5 ML INH IH SCH ×3 (06:16→22:13)
[2018-02-09 08:00] VITALS: BP 125/66
[2018-02-09] MEDS: ZIPRASIDONE HCL 20 MG CAPSULE PO SCH ×2 (08:12→22:35)
[2018-02-09] MEDS: VANCOMYCIN 1.25 GM in SODIUM CHLORIDE 0.9% 250 ML IV SCH ×2 (08:48→22:35)
[2018-02-09] MEDS: MULTIVITS W-MIN/FERROUS GLUC 237 ML BOTTLE PO SCH (10:07)
[2018-02-09] MEDS: SODIUM POLYSTYRENE SULFONATE 15 GM/60 ML ML PO SCH (10:15)
[2018-02-09] MEDS ORDERED: LORAZEPAM 2 MG TABLET PO PRN (10:30)
[2018-02-09 12:00] VITALS: BP 122/66
[2018-02-09] MEDS ORDERED: MEROPENEM 1GM IVPB PREMIXED 1 GM IV SCH (15:15)
[2018-02-09] MEDS: FLUCONAZOLE 400 MG/NS 200 ML 200 ML IV SCH (15:16)
[2018-02-09 16:00] VITALS: BP 122/80
[2018-02-09] MEDS: MEROPENEM 1 GM VIAL IVP SCH (16:26)
[2018-02-09 19:00] VITALS: BP 104/44
[2018-02-10] VITALS (7 sets, daily range): BP systolic 104–150; BP diastolic 51–91
[2018-02-10] MEDS: MEROPENEM 1 GM VIAL IVP SCH ×3 (00:08→17:43)
[2018-02-10] MEDS: BACLOFEN 10 MG TABLET PO SCH ×4 (00:08→17:43)
[2018-02-10] MEDS: CLONAZEPAM 2 MG TABLET PEG SCH ×4 (04:23→17:43)
[2018-02-10] MEDS: LORAZEPAM 1 MG TABLET PO PRN ×3 (04:24→22:14)
[2018-02-10 05:00] LABS: BASOPHILS % (AUTO) 0.8 % (0.0-5.0); EOSINOPHILS % (AUTO) 0.1 % (0.0-8.0); HEMATOCRIT 26.9 % (36-48); LYMPHOCYTES % (AUTO) 18.7 % (21.0-51.0); MEAN CORPUSCULAR VOLUME 78.8 fL (79-99); MONOCYTES % (AUTO) 13.6 % (3.0-13.0); NEUTROPHILS % (AUTO) 66.8 % (40.0-77.0); PLATELET COUNT (AUTO) 534 K/uL (130-400); RED BLOOD CELL COUNT(AUTO) 3.42 MIL/uL (4.00-5.50); RED CELL DISTRIBUTION WIDTH 16.2 % (11.0-15.5); WHITE BLOOD COUNT (AUTO) 10.5 K/uL (4.8-10.8)
[2018-02-10 05:13] LABS: CREATININE 0.6 mg/dL (0.5-1.5); POTASSIUM 3.6 mmol/L (3.5-5.1)
[2018-02-10] MEDS: IPRATROPIUM 0.5 MG/2.5 ML INH IH SCH ×3 (06:31→21:32)
[2018-02-10] MEDS: ZIPRASIDONE HCL 20 MG CAPSULE PO SCH (08:24)
[2018-02-10] MEDS ORDERED: VANCOMYCIN 2 GM in SODIUM CHLORIDE 0.9% 500ML 500 ML IV SCH (11:19)
[2018-02-10] MEDS: ENOXAPARIN SODIUM 40 MG/0.4 ML SYRINGE SQ SCH (11:36)
[2018-02-10] MEDS: SODIUM POLYSTYRENE SULFONATE 15 GM/60 ML ML PO SCH (11:36)
[2018-02-10] MEDS ORDERED: ACETAMINOPHEN ELIXIR 325 MG/10.15ML UDCUP ONE (12:20)
[2018-02-10] MEDS: ACETAMINOPHEN ELIXIR 650 MG/20.3 ML UDCUP PEG PRN (12:37)
[2018-02-10] MEDS ORDERED: PHARMACY COMMUNICATION MISC SCH (14:00)
[2018-02-10] MEDS: VALPROATE SOD 250 MG/5 ML (PO) PO SCH ×2 (15:03→22:14)
[2018-02-10] MEDS: LACTATED RINGERS 1000ML 1,000 ML IV SCH ×2 (15:03→22:48)
[2018-02-10] MEDS: PERAMPANEL 12 MG PEG SCH (15:03)
[2018-02-10] MEDS: FLUCONAZOLE 400 MG/NS 200 ML 200 ML IV SCH (15:03)
[2018-02-10] MEDS: PROPRANOLOL HCL 20 MG TAB PO SCH ×2 (15:03→22:48)
[2018-02-10] MEDS: FENTANYL 75 MCG/HR PATCH TD SCH (17:44)
[2018-02-10] MEDS: FAMOTIDINE 20MG TAB 20 MG TAB PO SCH (22:14)
[2018-02-10] MEDS: VANCOMYCIN 1.25 GM in SODIUM CHLORIDE 0.9% 250 ML IV SCH (22:15)
[2018-02-11] VITALS: BP 118/65
[2018-02-11] MEDS: MEROPENEM 1 GM VIAL IVP SCH ×3 (00:26→16:11)
[2018-02-11] MEDS: CLONAZEPAM 2 MG TABLET PEG SCH ×4 (00:27→18:49)
[2018-02-11] MEDS: BACLOFEN 10 MG TABLET PO SCH (00:27)
[2018-02-11 03:39] LABS: ABG BASE EXCESS 0.2 mmol/L (-2.0-3.0); ABG HCO3 25.3 mmol/L (21.0-28.0); ABG OXYGEN SATURATION 94.7 % (95.0-99.0); ABG PCO2 43 mmHg (32-45)
[2018-02-11 04:00] VITALS: BP 116/59
[2018-02-11] MEDS: VANCOMYCIN 1.25 GM in SODIUM CHLORIDE 0.9% 250 ML IV SCH ×2 (05:19→14:08)
[2018-02-11] MEDS: LORAZEPAM 1 MG TABLET PO PRN ×2 (05:21→13:46)
[2018-02-11] MEDS: PROPRANOLOL HCL 20 MG TAB PO SCH ×3 (06:19→21:34)
[2018-02-11] MEDS: IPRATROPIUM 0.5 MG/2.5 ML INH IH SCH ×3 (06:41→21:46)
[2018-02-11 06:56] LABS: HEMATOCRIT 23.9 % (36-48); MEAN CORPUSCULAR HEMOGLOBIN 27.1 pg (27.0-33.0); MEAN CORPUSCULAR HGB CONC 33.8 g/dL (32.0-36.0); MEAN CORPUSCULAR VOLUME 80.1 fL (79-99); PLATELET COUNT (AUTO) 291 K/uL (130-400); RED BLOOD CELL COUNT(AUTO) 2.99 MIL/uL (4.00-5.50); RED CELL DISTRIBUTION WIDTH 16.8 % (11.0-15.5); WHITE BLOOD COUNT (AUTO) 6.3 K/uL (4.8-10.8)
[2018-02-11 07:26] LABS: ALBUMIN 2.3 g/dL (3.5-5.0); BILIRUBIN,TOTAL 0.1 mg/dL (0.2-1.0); CREATININE 0.5 mg/dL (0.5-1.5); MAGNESIUM 1.9 mg/dL (1.80-2.40); TOTAL PROTEIN, SERUM 6.8 g/dL (6.0-8.3)
[2018-02-11 08:00] VITALS: BP 102/59
[2018-02-11] MEDS: VALPROATE SOD 250 MG/5 ML (PO) PO SCH ×3 (09:00→21:34)
[2018-02-11] MEDS: ENOXAPARIN SODIUM 40 MG/0.4 ML SYRINGE SQ SCH (09:00)
[2018-02-11] MEDS: PERAMPANEL 12 MG PEG SCH (09:00)
[2018-02-11] MEDS: FAMOTIDINE 20MG TAB 20 MG TAB PO SCH ×2 (09:00→21:34)
[2018-02-11] MEDS: LACTATED RINGERS 1000ML 1,000 ML IV SCH ×2 (09:15→18:50)
[2018-02-11] MEDS: SODIUM POLYSTYRENE SULFONATE 15 GM/60 ML ML PO SCH (10:15)
[2018-02-11 12:00] VITALS: BP 106/67
[2018-02-11] MEDS ORDERED: MAGNESIUM 2GM PREMIX 50ML 50 ML IV SCH (15:45)
[2018-02-11 16:00] VITALS: BP 122/69
[2018-02-11] MEDS ORDERED: POTASSIUM CHLORIDE 10% ELIXIR 20 MEQ/15 ML UDCUP ONE (16:07)
[2018-02-11] MEDS: FLUCONAZOLE 400 MG/NS 200 ML 200 ML IV SCH (16:12)
[2018-02-11] MEDS ORDERED: POTASSIUM CHLORIDE 20 MEQ ERTAB PO PRN (16:15)
[2018-02-11] MEDS: POTASSIUM CHLORIDE 10% ELIXIR 20 MEQ/15 ML UDCUP PO PRN ×2 (18:50→21:34)
[2018-02-11 19:50] VITALS: BP 109/65
[2018-02-12] VITALS (7 sets, daily range): BP systolic 96–136; BP diastolic 56–100
[2018-02-12] MEDS: MEROPENEM 1 GM VIAL IVP SCH ×4 (00:06→23:37)
[2018-02-12] MEDS: CLONAZEPAM 2 MG TABLET PEG SCH ×5 (00:07→23:37)
[2018-02-12] MEDS: LACTATED RINGERS 1000ML 1,000 ML IV SCH ×4 (02:27→23:37)
[2018-02-12] MEDS: PROPRANOLOL HCL 20 MG TAB PO SCH ×3 (05:42→20:42)
[2018-02-12] MEDS: IPRATROPIUM 0.5 MG/2.5 ML INH IH SCH ×3 (07:05→22:07)
[2018-02-12 07:48] LABS: CREATININE 0.4 mg/dL (0.5-1.5); MAGNESIUM 1.8 mg/dL (1.80-2.40); PHOSPHORUS 3.4 mg/dL (2.5-4.9); POTASSIUM 4.5 mmol/L (3.5-5.1)
[2018-02-12] MEDS: SODIUM POLYSTYRENE SULFONATE 15 GM/60 ML ML PO SCH (07:50)
[2018-02-12 08:53] LABS: BASOPHILS % (AUTO) 0.7 % (0.0-5.0); HEMATOCRIT 25.3 % (36-48); LYMPHOCYTES % (AUTO) 21.2 % (21.0-51.0); MEAN CORPUSCULAR HGB CONC 32.5 g/dL (32.0-36.0); NEUTROPHILS % (AUTO) 63.1 % (40.0-77.0); PLATELET COUNT (AUTO) 382 K/uL (130-400); RED BLOOD CELL COUNT(AUTO) 3.16 MIL/uL (4.00-5.50); WHITE BLOOD COUNT (AUTO) 6.5 K/uL (4.8-10.8)
[2018-02-12] MEDS: ACETAMINOPHEN ELIXIR 650 MG/20.3 ML UDCUP PEG PRN (08:54)
[2018-02-12] MEDS: ENOXAPARIN SODIUM 40 MG/0.4 ML SYRINGE SQ SCH (08:55)
[2018-02-12] MEDS: VALPROATE SOD 250 MG/5 ML (PO) PO SCH ×3 (08:55→20:42)
[2018-02-12] MEDS: LORAZEPAM 2 MG/ML 1 ML VIAL IVP PRN (08:55)
[2018-02-12] MEDS: FAMOTIDINE 20MG TAB 20 MG TAB PO SCH ×2 (08:55→20:42)
[2018-02-12] MEDS: PERAMPANEL 12 MG PEG SCH (08:56)
[2018-02-12] MEDS: FLUCONAZOLE 400 MG/NS 200 ML 200 ML IV SCH (16:27)
[2018-02-12] MEDS ORDERED: VANCOMYCIN 1.5 GM in SODIUM CHLORIDE 0.9% 250 ML IV ONE (17:00)
[2018-02-12] MEDS ORDERED: MAGNESIUM 2GM PREMIX 50ML 50 ML IV SCH (19:30)
[2018-02-12] MEDS: LORAZEPAM 1 MG TABLET PO PRN (20:42)
[2018-02-13] VITALS (7 sets, daily range): BP systolic 61–119; BP diastolic 33–78
[2018-02-13] MEDS: VANCOMYCIN 1GM+NS 250ML 250 ML IV SCH ×3 (01:18→20:28)
[2018-02-13] MEDS: LORAZEPAM 2 MG/ML 1 ML VIAL IVP PRN (01:30)
[2018-02-13] MEDS: ACETAMINOPHEN ELIXIR 650 MG/20.3 ML UDCUP PEG PRN ×2 (04:32→12:30)
[2018-02-13 05:22] LABS: MEAN CORPUSCULAR HGB CONC 34.2 g/dL (32.0-36.0); MEAN CORPUSCULAR VOLUME 78.9 fL (79-99); PLATELET COUNT (AUTO) 455 K/uL (130-400); RED BLOOD CELL COUNT(AUTO) 3.16 MIL/uL (4.00-5.50); RED CELL DISTRIBUTION WIDTH 16.3 % (11.0-15.5); WHITE BLOOD COUNT (AUTO) 8.5 K/uL (4.8-10.8)
[2018-02-13] MEDS: CLONAZEPAM 2 MG TABLET PEG SCH ×4 (05:30→23:41)
[2018-02-13] MEDS: BACLOFEN 10 MG TABLET PO SCH ×4 (05:30→23:41)
[2018-02-13] MEDS: PROPRANOLOL HCL 20 MG TAB PO SCH ×3 (05:30→20:47)
[2018-02-13 05:38] LABS: CREATININE 0.5 mg/dL (0.5-1.5); MAGNESIUM 2.4 mg/dL (1.80-2.40); POTASSIUM 4.2 mmol/L (3.5-5.1)
[2018-02-13] MEDS: MEROPENEM 1 GM VIAL IVP SCH (06:33)
[2018-02-13] MEDS: IPRATROPIUM 0.5 MG/2.5 ML INH IH SCH ×3 (07:33→21:57)
[2018-02-13] MEDS: SODIUM POLYSTYRENE SULFONATE 15 GM/60 ML ML PO SCH (07:58)
[2018-02-13] MEDS: PERAMPANEL 12 MG PEG SCH (09:00)
[2018-02-13] MEDS: VALPROATE SOD 250 MG/5 ML (PO) PO SCH ×3 (11:00→20:28)
[2018-02-13] MEDS: LORAZEPAM 1 MG TABLET PO PRN (11:00)
[2018-02-13] MEDS: FAMOTIDINE 20MG TAB 20 MG TAB PO SCH ×2 (11:01→20:28)
[2018-02-13] MEDS: ENOXAPARIN SODIUM 40 MG/0.4 ML SYRINGE SQ SCH (11:02)
[2018-02-13] MEDS: LACTATED RINGERS 1000ML 1,000 ML IV SCH ×2 (11:21→20:29)
[2018-02-13] MEDS ORDERED: CEFTAZIDIME 1GM+NS 50ML 50 ML IV SCH (12:00)
[2018-02-13] MEDS: FENTANYL 75 MCG/HR PATCH TD SCH (13:32)
[2018-02-13] MEDS: CEFTAZIDIME PENTAHYDRATE 1 GM/VIAL IVP SCH ×2 (16:12→20:28)
[2018-02-14 03:35] VITALS: BP 114/56
[2018-02-14] MEDS: CEFTAZIDIME PENTAHYDRATE 1 GM/VIAL IVP SCH ×3 (04:08→21:37)
[2018-02-14] MEDS: PROPRANOLOL HCL 20 MG TAB PO SCH ×3 (04:09→21:39)
[2018-02-14] MEDS: LORAZEPAM 2 MG/ML 1 ML VIAL IVP PRN ×2 (04:52→23:24)
[2018-02-14 05:11] LABS: MEAN CORPUSCULAR HEMOGLOBIN 25.4 pg (27.0-33.0); MEAN CORPUSCULAR HGB CONC 31.8 g/dL (32.0-36.0); MEAN CORPUSCULAR VOLUME 79.8 fL (79-99); PLATELET COUNT (AUTO) 461 K/uL (130-400); RED BLOOD CELL COUNT(AUTO) 3.26 MIL/uL (4.00-5.50); RED CELL DISTRIBUTION WIDTH 16.7 % (11.0-15.5); WHITE BLOOD COUNT (AUTO) 6.9 K/uL (4.8-10.8)
[2018-02-14 05:43] LABS: ALANINE AMINOTRANSFERASE 27 U/L (12-78); ALBUMIN 2.7 g/dL (3.5-5.0); ASPARTATE AMINOTRANSFERASE 28 U/L (10-37); BILIRUBIN,TOTAL 0.2 mg/dL (0.2-1.0); CARBON DIOXIDE 30 mmol/L (21-32); CHLORIDE 105 mmol/L (101-111); CREATINE KINASE MB 4.4 ng/mL (0.5-3.6); CREATINE KINASE, TOTAL 352 U/L (21-232); CREATININE 0.4 mg/dL (0.5-1.5); GLOMERULAR FILTR. RATE CALC 207 mL/min (>60); GLUCOSE,RANDOM 103 mg/dL (70-105); MYOGLOBIN 64 ng/mL (10-92); PHOSPHORUS 4.3 mg/dL (2.5-4.9); POTASSIUM 4.4 mmol/L (3.5-5.1); SODIUM SERUM 143 mmol/L (136-145); TOTAL PROTEIN, SERUM 7.7 g/dL (6.0-8.3); TROPONIN I < 0.04 ng/mL (0.00-0.06); UREA NITROGEN, BLOOD 20 mg/dL (7-18)
[2018-02-14] MEDS: CLONAZEPAM 2 MG TABLET PEG SCH ×4 (05:44→23:44)
[2018-02-14] MEDS: BACLOFEN 10 MG TABLET PO SCH ×4 (05:44→23:44)
[2018-02-14] MEDS: IPRATROPIUM 0.5 MG/2.5 ML INH IH SCH ×3 (06:40→21:47)
[2018-02-14] MEDS: LACTATED RINGERS 1000ML 1,000 ML IV SCH ×2 (06:44→21:38)
[2018-02-14 07:00] VITALS: BP 126/83
[2018-02-14] MEDS: PERAMPANEL 12 MG PEG SCH ×2 (09:00→12:00)
[2018-02-14] MEDS: VANCOMYCIN 1GM+NS 250ML 250 ML IV SCH ×2 (09:14→21:38)
[2018-02-14] MEDS: FAMOTIDINE 20MG TAB 20 MG TAB PO SCH ×2 (09:16→21:39)
[2018-02-14] MEDS: VALPROATE SOD 250 MG/5 ML (PO) PO SCH ×3 (09:16→21:39)
[2018-02-14] MEDS: ENOXAPARIN SODIUM 40 MG/0.4 ML SYRINGE SQ SCH (09:17)
[2018-02-14] MEDS: SODIUM POLYSTYRENE SULFONATE 15 GM/60 ML ML PO SCH (09:46)
[2018-02-14 11:15] VITALS: BP 139/100
[2018-02-14] MEDS ORDERED: MORPHINE SULFATE 2 MG/ML 1ML SYG ONE (12:01)
[2018-02-14] MEDS: ACETAMINOPHEN ELIXIR 650 MG/20.3 ML UDCUP PEG PRN (12:11)
[2018-02-14 15:15] VITALS: BP 127/76
[2018-02-14 19:30] VITALS: BP 126/46
[2018-02-14 23:37] VITALS: BP 143/84
[2018-02-15] MEDS: LACTATED RINGERS 1000ML 1,000 ML IV SCH ×2 (03:15→23:15)
[2018-02-15 04:00] VITALS: BP 122/67
[2018-02-15] MEDS: CEFTAZIDIME PENTAHYDRATE 1 GM/VIAL IVP SCH ×3 (04:01→20:51)
[2018-02-15] MEDS: PROPRANOLOL HCL 20 MG TAB PO SCH ×3 (04:01→20:50)
[2018-02-15] MEDS: ACETAMINOPHEN ELIXIR 650 MG/20.3 ML UDCUP PEG PRN ×3 (04:12→20:50)
[2018-02-15] MEDS: BACLOFEN 10 MG TABLET PO SCH ×3 (05:49→18:04)
[2018-02-15] MEDS: CLONAZEPAM 2 MG TABLET PEG SCH ×3 (05:50→18:04)
[2018-02-15] MEDS: IPRATROPIUM 0.5 MG/2.5 ML INH IH SCH ×3 (06:47→21:40)
[2018-02-15 08:00] VITALS: BP 124/68
[2018-02-15] MEDS: ENOXAPARIN SODIUM 40 MG/0.4 ML SYRINGE SQ SCH ×2 (09:00→10:07)
[2018-02-15] MEDS: PERAMPANEL 12 MG PEG SCH (10:00)
[2018-02-15] MEDS: FAMOTIDINE 20MG TAB 20 MG TAB PO SCH ×2 (10:07→20:35)
[2018-02-15] MEDS: VANCOMYCIN 1GM+NS 250ML 250 ML IV SCH ×2 (10:07→21:50)
[2018-02-15] MEDS: VALPROATE SOD 250 MG/5 ML (PO) PO SCH ×3 (10:07→20:35)
[2018-02-15] MEDS: SODIUM POLYSTYRENE SULFONATE 15 GM/60 ML ML PO SCH (10:15)
[2018-02-15] MEDS: LORAZEPAM 2 MG/ML 1 ML VIAL IVP PRN ×2 (10:52→20:27)
[2018-02-15 12:00] VITALS: BP 152/87
[2018-02-15 16:00] VITALS: BP 135/79
[2018-02-15 20:05] VITALS: BP 138/89
[2018-02-16] VITALS (7 sets, daily range): BP systolic 122–157; BP diastolic 34–108
[2018-02-16] MEDS: BACLOFEN 10 MG TABLET PO SCH ×5 (00:48→23:05)
[2018-02-16] MEDS: CLONAZEPAM 2 MG TABLET PEG SCH ×5 (00:48→23:04)
[2018-02-16] MEDS: CEFTAZIDIME PENTAHYDRATE 1 GM/VIAL IVP SCH ×3 (04:51→20:33)
[2018-02-16] MEDS: PROPRANOLOL HCL 20 MG TAB PO SCH ×3 (04:51→21:41)
[2018-02-16] MEDS: LORAZEPAM 2 MG/ML 1 ML VIAL IVP PRN ×3 (04:56→16:05)
[2018-02-16 05:48] LABS: HEMATOCRIT 25.4 % (36-48); MEAN CORPUSCULAR HEMOGLOBIN 26.5 pg (27.0-33.0); MEAN CORPUSCULAR HGB CONC 33.7 g/dL (32.0-36.0); MEAN CORPUSCULAR VOLUME 78.9 fL (79-99); PLATELET COUNT (AUTO) 445 K/uL (130-400); RED BLOOD CELL COUNT(AUTO) 3.22 MIL/uL (4.00-5.50); RED CELL DISTRIBUTION WIDTH 16.8 % (11.0-15.5); WHITE BLOOD COUNT (AUTO) 5.9 K/uL (4.8-10.8)
[2018-02-16 05:56] LABS: CREATININE 0.5 mg/dL (0.5-1.5); POTASSIUM 3.8 mmol/L (3.5-5.1)
[2018-02-16] MEDS: IPRATROPIUM 0.5 MG/2.5 ML INH IH SCH ×3 (06:48→21:39)
[2018-02-16] MEDS: MORPHINE SULFATE 2 MG/ML 1ML SYG IVP PRN ×2 (08:54→13:27)
[2018-02-16] MEDS: FAMOTIDINE 20MG TAB 20 MG TAB PO SCH ×2 (08:54→21:36)
[2018-02-16] MEDS: VANCOMYCIN 1GM+NS 250ML 250 ML IV SCH ×2 (08:54→20:35)
[2018-02-16] MEDS: VALPROATE SOD 250 MG/5 ML (PO) PO SCH ×3 (08:55→20:35)
[2018-02-16] MEDS: ENOXAPARIN SODIUM 40 MG/0.4 ML SYRINGE SQ SCH (08:55)
[2018-02-16] MEDS: PERAMPANEL 12 MG PEG SCH (08:59)
[2018-02-16] MEDS: LACTATED RINGERS 1000ML 1,000 ML IV SCH ×3 (09:15→19:15)
[2018-02-16] MEDS: SODIUM POLYSTYRENE SULFONATE 15 GM/60 ML ML PO SCH (10:15)
[2018-02-16] MEDS: FENTANYL 75 MCG/HR PATCH TD SCH (13:26)
[2018-02-16] MEDS: ACETAMINOPHEN ELIXIR 650 MG/20.3 ML UDCUP PEG PRN ×2 (17:14→21:42)
[2018-02-16] MEDS: MORPHINE SULFATE 4 MG/1ML SYG IVP PRN (17:31)
[2018-02-17 03:00] VITALS: BP 147/99
[2018-02-17] MEDS: LORAZEPAM 2 MG/ML 1 ML VIAL IVP PRN ×2 (03:46→10:11)
[2018-02-17] MEDS: CEFTAZIDIME PENTAHYDRATE 1 GM/VIAL IVP SCH ×3 (03:54→19:36)
[2018-02-17] MEDS: PROPRANOLOL HCL 20 MG TAB PO SCH ×3 (05:10→21:39)
[2018-02-17] MEDS: CLONAZEPAM 2 MG TABLET PEG SCH ×4 (05:12→23:36)
[2018-02-17] MEDS: BACLOFEN 10 MG TABLET PO SCH ×4 (05:12→23:36)
[2018-02-17] MEDS: LACTATED RINGERS 1000ML 1,000 ML IV SCH ×2 (05:14→15:15)
[2018-02-17] MEDS: ACETAMINOPHEN ELIXIR 650 MG/20.3 ML UDCUP PEG PRN ×2 (05:16→12:28)
[2018-02-17 05:57] VITALS: BP 146/90
[2018-02-17] MEDS: IPRATROPIUM 0.5 MG/2.5 ML INH IH SCH ×3 (06:19→21:50)
[2018-02-17 08:00] VITALS: BP 116/41
[2018-02-17] MEDS: PERAMPANEL 12 MG PEG SCH (09:00)
[2018-02-17] MEDS: VALPROATE SOD 250 MG/5 ML (PO) PO SCH ×3 (10:10→21:38)
[2018-02-17] MEDS: FAMOTIDINE 20MG TAB 20 MG TAB PO SCH ×2 (10:10→21:39)
[2018-02-17] MEDS: ENOXAPARIN SODIUM 40 MG/0.4 ML SYRINGE SQ SCH (10:11)
[2018-02-17] MEDS: MORPHINE SULFATE 4 MG/1ML SYG IVP PRN ×2 (10:12→15:55)
[2018-02-17 12:00] VITALS: BP 142/99
[2018-02-17] MEDS: VANCOMYCIN 1GM+NS 250ML 250 ML IV SCH ×2 (12:30→21:38)
[2018-02-17 16:00] VITALS: BP 133/106
[2018-02-17] MEDS ORDERED: CLONIDINE HCL 0.2 MG TABLET PO PRN (16:15)
[2018-02-17 20:00] VITALS: BP 102/57
[2018-02-17] MEDS ORDERED: ACETAMINOPHEN ELIXIR 325 MG/10.15ML UDCUP ONE (20:34)
[2018-02-18] VITALS: BP 123/60
[2018-02-18] MEDS: LACTATED RINGERS 1000ML 1,000 ML IV SCH ×3 (00:59→20:14)
[2018-02-18] MEDS: CEFTAZIDIME PENTAHYDRATE 1 GM/VIAL IVP SCH ×3 (03:45→20:04)
[2018-02-18 04:00] VITALS: BP 130/72
[2018-02-18] MEDS: PROPRANOLOL HCL 20 MG TAB PO SCH ×3 (05:07→20:13)
[2018-02-18] MEDS: BACLOFEN 10 MG TABLET PO SCH ×4 (05:35→23:40)
[2018-02-18] MEDS: CLONAZEPAM 2 MG TABLET PEG SCH ×4 (05:35→23:40)
[2018-02-18 05:45] LABS: BASOPHILS % (AUTO) 0.8 % (0.0-5.0); EOSINOPHILS % (AUTO) 0.7 % (0.0-8.0); HEMATOCRIT 25.1 % (36-48); LYMPHOCYTES % (AUTO) 19.6 % (21.0-51.0); MEAN CORPUSCULAR HEMOGLOBIN 24.9 pg (27.0-33.0); MEAN CORPUSCULAR HGB CONC 31.1 g/dL (32.0-36.0); MEAN CORPUSCULAR VOLUME 80.1 fL (79-99); MONOCYTES % (AUTO) 10.4 % (3.0-13.0); NEUTROPHILS % (AUTO) 68.5 % (40.0-77.0); PLATELET COUNT (AUTO) 364 K/uL (130-400); RED BLOOD CELL COUNT(AUTO) 3.14 MIL/uL (4.00-5.50); RED CELL DISTRIBUTION WIDTH 16.6 % (11.0-15.5); WHITE BLOOD COUNT (AUTO) 11.5 K/uL (4.8-10.8)
[2018-02-18 06:00] LABS: ALBUMIN 2.5 g/dL (3.5-5.0); BILIRUBIN,TOTAL 0.2 mg/dL (0.2-1.0); CREATININE 0.4 mg/dL (0.5-1.5); TOTAL PROTEIN, SERUM 7.1 g/dL (6.0-8.3)
[2018-02-18] MEDS: IPRATROPIUM 0.5 MG/2.5 ML INH IH SCH ×3 (06:22→21:14)
[2018-02-18] MEDS: PERAMPANEL 12 MG PEG SCH (09:00)
[2018-02-18] MEDS: ENOXAPARIN SODIUM 40 MG/0.4 ML SYRINGE SQ SCH (10:30)
[2018-02-18] MEDS: VALPROATE SOD 250 MG/5 ML (PO) PO SCH ×3 (10:30→20:05)
[2018-02-18] MEDS: FAMOTIDINE 20MG TAB 20 MG TAB PO SCH ×2 (10:30→20:04)
[2018-02-18] MEDS: VANCOMYCIN 1GM+NS 250ML 250 ML IV SCH ×2 (10:31→20:05)
[2018-02-18 11:00] VITALS: BP 122/62
[2018-02-18 16:00] VITALS: BP 114/68
[2018-02-18] MEDS: MORPHINE SULFATE 4 MG/1ML SYG IVP PRN (18:50)
[2018-02-18 19:32] VITALS: BP 152/87
[2018-02-18 23:38] VITALS: BP 149/98
[2018-02-18] MEDS: FENTANYL 75 MCG/HR PATCH TD SCH (23:59)
[2018-02-19 03:58] VITALS: BP 124/84
[2018-02-19] MEDS: CEFTAZIDIME PENTAHYDRATE 1 GM/VIAL IVP SCH ×3 (04:49→19:59)
[2018-02-19] MEDS: CLONAZEPAM 2 MG TABLET PEG SCH ×3 (05:25→18:20)
[2018-02-19] MEDS: PROPRANOLOL HCL 20 MG TAB PO SCH ×3 (05:25→20:01)
[2018-02-19] MEDS: BACLOFEN 10 MG TABLET PO SCH ×3 (05:26→18:20)
[2018-02-19] MEDS: LACTATED RINGERS 1000ML 1,000 ML IV SCH ×2 (05:28→18:19)
[2018-02-19 06:05] LABS: BASOPHILS % (AUTO) 0.8 % (0.0-5.0); EOSINOPHILS % (AUTO) 2.6 % (0.0-8.0); HEMATOCRIT 26.5 % (36-48); LYMPHOCYTES % (AUTO) 31.1 % (21.0-51.0); MEAN CORPUSCULAR HEMOGLOBIN 25.3 pg (27.0-33.0); MEAN CORPUSCULAR HGB CONC 31.9 g/dL (32.0-36.0); MEAN CORPUSCULAR VOLUME 79.2 fL (79-99); MONOCYTES % (AUTO) 8.4 % (3.0-13.0); NEUTROPHILS % (AUTO) 57.1 % (40.0-77.0); PLATELET COUNT (AUTO) 384 K/uL (130-400); RED BLOOD CELL COUNT(AUTO) 3.34 MIL/uL (4.00-5.50); RED CELL DISTRIBUTION WIDTH 16.5 % (11.0-15.5); WHITE BLOOD COUNT (AUTO) 5.7 K/uL (4.8-10.8)
[2018-02-19] MEDS: IPRATROPIUM 0.5 MG/2.5 ML INH IH SCH ×3 (06:11→21:59)
[2018-02-19 07:00] VITALS: BP 126/67
[2018-02-19] MEDS: PERAMPANEL 12 MG PEG SCH (09:00)
[2018-02-19] MEDS: VALPROATE SOD 250 MG/5 ML (PO) PO SCH ×3 (10:05→20:01)
[2018-02-19] MEDS: VANCOMYCIN 1.25 GM in SODIUM CHLORIDE 0.9% 250 ML IV SCH ×2 (10:05→20:01)
[2018-02-19] MEDS: FAMOTIDINE 20MG TAB 20 MG TAB PO SCH ×2 (10:05→20:01)
[2018-02-19] MEDS: ENOXAPARIN SODIUM 40 MG/0.4 ML SYRINGE SQ SCH (10:06)
[2018-02-19 11:00] VITALS: BP 107/60
[2018-02-19 16:00] VITALS: BP 120/72
[2018-02-19 20:00] VITALS: BP 126/78
[2018-02-20] VITALS: BP 138/78
[2018-02-20] MEDS: BACLOFEN 10 MG TABLET PO SCH ×4 (00:51→18:44)
[2018-02-20] MEDS: CLONAZEPAM 2 MG TABLET PEG SCH ×4 (00:51→18:44)
[2018-02-20 04:00] VITALS: BP 137/86
[2018-02-20] MEDS: CEFTAZIDIME PENTAHYDRATE 1 GM/VIAL IVP SCH ×3 (04:49→21:34)
[2018-02-20] MEDS: LACTATED RINGERS 1000ML 1,000 ML IV SCH ×2 (04:49→13:15)
[2018-02-20] MEDS: PROPRANOLOL HCL 20 MG TAB PO SCH ×3 (04:49→21:34)
[2018-02-20] MEDS: IPRATROPIUM 0.5 MG/2.5 ML INH IH SCH ×3 (05:42→21:23)
[2018-02-20 08:37] VITALS: BP 142/87
[2018-02-20] MEDS: PERAMPANEL 12 MG PEG SCH (09:00)
[2018-02-20] MEDS: VALPROATE SOD 250 MG/5 ML (PO) PO SCH ×3 (09:34→21:34)
[2018-02-20] MEDS: FAMOTIDINE 20MG TAB 20 MG TAB PO SCH ×2 (09:34→21:34)
[2018-02-20] MEDS: VANCOMYCIN 1.25 GM in SODIUM CHLORIDE 0.9% 250 ML IV SCH ×2 (09:34→21:36)
[2018-02-20] MEDS: ENOXAPARIN SODIUM 40 MG/0.4 ML SYRINGE SQ SCH (09:38)
[2018-02-20 11:26] VITALS: BP 150/88
[2018-02-20 16:06] VITALS: BP 139/85
[2018-02-20] MEDS: ACETAMINOPHEN ELIXIR 650 MG/20.3 ML UDCUP PEG PRN (18:44)
[2018-02-20 20:30] VITALS: BP 132/89
[2018-02-20] MEDS: LORAZEPAM 2 MG/ML 1 ML VIAL IVP PRN (22:45)
[2018-02-21] MEDS: LACTATED RINGERS 1000ML 1,000 ML IV SCH ×2 (00:05→09:15)
[2018-02-21] MEDS: CLONAZEPAM 2 MG TABLET PEG SCH ×4 (00:06→18:18)
[2018-02-21] MEDS: BACLOFEN 10 MG TABLET PO SCH ×4 (00:06→18:18)
[2018-02-21 04:00] VITALS: BP 139/79
[2018-02-21] MEDS: CEFTAZIDIME PENTAHYDRATE 1 GM/VIAL IVP SCH ×3 (04:21→21:25)
[2018-02-21] MEDS: PROPRANOLOL HCL 20 MG TAB PO SCH ×3 (04:21→21:18)
[2018-02-21] MEDS: ACETAMINOPHEN ELIXIR 650 MG/20.3 ML UDCUP PEG PRN ×2 (04:31→21:36)
[2018-02-21] MEDS: IPRATROPIUM 0.5 MG/2.5 ML INH IH SCH ×3 (05:54→21:42)
[2018-02-21 08:07] VITALS: BP 136/86
[2018-02-21] MEDS: VANCOMYCIN 1.25 GM in SODIUM CHLORIDE 0.9% 250 ML IV SCH ×2 (09:59→21:17)
[2018-02-21] MEDS: PERAMPANEL 12 MG PEG SCH (09:59)
[2018-02-21] MEDS: ENOXAPARIN SODIUM 40 MG/0.4 ML SYRINGE SQ SCH (10:00)
[2018-02-21] MEDS: VALPROATE SOD 250 MG/5 ML (PO) PO SCH ×3 (10:00→21:18)
[2018-02-21] MEDS: FAMOTIDINE 20MG TAB 20 MG TAB PO SCH ×2 (10:00→21:18)
[2018-02-21 10:47] VITALS: BP 138/86
[2018-02-21] MEDS: FENTANYL 75 MCG/HR PATCH TD SCH (13:20)
[2018-02-21 15:20] VITALS: BP 125/82
[2018-02-21 19:00] VITALS: BP 127/75
[2018-02-21 23:00] VITALS: BP 125/85
[2018-02-22] MEDS: CLONAZEPAM 2 MG TABLET PEG SCH ×5 (00:35→23:59)
[2018-02-22] MEDS: BACLOFEN 10 MG TABLET PO SCH ×5 (00:35→23:59)
[2018-02-22 03:00] VITALS: BP 118/82
[2018-02-22] MEDS: CEFTAZIDIME PENTAHYDRATE 1 GM/VIAL IVP SCH ×3 (04:22→20:00)
[2018-02-22] MEDS: PROPRANOLOL HCL 20 MG TAB PO SCH ×3 (05:55→22:08)
[2018-02-22 06:00] LABS: HEMATOCRIT 26.7 % (36-48); MEAN CORPUSCULAR HGB CONC 33.1 g/dL (32.0-36.0); MEAN CORPUSCULAR VOLUME 78.4 fL (79-99); PLATELET COUNT (AUTO) 478 K/uL (130-400); RED CELL DISTRIBUTION WIDTH 16.7 % (11.0-15.5); WHITE BLOOD COUNT (AUTO) 4.6 K/uL (4.8-10.8)
[2018-02-22 06:20] LABS: ALBUMIN 2.4 g/dL (3.5-5.0); BILIRUBIN,TOTAL 0.1 mg/dL (0.2-1.0); CREATININE 0.4 mg/dL (0.5-1.5); POTASSIUM 3.8 mmol/L (3.5-5.1); TOTAL PROTEIN, SERUM 7.2 g/dL (6.0-8.3)
[2018-02-22] MEDS: IPRATROPIUM 0.5 MG/2.5 ML INH IH SCH ×3 (06:31→22:04)
[2018-02-22 08:06] VITALS: BP 111/74
[2018-02-22] MEDS: FAMOTIDINE 20MG TAB 20 MG TAB PO SCH ×2 (10:16→22:09)
[2018-02-22] MEDS: ENOXAPARIN SODIUM 40 MG/0.4 ML SYRINGE SQ SCH (10:16)
[2018-02-22] MEDS: PERAMPANEL 12 MG PEG SCH (10:16)
[2018-02-22] MEDS: VANCOMYCIN 1.25 GM in SODIUM CHLORIDE 0.9% 250 ML IV SCH ×2 (10:17→22:09)
[2018-02-22 11:51] VITALS: BP 111/60
[2018-02-22] MEDS: VALPROATE SOD 250 MG/5 ML (PO) PO SCH ×3 (14:00→22:09)
[2018-02-22 16:17] VITALS: BP 116/74
[2018-02-22 19:00] VITALS: BP 138/88
[2018-02-22] MEDS: ACETAMINOPHEN ELIXIR 650 MG/20.3 ML UDCUP PEG PRN (22:10)
[2018-02-22 23:00] VITALS: BP 138/95
[2018-02-23] MEDS: LORAZEPAM 2 MG/ML 1 ML VIAL IVP PRN ×2 (00:58→17:58)
[2018-02-23 03:00] VITALS: BP 127/82
[2018-02-23] MEDS: CEFTAZIDIME PENTAHYDRATE 1 GM/VIAL IVP SCH ×3 (04:21→22:12)
[2018-02-23] MEDS: ACETAMINOPHEN ELIXIR 650 MG/20.3 ML UDCUP PEG PRN (04:21)
[2018-02-23] MEDS: BACLOFEN 10 MG TABLET PO SCH ×3 (05:27→17:58)
[2018-02-23] MEDS: PROPRANOLOL HCL 20 MG TAB PO SCH ×3 (05:27→22:13)
[2018-02-23] MEDS: CLONAZEPAM 2 MG TABLET PEG SCH ×3 (05:28→17:58)
[2018-02-23] MEDS: IPRATROPIUM 0.5 MG/2.5 ML INH IH SCH ×3 (06:32→22:25)
[2018-02-23 08:00] VITALS: BP 111/72
[2018-02-23] MEDS: FAMOTIDINE 20MG TAB 20 MG TAB PO SCH ×2 (09:14→22:13)
[2018-02-23] MEDS: VALPROATE SOD 250 MG/5 ML (PO) PO SCH ×3 (09:14→22:13)
[2018-02-23] MEDS: ENOXAPARIN SODIUM 40 MG/0.4 ML SYRINGE SQ SCH (09:14)
[2018-02-23] MEDS: PERAMPANEL 12 MG PEG SCH (09:23)
[2018-02-23 11:00] VITALS: BP 118/74
[2018-02-23] MEDS ORDERED: VANCOMYCIN 2 GM in SODIUM CHLORIDE 0.9% 500ML 500 ML IV SCH (11:15)
[2018-02-23 16:00] VITALS: BP_SYST 116; BP_SYST 121; BP_DIAS 78; BP_DIAS 82
[2018-02-23 19:00] VITALS: BP 121/73
[2018-02-23] MEDS: VANCOMYCIN 1GM+NS 250ML 250 ML IV SCH (22:17)
[2018-02-24] MEDS: FENTANYL 75 MCG/HR PATCH TD SCH (00:26)
[2018-02-24] MEDS: BACLOFEN 10 MG TABLET PO SCH ×4 (00:27→20:05)
[2018-02-24] MEDS: CLONAZEPAM 2 MG TABLET PEG SCH ×4 (00:27→20:04)
[2018-02-24 03:00] VITALS: BP 134/94
[2018-02-24 05:52] LABS: BASOPHILS % (AUTO) 0.6 % (0.0-5.0); HEMATOCRIT 28.9 % (36-48); MEAN CORPUSCULAR HEMOGLOBIN 25.1 pg (27.0-33.0); MEAN CORPUSCULAR VOLUME 78.5 fL (79-99); MONOCYTES % (AUTO) 8.5 % (3.0-13.0); NEUTROPHILS % (AUTO) 73.9 % (40.0-77.0); PLATELET COUNT (AUTO) 542 K/uL (130-400); RED BLOOD CELL COUNT(AUTO) 3.69 MIL/uL (4.00-5.50); RED CELL DISTRIBUTION WIDTH 16.8 % (11.0-15.5); WHITE BLOOD COUNT (AUTO) 10.2 K/uL (4.8-10.8)
[2018-02-24] MEDS: PROPRANOLOL HCL 20 MG TAB PO SCH ×3 (05:52→22:22)
[2018-02-24] MEDS: VANCOMYCIN 1GM+NS 250ML 250 ML IV SCH ×2 (05:52→16:45)
[2018-02-24] MEDS: CEFTAZIDIME PENTAHYDRATE 1 GM/VIAL IVP SCH ×3 (05:55→22:22)
[2018-02-24 06:09] LABS: ALBUMIN 2.9 g/dL (3.5-5.0); BILIRUBIN,TOTAL 0.2 mg/dL (0.2-1.0); CREATININE 0.5 mg/dL (0.5-1.5); MAGNESIUM 1.9 mg/dL (1.80-2.40); PHOSPHORUS 4.1 mg/dL (2.5-4.9); POTASSIUM 4.4 mmol/L (3.5-5.1); TOTAL PROTEIN, SERUM 8.1 g/dL (6.0-8.3)
[2018-02-24] MEDS: IPRATROPIUM 0.5 MG/2.5 ML INH IH SCH ×3 (06:45→21:47)
[2018-02-24 08:00] VITALS: BP 128/72
[2018-02-24] MEDS: FAMOTIDINE 20MG TAB 20 MG TAB PO SCH ×2 (08:11→22:22)
[2018-02-24] MEDS: VALPROATE SOD 250 MG/5 ML (PO) PO SCH ×3 (08:11→22:22)
[2018-02-24] MEDS: ACETAMINOPHEN ELIXIR 650 MG/20.3 ML UDCUP PEG PRN (08:11)
[2018-02-24] MEDS: PERAMPANEL 12 MG PEG SCH (09:00)
[2018-02-24] MEDS: ENOXAPARIN SODIUM 40 MG/0.4 ML SYRINGE SQ SCH (10:43)
[2018-02-24] MEDS ORDERED: SODIUM CHLORIDE 0.9% 500ML 500 ML IV ONE (10:50)
[2018-02-24 11:00] VITALS: BP 120/71
[2018-02-24 16:00] VITALS: BP 110/70
[2018-02-24 20:39] VITALS: BP 136/90
[2018-02-25 00:37] VITALS: BP 143/91
[2018-02-25] MEDS: BACLOFEN 10 MG TABLET PO SCH ×4 (00:38→18:02)
[2018-02-25] MEDS: CLONAZEPAM 2 MG TABLET PEG SCH ×4 (00:39→18:02)
[2018-02-25] MEDS: VANCOMYCIN 1GM+NS 250ML 250 ML IV SCH (01:29)
[2018-02-25] MEDS: CEFTAZIDIME PENTAHYDRATE 1 GM/VIAL IVP SCH ×3 (04:50→21:16)
[2018-02-25] MEDS: PROPRANOLOL HCL 20 MG TAB PO SCH ×3 (04:51→21:17)
[2018-02-25] MEDS: ACETAMINOPHEN ELIXIR 650 MG/20.3 ML UDCUP PEG PRN ×2 (04:54→21:17)
[2018-02-25 06:17] VITALS: BP 99/55
[2018-02-25] MEDS ORDERED: VANCOMYCIN 1.75 GM in SODIUM CHLORIDE 0.9% 250 ML IV SCH (06:43)
[2018-02-25] MEDS ORDERED: VANCOMYCIN 1.25 GM in SODIUM CHLORIDE 0.9% 250 ML IV SCH (06:45)
[2018-02-25] MEDS: IPRATROPIUM 0.5 MG/2.5 ML INH IH SCH ×3 (07:03→22:14)
[2018-02-25 08:00] VITALS: BP 149/111
[2018-02-25] MEDS: PERAMPANEL 12 MG PEG SCH (10:00)
[2018-02-25] MEDS: FAMOTIDINE 20MG TAB 20 MG TAB PO SCH ×2 (10:00→21:17)
[2018-02-25] MEDS: VALPROATE SOD 250 MG/5 ML (PO) PO SCH ×3 (10:00→21:16)
[2018-02-25] MEDS: ENOXAPARIN SODIUM 40 MG/0.4 ML SYRINGE SQ SCH (10:03)
[2018-02-25 11:00] VITALS: BP 137/79
[2018-02-25] MEDS ORDERED: LORAZEPAM 2 MG/ML 1 ML VIAL IVP PRN (14:00)
[2018-02-25] MEDS: VANCOMYCIN 1.75 GM in SODIUM CHLORIDE 0.9% 250 ML IV SCH (14:10)
[2018-02-25] MEDS: DEXTROSE 5 % AND 0.9 % NACL 1,000 ML IV SCH (14:27)
[2018-02-25 16:00] VITALS: BP 121/76
[2018-02-25 20:00] VITALS: BP 138/96
[2018-02-25] MEDS: VANCOMYCIN 1.25 GM in SODIUM CHLORIDE 0.9% 250 ML IV SCH (22:13)
[2018-02-26] VITALS (7 sets, daily range): BP systolic 102–171; BP diastolic 65–92
[2018-02-26] MEDS: BACLOFEN 10 MG TABLET PO SCH ×4 (00:06→18:13)
[2018-02-26] MEDS: DEXTROSE 5 % AND 0.9 % NACL 1,000 ML IV SCH ×2 (00:07→13:12)
[2018-02-26] MEDS: CLONAZEPAM 2 MG TABLET PEG SCH ×4 (00:07→18:13)
[2018-02-26] MEDS: CEFTAZIDIME PENTAHYDRATE 1 GM/VIAL IVP SCH ×2 (06:33→13:11)
[2018-02-26] MEDS: PROPRANOLOL HCL 20 MG TAB PO SCH ×2 (06:33→12:55)
[2018-02-26] MEDS: VANCOMYCIN 1.25 GM in SODIUM CHLORIDE 0.9% 250 ML IV SCH ×3 (06:37→22:00)
[2018-02-26 07:13] LABS: BASOPHILS % (AUTO) 0.7 % (0.0-5.0); HEMATOCRIT 26.8 % (36-48); LYMPHOCYTES % (AUTO) 7.1 % (21.0-51.0); MEAN CORPUSCULAR HEMOGLOBIN 25.2 pg (27.0-33.0); MEAN CORPUSCULAR HGB CONC 32.1 g/dL (32.0-36.0); MEAN CORPUSCULAR VOLUME 78.4 fL (79-99); MONOCYTES % (AUTO) 8.9 % (3.0-13.0); NEUTROPHILS % (AUTO) 83.3 % (40.0-77.0); PLATELET COUNT (AUTO) 447 K/uL (130-400); RED BLOOD CELL COUNT(AUTO) 3.42 MIL/uL (4.00-5.50); RED CELL DISTRIBUTION WIDTH 16.9 % (11.0-15.5); WHITE BLOOD COUNT (AUTO) 17.1 K/uL (4.8-10.8)
[2018-02-26] MEDS: IPRATROPIUM 0.5 MG/2.5 ML INH IH SCH ×3 (07:16→22:19)
[2018-02-26 07:40] LABS: CREATININE 0.5 mg/dL (0.5-1.5)
[2018-02-26] MEDS: FAMOTIDINE 20MG TAB 20 MG TAB PO SCH (12:01)
[2018-02-26] MEDS: VALPROATE SOD 250 MG/5 ML (PO) PO SCH ×2 (12:02→18:13)
[2018-02-26] MEDS: ENOXAPARIN SODIUM 40 MG/0.4 ML SYRINGE SQ SCH (12:03)
[2018-02-26] MEDS: FENTANYL 75 MCG/HR PATCH TD SCH (12:54)
[2018-02-26] MEDS: PERAMPANEL 12 MG PEG SCH (12:57)
[2018-02-26] MEDS: POTASSIUM CHLORIDE 10% ELIXIR 20 MEQ/15 ML UDCUP PO PRN ×2 (13:11→18:27)
[2018-02-26] MEDS: VANCOMYCIN 1.75 GM in SODIUM CHLORIDE 0.9% 250 ML IV SCH (14:00)
[2018-02-26] MEDS: POTASSIUM CHLORIDE 20MEQ/100ML 100 ML IV PRN (18:16)
[2018-02-26] MEDS: LIDOCAINE HCL-MPF 1% 2ML VIAL IVP PRN (18:16)
[2018-02-27] MEDS: CEFTAZIDIME PENTAHYDRATE 1 GM/VIAL IVP SCH ×2 (00:39→07:07)
[2018-02-27] MEDS: CLONAZEPAM 1 MG TABLET PEG SCH ×4 (00:40→20:47)
[2018-02-27] MEDS: PROPRANOLOL HCL 20 MG TAB PO SCH ×2 (00:40→14:56)
[2018-02-27] MEDS: BACLOFEN 10 MG TABLET PO SCH ×4 (00:40→20:47)
[2018-02-27] MEDS: FAMOTIDINE 20MG TAB 20 MG TAB PO SCH ×3 (00:40→20:47)
[2018-02-27] MEDS: VALPROATE SOD 250 MG/5 ML (PO) PO SCH ×4 (00:40→20:46)
[2018-02-27 03:00] VITALS: BP 105/58
[2018-02-27 05:22] LABS: HEMATOCRIT 26.6 % (36-48); MEAN CORPUSCULAR HEMOGLOBIN 25.6 pg (27.0-33.0); MEAN CORPUSCULAR HGB CONC 32.1 g/dL (32.0-36.0); MEAN CORPUSCULAR VOLUME 79.9 fL (79-99); PLATELET COUNT (AUTO) 417 K/uL (130-400); RED BLOOD CELL COUNT(AUTO) 3.33 MIL/uL (4.00-5.50); RED CELL DISTRIBUTION WIDTH 16.8 % (11.0-15.5); WHITE BLOOD COUNT (AUTO) 13.5 K/uL (4.8-10.8)
[2018-02-27 05:34] LABS: CREATININE 0.5 mg/dL (0.5-1.5); MAGNESIUM 1.9 mg/dL (1.80-2.40)
[2018-02-27] MEDS: IPRATROPIUM 0.5 MG/2.5 ML INH IH SCH ×2 (06:30→13:30)
[2018-02-27] MEDS: VANCOMYCIN 1.25 GM in SODIUM CHLORIDE 0.9% 250 ML IV SCH ×3 (07:08→17:51)
[2018-02-27 07:57] VITALS: BP 124/79
[2018-02-27] MEDS: DEXTROSE 5 % AND 0.9 % NACL 1,000 ML IV SCH ×2 (10:13→16:00)
[2018-02-27] MEDS: PERAMPANEL 12 MG PEG SCH (10:15)
[2018-02-27] MEDS: ENOXAPARIN SODIUM 40 MG/0.4 ML SYRINGE SQ SCH (10:17)
[2018-02-27 11:35] VITALS: BP 132/84
[2018-02-27 16:24] VITALS: BP 109/65
[2018-02-27 19:00] VITALS: BP 116/74
[2018-02-27] MEDS ORDERED: MAGNESIUM 2GM PREMIX 50ML 50 ML IV SCH (19:40)
[2018-02-27 23:00] VITALS: BP 108/57
[2018-02-28] MEDS: DEXTROSE 5 % AND 0.9 % NACL 1,000 ML IV SCH ×3 (02:00→17:37)
[2018-02-28] MEDS: PROPRANOLOL HCL 20 MG TAB PO SCH ×2 (02:24→12:36)
[2018-02-28] MEDS: BACLOFEN 10 MG TABLET PO SCH ×4 (02:24→17:38)
[2018-02-28] MEDS: CLONAZEPAM 1 MG TABLET PEG SCH ×4 (02:25→17:38)
[2018-02-28] MEDS: VANCOMYCIN 1.25 GM in SODIUM CHLORIDE 0.9% 250 ML IV SCH ×3 (02:25→17:37)
[2018-02-28 03:00] VITALS: BP 116/56
[2018-02-28 05:48] LABS: HEMATOCRIT 25.2 % (36-48); MEAN CORPUSCULAR HEMOGLOBIN 25.3 pg (27.0-33.0); MEAN CORPUSCULAR HGB CONC 32.2 g/dL (32.0-36.0); MEAN CORPUSCULAR VOLUME 78.5 fL (79-99); PLATELET COUNT (AUTO) 352 K/uL (130-400); RED BLOOD CELL COUNT(AUTO) 3.22 MIL/uL (4.00-5.50); RED CELL DISTRIBUTION WIDTH 16.6 % (11.0-15.5); WHITE BLOOD COUNT (AUTO) 6.6 K/uL (4.8-10.8)
[2018-02-28 06:01] LABS: CREATININE 0.4 mg/dL (0.5-1.5); MAGNESIUM 2.2 mg/dL (1.80-2.40); POTASSIUM 3.8 mmol/L (3.5-5.1)
[2018-02-28 08:00] VITALS: BP 159/105
[2018-02-28] MEDS: PERAMPANEL 12 MG PEG SCH (10:18)
[2018-02-28] MEDS: VALPROATE SOD 250 MG/5 ML (PO) PO SCH ×3 (10:19→20:25)
[2018-02-28] MEDS: FAMOTIDINE 20MG TAB 20 MG TAB PO SCH ×2 (10:19→20:25)
[2018-02-28] MEDS: ENOXAPARIN SODIUM 40 MG/0.4 ML SYRINGE SQ SCH (10:29)
[2018-02-28 11:00] VITALS: BP 151/96
[2018-02-28 16:00] VITALS: BP 134/64
[2018-02-28 19:40] VITALS: BP 137/82
[2018-03-01 00:32] VITALS: BP 138/87
[2018-03-01] MEDS: BACLOFEN 10 MG TABLET PO SCH ×4 (01:22→18:32)
[2018-03-01] MEDS: PROPRANOLOL HCL 20 MG TAB PO SCH ×2 (01:22→13:50)
[2018-03-01] MEDS: CLONAZEPAM 1 MG TABLET PEG SCH ×4 (01:23→18:32)
[2018-03-01] MEDS: FENTANYL 75 MCG/HR PATCH TD SCH (01:23)
[2018-03-01] MEDS: VANCOMYCIN 1.25 GM in SODIUM CHLORIDE 0.9% 250 ML IV SCH ×3 (01:24→18:32)
[2018-03-01 04:00] VITALS: BP 147/99
[2018-03-01] MEDS: IPRATROPIUM 0.5 MG/2.5 ML INH IH SCH ×3 (06:12→22:03)
[2018-03-01 08:00] VITALS: BP 128/82
[2018-03-01] MEDS: FAMOTIDINE 20MG TAB 20 MG TAB PO SCH ×2 (08:58→20:27)
[2018-03-01] MEDS: VALPROATE SOD 250 MG/5 ML (PO) PO SCH ×3 (08:58→20:27)
[2018-03-01] MEDS: PERAMPANEL 12 MG PEG SCH (08:59)
[2018-03-01] MEDS: ENOXAPARIN SODIUM 40 MG/0.4 ML SYRINGE SQ SCH (08:59)
[2018-03-01] MEDS: DEXTROSE 5 % AND 0.9 % NACL 1,000 ML IV SCH ×2 (10:23→22:13)
[2018-03-01 11:22] VITALS: BP 94/56
[2018-03-01 16:00] VITALS: BP 129/72
[2018-03-01 19:40] VITALS: BP 108/90
[2018-03-02] VITALS (9 sets, daily range): BP systolic 103–151; BP diastolic 71–99
[2018-03-02] MEDS: BACLOFEN 10 MG TABLET PO SCH ×4 (00:59→18:27)
[2018-03-02] MEDS: CLONAZEPAM 1 MG TABLET PEG SCH ×4 (00:59→18:00)
[2018-03-02] MEDS: PROPRANOLOL HCL 20 MG TAB PO SCH ×2 (01:00→13:49)
[2018-03-02] MEDS: VANCOMYCIN 1.25 GM in SODIUM CHLORIDE 0.9% 250 ML IV SCH ×2 (01:00→10:06)
[2018-03-02 06:08] LABS: HEMATOCRIT 26.7 % (36-48); MEAN CORPUSCULAR HEMOGLOBIN 24.8 pg (27.0-33.0); MEAN CORPUSCULAR HGB CONC 31.8 g/dL (32.0-36.0); MEAN CORPUSCULAR VOLUME 78.2 fL (79-99); NUCLEATED RED BLOOD CELLS 0.1 % (0.0-0.19); PLATELET COUNT (AUTO) 408 K/uL (130-400); RED BLOOD CELL COUNT(AUTO) 3.41 MIL/uL (4.00-5.50); RED CELL DISTRIBUTION WIDTH 15.9 % (11.0-15.5); WHITE BLOOD COUNT (AUTO) 4.9 K/uL (4.8-10.8)
[2018-03-02 06:20] LABS: CREATININE 0.4 mg/dL (0.5-1.5)
[2018-03-02 06:22] LABS: POTASSIUM 2.9 mmol/L (3.5-5.1)
[2018-03-02] MEDS: IPRATROPIUM 0.5 MG/2.5 ML INH IH SCH ×3 (06:25→22:28)
[2018-03-02] MEDS: POTASSIUM CHLORIDE 20MEQ/100ML 100 ML IV PRN (07:16)
[2018-03-02] MEDS: LIDOCAINE HCL-MPF 1% 2ML VIAL IVP PRN (07:17)
[2018-03-02] MEDS: FAMOTIDINE 20MG TAB 20 MG TAB PO SCH ×2 (09:52→20:53)
[2018-03-02] MEDS: VALPROATE SOD 250 MG/5 ML (PO) PO SCH ×3 (09:52→20:53)
[2018-03-02] MEDS: POTASSIUM CHLORIDE 10% ELIXIR 20 MEQ/15 ML UDCUP PO PRN ×2 (10:05→13:54)
[2018-03-02] MEDS: PERAMPANEL 12 MG PEG SCH (10:07)
[2018-03-02] MEDS ORDERED: DEXTROSE 5%-WATER 1,000 ML IV SCH (13:00)
[2018-03-02] MEDS: ENOXAPARIN SODIUM 40 MG/0.4 ML SYRINGE SQ SCH (14:17)
[2018-03-02] MEDS ORDERED: PHARMACY COMMUNICATION MISC SCH (15:00)
[2018-03-02] MEDS: ZYVOX 600 MG TAB PEG SCH (20:53)
[2018-03-03] MEDS: BACLOFEN 10 MG TABLET PO SCH ×4 (00:49→21:04)
[2018-03-03] MEDS: PROPRANOLOL HCL 20 MG TAB PO SCH ×2 (00:49→19:53)
[2018-03-03 03:00] VITALS: BP 125/81
[2018-03-03 05:26] LABS: HEMATOCRIT 24.9 % (36-48); MEAN CORPUSCULAR HEMOGLOBIN 25.3 pg (27.0-33.0); MEAN CORPUSCULAR HGB CONC 32.3 g/dL (32.0-36.0); MEAN CORPUSCULAR VOLUME 78.3 fL (79-99); PLATELET COUNT (AUTO) 416 K/uL (130-400); RED BLOOD CELL COUNT(AUTO) 3.18 MIL/uL (4.00-5.50); RED CELL DISTRIBUTION WIDTH 16.1 % (11.0-15.5); WHITE BLOOD COUNT (AUTO) 5.8 K/uL (4.8-10.8)
[2018-03-03] MEDS: CLONAZEPAM 1 MG TABLET PEG SCH ×3 (05:32→12:00)
[2018-03-03 05:40] LABS: BAND NEUTROPHILS % (MANUAL) 3 % (0-2); EOSINOPHILS % (MANUAL) 3 % (1-6); LYMPHOCYTES % (MANUAL) 28 % (22-44); MAN.DIFF COMMENT-IMPRESSION MANUAL DIFFERENTIAL; MONOCYTES % (MANUAL) 5 % (2-9); PLATELET MORPHOLOGY COMMENT INCREASED; SEGMENTED NEUTROPHILS % 61 % (40-70)
[2018-03-03 05:43] LABS: CREATININE 0.5 mg/dL (0.5-1.5); POTASSIUM 3.2 mmol/L (3.5-5.1)
[2018-03-03] MEDS: IPRATROPIUM 0.5 MG/2.5 ML INH IH SCH ×3 (06:44→22:00)
[2018-03-03 08:00] VITALS: BP 147/88
[2018-03-03] MEDS: PERAMPANEL 12 MG PEG SCH (09:00)
[2018-03-03] MEDS: VALPROATE SOD 250 MG/5 ML (PO) PO SCH ×3 (10:16→21:04)
[2018-03-03] MEDS: ZYVOX 600 MG TAB PEG SCH ×2 (10:16→21:04)
[2018-03-03] MEDS: FAMOTIDINE 20MG TAB 20 MG TAB PO SCH ×2 (10:16→21:04)
[2018-03-03] MEDS: ENOXAPARIN SODIUM 40 MG/0.4 ML SYRINGE SQ SCH (10:17)
[2018-03-03 12:00] VITALS: BP 136/94
[2018-03-03] MEDS: ACETAMINOPHEN ELIXIR 650 MG/20.3 ML UDCUP PEG PRN (12:12)
[2018-03-03] MEDS: POTASSIUM CHLORIDE 10% ELIXIR 20 MEQ/15 ML UDCUP PO PRN (12:13)
[2018-03-03] MEDS ORDERED: CLONAZEPAM 2 MG TABLET ONE (15:22)
[2018-03-03 16:00] VITALS: BP 123/84
[2018-03-03 19:29] VITALS: BP 108/64
[2018-03-03] MEDS: FENTANYL 75 MCG/HR PATCH TD SCH (19:53)
[2018-03-03 23:25] VITALS: BP 115/75
[2018-03-04] MEDS: PROPRANOLOL HCL 20 MG TAB PO SCH ×2 (01:28→12:54)
[2018-03-04 03:31] VITALS: BP 128/91
[2018-03-04] MEDS: BACLOFEN 10 MG TABLET PO SCH ×4 (05:20→17:02)
[2018-03-04] MEDS: CLONAZEPAM 2 MG TABLET PEG SCH ×4 (05:20→17:03)
[2018-03-04 05:40] LABS: BASOPHILS % (AUTO) 0.8 % (0.0-5.0); EOSINOPHILS % (AUTO) 1.1 % (0.0-8.0); HEMATOCRIT 29.4 % (36-48); LYMPHOCYTES % (AUTO) 19.5 % (21.0-51.0); MEAN CORPUSCULAR HEMOGLOBIN 24.9 pg (27.0-33.0); MEAN CORPUSCULAR HGB CONC 32.6 g/dL (32.0-36.0); MEAN CORPUSCULAR VOLUME 76.4 fL (79-99); MONOCYTES % (AUTO) 5.4 % (3.0-13.0); NEUTROPHILS % (AUTO) 73.2 % (40.0-77.0); PLATELET COUNT (AUTO) 513 K/uL (130-400); RED BLOOD CELL COUNT(AUTO) 3.85 MIL/uL (4.00-5.50); RED CELL DISTRIBUTION WIDTH 16.7 % (11.0-15.5); WHITE BLOOD COUNT (AUTO) 8.5 K/uL (4.8-10.8)
[2018-03-04 05:51] LABS: CREATININE 0.5 mg/dL (0.5-1.5); POTASSIUM 5.2 mmol/L (3.5-5.1)
[2018-03-04] MEDS: IPRATROPIUM 0.5 MG/2.5 ML INH IH SCH ×3 (07:10→21:19)
[2018-03-04 07:40] VITALS: BP 156/80
[2018-03-04] MEDS: ZYVOX 600 MG TAB PEG SCH ×2 (09:09→21:18)
[2018-03-04] MEDS: FAMOTIDINE 20MG TAB 20 MG TAB PO SCH ×2 (09:09→21:18)
[2018-03-04] MEDS: VALPROATE SOD 250 MG/5 ML (PO) PO SCH ×3 (09:09→21:18)
[2018-03-04] MEDS: ENOXAPARIN SODIUM 40 MG/0.4 ML SYRINGE SQ SCH (09:10)
[2018-03-04] MEDS: PERAMPANEL 12 MG PEG SCH (09:10)
[2018-03-04 11:31] VITALS: BP 112/89
[2018-03-04 16:00] VITALS: BP 116/83
[2018-03-04 19:36] VITALS: BP 121/83
[2018-03-04 23:35] VITALS: BP 146/103
[2018-03-05] MEDS: CLONAZEPAM 2 MG TABLET PEG SCH ×4 (00:04→18:37)
[2018-03-05] MEDS: BACLOFEN 10 MG TABLET PO SCH ×4 (00:04→18:37)
[2018-03-05] MEDS: PROPRANOLOL HCL 20 MG TAB PO SCH ×2 (01:31→12:22)
[2018-03-05 03:46] VITALS: BP 146/104
[2018-03-05 06:11] LABS: BASOPHILS % (AUTO) 0.5 % (0.0-5.0); EOSINOPHILS % (AUTO) 0.5 % (0.0-8.0); HEMATOCRIT 32.4 % (36-48); LYMPHOCYTES % (AUTO) 17.2 % (21.0-51.0); MEAN CORPUSCULAR HEMOGLOBIN 24.8 pg (27.0-33.0); MEAN CORPUSCULAR HGB CONC 32.3 g/dL (32.0-36.0); MEAN CORPUSCULAR VOLUME 76.7 fL (79-99); MONOCYTES % (AUTO) 7.5 % (3.0-13.0); NEUTROPHILS % (AUTO) 74.3 % (40.0-77.0); PLATELET COUNT (AUTO) 698 K/uL (130-400); RED BLOOD CELL COUNT(AUTO) 4.22 MIL/uL (4.00-5.50); RED CELL DISTRIBUTION WIDTH 16.8 % (11.0-15.5); WHITE BLOOD COUNT (AUTO) 10.9 K/uL (4.8-10.8)
[2018-03-05 06:18] LABS: CREATININE 0.6 mg/dL (0.5-1.5); POTASSIUM 4.5 mmol/L (3.5-5.1)
[2018-03-05] MEDS: IPRATROPIUM 0.5 MG/2.5 ML INH IH SCH ×3 (07:04→21:15)
[2018-03-05 07:54] VITALS: BP 121/88
[2018-03-05] MEDS: ZYVOX 600 MG TAB PEG SCH ×2 (09:39→22:36)
[2018-03-05] MEDS: VALPROATE SOD 250 MG/5 ML (PO) PO SCH ×3 (09:39→22:36)
[2018-03-05] MEDS: FAMOTIDINE 20MG TAB 20 MG TAB PO SCH ×2 (09:39→22:36)
[2018-03-05] MEDS: ENOXAPARIN SODIUM 40 MG/0.4 ML SYRINGE SQ SCH (09:39)
[2018-03-05] MEDS: PERAMPANEL 12 MG PEG SCH (09:40)
[2018-03-05] MEDS: ACETAMINOPHEN ELIXIR 650 MG/20.3 ML UDCUP PEG PRN (11:12)
[2018-03-05] MEDS: FENTANYL 75 MCG/HR PATCH TD SCH (12:16)
[2018-03-05 12:27] VITALS: BP 134/93
[2018-03-05] MEDS: LORAZEPAM 1 MG TABLET PO PRN (15:51)
[2018-03-05 16:00] VITALS: BP 123/90
[2018-03-05 20:39] VITALS: BP 157/77
[2018-03-06] VITALS: BP 131/88
[2018-03-06] MEDS: PROPRANOLOL HCL 20 MG TAB PO SCH ×2 (00:57→11:58)
[2018-03-06] MEDS: BACLOFEN 10 MG TABLET PO SCH ×4 (00:57→17:21)
[2018-03-06] MEDS: CLONAZEPAM 2 MG TABLET PEG SCH ×4 (00:57→17:20)
[2018-03-06 04:00] VITALS: BP 132/88
[2018-03-06] MEDS: IPRATROPIUM 0.5 MG/2.5 ML INH IH SCH ×3 (06:47→21:19)
[2018-03-06 08:19] VITALS: BP 119/82
[2018-03-06] MEDS: ZYVOX 600 MG TAB PEG SCH ×2 (09:00→21:42)
[2018-03-06] MEDS: ENOXAPARIN SODIUM 40 MG/0.4 ML SYRINGE SQ SCH (09:15)
[2018-03-06] MEDS: LORAZEPAM 1 MG TABLET PO PRN ×2 (09:15→21:42)
[2018-03-06] MEDS: FAMOTIDINE 20MG TAB 20 MG TAB PO SCH ×2 (09:15→21:42)
[2018-03-06] MEDS: VALPROATE SOD 250 MG/5 ML (PO) PO SCH ×3 (09:15→21:43)
[2018-03-06] MEDS: PERAMPANEL 12 MG PEG SCH (09:16)
[2018-03-06 12:00] VITALS: BP 116/84
[2018-03-06 16:00] VITALS: BP 126/84
[2018-03-06 19:00] VITALS: BP 113/73
[2018-03-07] VITALS (7 sets, daily range): BP systolic 120–179; BP diastolic 81–91
[2018-03-07] MEDS: BACLOFEN 10 MG TABLET PO SCH ×4 (00:40→19:48)
[2018-03-07] MEDS: CLONAZEPAM 2 MG TABLET PEG SCH ×4 (00:40→19:48)
[2018-03-07] MEDS: PROPRANOLOL HCL 20 MG TAB PO SCH ×2 (00:41→15:08)
[2018-03-07] MEDS: LORAZEPAM 1 MG TABLET PO PRN (04:34)
[2018-03-07] MEDS: IPRATROPIUM 0.5 MG/2.5 ML INH IH SCH ×3 (06:25→21:21)
[2018-03-07] MEDS: PERAMPANEL 12 MG PEG SCH (09:00)
[2018-03-07] MEDS: FAMOTIDINE 20MG TAB 20 MG TAB PO SCH ×2 (12:21→21:03)
[2018-03-07] MEDS: ENOXAPARIN SODIUM 40 MG/0.4 ML SYRINGE SQ SCH (12:21)
[2018-03-07] MEDS: VALPROATE SOD 250 MG/5 ML (PO) PO SCH ×3 (12:21→21:03)
[2018-03-07] MEDS: ZYVOX 600 MG TAB PEG SCH ×2 (12:21→21:03)
[2018-03-07] MEDS ORDERED: PHARMACY COMMUNICATION MISC SCH (13:15)
[2018-03-07] MEDS: FENTANYL 75 MCG/HR PATCH TD SCH (15:20)
[2018-03-07 15:24] LABS: HEMATOCRIT 33.8 % (36-48); MEAN CORPUSCULAR HEMOGLOBIN 24.4 pg (27.0-33.0); MEAN CORPUSCULAR HGB CONC 31.3 g/dL (32.0-36.0); MEAN CORPUSCULAR VOLUME 77.8 fL (79-99); NUCLEATED RED BLOOD CELLS 0.1 % (0.0-0.19); PLATELET COUNT (AUTO) 549 K/uL (130-400); RED BLOOD CELL COUNT(AUTO) 4.34 MIL/uL (4.00-5.50); RED CELL DISTRIBUTION WIDTH 17.1 % (11.0-15.5); WHITE BLOOD COUNT (AUTO) 11.4 K/uL (4.8-10.8)
[2018-03-08] VITALS (25 sets, daily range): BP systolic 85–123; BP diastolic 48–81
[2018-03-08] MEDS: PROPRANOLOL HCL 20 MG TAB PO SCH ×2 (00:23→12:43)
[2018-03-08] MEDS: CLONAZEPAM 2 MG TABLET PEG SCH ×4 (00:23→17:00)
[2018-03-08] MEDS: BACLOFEN 10 MG TABLET PO SCH ×4 (00:24→17:00)
[2018-03-08 05:18] LABS: BASOPHILS % (AUTO) 0.5 % (0.0-5.0); EOSINOPHILS % (AUTO) 0.5 % (0.0-8.0); HEMATOCRIT 29.2 % (36-48); MEAN CORPUSCULAR HEMOGLOBIN 25.3 pg (27.0-33.0); MEAN CORPUSCULAR HGB CONC 32.8 g/dL (32.0-36.0); MEAN CORPUSCULAR VOLUME 77.2 fL (79-99); PLATELET COUNT (AUTO) 481 K/uL (130-400); RED BLOOD CELL COUNT(AUTO) 3.78 MIL/uL (4.00-5.50); WHITE BLOOD COUNT (AUTO) 9.5 K/uL (4.8-10.8)
[2018-03-08 05:37] LABS: CREATININE 0.5 mg/dL (0.5-1.5); POTASSIUM 4.1 mmol/L (3.5-5.1)
[2018-03-08] MEDS: IPRATROPIUM 0.5 MG/2.5 ML INH IH SCH ×3 (06:55→22:26)
[2018-03-08] MEDS ORDERED: LACTATED RINGERS 1000ML 1,000 ML IV ONE (08:58)
[2018-03-08] MEDS: PERAMPANEL 12 MG PEG SCH (09:00)
[2018-03-08] MEDS: FAMOTIDINE 20MG TAB 20 MG TAB PO SCH ×2 (09:00→20:33)
[2018-03-08] MEDS: ENOXAPARIN SODIUM 40 MG/0.4 ML SYRINGE SQ SCH (09:00)
[2018-03-08] MEDS: ZYVOX 600 MG TAB PEG SCH ×2 (09:00→20:33)
[2018-03-08] MEDS: VALPROATE SOD 250 MG/5 ML (PO) PO SCH ×3 (09:00→20:33)
[2018-03-08] MEDS ORDERED: LIDOCAINE PF 2% 5ML ABBOJECT ONE (09:33)
[2018-03-08] MEDS ORDERED: ROCURONIUM BROMIDE 10MG/1ML 5ML VL ONE (09:33)
[2018-03-08] MEDS ORDERED: PROPOFOL 10 MG/ML 20ML VIAL IV ONE (09:33)
[2018-03-09] MEDS: PROPRANOLOL HCL 20 MG TAB PO SCH ×2 (00:09→14:00)
[2018-03-09] MEDS: CLONAZEPAM 2 MG TABLET PEG SCH ×4 (00:09→18:40)
[2018-03-09] MEDS: BACLOFEN 10 MG TABLET PO SCH ×4 (00:10→18:40)
[2018-03-09 04:00] VITALS: BP 109/70
[2018-03-09] MEDS: ACETAMINOPHEN ELIXIR 650 MG/20.3 ML UDCUP PEG PRN ×3 (05:26→20:25)
[2018-03-09] MEDS: IPRATROPIUM 0.5 MG/2.5 ML INH IH SCH ×3 (07:16→22:31)
[2018-03-09 07:30] VITALS: BP 104/65
[2018-03-09] MEDS: PERAMPANEL 12 MG PEG SCH (09:00)
[2018-03-09] MEDS: LORAZEPAM 1 MG TABLET PO PRN ×2 (09:57→22:24)
[2018-03-09] MEDS: FAMOTIDINE 20MG TAB 20 MG TAB PO SCH ×2 (09:57→20:24)
[2018-03-09] MEDS: VALPROATE SOD 250 MG/5 ML (PO) PO SCH ×3 (10:07→20:24)
[2018-03-09 11:00] VITALS: BP 145/87
[2018-03-09] MEDS ORDERED: LACTULOSE 20 GM/30 ML UDCUP PO PRN (12:45)
[2018-03-09 13:37] LABS: ABG BASE EXCESS 7.1 mmol/L (-2.0-3.0); ABG HCO3 32.4 mmol/L (21.0-28.0); ABG OXYGEN SATURATION 91.4 % (95.0-99.0); ABG PCO2 48 mmHg (32-45)
[2018-03-09] MEDS: ZYVOX 600 MG TAB PEG SCH ×2 (14:00→22:23)
[2018-03-09] MEDS ORDERED: LACTULOSE 20 GM/30 ML UDCUP ONE (14:34)
[2018-03-09 16:00] VITALS: BP 110/61
[2018-03-09 19:45] VITALS: BP 128/74
[2018-03-09 23:30] VITALS: BP 100/67
[2018-03-10] MEDS: BACLOFEN 10 MG TABLET PO SCH ×4 (00:40→17:17)
[2018-03-10] MEDS: PROPRANOLOL HCL 20 MG TAB PO SCH ×2 (00:40→13:15)
[2018-03-10] MEDS: CLONAZEPAM 2 MG TABLET PEG SCH ×4 (00:40→17:16)
[2018-03-10] MEDS: FENTANYL 75 MCG/HR PATCH TD SCH (03:15)
[2018-03-10] MEDS: LORAZEPAM 1 MG TABLET PO PRN (03:15)
[2018-03-10 03:55] VITALS: BP 104/62
[2018-03-10] MEDS: ACETAMINOPHEN ELIXIR 650 MG/20.3 ML UDCUP PEG PRN ×2 (04:10→19:27)
[2018-03-10] MEDS: IPRATROPIUM 0.5 MG/2.5 ML INH IH SCH ×3 (06:41→22:00)
[2018-03-10 07:30] VITALS: BP 116/67
[2018-03-10] MEDS: PERAMPANEL 12 MG PEG SCH (09:00)
[2018-03-10] MEDS: FAMOTIDINE 20MG TAB 20 MG TAB PO SCH ×2 (10:32→21:36)
[2018-03-10] MEDS: VALPROATE SOD 250 MG/5 ML (PO) PO SCH ×3 (10:32→21:36)
[2018-03-10] MEDS: ENOXAPARIN SODIUM 40 MG/0.4 ML SYRINGE SQ SCH ×2 (10:33→11:54)
[2018-03-10 11:10] VITALS: BP 98/54
[2018-03-10 16:00] VITALS: BP 100/59
[2018-03-10] MEDS ORDERED: PHARMACY COMMUNICATION MISC SCH (18:30)
[2018-03-10 19:40] VITALS: BP 100/60
== END 2018-03-10 21:40 | disposition home health service (06) | DRG 710 ==
LOC: EDH 09:41 → EDHIP 09:42 → 3BH 16:34 → 2CH 01-09 20:12 → 2DH 01-17 16:17 → 3CH 01-21 16:38 → 2BH 02-05 18:13 → 3CH 02-07 17:24
PROVIDERS: ADMIT Family Medicine; ATTEND Family Medicine
PROC: 5A09357 Assistance with Respiratory Ventilation, Less than 24 Consecutive Hours, Continuous Positive Airway Pressure (ICD-10-PCS; 2018-01-09)
PROC: 5A09357 Assistance with Respiratory Ventilation, Less than 24 Consecutive Hours, Continuous Positive Airway Pressure (ICD-10-PCS; 2018-01-10)
PROC: 05HM33Z Insertion of Infusion Device into Right Internal Jugular Vein, Percutaneous Approach (ICD-10-PCS; 2018-01-10)
PROC: 02HV33Z Insertion of Infusion Device into Superior Vena Cava, Percutaneous Approach (ICD-10-PCS; principal; 2018-01-11)
PROC: 5A1955Z Respiratory Ventilation, Greater than 96 Consecutive Hours (ICD-10-PCS; 2018-01-11)
PROC: 0B21XFZ Change Tracheostomy Device in Trachea, External Approach (ICD-10-PCS; 2018-01-11)
PROC: 5A1935Z Respiratory Ventilation, Less than 24 Consecutive Hours (ICD-10-PCS; 2018-01-16)
PROC: 0RBM0ZZ Excision of Left Elbow Joint, Open Approach (ICD-10-PCS; 2018-01-19)
PROC: 5A09357 Assistance with Respiratory Ventilation, Less than 24 Consecutive Hours, Continuous Positive Airway Pressure (ICD-10-PCS; 2018-01-19)
PROC: 5A1935Z Respiratory Ventilation, Less than 24 Consecutive Hours (ICD-10-PCS; 2018-01-23)
PROC: 0RBM0ZZ Excision of Left Elbow Joint, Open Approach (ICD-10-PCS; 2018-01-23)
PROC: 0R9M0ZZ Drainage of Left Elbow Joint, Open Approach (ICD-10-PCS; 2018-01-25)
PROC: 5A1935Z Respiratory Ventilation, Less than 24 Consecutive Hours (ICD-10-PCS; 2018-01-26)
PROC: 02HV33Z Insertion of Infusion Device into Superior Vena Cava, Percutaneous Approach (ICD-10-PCS; 2018-01-31)
PROC: 0HREX74 Replacement of Left Lower Arm Skin with Autologous Tissue Substitute, Partial Thickness, External Approach (ICD-10-PCS; 2018-02-05)
PROC: 5A1935Z Respiratory Ventilation, Less than 24 Consecutive Hours (ICD-10-PCS; 2018-02-05)
PROC: 0HBEXZZ Excision of Left Lower Arm Skin, External Approach (ICD-10-PCS; 2018-02-05)
PROC: 5A09357 Assistance with Respiratory Ventilation, Less than 24 Consecutive Hours, Continuous Positive Airway Pressure (ICD-10-PCS; 2018-02-06)
PROC: 5A1935Z Respiratory Ventilation, Less than 24 Consecutive Hours (ICD-10-PCS; 2018-02-09)
PROC: 5A09357 Assistance with Respiratory Ventilation, Less than 24 Consecutive Hours, Continuous Positive Airway Pressure (ICD-10-PCS; 2018-02-18)
PROC: 5A1935Z Respiratory Ventilation, Less than 24 Consecutive Hours (ICD-10-PCS; 2018-02-28)
PROC: 5A1935Z Respiratory Ventilation, Less than 24 Consecutive Hours (ICD-10-PCS; 2018-03-01)
PROC: 2W1DX6Z Compression of Left Lower Arm using Pressure Dressing (ICD-10-PCS; 2018-03-08)
PROC: 0R9M0ZZ Drainage of Left Elbow Joint, Open Approach (ICD-10-PCS; 2018-03-08)
DX: A41.02 Sepsis due to Methicillin resistant Staphylococcus aureus (principal); J96.21 Acute and chronic respiratory failure with hypoxia; E43 Unspecified severe protein-calorie malnutrition; J15.212 Pneumonia due to Methicillin resistant Staphylococcus aureus; G93.1 Anoxic brain damage, not elsewhere classified; L89.024 Pressure ulcer of left elbow, stage 4; R53.2 Functional quadriplegia; Z93.0 Tracheostomy status; E11.22 Type 2 diabetes mellitus with diabetic chronic kidney disease; E11.69 Type 2 diabetes mellitus with other specified complication; R13.10 Dysphagia, unspecified; E87.0 Hyperosmolality and hypernatremia; M62.82 Rhabdomyolysis; Y95 Nosocomial condition; G24.9 Dystonia, unspecified; J96.22 Acute and chronic respiratory failure with hypercapnia; R13.12 Dysphagia, oropharyngeal phase; N18.9 Chronic kidney disease, unspecified; I12.9 Hypertensive chronic kidney disease with stage 1 through stage 4 chronic kidney disease, or unspecified chronic kidney disease; G40.909 Epilepsy, unspecified, not intractable, without status epilepticus; D63.1 Anemia in chronic kidney disease; E83.42 Hypomagnesemia; M21.922 Unspecified acquired deformity of left upper arm; E86.0 Dehydration; R65.20 Severe sepsis without septic shock; F41.9 Anxiety disorder, unspecified; M86.9 Osteomyelitis, unspecified; F90.9 Attention-deficit hyperactivity disorder, unspecified type; I47.1 Supraventricular tachycardia; E78.5 Hyperlipidemia, unspecified; Z68.24 Body mass index [BMI] 24.0-24.9, adult; Z91.5 Personal history of self-harm; Z88.8 Allergy status to other drugs, medicaments and biological substances; Z88.1 Allergy status to other antibiotic agents; Z74.01 Bed confinement status
CPT/HCPCS: 36415; 36600; 71045; 73201; 74018; 80048; 80053; 80164; 80202; 81001; 82270; 82550; 82553; 82803; 82948; 83605; 83735; 83874; 84100; 84132; 84295; 84484; 85025; 85027; 85610; 85730; 86922; 87040; 87070; 87071; 87076; 87077; 87088; 87186; 87205; 87507; 93005; 94002; 94003; 94640; 94660; 94760; 99291; A4218; A4344; A4606; A6453; C1751; C1894; J0690; J0713; J1450; J1580; J1650; J1741; J1956; J2001; J2060; J2185; J2270; J2440; J2704; J2997; J3010; J3370; J3475; J3480; J3486; J3490; J7030; J7040; J7042; J7070; J7120; L3260; Q0167; Q9967

== ENCOUNTER 2018-03-11 00:22 | Inpatient (IN) | payer MEDICAID ==
[~2018-03-11] VITALS: Ht 152.4 cm; Wt 50.8 kg
[~2018-03-11 00:22] MED LIST changes: +ALBU0.63 IH; -CLON0.2T PEG; +CLON1TAB23 PEG; -CLON1TAB5 PEG; +DEXT1DRO OP; -DILT30TA3 PEG; -ENOX40DI8 SQ; -FAMO20TA8 PEG; -FENT-77 TD; -METO50TA18 PEG; +PROP20TA7 PEG; +VALP250S23 PEG; -VALP250S4 PEG; -ZOLP10TA2 PEG
[2018-03-11] MEDS ORDERED: BACLOFEN 10 MG TABLET PO ONE ×3 (01:17→17:19)
[2018-03-11 01:27] LABS: BASOPHILS % (AUTO) 0.5 % (0.0-5.0); EOSINOPHILS % (AUTO) 0.5 % (0.0-8.0); HEMATOCRIT 31.3 % (36-48); LYMPHOCYTES % (AUTO) 16.6 % (21.0-51.0); MEAN CORPUSCULAR HEMOGLOBIN 25.6 pg (27.0-33.0); MEAN CORPUSCULAR HGB CONC 31.3 g/dL (32.0-36.0); MEAN CORPUSCULAR VOLUME 81.7 fL (79-99); MONOCYTES % (AUTO) 6.5 % (3.0-13.0); NEUTROPHILS % (AUTO) 75.9 % (40.0-77.0); PLATELET COUNT (AUTO) 409 K/uL (130-400); RED BLOOD CELL COUNT(AUTO) 3.83 MIL/uL (4.00-5.50); RED CELL DISTRIBUTION WIDTH 17.5 % (11.0-15.5); WHITE BLOOD COUNT (AUTO) 9.5 K/uL (4.8-10.8)
[2018-03-11 01:35] LABS: CREATININE 0.6 mg/dL (0.5-1.5); POTASSIUM 4.5 mmol/L (3.5-5.1)
[2018-03-11 01:48] LABS: ALBUMIN 2.7 g/dL (3.5-5.0); BILIRUBIN,TOTAL 0.1 mg/dL (0.2-1.0); CREATINE KINASE MB 4.4 ng/mL (0.5-3.6); TOTAL PROTEIN, SERUM 8.9 g/dL (6.0-8.3)
[2018-03-11] MEDS ORDERED: CLONAZEPAM 0.5 MG TABLET ONE ×2 (02:03)
[2018-03-11 02:08] LABS: APPEARANCE,URINE Turbid (CLEAR); BILIRUBIN,URINE Negative (NEGATIVE); COLOR,URINE Dark Yellow (YELLOW); GLUCOSE, URINE (UA) Negative (NEGATIVE); KETONES,URINE Trace mg/dL (NEGATIVE); LEUKOCYTE ESTERASE ,URINE Moderate (NEGATIVE); NITRATE,URINE Positive (NEGATIVE); OCCULT BLOOD,URINE Large (NEGATIVE); PH,URINE 5.5 (5.0-8.0); PROTEIN,URINE 300 (NEGATIVE)
[2018-03-11] MEDS ORDERED: ACETAMINOPHEN 650 MG SUPPOSITORY RC ONE ×4 (02:16→13:39)
[2018-03-11 02:26] LABS: BACTERIA,URINE Moderate /HPF (None Seen); RBC,URINE 51-100 /HPF (0-1); SQUAMOUS EPITHELIAL CELL,UR Rare /HPF (0-2); WBC,URINE 26-50 /HPF (0-1)
[2018-03-11] MEDS ORDERED: CEFTRIAXONE SODIUM 1 GM ONE (02:51)
[2018-03-11] MEDS ORDERED: KETOROLAC TROMETHAMINE 30MG/ML ONE (03:03)
[2018-03-11] MEDS ORDERED: LORAZEPAM 2 MG/ML 1 ML VIAL ONE ×3 (04:02→13:39)
[2018-03-11] MEDS ORDERED: FENTANYL CITRATE PF 50 MCG/1 ML 2ML VIAL ONE (04:02)
[2018-03-11 04:03] LABS: BASOPHILS % (AUTO) 0.5 % (0.0-5.0); EOSINOPHILS % (AUTO) 0.2 % (0.0-8.0); HEMATOCRIT 29.9 % (36-48); MEAN CORPUSCULAR HEMOGLOBIN 24.9 pg (27.0-33.0); MEAN CORPUSCULAR HGB CONC 31.5 g/dL (32.0-36.0); MEAN CORPUSCULAR VOLUME 78.9 fL (79-99); MONOCYTES % (AUTO) 6.7 % (3.0-13.0); NEUTROPHILS % (AUTO) 80.6 % (40.0-77.0); PLATELET COUNT (AUTO) 422 K/uL (130-400); RED BLOOD CELL COUNT(AUTO) 3.79 MIL/uL (4.00-5.50); RED CELL DISTRIBUTION WIDTH 17.3 % (11.0-15.5); WHITE BLOOD COUNT (AUTO) 13.2 K/uL (4.8-10.8)
[2018-03-11 04:12] LABS: CREATININE 0.7 mg/dL (0.5-1.5)
[2018-03-11 04:17] LABS: ALBUMIN 2.7 g/dL (3.5-5.0); BILIRUBIN,TOTAL 0.1 mg/dL (0.2-1.0); TOTAL PROTEIN, SERUM 8.5 g/dL (6.0-8.3)
[2018-03-11] MEDS ORDERED: ONDANSETRON HCL MDV 20ML 2 MG/ML VIAL IVP PRN (04:30)
[2018-03-11] MEDS ORDERED: ACETAMINOPHEN 650 MG SUPPOSITORY RC PRN (04:30)
[2018-03-11] MEDS ORDERED: ACETAMINOPHEN ELIXIR 650 MG/20.3 ML UDCUP PEG PRN (04:30)
[2018-03-11] MEDS: SODIUM CHLORIDE 0.9% 1000ML 1,000 ML IV SCH ×3 (05:00→20:33)
[2018-03-11] MEDS: BACLOFEN 10 MG TABLET PO SCH ×4 (06:00→23:21)
[2018-03-11] MEDS ORDERED: SODIUM CHLORIDE 0.9% 1000ML 1,000 ML IV ONE ×4 (06:03→21:15)
[2018-03-11] MEDS: FAMOTIDINE/PF 20 MG/2 ML VIAL IV SCH ×2 (09:00→20:33)
[2018-03-11] MEDS ORDERED: CLONAZEPAM 2 MG TABLET PO SCH ×2 (10:45→21:15)
[2018-03-11] MEDS ORDERED: BACLOFEN 10 MG TABLET PO SCH (10:45)
[2018-03-11] MEDS ORDERED: CLONAZEPAM 2 MG TABLET ONE ×3 (10:54→21:34)
[2018-03-11] MEDS ORDERED: MEROPENEM 500 MG VIAL ONE (12:09)
[2018-03-11] MEDS ORDERED: SODIUM CHLORIDE 0.9% 100 ML IV ONE (12:09)
[2018-03-11] MEDS ORDERED: IBUPROFEN 100 MG/5 ML SUSP UDCUP ONE (14:15)
[2018-03-11] MEDS: VALPROATE SOD 250 MG/5 ML (PO) GT SCH ×2 (14:30→21:28)
[2018-03-11] MEDS: MEROPENEM 1GM IVPB PREMIXED 1 GM IV SCH ×2 (15:15→21:57)
[2018-03-11] MEDS: MEROPENEM 1 GM VIAL IVP SCH ×2 (15:30→23:21)
[2018-03-11] MEDS ORDERED: FENTANYL 75 MCG/HR PATCH TD ONE (17:20)
[2018-03-11] MEDS: FENTANYL 75 MCG/HR PATCH TD SCH (17:30)
[2018-03-11 20:30] VITALS: BP 189/95
[2018-03-11] MEDS: LORAZEPAM 1 MG TABLET PEG PRN (20:32)
[2018-03-11] MEDS: ENOXAPARIN SODIUM 40 MG/0.4 ML SYRINGE SQ SCH (20:33)
[2018-03-11 20:45] VITALS: BP 175/104
[2018-03-11 21:02] VITALS: BP 182/113
[2018-03-11] MEDS ORDERED: POTASSIUM CHLORIDE 20MEQ/100ML 100 ML IV PRN (21:15)
[2018-03-11] MEDS ORDERED: LIDOCAINE HCL-MPF 1% 2ML VIAL IVP PRN (21:15)
[2018-03-11] MEDS ORDERED: MAGNESIUM 2GM PREMIX 50ML 50 ML IV PRN (21:15)
[2018-03-11] MEDS: PROPRANOLOL HCL 20 MG TAB PO SCH (21:15)
[2018-03-11] MEDS ORDERED: CLONIDINE HCL 0.2 MG TABLET PO PRN (21:15)
[2018-03-11] MEDS ORDERED: LACTULOSE 20 GM/30 ML UDCUP PO PRN (21:15)
[2018-03-11] MEDS ORDERED: POTASSIUM CHLORIDE 20 MEQ ERTAB PO PRN (21:15)
[2018-03-11] MEDS ORDERED: PROPRANOLOL HCL 20 MG TAB ONE (21:34)
[2018-03-11 22:01] VITALS: BP 177/99
[2018-03-11 23:00] VITALS: BP 156/94
[2018-03-11] MEDS: ACETAMINOPHEN ELIXIR 325 MG/10.15ML UDCUP ONE ×2 (23:21→23:25)
[2018-03-11] MEDS ORDERED: ACETAMINOPHEN ELIXIR 325 MG/10.15ML UDCUP PO PRN (23:30)
[2018-03-11] MEDS ORDERED: ACETAMINOPHEN 325 MG TAB PO PRN (23:30)
[2018-03-12] VITALS (24 sets, daily range): BP systolic 109–183; BP diastolic 58–107
[2018-03-12] MEDS ORDERED: CEFTRIAXONE SODIUM 1 GM IVP SCH
[2018-03-12] MEDS: SODIUM CHLORIDE 0.9% 1000ML 1,000 ML IV ONE ×2 (00:44→03:24)
[2018-03-12] MEDS ORDERED: CLONAZEPAM 2 MG TABLET PO SCH (03:00)
[2018-03-12 04:34] LABS: BASOPHILS % (AUTO) 0.3 % (0.0-5.0); HEMATOCRIT 26.5 % (36-48); LYMPHOCYTES % (AUTO) 13.6 % (21.0-51.0); MEAN CORPUSCULAR HEMOGLOBIN 25.2 pg (27.0-33.0); MEAN CORPUSCULAR HGB CONC 31.2 g/dL (32.0-36.0); MEAN CORPUSCULAR VOLUME 80.8 fL (79-99); MONOCYTES % (AUTO) 13.5 % (3.0-13.0); NEUTROPHILS % (AUTO) 72.6 % (40.0-77.0); PLATELET COUNT (AUTO) 236 K/uL (130-400); RED BLOOD CELL COUNT(AUTO) 3.28 MIL/uL (4.00-5.50); RED CELL DISTRIBUTION WIDTH 17.8 % (11.0-15.5); WHITE BLOOD COUNT (AUTO) 14.4 K/uL (4.8-10.8)
[2018-03-12 04:49] LABS: CREATININE 0.5 mg/dL (0.5-1.5); MAGNESIUM 1.5 mg/dL (1.80-2.40); PHOSPHORUS 2.5 mg/dL (2.5-4.9); POTASSIUM 3.2 mmol/L (3.5-5.1)
[2018-03-12] MEDS ORDERED: ACETAMINOPHEN 325 MG TAB PO PRN (05:15)
[2018-03-12] MEDS: POTASSIUM CHLORIDE 10% ELIXIR 20 MEQ/15 ML UDCUP PO PRN (05:19)
[2018-03-12] MEDS: ACETAMINOPHEN ELIXIR 650 MG/20.3 ML UDCUP PEG PRN ×2 (05:21→12:43)
[2018-03-12] MEDS: BACLOFEN 10 MG TABLET PO SCH ×3 (05:34→18:01)
[2018-03-12] MEDS: SODIUM CHLORIDE 0.9% 1000ML 1,000 ML IV SCH ×3 (05:35→19:18)
[2018-03-12] MEDS: MEROPENEM 1 GM VIAL IVP SCH (06:39)
[2018-03-12] MEDS: CLONAZEPAM 2 MG TABLET PO SCH ×3 (07:17→18:01)
[2018-03-12] MEDS: ENOXAPARIN SODIUM 40 MG/0.4 ML SYRINGE SQ SCH (10:22)
[2018-03-12] MEDS: FAMOTIDINE/PF 20 MG/2 ML VIAL IV SCH ×2 (10:22→20:18)
[2018-03-12] MEDS: PROPRANOLOL HCL 20 MG TAB PO SCH ×2 (10:22→20:19)
[2018-03-12] MEDS: VALPROATE SOD 250 MG/5 ML (PO) PO SCH ×3 (10:37→20:18)
[2018-03-12] MEDS ORDERED: MEROPENEM 1 GM VIAL IVP SCH (16:00)
[2018-03-13] VITALS (16 sets, daily range): BP systolic 107–154; BP diastolic 40–88
[2018-03-13] MEDS: BACLOFEN 10 MG TABLET PO SCH ×5 (00:25→23:51)
[2018-03-13] MEDS: MEROPENEM 1 GM VIAL IVP SCH ×4 (00:25→23:51)
[2018-03-13] MEDS: CLONAZEPAM 2 MG TABLET PO SCH ×5 (00:25→23:51)
[2018-03-13] MEDS: SODIUM CHLORIDE 0.9% 1000ML 1,000 ML IV SCH ×4 (01:00→23:52)
[2018-03-13] MEDS: LORAZEPAM 1 MG TABLET PEG PRN ×2 (03:29→08:09)
[2018-03-13] MEDS: FAMOTIDINE/PF 20 MG/2 ML VIAL IV SCH ×2 (08:07→20:48)
[2018-03-13] MEDS: ENOXAPARIN SODIUM 40 MG/0.4 ML SYRINGE SQ SCH (08:08)
[2018-03-13] MEDS: VALPROATE SOD 250 MG/5 ML (PO) PO SCH ×3 (08:08→20:49)
[2018-03-13] MEDS: PROPRANOLOL HCL 20 MG TAB PO SCH ×2 (08:08→20:48)
[2018-03-13] MEDS: POTASSIUM CHLORIDE 10% ELIXIR 20 MEQ/15 ML UDCUP PO PRN ×2 (08:49→11:03)
[2018-03-14 00:18] VITALS: BP 120/51
[2018-03-14 04:00] VITALS: BP 118/75
[2018-03-14] MEDS: CLONAZEPAM 2 MG TABLET PO SCH ×3 (06:00→18:14)
[2018-03-14] MEDS: BACLOFEN 10 MG TABLET PO SCH ×3 (06:00→18:14)
[2018-03-14 06:07] LABS: HEMATOCRIT 31.1 % (36-48); MEAN CORPUSCULAR HGB CONC 31.5 g/dL (32.0-36.0); MEAN CORPUSCULAR VOLUME 79.3 fL (79-99); NUCLEATED RED BLOOD CELLS 0.1 % (0.0-0.19); PLATELET COUNT (AUTO) 447 K/uL (130-400); RED BLOOD CELL COUNT(AUTO) 3.92 MIL/uL (4.00-5.50); RED CELL DISTRIBUTION WIDTH 18.1 % (11.0-15.5); WHITE BLOOD COUNT (AUTO) 7.1 K/uL (4.8-10.8)
[2018-03-14 06:11] LABS: CREATININE 0.5 mg/dL (0.5-1.5); MAGNESIUM 1.8 mg/dL (1.80-2.40); POTASSIUM 4.4 mmol/L (3.5-5.1)
[2018-03-14] MEDS ORDERED: CLONAZEPAM 0.5 MG TABLET ONE ×3 (06:11→12:33)
[2018-03-14 08:00] VITALS: BP 178/89
[2018-03-14] MEDS: MEROPENEM 1 GM VIAL IVP SCH ×2 (08:00→15:28)
[2018-03-14] MEDS: VALPROATE SOD 250 MG/5 ML (PO) PO SCH ×3 (09:00→20:46)
[2018-03-14] MEDS: FAMOTIDINE/PF 20 MG/2 ML VIAL IV SCH ×2 (09:00→20:45)
[2018-03-14] MEDS: ENOXAPARIN SODIUM 40 MG/0.4 ML SYRINGE SQ SCH (09:00)
[2018-03-14] MEDS: PROPRANOLOL HCL 20 MG TAB PO SCH ×2 (09:00→20:46)
[2018-03-14] MEDS: FENTANYL 75 MCG/HR PATCH TD SCH (15:33)
[2018-03-14] MEDS: SODIUM CHLORIDE 0.9% 1000ML 1,000 ML IV SCH ×2 (18:20→21:00)
[2018-03-14 19:15] VITALS: BP 134/67
[2018-03-14] MEDS ORDERED: VANCOMYCIN PROTOCOL PER PHARMACY IV SCH (19:30)
[2018-03-14] MEDS: VANCOMYCIN 1GM+NS 250ML 250 ML IV SCH (20:45)
[2018-03-14] MEDS: ACETAMINOPHEN ELIXIR 650 MG/20.3 ML UDCUP PEG PRN (20:48)
[2018-03-14] MEDS: LORAZEPAM 2 MG/ML 1 ML VIAL IVP PRN (21:12)
[2018-03-15] MEDS: BACLOFEN 10 MG TABLET PO SCH ×4 (00:19→18:41)
[2018-03-15] MEDS: MEROPENEM 1 GM VIAL IVP SCH ×3 (00:19→15:58)
[2018-03-15] MEDS: CLONAZEPAM 2 MG TABLET PO SCH ×4 (00:19→18:41)
[2018-03-15] MEDS: LORAZEPAM 2 MG/ML 1 ML VIAL IVP PRN (03:31)
[2018-03-15 04:00] VITALS: BP 132/64
[2018-03-15 08:00] VITALS: BP 98/33
[2018-03-15] MEDS: SODIUM CHLORIDE 0.9% 1000ML 1,000 ML IV SCH ×3 (08:45→20:23)
[2018-03-15] MEDS: VANCOMYCIN 1GM+NS 250ML 250 ML IV SCH ×2 (08:50→20:23)
[2018-03-15] MEDS: ENOXAPARIN SODIUM 40 MG/0.4 ML SYRINGE SQ SCH (08:54)
[2018-03-15] MEDS: VALPROATE SOD 250 MG/5 ML (PO) PO SCH ×3 (09:02→20:22)
[2018-03-15] MEDS: PROPRANOLOL HCL 20 MG TAB PO SCH ×2 (09:08→20:23)
[2018-03-15] MEDS: FAMOTIDINE/PF 20 MG/2 ML VIAL IV SCH ×2 (09:09→20:22)
[2018-03-15] MEDS: ACETAMINOPHEN ELIXIR 650 MG/20.3 ML UDCUP PEG PRN (10:42)
[2018-03-15] MEDS: LORAZEPAM 1 MG TABLET PEG PRN (10:42)
[2018-03-15 16:00] VITALS: BP 97/62
[2018-03-15 19:40] VITALS: BP 101/63
[2018-03-16 00:03] VITALS: BP 111/69
[2018-03-16] MEDS: MEROPENEM 1 GM VIAL IVP SCH ×3 (00:27→17:12)
[2018-03-16] MEDS: BACLOFEN 10 MG TABLET PO SCH ×4 (00:28→17:46)
[2018-03-16] MEDS: CLONAZEPAM 2 MG TABLET PO SCH ×4 (00:28→17:45)
[2018-03-16 04:12] VITALS: BP 115/83
[2018-03-16] MEDS: SODIUM CHLORIDE 0.9% 1000ML 1,000 ML IV SCH ×2 (04:50→13:56)
[2018-03-16 05:41] LABS: HEMATOCRIT 25.3 % (36-48); MEAN CORPUSCULAR HEMOGLOBIN 25.9 pg (27.0-33.0); MEAN CORPUSCULAR HGB CONC 33.2 g/dL (32.0-36.0); MEAN CORPUSCULAR VOLUME 78.2 fL (79-99); PLATELET COUNT (AUTO) 249 K/uL (130-400); RED BLOOD CELL COUNT(AUTO) 3.23 MIL/uL (4.00-5.50); RED CELL DISTRIBUTION WIDTH 17.6 % (11.0-15.5); WHITE BLOOD COUNT (AUTO) 4.9 K/uL (4.8-10.8)
[2018-03-16 06:00] LABS: CREATININE 0.4 mg/dL (0.5-1.5); POTASSIUM 3.6 mmol/L (3.5-5.1)
[2018-03-16 07:52] VITALS: BP 132/66
[2018-03-16] MEDS: PROPRANOLOL HCL 20 MG TAB PO SCH ×2 (09:10→20:55)
[2018-03-16] MEDS: VALPROATE SOD 250 MG/5 ML (PO) PO SCH ×3 (09:10→20:56)
[2018-03-16] MEDS: LORAZEPAM 1 MG TABLET PEG PRN (09:10)
[2018-03-16] MEDS: ENOXAPARIN SODIUM 40 MG/0.4 ML SYRINGE SQ SCH (09:11)
[2018-03-16 11:37] VITALS: BP 183/93
[2018-03-16] MEDS: FAMOTIDINE/PF 20 MG/2 ML VIAL IV SCH ×2 (12:22→20:56)
[2018-03-16] MEDS: VANCOMYCIN 1GM+NS 250ML 250 ML IV SCH ×2 (12:23→20:56)
[2018-03-16] MEDS: ACETAMINOPHEN ELIXIR 650 MG/20.3 ML UDCUP PEG PRN (12:24)
[2018-03-16 13:13] LABS: ABG BASE EXCESS 1.1 mmol/L (-2.0-3.0); ABG HCO3 25.2 mmol/L (21.0-28.0); ABG OXYGEN SATURATION 95.7 % (95.0-99.0); ABG PCO2 38 mmHg (32-45)
[2018-03-16 16:03] VITALS: BP 117/64
[2018-03-16 20:01] VITALS: BP 103/54
[2018-03-16] MEDS ORDERED: SANTYL TP SCH (21:00)
[2018-03-17 00:07] VITALS: BP 121/78
[2018-03-17 04:07] VITALS: BP 134/84
[2018-03-17] MEDS: MEROPENEM 1 GM VIAL IVP SCH (04:18)
[2018-03-17 05:06] LABS: HEMATOCRIT 26.2 % (36-48); MEAN CORPUSCULAR HEMOGLOBIN 25.1 pg (27.0-33.0); MEAN CORPUSCULAR HGB CONC 32.2 g/dL (32.0-36.0); MEAN CORPUSCULAR VOLUME 77.9 fL (79-99); PLATELET COUNT (AUTO) 375 K/uL (130-400); RED BLOOD CELL COUNT(AUTO) 3.36 MIL/uL (4.00-5.50); RED CELL DISTRIBUTION WIDTH 17.8 % (11.0-15.5); WHITE BLOOD COUNT (AUTO) 5.5 K/uL (4.8-10.8)
[2018-03-17 05:17] LABS: CREATININE 0.5 mg/dL (0.5-1.5); POTASSIUM 3.3 mmol/L (3.5-5.1)
[2018-03-17] MEDS: BACLOFEN 10 MG TABLET PO SCH ×2 (06:12)
[2018-03-17] MEDS: CLONAZEPAM 2 MG TABLET PO SCH ×2 (06:13)
[2018-03-17 08:08] VITALS: BP 140/75
[2018-03-17] MEDS: PROPRANOLOL HCL 20 MG TAB PO SCH (08:38)
[2018-03-17] MEDS: LORAZEPAM 1 MG TABLET PEG PRN (08:38)
[2018-03-17] MEDS: ENOXAPARIN SODIUM 40 MG/0.4 ML SYRINGE SQ SCH (08:39)
[2018-03-17] MEDS: VALPROATE SOD 250 MG/5 ML (PO) PO SCH (08:39)
[2018-03-17] MEDS: POTASSIUM CHLORIDE 10% ELIXIR 20 MEQ/15 ML UDCUP PO PRN (08:39)
[2018-03-17] MEDS: FENTANYL 75 MCG/HR PATCH TD SCH (08:52)
== END 2018-03-17 11:15 | disposition home health service (06) | DRG 720 ==
LOC: EDH 00:22 → EDHIP 00:23 → OBSVTOIN 00:23 → 2CH 19:43 → 3CH 03-13 11:56
PROVIDERS: ADMIT Internal Medicine Nephrology; ATTEND Internal Medicine Nephrology
DX: A41.9 Sepsis, unspecified organism (principal); G93.1 Anoxic brain damage, not elsewhere classified; E43 Unspecified severe protein-calorie malnutrition; J96.10 Chronic respiratory failure, unspecified whether with hypoxia or hypercapnia; J15.212 Pneumonia due to Methicillin resistant Staphylococcus aureus; R53.2 Functional quadriplegia; E87.0 Hyperosmolality and hypernatremia; N30.00 Acute cystitis without hematuria; M86.9 Osteomyelitis, unspecified; G24.9 Dystonia, unspecified; R13.12 Dysphagia, oropharyngeal phase; D63.8 Anemia in other chronic diseases classified elsewhere; E83.42 Hypomagnesemia; E87.6 Hypokalemia; G40.909 Epilepsy, unspecified, not intractable, without status epilepticus; B96.1 Klebsiella pneumoniae [K. pneumoniae] as the cause of diseases classified elsewhere; B96.89 Other specified bacterial agents as the cause of diseases classified elsewhere; L97.529 Non-pressure chronic ulcer of other part of left foot with unspecified severity; M00.9 Pyogenic arthritis, unspecified; R47.02 Dysphasia; Z93.1 Gastrostomy status; Z93.0 Tracheostomy status; Z74.01 Bed confinement status; Z99.81 Dependence on supplemental oxygen; Z68.21 Body mass index [BMI] 21.0-21.9, adult; Z88.8 Allergy status to other drugs, medicaments and biological substances
CPT/HCPCS: 36415; 36600; 71045; 80048; 80053; 80202; 81001; 82550; 82553; 82803; 82948; 83605; 83735; 84100; 84484; 85025; 85027; 87040; 87071; 87088; 87186; 87205; 93005; 94640; 99291; A4218; A6453; J0696; J1650; J1885; J2060; J2185; J3010; J3370; J3475; J3490; J7030

== ENCOUNTER 2018-07-05 19:42 | Inpatient (IN) | payer MEDICAID ==
[~2018-07-05] VITALS: Ht 152.4 cm; Wt 42.9 kg
[2018-07-05 20:43] LABS: BASOPHILS % (AUTO) 0.2 % (0.0-5.0); HEMATOCRIT 35.3 % (36-48); LYMPHOCYTES % (AUTO) 17.8 % (21.0-51.0); MEAN CORPUSCULAR HEMOGLOBIN 28.5 pg (27.0-33.0); MEAN CORPUSCULAR HGB CONC 32.2 g/dL (32.0-36.0); MEAN CORPUSCULAR VOLUME 88.6 fL (79-99); MONOCYTES % (AUTO) 7.4 % (3.0-13.0); NEUTROPHILS % (AUTO) 74.6 % (40.0-77.0); PLATELET COUNT (AUTO) 201 K/uL (130-400); RED BLOOD CELL COUNT(AUTO) 3.99 MIL/uL (4.00-5.50); RED CELL DISTRIBUTION WIDTH 17.8 % (11.0-15.5); WHITE BLOOD COUNT (AUTO) 7.8 K/uL (4.8-10.8)
[2018-07-05 20:49] LABS: BILIRUBIN,URINE Negative (NEGATIVE); COLOR,URINE Dark Yellow (YELLOW); GLUCOSE, URINE (UA) Negative (NEGATIVE); KETONES,URINE Negative (NEGATIVE); LEUKOCYTE ESTERASE ,URINE Moderate (NEGATIVE); NITRATE,URINE Negative (NEGATIVE); OCCULT BLOOD,URINE Nonhemolyzed Trace (NEGATIVE); PH,URINE 7.5 (5.0-8.0); PROTEIN,URINE Trace (NEGATIVE)
[2018-07-05 20:50] LABS: APPEARANCE,URINE SLIGHTLY CLOUDY (CLEAR)
[2018-07-05 21:04] LABS: CARBON DIOXIDE 30 mmol/L (21-32); CHLORIDE 112 mmol/L (101-111); CREATININE 0.6 mg/dL (0.5-1.5); GLOMERULAR FILTR. RATE CALC 128 mL/min (>60); GLUCOSE,RANDOM 97 mg/dL (70-105); INR 1.01 (0.85-1.15); PARTIAL THROMBOPLASTIN TIME 25.8 SEC (26.3-35.5); POTASSIUM 4.1 mmol/L (3.5-5.1); PROTHROMBIN TIME 10.6 SEC (9.6-11.6); SODIUM SERUM 153 mmol/L (136-145); UREA NITROGEN, BLOOD 20 mg/dL (7-18)
[2018-07-05 21:10] LABS: BACTERIA,URINE Few /HPF (None Seen)
[2018-07-05 21:12] LABS: SQUAMOUS EPITHELIAL CELL,UR Rare /HPF (0-2)
[2018-07-05 21:13] LABS: AMORPHOUS SEDIMENT,UR Few /LPF (None Seen)
[2018-07-05 21:17] LABS: ALANINE AMINOTRANSFERASE 28 U/L (12-78); ALBUMIN 4.1 g/dL (3.5-5.0); ASPARTATE AMINOTRANSFERASE 25 U/L (10-37); BILIRUBIN,TOTAL 0.2 mg/dL (0.2-1.0); CREATINE KINASE, TOTAL 255 U/L (21-232); MYOGLOBIN 132 ng/mL (10-92); TROPONIN I < 0.04 ng/mL (0.00-0.06)
[2018-07-05] MEDS ORDERED: LORAZEPAM 2 MG/ML 1 ML VIAL ONE (22:08)
[2018-07-05] MEDS ORDERED: MEROPENEM 1 GM VIAL ONE (23:28)
[2018-07-05] MEDS ORDERED: SODIUM CHLORIDE 0.9% 1000ML 2,000 ML IV ONE (23:28)
[2018-07-05] MEDS ORDERED: SODIUM CHLORIDE 0.9% 50 ML IV ONE (23:29)
[2018-07-06] MEDS ORDERED: BACLOFEN 10 MG TABLET PO ONE (01:27)
[2018-07-06] MEDS ORDERED: CLONAZEPAM 0.5 MG TABLET ONE (01:28)
[2018-07-06] MEDS ORDERED: CLONAZEPAM 2 MG TABLET ONE (01:29)
[2018-07-06] MEDS ORDERED: KETOROLAC TROMETHAMINE 30MG/ML ONE (02:03)
[2018-07-06] MEDS ORDERED: ZOSYN 3.375GM+NS 50ML 50 ML IV ONE ×2 (03:39→11:33)
[2018-07-06] MEDS ORDERED: SODIUM CHLORIDE 0.9% 50 ML IV ONE (03:44)
[2018-07-06] MEDS ORDERED: SODIUM CHLORIDE 0.9% 1000ML 1,000 ML IV ONE (04:43)
[2018-07-06] MEDS ORDERED: LORAZEPAM 2 MG/ML 1 ML VIAL ONE (04:45)
[2018-07-06 05:09] LABS: ABG BASE EXCESS -5.2 mmol/L (-2.0-3.0); ABG HCO3 17.9 mmol/L (21.0-28.0); ABG OXYGEN SATURATION 95.7 % (95.0-99.0); ABG PCO2 29 mmHg (32-45)
[2018-07-06] MEDS ORDERED: VANCOMYCIN 1GM+NS 250ML 250 ML IV ONE (06:11)
[2018-07-06 06:31] LABS: BASOPHILS % (AUTO) 0.2 % (0.0-5.0); HEMATOCRIT 33.7 % (36-48); LYMPHOCYTES % (AUTO) 17.5 % (21.0-51.0); MEAN CORPUSCULAR HEMOGLOBIN 29.3 pg (27.0-33.0); MEAN CORPUSCULAR HGB CONC 32.3 g/dL (32.0-36.0); MEAN CORPUSCULAR VOLUME 90.8 fL (79-99); MONOCYTES % (AUTO) 8.6 % (3.0-13.0); NEUTROPHILS % (AUTO) 73.7 % (40.0-77.0); PLATELET COUNT (AUTO) 212 K/uL (130-400); RED BLOOD CELL COUNT(AUTO) 3.71 MIL/uL (4.00-5.50); RED CELL DISTRIBUTION WIDTH 17.6 % (11.0-15.5); WHITE BLOOD COUNT (AUTO) 7.5 K/uL (4.8-10.8)
[2018-07-06 06:47] LABS: CREATININE 0.7 mg/dL (0.5-1.5); POTASSIUM 3.9 mmol/L (3.5-5.1)
[2018-07-06 06:53] LABS: ALBUMIN 3.8 g/dL (3.5-5.0); BILIRUBIN,TOTAL 0.3 mg/dL (0.2-1.0); MAGNESIUM 2.1 mg/dL (1.80-2.40); PHOSPHORUS 4.2 mg/dL (2.5-4.9); TOTAL PROTEIN, SERUM 8.4 g/dL (6.0-8.3)
[2018-07-06] MEDS ORDERED: ACETAMINOPHEN 650 MG SUPPOSITORY RC ONE (06:58)
[2018-07-06] MEDS ORDERED: OSELTAMIVIR PHOSPHATE 75 MG CAP ONE (07:21)
[2018-07-06] MEDS ORDERED: ACETAMINOPHEN ELIXIR 650 MG/20.3 ML UDCUP ONE (11:33)
[2018-07-06 14:00] VITALS: BP 169/102
[2018-07-06 14:31] VITALS: BP 157/103
[2018-07-06 15:13] VITALS: BP 102/42
[2018-07-06] MEDS ORDERED: BACLOFEN 10 MG TABLET PO SCH (15:45)
[2018-07-06] MEDS ORDERED: VALPROATE SOD 250 MG/5 ML (PO) PEG SCH (15:45)
[2018-07-06] MEDS ORDERED: BISACODYL 10 MG SUPP.RECT RC PRN (15:45)
[2018-07-06 16:00] VITALS: BP 118/85
[2018-07-06] MEDS ORDERED: ALBUTEROL SULFATE 0.083% 2.5 MG/3 ML INH IH SCH (16:25)
[2018-07-06] MEDS ORDERED: PHEN20EL7 PO (16:58)
[2018-07-06] MEDS ORDERED: METH5SOL3 PO (16:58)
[2018-07-06] MEDS ORDERED: QUET50TA PO (16:58)
[2018-07-06] MEDS ORDERED: LEVE500L PO (16:58)
[2018-07-06] MEDS ORDERED: DSSL PO (16:58)
[2018-07-06] MEDS: SODIUM CHLORIDE 0.9% 1000ML 1,000 ML IV SCH (17:59)
[2018-07-06] MEDS ORDERED: CLONAZEPAM 1 MG TABLET PEG SCH (18:00)
[2018-07-06] MEDS: IPRATROPIUM/ALBUTEROL SULFATE 3 ML SOLUTION IH SCH (18:42)
[2018-07-06 20:00] VITALS: BP 162/92
[2018-07-06] MEDS ORDERED: ASCORBIC ACID 500 MG TAB PEG SCH (21:00)
[2018-07-06] MEDS ORDERED: HYPROMELLOSE OP SCH (21:00)
[2018-07-06] MEDS ORDERED: DEXTRAN OP SCH (21:00)
[2018-07-06] MEDS: DOCUSATE NA 100MG/10ML UDCUP PO SCH (21:00)
[2018-07-06] MEDS ORDERED: ARTIFICAL TEARS SOL 15 ML OP SCH (21:00)
[2018-07-06] MEDS ORDERED: PROPRANOLOL HCL 20 MG TAB PEG SCH (21:00)
[2018-07-06] MEDS ORDERED: TEMAZEPAM 15 MG CAPSULE GT SCH (21:00)
[2018-07-06] MEDS: ACETAMINOPHEN ELIXIR 650 MG/20.3 ML UDCUP PEG SCH (21:02)
[2018-07-06] MEDS: LEVETIRACETAM 100 MG/ML 5 ML UDCUP PO SCH (21:02)
[2018-07-06] MEDS: BACLOFEN 10 MG TABLET PO SCH (21:03)
[2018-07-06] MEDS: FAMOTIDINE 20MG TAB 20 MG TAB PO SCH (21:04)
[2018-07-06] MEDS: QUETIAPINE FUMARATE 25 MG TAB PO SCH (21:04)
[2018-07-06] MEDS: METHADONE HCL 10 MG TABLET PO SCH (21:04)
[2018-07-06] MEDS: ENOXAPARIN SODIUM 40 MG/0.4 ML SYRINGE SQ SCH (21:07)
[2018-07-07] VITALS (7 sets, daily range): BP systolic 92–161; BP diastolic 49–99
[2018-07-07] MEDS: IPRATROPIUM/ALBUTEROL SULFATE 3 ML SOLUTION IH SCH ×4 (00:02→19:37)
[2018-07-07] MEDS: PHENOBARBITAL 20 MG/5 ML PO SCH ×4 (00:38→20:32)
[2018-07-07] MEDS: ACETAMINOPHEN ELIXIR 650 MG/20.3 ML UDCUP PEG SCH ×2 (00:39→09:58)
[2018-07-07 04:05] LABS: HEMATOCRIT 35.2 % (36-48); MEAN CORPUSCULAR HEMOGLOBIN 29.3 pg (27.0-33.0); MEAN CORPUSCULAR HGB CONC 32.3 g/dL (32.0-36.0); MEAN CORPUSCULAR VOLUME 90.6 fL (79-99); PLATELET COUNT (AUTO) 146 K/uL (130-400); RED BLOOD CELL COUNT(AUTO) 3.89 MIL/uL (4.00-5.50); RED CELL DISTRIBUTION WIDTH 17.7 % (11.0-15.5); WHITE BLOOD COUNT (AUTO) 9.8 K/uL (4.8-10.8)
[2018-07-07 04:20] LABS: CREATININE 0.7 mg/dL (0.5-1.5); MAGNESIUM 2.4 mg/dL (1.80-2.40); PHOSPHORUS 2.8 mg/dL (2.5-4.9); POTASSIUM 3.1 mmol/L (3.5-5.1)
[2018-07-07] MEDS ORDERED: LIDOCAINE HCL-MPF 1% 2ML VIAL IVP PRN (06:15)
[2018-07-07] MEDS ORDERED: POTASSIUM CHLORIDE 20MEQ/100ML 100 ML IV PRN (06:15)
[2018-07-07] MEDS: SODIUM CHLORIDE 0.9% 1000ML 1,000 ML IV SCH (07:20)
[2018-07-07] MEDS ORDERED: POLYETHYLENE GLYCOL 3350 17 GM POWD.PACK PEG SCH (09:00)
[2018-07-07] MEDS ORDERED: ZINC SULFATE 220 CAPSULE PEG SCH (09:00)
[2018-07-07] MEDS ORDERED: MULTIVITAMIN TABLET PEG SCH (09:00)
[2018-07-07] MEDS: ENOXAPARIN SODIUM 40 MG/0.4 ML SYRINGE SQ SCH (09:00)
[2018-07-07] MEDS ORDERED: PERAMPANEL 12 MG PEG SCH (09:00)
[2018-07-07] MEDS: METHADONE HCL 10 MG TABLET PO SCH ×3 (09:57→20:21)
[2018-07-07] MEDS: LEVETIRACETAM 100 MG/ML 5 ML UDCUP PO SCH ×2 (09:57→20:22)
[2018-07-07] MEDS: FAMOTIDINE 20MG TAB 20 MG TAB PO SCH ×2 (09:57→20:21)
[2018-07-07] MEDS: BACLOFEN 10 MG TABLET PO SCH ×3 (09:57→20:22)
[2018-07-07] MEDS: DOCUSATE NA 100MG/10ML UDCUP PO SCH ×2 (09:57→20:23)
[2018-07-07] MEDS: DEXTROSE 5 %-0.45 % NACL 1,000 ML IV SCH (12:12)
[2018-07-07] MEDS ORDERED: SODIUM CHLORIDE 0.9% 1000ML 1,000 ML IV SCH (12:45)
[2018-07-07] MEDS ORDERED: ACETAMINOPHEN ELIXIR 650 MG/20.3 ML UDCUP GT PRN ×2 (13:00)
[2018-07-07] MEDS ORDERED: ACETAMINOPHEN 650 MG SUPPOSITORY RC PRN (13:00)
[2018-07-07] MEDS: ZOSYN 3.375GM+NS 50ML 50 ML IV SCH ×3 (13:00→20:37)
[2018-07-07] MEDS ORDERED: COMPOUND IV REFRIGERATED 1 EACH IVSOLN MISC PRN (13:00)
[2018-07-07] MEDS: OSELTAMIVIR PHOSPHATE 75 MG CAP PO SCH ×2 (13:14→20:22)
[2018-07-07] MEDS: POTASSIUM CHLORIDE 10% ELIXIR 20 MEQ/15 ML UDCUP PO PRN ×3 (13:15→21:33)
[2018-07-07] MEDS: FLUCONAZOLE 200 MG/NS 100 ML 100 ML IV SCH (13:16)
[2018-07-07] MEDS: VANCOMYCIN 750MG + NS 250 ML IV SCH ×2 (13:16)
[2018-07-07] MEDS: QUETIAPINE FUMARATE 25 MG TAB PO SCH (20:21)
[2018-07-08] MEDS: IPRATROPIUM/ALBUTEROL SULFATE 3 ML SOLUTION IH SCH ×4 (00:28→19:22)
[2018-07-08] MEDS: POTASSIUM CHLORIDE 10% ELIXIR 20 MEQ/15 ML UDCUP PO PRN ×3 (00:44→20:49)
[2018-07-08] MEDS: DEXTROSE 5 %-0.45 % NACL 1,000 ML IV SCH ×3 (01:01→15:18)
[2018-07-08] MEDS: VANCOMYCIN 750MG + NS 250 ML IV SCH ×4 (01:01→13:53)
[2018-07-08 04:00] VITALS: BP 135/84
[2018-07-08] MEDS: ZOSYN 3.375GM+NS 50ML 50 ML IV SCH (04:44)
[2018-07-08 08:19] LABS: CREATININE 0.8 mg/dL (0.5-1.5); POTASSIUM 3.8 mmol/L (3.5-5.1)
[2018-07-08 08:21] LABS: BASOPHILS % (AUTO) 0.7 % (0.0-5.0); EOSINOPHILS % (AUTO) 0.1 % (0.0-8.0); HEMATOCRIT 33.3 % (36-48); LYMPHOCYTES % (AUTO) 21.3 % (21.0-51.0); MEAN CORPUSCULAR HEMOGLOBIN 29.4 pg (27.0-33.0); MEAN CORPUSCULAR HGB CONC 32.4 g/dL (32.0-36.0); MEAN CORPUSCULAR VOLUME 90.6 fL (79-99); MONOCYTES % (AUTO) 10.6 % (3.0-13.0); NEUTROPHILS % (AUTO) 67.3 % (40.0-77.0); NUCLEATED RED BLOOD CELLS 0.1 % (0.0-0.19); PLATELET COUNT (AUTO) 144 K/uL (130-400); RED BLOOD CELL COUNT(AUTO) 3.68 MIL/uL (4.00-5.50); RED CELL DISTRIBUTION WIDTH 17.5 % (11.0-15.5); WHITE BLOOD COUNT (AUTO) 9.7 K/uL (4.8-10.8)
[2018-07-08] MEDS: ACETAMINOPHEN ELIXIR 650 MG/20.3 ML UDCUP PEG SCH (08:40)
[2018-07-08] MEDS: LEVETIRACETAM 100 MG/ML 5 ML UDCUP PO SCH ×2 (08:40→20:37)
[2018-07-08] MEDS: DOCUSATE NA 100MG/10ML UDCUP PO SCH ×2 (08:40→20:38)
[2018-07-08] MEDS: OSELTAMIVIR PHOSPHATE 75 MG CAP PO SCH ×2 (08:40→20:39)
[2018-07-08] MEDS: FAMOTIDINE 20MG TAB 20 MG TAB PO SCH ×2 (08:40→20:38)
[2018-07-08] MEDS: BACLOFEN 10 MG TABLET PO SCH ×3 (08:40→20:39)
[2018-07-08] MEDS: MEROPENEM 1 GM VIAL IVP SCH ×2 (08:41→15:18)
[2018-07-08] MEDS: ENOXAPARIN SODIUM 40 MG/0.4 ML SYRINGE SQ SCH (08:42)
[2018-07-08] MEDS: PHENOBARBITAL 20 MG/5 ML PO SCH ×3 (08:49→20:37)
[2018-07-08] MEDS: METHADONE HCL 10 MG TABLET PO SCH ×3 (08:49→20:39)
[2018-07-08] MEDS ORDERED: LORAZEPAM 2 MG/ML 1 ML VIAL IVP ONE (09:00)
[2018-07-08 09:15] VITALS: BP 128/86
[2018-07-08] MEDS: FLUCONAZOLE 200 MG/NS 100 ML 100 ML IV SCH (11:23)
[2018-07-08 16:00] VITALS: BP 122/68
[2018-07-08 19:35] VITALS: BP 122/70
[2018-07-08] MEDS: QUETIAPINE FUMARATE 25 MG TAB PO SCH (20:38)
[2018-07-08 23:54] VITALS: BP 120/62
[2018-07-09] MEDS: IPRATROPIUM/ALBUTEROL SULFATE 3 ML SOLUTION IH SCH ×3 (00:18→11:21)
[2018-07-09] MEDS: MEROPENEM 1 GM VIAL IVP SCH ×3 (00:25→16:01)
[2018-07-09] MEDS: VANCOMYCIN 750MG + NS 250 ML IV SCH ×2 (01:30)
[2018-07-09] MEDS: DEXTROSE 5 %-0.45 % NACL 1,000 ML IV SCH ×2 (03:15→10:17)
[2018-07-09 03:41] VITALS: BP 190/72
[2018-07-09 04:31] LABS: CREATININE 0.5 mg/dL (0.5-1.5); POTASSIUM 3.8 mmol/L (3.5-5.1)
[2018-07-09] MEDS: POTASSIUM CHLORIDE 10% ELIXIR 20 MEQ/15 ML UDCUP PO PRN (05:24)
[2018-07-09 07:02] LABS: BASOPHILS % (AUTO) 0.2 % (0.0-5.0); EOSINOPHILS % (AUTO) 0.1 % (0.0-8.0); HEMATOCRIT 27.8 % (36-48); LYMPHOCYTES % (AUTO) 28.3 % (21.0-51.0); MEAN CORPUSCULAR HEMOGLOBIN 28.7 pg (27.0-33.0); MEAN CORPUSCULAR HGB CONC 31.6 g/dL (32.0-36.0); MEAN CORPUSCULAR VOLUME 90.9 fL (79-99); MONOCYTES % (AUTO) 7.2 % (3.0-13.0); NEUTROPHILS % (AUTO) 64.2 % (40.0-77.0); PLATELET COUNT (AUTO) 102 K/uL (130-400); RED BLOOD CELL COUNT(AUTO) 3.06 MIL/uL (4.00-5.50); RED CELL DISTRIBUTION WIDTH 17.5 % (11.0-15.5); WHITE BLOOD COUNT (AUTO) 10.3 K/uL (4.8-10.8)
[2018-07-09 07:31] VITALS: BP 168/73
[2018-07-09] MEDS: PHENOBARBITAL 20 MG/5 ML PO SCH ×3 (09:00→22:16)
[2018-07-09] MEDS: METHADONE HCL 10 MG TABLET PO SCH ×3 (09:00→23:04)
[2018-07-09] MEDS: OSELTAMIVIR PHOSPHATE 75 MG CAP PO SCH ×2 (10:16→22:17)
[2018-07-09] MEDS: DOCUSATE NA 100MG/10ML UDCUP PO SCH ×2 (10:16→22:13)
[2018-07-09] MEDS: LEVETIRACETAM 100 MG/ML 5 ML UDCUP PO SCH ×2 (10:16→22:15)
[2018-07-09] MEDS: ENOXAPARIN SODIUM 40 MG/0.4 ML SYRINGE SQ SCH (10:17)
[2018-07-09] MEDS: FAMOTIDINE 20MG TAB 20 MG TAB PO SCH ×2 (10:17→22:16)
[2018-07-09] MEDS: BACLOFEN 10 MG TABLET PO SCH ×3 (10:17→22:15)
[2018-07-09] MEDS: FLUCONAZOLE 200 MG/NS 100 ML 100 ML IV SCH (12:14)
[2018-07-09] MEDS: VANCOMYCIN 1GM+NS 250ML 250 ML IV SCH (13:09)
[2018-07-09] MEDS: PROPRANOLOL HCL 10 MG TAB PO SCH ×2 (16:01→23:03)
[2018-07-09 16:05] VITALS: BP 101/49
[2018-07-09] MEDS: IPRATROPIUM 0.5 MG/2.5 ML INH IH SCH ×2 (18:28→23:27)
[2018-07-09 20:20] VITALS: BP 123/57
[2018-07-09] MEDS: ACETAMINOPHEN ELIXIR 650 MG/20.3 ML UDCUP PEG SCH (22:15)
[2018-07-09] MEDS: QUETIAPINE FUMARATE 25 MG TAB PO SCH (22:17)
[2018-07-09] MEDS: CLONAZEPAM 2 MG TABLET PO SCH (23:04)
[2018-07-09 23:47] VITALS: BP 140/69
[2018-07-10] MEDS: MEROPENEM 1 GM VIAL IVP SCH ×3 (01:02→16:31)
[2018-07-10] MEDS: VANCOMYCIN 1GM+NS 250ML 250 ML IV SCH ×2 (01:10→12:33)
[2018-07-10 03:46] LABS: HEMATOCRIT 26.2 % (36-48); MEAN CORPUSCULAR HEMOGLOBIN 29.3 pg (27.0-33.0); MEAN CORPUSCULAR HGB CONC 32.4 g/dL (32.0-36.0); MEAN CORPUSCULAR VOLUME 90.6 fL (79-99); PLATELET COUNT (AUTO) 116 K/uL (130-400); RED BLOOD CELL COUNT(AUTO) 2.89 MIL/uL (4.00-5.50); RED CELL DISTRIBUTION WIDTH 17.1 % (11.0-15.5); WHITE BLOOD COUNT (AUTO) 6.9 K/uL (4.8-10.8)
[2018-07-10 03:56] LABS: INR 0.95 (0.85-1.15); PARTIAL THROMBOPLASTIN TIME 31.7 SEC (26.3-35.5)
[2018-07-10 04:08] LABS: ALBUMIN 2.5 g/dL (3.5-5.0); BILIRUBIN,TOTAL 0.3 mg/dL (0.2-1.0); CREATININE 0.4 mg/dL (0.5-1.5); MAGNESIUM 2.4 mg/dL (1.80-2.40); PHOSPHORUS 2.8 mg/dL (2.5-4.9); POTASSIUM 3.4 mmol/L (3.5-5.1); THYROID STIMULATING HORMONE 2.91 uIU/mL (0.36-3.74); TOTAL PROTEIN, SERUM 6.1 g/dL (6.0-8.3)
[2018-07-10 04:31] LABS: ABG BASE EXCESS 0.7 mmol/L (-2.0-3.0); ABG HCO3 26.6 mmol/L (21.0-28.0); ABG OXYGEN SATURATION 97.8 % (95.0-99.0); ABG PCO2 47 mmHg (32-45)
[2018-07-10 04:37] VITALS: BP 117/76
[2018-07-10] MEDS: METHADONE HCL 10 MG TABLET PO SCH ×3 (06:00→22:19)
[2018-07-10] MEDS: CLONAZEPAM 2 MG TABLET PO SCH ×3 (06:00→22:19)
[2018-07-10] MEDS: DEXTROSE 5 %-0.45 % NACL 1,000 ML IV SCH (06:10)
[2018-07-10] MEDS: PROPRANOLOL HCL 10 MG TAB PO SCH ×3 (06:14→22:19)
[2018-07-10] MEDS: IPRATROPIUM 0.5 MG/2.5 ML INH IH SCH ×4 (06:33→23:12)
[2018-07-10 07:44] VITALS: BP 143/82
[2018-07-10 09:33] LABS: BASOPHILS % (AUTO) 0.4 % (0.0-5.0); EOSINOPHILS % (AUTO) 1.9 % (0.0-8.0); HEMATOCRIT 25.6 % (36-48); LYMPHOCYTES % (AUTO) 36.1 % (21.0-51.0); MEAN CORPUSCULAR HEMOGLOBIN 29.6 pg (27.0-33.0); MEAN CORPUSCULAR HGB CONC 32.9 g/dL (32.0-36.0); MONOCYTES % (AUTO) 6.3 % (3.0-13.0); NEUTROPHILS % (AUTO) 55.3 % (40.0-77.0); PLATELET COUNT (AUTO) 106 K/uL (130-400); RED BLOOD CELL COUNT(AUTO) 2.85 MIL/uL (4.00-5.50); RED CELL DISTRIBUTION WIDTH 17.2 % (11.0-15.5); WHITE BLOOD COUNT (AUTO) 6.4 K/uL (4.8-10.8)
[2018-07-10] MEDS: FAMOTIDINE 20MG TAB 20 MG TAB PO SCH ×2 (09:40→20:50)
[2018-07-10] MEDS: LEVETIRACETAM 100 MG/ML 5 ML UDCUP PO SCH ×2 (09:41→20:49)
[2018-07-10] MEDS: OSELTAMIVIR PHOSPHATE 75 MG CAP PO SCH ×2 (09:41→20:50)
[2018-07-10] MEDS: ENOXAPARIN SODIUM 40 MG/0.4 ML SYRINGE SQ SCH (09:41)
[2018-07-10] MEDS: DOCUSATE NA 100MG/10ML UDCUP PO SCH ×2 (09:41→20:49)
[2018-07-10] MEDS: PHENOBARBITAL 20 MG/5 ML PO SCH ×3 (09:41→20:48)
[2018-07-10] MEDS: BACLOFEN 10 MG TABLET PO SCH ×3 (09:41→20:50)
[2018-07-10 11:22] VITALS: BP 124/71
[2018-07-10] MEDS: FLUCONAZOLE 200 MG/NS 100 ML 100 ML IV SCH (12:33)
[2018-07-10] MEDS: POTASSIUM CHLORIDE IV SCH (14:32)
[2018-07-10] MEDS: WATER IV SCH (14:32)
[2018-07-10] MEDS: DEXTROSE 5% IV SCH (14:32)
[2018-07-10 16:06] VITALS: BP 137/77
[2018-07-10 20:19] VITALS: BP 114/66
[2018-07-10] MEDS: QUETIAPINE FUMARATE 25 MG TAB PO SCH (20:47)
[2018-07-10 21:35] VITALS: BP 97/58
[2018-07-10] MEDS: POTASSIUM CHLORIDE 10% ELIXIR 20 MEQ/15 ML UDCUP PO PRN (22:18)
[2018-07-11] VITALS (7 sets, daily range): BP systolic 94–147; BP diastolic 45–87
[2018-07-11] MEDS: MEROPENEM 1 GM VIAL IVP SCH ×3 (00:14→18:36)
[2018-07-11] MEDS: VANCOMYCIN 1GM+NS 250ML 250 ML IV SCH ×2 (01:41→13:36)
[2018-07-11] MEDS: POTASSIUM CHLORIDE IV SCH ×2 (01:46→13:35)
[2018-07-11] MEDS: DEXTROSE 5% IV SCH ×2 (01:46→13:35)
[2018-07-11] MEDS: WATER IV SCH ×2 (01:46→13:35)
[2018-07-11] MEDS: PROPRANOLOL HCL 10 MG TAB PO SCH ×3 (05:36→23:44)
[2018-07-11] MEDS: CLONAZEPAM 2 MG TABLET PO SCH ×3 (05:37→23:44)
[2018-07-11] MEDS: METHADONE HCL 10 MG TABLET PO SCH ×3 (05:37→23:44)
[2018-07-11 05:42] LABS: BASOPHILS % (AUTO) 0.2 % (0.0-5.0); EOSINOPHILS % (AUTO) 3.6 % (0.0-8.0); HEMATOCRIT 27.4 % (36-48); MEAN CORPUSCULAR HEMOGLOBIN 28.8 pg (27.0-33.0); MEAN CORPUSCULAR HGB CONC 32.1 g/dL (32.0-36.0); MONOCYTES % (AUTO) 5.3 % (3.0-13.0); NEUTROPHILS % (AUTO) 56.9 % (40.0-77.0); PLATELET COUNT (AUTO) 111 K/uL (130-400); RED BLOOD CELL COUNT(AUTO) 3.05 MIL/uL (4.00-5.50); RED CELL DISTRIBUTION WIDTH 16.5 % (11.0-15.5); WHITE BLOOD COUNT (AUTO) 6.4 K/uL (4.8-10.8)
[2018-07-11 05:54] LABS: CREATININE 0.4 mg/dL (0.5-1.5); MAGNESIUM 2.2 mg/dL (1.80-2.40); PHOSPHORUS 3.4 mg/dL (2.5-4.9); POTASSIUM 4.2 mmol/L (3.5-5.1)
[2018-07-11] MEDS: IPRATROPIUM 0.5 MG/2.5 ML INH IH SCH ×4 (06:43→23:27)
[2018-07-11] MEDS: PHENOBARBITAL 20 MG/5 ML PO SCH ×3 (09:36→23:42)
[2018-07-11] MEDS: FAMOTIDINE 20MG TAB 20 MG TAB PO SCH ×2 (09:36→23:43)
[2018-07-11] MEDS: DOCUSATE NA 100MG/10ML UDCUP PO SCH ×2 (09:37→23:45)
[2018-07-11] MEDS: LEVETIRACETAM 100 MG/ML 5 ML UDCUP PO SCH ×2 (09:37→23:42)
[2018-07-11] MEDS: BACLOFEN 10 MG TABLET PO SCH ×3 (09:37→23:42)
[2018-07-11] MEDS: OSELTAMIVIR PHOSPHATE 75 MG CAP PO SCH ×2 (09:37→23:43)
[2018-07-11] MEDS: ENOXAPARIN SODIUM 40 MG/0.4 ML SYRINGE SQ SCH (09:38)
[2018-07-11] MEDS: FLUCONAZOLE 200 MG/NS 100 ML 100 ML IV SCH (13:39)
[2018-07-11] MEDS ORDERED: COMPOUND IV REFRIGERATED 1 EACH IVSOLN MISC PRN (18:00)
[2018-07-11] MEDS: QUETIAPINE FUMARATE 25 MG TAB PO SCH (23:43)
[2018-07-12] MEDS: MEROPENEM 1 GM VIAL IVP SCH ×2 (01:56→10:35)
[2018-07-12] MEDS: VANCOMYCIN 750MG + NS 250 ML IV SCH ×6 (02:13→14:00)
[2018-07-12 03:30] VITALS: BP 114/64
[2018-07-12] MEDS: POTASSIUM CHLORIDE IV SCH (05:00)
[2018-07-12] MEDS: DEXTROSE 5% IV SCH (05:00)
[2018-07-12] MEDS: WATER IV SCH (05:00)
[2018-07-12] MEDS: PROPRANOLOL HCL 10 MG TAB PO SCH ×2 (05:57→15:37)
[2018-07-12] MEDS: METHADONE HCL 10 MG TABLET PO SCH ×2 (05:57→15:36)
[2018-07-12] MEDS: CLONAZEPAM 2 MG TABLET PO SCH ×2 (05:58→15:37)
[2018-07-12] MEDS: IPRATROPIUM 0.5 MG/2.5 ML INH IH SCH ×2 (06:40→11:06)
[2018-07-12 06:47] LABS: CREATININE 0.5 mg/dL (0.5-1.5); POTASSIUM 3.9 mmol/L (3.5-5.1)
[2018-07-12 07:12] LABS: BASOPHILS % (AUTO) 0.3 % (0.0-5.0); EOSINOPHILS % (AUTO) 2.3 % (0.0-8.0); HEMATOCRIT 28.4 % (36-48); LYMPHOCYTES % (AUTO) 40.6 % (21.0-51.0); MEAN CORPUSCULAR HEMOGLOBIN 29.3 pg (27.0-33.0); MEAN CORPUSCULAR VOLUME 88.8 fL (79-99); MONOCYTES % (AUTO) 6.2 % (3.0-13.0); NEUTROPHILS % (AUTO) 50.6 % (40.0-77.0); PLATELET COUNT (AUTO) 162 K/uL (130-400); RED CELL DISTRIBUTION WIDTH 16.2 % (11.0-15.5); WHITE BLOOD COUNT (AUTO) 4.6 K/uL (4.8-10.8)
[2018-07-12 08:14] VITALS: BP 147/67
[2018-07-12] MEDS: DOCUSATE NA 100MG/10ML UDCUP PO SCH (10:35)
[2018-07-12] MEDS: BACLOFEN 10 MG TABLET PO SCH ×2 (10:35→15:36)
[2018-07-12] MEDS: FAMOTIDINE 20MG TAB 20 MG TAB PO SCH (10:35)
[2018-07-12] MEDS: OSELTAMIVIR PHOSPHATE 75 MG CAP PO SCH (10:35)
[2018-07-12] MEDS: LEVETIRACETAM 100 MG/ML 5 ML UDCUP PO SCH (10:35)
[2018-07-12] MEDS: PHENOBARBITAL 20 MG/5 ML PO SCH ×2 (10:36→15:36)
[2018-07-12] MEDS: ENOXAPARIN SODIUM 40 MG/0.4 ML SYRINGE SQ SCH (10:39)
[2018-07-12] MEDS: FLUCONAZOLE 200 MG/NS 100 ML 100 ML IV SCH (13:12)
[2018-07-12] MEDS ORDERED: AMOXI2505L PO (13:23)
[2018-07-12] MEDS ORDERED: LEVO750T46 PO (13:23)
[2018-07-12 16:42] VITALS: BP 106/68
== END 2018-07-12 16:35 | disposition home health service (06) | DRG 139 ==
LOC: EDH 19:42 → EDHIP 19:43 → 2CH 07-06 13:38 → 2AH 07-06 20:04 → 3BH 07-10 21:28
PROVIDERS: ADMIT Family Medicine; ATTEND Family Medicine
DX: J18.9 Pneumonia, unspecified organism (principal); G93.1 Anoxic brain damage, not elsewhere classified; J96.11 Chronic respiratory failure with hypoxia; E46 Unspecified protein-calorie malnutrition; Z93.0 Tracheostomy status; E87.0 Hyperosmolality and hypernatremia; L89.90 Pressure ulcer of unspecified site, unspecified stage; E87.6 Hypokalemia; M62.462 Contracture of muscle, left lower leg; M62.461 Contracture of muscle, right lower leg; M62.422 Contracture of muscle, left upper arm; M62.421 Contracture of muscle, right upper arm; M86.9 Osteomyelitis, unspecified; B96.1 Klebsiella pneumoniae [K. pneumoniae] as the cause of diseases classified elsewhere; L98.499 Non-pressure chronic ulcer of skin of other sites with unspecified severity; R13.12 Dysphagia, oropharyngeal phase; F32.9 Major depressive disorder, single episode, unspecified; Y95 Nosocomial condition; Z16.24 Resistance to multiple antibiotics; G24.8 Other dystonia; E86.0 Dehydration; G40.909 Epilepsy, unspecified, not intractable, without status epilepticus; I10 Essential (primary) hypertension; Z74.01 Bed confinement status; Z93.1 Gastrostomy status; Z87.440 Personal history of urinary (tract) infections; Z88.8 Allergy status to other drugs, medicaments and biological substances; Z88.2 Allergy status to sulfonamides; Z68.1 Body mass index [BMI] 19.9 or less, adult
CPT/HCPCS: 36415; 36600; 71045; 80048; 80053; 80202; 81001; 82550; 82803; 83605; 83735; 83874; 84100; 84132; 84443; 84484; 85025; 85027; 85610; 85730; 87040; 87071; 87077; 87088; 87186; 87205; 87804; 93005; 93926; 94640; 94664; 99291; A4218; A6250; C1894; J1450; J1650; J1885; J2060; J2185; J2543; J3370; J3480; J7030; J7042; J7070

== ENCOUNTER 2019-07-21 00:06 | Inpatient (IN) | payer MEDICAID ==
[~2019-07-21] VITALS: Ht 160 cm; Wt 49.5 kg
[~2019-07-21 00:06] MED LIST changes: +AMOXI2505L PO; -ASCO250T5 PEG; -CARB15DR OP; -DEXT1DRO OP; +DSSL PO; +LEVE500L PO; +LEVO750T46 PO; +METH5SOL3 PO; -MULT-1192 PEG; -PERA12TA PEG; +PHEN20EL7 PO; -POLY17PO4 PEG; -PROP20TA7 PEG; +QUET50TA PO; -TEMA15CA; -VALP250S23 PEG; -ZINC220T PEG
[2019-07-21] MEDS ORDERED: IPRATROPIUM/ALBUTEROL SULFATE 3 ML SOLUTION IH ONE (00:11)
[2019-07-21 00:29] LABS: ABG BASE EXCESS 0.9 mmol/L (-2.0-3.0); ABG HCO3 26.3 mmol/L (21.0-28.0); ABG OXYGEN SATURATION 94.2 % (95.0-99.0); ABG PCO2 45 mmHg (32-45)
[2019-07-21] MEDS ORDERED: VANCOMYCIN 1GM+NS 250ML 250 ML IV ONE ×2 (00:51→00:57)
[2019-07-21] MEDS ORDERED: DiphenhydrAMINE HCL 50 MG/ML VIAL ONE (01:17)
[2019-07-21] MEDS ORDERED: FAMOTIDINE/PF 20 MG/2 ML VIAL IV ONE (01:18)
[2019-07-21 01:19] LABS: BASOPHILS % (AUTO) 0.5 % (0.0-5.0); EOSINOPHILS % (AUTO) 3.6 % (0.0-8.0); HEMATOCRIT 38.9 % (36-48); LYMPHOCYTES % (AUTO) 40.8 % (21.0-51.0); MEAN CORPUSCULAR HEMOGLOBIN 26.7 pg (27.0-33.0); MEAN CORPUSCULAR HGB CONC 32.3 g/dL (32.0-36.0); MEAN CORPUSCULAR VOLUME 82.6 fL (79-99); MONOCYTES % (AUTO) 6.6 % (3.0-13.0); NEUTROPHILS % (AUTO) 48.5 % (40.0-77.0); NUCLEATED RED BLOOD CELLS 0.1 % (0.0-0.19); PLATELET COUNT (AUTO) 121 K/uL (130-400); RED BLOOD CELL COUNT(AUTO) 4.71 MIL/uL (4.00-5.50); RED CELL DISTRIBUTION WIDTH 15.9 % (11.0-15.5); WHITE BLOOD COUNT (AUTO) 6.8 K/uL (4.8-10.8)
[2019-07-21 01:28] LABS: CREATININE 0.4 mg/dL (0.5-1.5); POTASSIUM 4.4 mmol/L (3.5-5.1)
[2019-07-21 01:34] LABS: ALBUMIN 3.5 g/dL (3.5-5.0); BILIRUBIN,TOTAL 0.2 mg/dL (0.2-1.0); TOTAL PROTEIN, SERUM 8.5 g/dL (6.0-8.3)
[2019-07-21 01:46] LABS: BILIRUBIN,URINE Negative (NEGATIVE); COLOR,URINE Yellow (YELLOW); GLUCOSE, URINE (UA) Negative (NEGATIVE); KETONES,URINE Negative (NEGATIVE); LEUKOCYTE ESTERASE ,URINE Negative (NEGATIVE); NITRATE,URINE Negative (NEGATIVE); OCCULT BLOOD,URINE Negative (NEGATIVE); PROTEIN,URINE Negative (NEGATIVE); UROBILINOGEN,URINE 0.2 mg/dL (0.2-1.0)
[2019-07-21 01:49] LABS: APPEARANCE,URINE CLOUDY (CLEAR)
[2019-07-21] MEDS ORDERED: ACETAMINOPHEN ELIXIR 650 MG/20.3 ML UDCUP ONE (01:50)
[2019-07-21 01:58] LABS: AMORPHOUS SEDIMENT,UR Many /LPF (None Seen); BACTERIA,URINE Moderate /HPF (None Seen); RBC,URINE 0-1 /HPF (0-1); WBC,URINE 0-1 /HPF (0-1)
[2019-07-21 02:28] LABS: INR 0.98 (0.85-1.15); PARTIAL THROMBOPLASTIN TIME 26.5 SEC (26.3-35.5); PROTHROMBIN TIME 10.3 SEC (9.6-11.6)
[2019-07-21] MEDS ORDERED: LEVOFLOXACIN 500 MG/D5W 100 ML 100 ML ONE (03:07)
[2019-07-21] MEDS ORDERED: SODIUM CHLORIDE 0.9% 250 ML IV ONE (03:08)
[2019-07-21] MEDS ORDERED: LEVOFLOXACIN 500 MG/D5W 100 ML 100 ML IV SCH (03:15)
[2019-07-21] MEDS ORDERED: ONDANSETRON HCL 4 MG/2 ML VIAL IV PRN (03:15)
[2019-07-21 04:21] VITALS: BP 137/90
[2019-07-21] MEDS ORDERED: IPRATROPIUM/ALBUTEROL SULFATE 3 ML SOLUTION IH PRN (05:15)
[2019-07-21] MEDS ORDERED: KETOROLAC TROMETHAMINE 15MG/ML IM PRN (05:30)
[2019-07-21] MEDS ORDERED: KETOROLAC TROMETHAMINE 15MG/ML ONE (06:03)
[2019-07-21] MEDS: CLINDAMYCIN 600 MG/D5% WATER 50 ML IV SCH ×2 (06:08→11:07)
[2019-07-21 06:18] LABS: ALBUMIN 3.6 g/dL (3.5-5.0); BILIRUBIN,TOTAL 0.2 mg/dL (0.2-1.0); CREATININE 0.4 mg/dL (0.5-1.5); POTASSIUM 4.5 mmol/L (3.5-5.1); TOTAL PROTEIN, SERUM 8.1 g/dL (6.0-8.3)
[2019-07-21] MEDS ORDERED: BACL20TA PO (06:33)
[2019-07-21] MEDS ORDERED: FENT-77 TD (06:33)
[2019-07-21] MEDS ORDERED: DULO30CA2 GT (06:33)
[2019-07-21] MEDS ORDERED: CLON2TAB11 GT (06:33)
[2019-07-21] MEDS ORDERED: QUET50TA GT (06:33)
[2019-07-21] MEDS ORDERED: GABA-531 GT (06:33)
--- NOTE | 2019-07-21 07:30 | NUR ---
BEDSIDE REPORT RECEIVED FROM JAVIER AT CHANGE OF SHIFT. FAMILY AT SIDE (MOTHER) VERBALIZED DISCOMFORT WITH HOSPITAL STAFF, STATED SHE WANTS TO SEE THE DR DENNIS OR IF NOT SHE IS LEAVING AMA. I DEESCALATED THE SITUATION AND REASSURED WE ARE WERE GOING TO TAKE GOOD CARE OF HER DAUGHTER AND I WILL INFORM THE DR OF HER REQUEST BUT I COULDN'T GUARANTY A FAST RESPONSE FROM THE DR.
[2019-07-21 08:01] VITALS: BP 99/74
[2019-07-21] MEDS ORDERED: FAMOTIDINE/PF 20 MG/2 ML VIAL IV SCH (09:00)
[2019-07-21] MEDS ORDERED: ENOXAPARIN SODIUM 30 MG/0.3 ML SQ SCH (09:00)
--- NOTE | 2019-07-21 09:00 | NUR ---
MOTHER AT [facility] REFUSED LOVENOX AND PEPCID BECAUSE THOSE MEDICATIONS ARE NOT PART OF HER REGULAR MEDICATIONS. EDUCATED HER ON WHY DR ORDER THOSE PROPHYLACTIC BUT SHE STILL REFUSED. REFUSED TO SIGN REFUSAL FORM TOO.
--- NOTE | 2019-07-21 09:30 | NUR ---
VITAL AF 480 ML BOLUS GIVEN VIA PEG TUBE. FLUSHED PEG TUBE WITH 30 ML STERILE WATER. PATIENT TOLERATED WELL.
--- NOTE | 2019-07-21 11:15 | NUR ---
ANTIBIOTIC CLINDAMYCIN GIVEN PER EMAR. PATIENT SEEMS RESTLESS. FAMILY AT BEDSIDE COMPLAIN ABOUT STAFF VISITING THE ROOM VERY OFTEN. HOWEVER, JOCELIN DAVID HAS BEEN CHECKING ON THE PATIENT ON EVEN HOURS AND I BEEN CHECKING ON ODD HOURS OR EVEN OFTEN THAN THAT. MOTHER STATES "YOU ARE NOT DOING YOUR JOB, I HAVE BEEN HERE SINCE LAST NIGH DOING YOUR JOB, SHE CANNOT BE BY HERSELF EVEN 1 MINUTE" I REASSURED PATIENT'S MOTHER THAT WE ARE DOING EVERYTHING TO CHECK ON HER AND MAKE SURE SHE IS SAFE. BEDRAILS UP X4. NO IV TUBING CLOSE BY THAT SHE CAN PULL ON AND BED AT LOWEST POSITION.
--- NOTE | 2019-07-21 11:30 | NUR ---
SOUZA CATHETER REMOVED PER [place] [facility]. 10 CC REMOVED FROM [facility] B[facility]OON. PATIENT PENDING TO VOID.
[2019-07-21 12:00] VITALS: BP 125/88
[2019-07-21] MEDS ORDERED: CEFD300C3 PO (12:39)
--- NOTE | 2019-07-21 13:00 | NUR ---
PATIENT'S MOTHER STATED SHE CALLED APS AND TOOK PICTURES BECAUSE WE ARE NOT TAKING GOOD CARE OF HER DAUGHTER. EVEN WHEN WE HAVE BEEN ROUNDING REGULARLY, ALMOST EVERY 15 MINUTES. PATIENT SEEMS RESTLESS BUT SHE IS NOT IN DANGER OF FALLING OR HURTING HERSELF IN ANY WAY. MOTHER STATES SHE WANTS SOMEONE TO STAY WITH HER DAUGHTER AND BE RIGHT NEXT TO HER TALKING TO HER, SO SHE CAN GO HOME AND REST BECAUSE SHE IS VERY TIRED.
--- NOTE | 2019-07-21 14:40 | NUR ---
EMS HERE TO TRANSFER PATIENT. NO DISTRESS NOTED UPON DISCHARGE. IV DISCONTINUED, CATHETER INTACT. PATIENT VOIDED, ADULT BRIEF CHANGED. PATIENT LEFT VIA STRETCHER, FAMILY AT SIDE, NO CONCERNS VOICED. DISCHARGE INSTRUCTIONS AND EDUCATION GIVEN TO PATIENTS MOTHER. VERBALIZED UNDERSTANDING OF ALL EDUCATION GIVEN ON FOLLOW UP APPOINTMENTS AND NEW PRESCRIBED MEDICATIONS. SHE ALSO VERBALIZED UNDERSTANDING OF STOPPING FENTANYL PATCH FOR NOW, TO PREVENT ANOTHER CASE OF RESPIRATORY DISTRESS.
== END 2019-07-21 14:40 | disposition home or self-care (01) | DRG 139 ==
LOC: EDH 00:06 → EDHIP 00:07 → 3DH 03:58
PROVIDERS: ADMIT Internal Medicine; ATTEND Internal Medicine
DX: J18.9 Pneumonia, unspecified organism (principal); G93.1 Anoxic brain damage, not elsewhere classified; J96.10 Chronic respiratory failure, unspecified whether with hypoxia or hypercapnia; Z93.0 Tracheostomy status; G40.909 Epilepsy, unspecified, not intractable, without status epilepticus; I10 Essential (primary) hypertension; Y95 Nosocomial condition; Z82.49 Family history of ischemic heart disease and other diseases of the circulatory system; Z88.8 Allergy status to other drugs, medicaments and biological substances; Z93.1 Gastrostomy status; Z91.5 Personal history of self-harm; Z87.820 Personal history of traumatic brain injury; Z87.01 Personal history of pneumonia (recurrent); Z83.3 Family history of diabetes mellitus
CPT/HCPCS: 36415; 36600; 71045; 80053; 81001; 82550; 82803; 83605; 84484; 85025; 85610; 85730; 87040; 87077; 87088; 87186; 87804; 93005; 94640; 94664; 99291; G0378; J1200; J1885; J1956; J3370; J3490; J7030

== ENCOUNTER 2019-11-02 12:38 | Observation (INO) | payer MEDICAID ==
[~2019-11-02] VITALS: Ht 160 cm; Wt 52.2 kg
[~2019-11-02 12:38] MED LIST changes: -ACET650S28 PEG; -ALBU0.63 IH; -AMOXI2505L PO; -BISA10S PR; -CLON1TAB23 PEG; +CLON2TAB11 PEG; -DSSL PO; +DULO30CA2 GT; +GABA-531 GT; +LEVE500L PEG; -LEVE500L PO; -LEVO750T46 PO; -METH5SOL3 PO; +QUET50TA55 PEG; +THIA100T91 PEG; +ZINC50TA71 PEG
[2019-11-02 13:21] LABS: BASOPHILS % (AUTO) 0.5 % (0.0-5.0); EOSINOPHILS % (AUTO) 1.2 % (0.0-8.0); HEMATOCRIT 41.3 % (36-48); LYMPHOCYTES % (AUTO) 39.9 % (21.0-51.0); MEAN CORPUSCULAR HEMOGLOBIN 26.4 pg (27.0-33.0); MEAN CORPUSCULAR HGB CONC 32.4 g/dL (32.0-36.0); MEAN CORPUSCULAR VOLUME 81.3 fL (79-99); MONOCYTES % (AUTO) 6.4 % (3.0-13.0); NEUTROPHILS % (AUTO) 51.8 % (40.0-77.0); PLATELET COUNT (AUTO) 228 K/uL (130-400); RED BLOOD CELL COUNT(AUTO) 5.08 MIL/uL (4.00-5.50); RED CELL DISTRIBUTION WIDTH 17.2 % (11.0-15.5); WHITE BLOOD COUNT (AUTO) 4.2 K/uL (4.8-10.8)
[2019-11-02 13:44] LABS: INR 0.98 (0.85-1.15); PARTIAL THROMBOPLASTIN TIME 27.2 SEC (26.3-35.5); PROTHROMBIN TIME 10.3 SEC (9.6-11.6)
[2019-11-02 13:49] LABS: APPEARANCE,URINE Clear (CLEAR); BILIRUBIN,URINE Negative (NEGATIVE); COLOR,URINE Yellow (YELLOW); GLUCOSE, URINE (UA) Negative (NEGATIVE); KETONES,URINE Negative (NEGATIVE); LEUKOCYTE ESTERASE ,URINE Large (NEGATIVE); NITRATE,URINE Positive (NEGATIVE); OCCULT BLOOD,URINE Trace (NEGATIVE); PROTEIN,URINE POS 1+ mg/dL (NEGATIVE); UROBILINOGEN,URINE 0.2 mg/dL (0.2-1.0)
[2019-11-02 14:06] LABS: CREATININE 0.5 mg/dL (0.5-1.5); POTASSIUM 3.7 mmol/L (3.5-5.1)
[2019-11-02 14:12] LABS: ALBUMIN 3.8 g/dL (3.5-5.0); BILIRUBIN,TOTAL 0.1 mg/dL (0.2-1.0); TOTAL PROTEIN, SERUM 8.3 g/dL (6.0-8.3)
[2019-11-02 14:19] LABS: B-TYPE NATRIURETIC PEPTIDE 11 pg/mL (0-100)
[2019-11-02 14:42] LABS: RBC,URINE 0-1 /HPF (0-1)
[2019-11-02 14:43] LABS: BACTERIA,URINE Many /HPF (None Seen); SQUAMOUS EPITHELIAL CELL,UR Rare /HPF (0-2)
[2019-11-02] MEDS ORDERED: ONDANSETRON HCL 4 MG/2 ML VIAL IVP PRN (17:00)
[2019-11-02] MEDS ORDERED: SODIUM CHLORIDE 0.9% 10 ML VIAL IVP SCH (17:00)
[2019-11-02] MEDS ORDERED: ACETAMINOPHEN 325 MG TAB PO PRN ×2 (17:00)
[2019-11-02] MEDS ORDERED: AZITHROMYCIN 500MG+NS 250ML 250 ML IV ONE (17:07)
[2019-11-02] MEDS ORDERED: IPRATROPIUM/ALBUTEROL SULFATE 3 ML SOLUTION IH SCH (18:00)
[2019-11-02] MEDS: AZITHROMYCIN 500MG+NS 250ML 250 ML IV SCH (19:15)
[2019-11-02] MEDS: SODIUM CHLORIDE 0.9% 1000ML 1,000 ML IV SCH (19:15)
[2019-11-02 20:06] VITALS: BP 128/77
[2019-11-02] MEDS ORDERED: vitamin d PEG (20:19)
[2019-11-02] MEDS ORDERED: SERT50TA12 PO (20:19)
[2019-11-02] MEDS ORDERED: NUT.237L65 PEG (20:20)
[2019-11-02] MEDS: DULOXETINE HCL 30 MG CAP GT SCH (22:15)
[2019-11-02] MEDS: CLONAZEPAM 2 MG TABLET PEG SCH (22:15)
[2019-11-02] MEDS: GABAPENTIN 300 MG CAPSULE GT SCH (22:15)
[2019-11-02] MEDS: CEFTRIAXONE SODIUM 1 GM IVP SCH (22:28)
[2019-11-02] MEDS: FAMOTIDINE/PF 20 MG/2 ML VIAL IV SCH (22:28)
[2019-11-02] MEDS ORDERED: GABAPENTIN 300 MG CAPSULE ONE (22:54)
[2019-11-02] MEDS ORDERED: CLONAZEPAM 2 MG TABLET ONE (22:56)
[2019-11-02] MEDS ORDERED: DULOXETINE HCL 30 MG CAP ONE (22:56)
[2019-11-02] MEDS ORDERED: QUETIAPINE FUMARATE 25 MG TAB ONE (22:57)
[2019-11-02] MEDS ORDERED: IPRATROPIUM/ALBUTEROL SULFATE 3 ML SOLUTION IH ONE (23:42)
[2019-11-02] MEDS: IPRATROPIUM/ALBUTEROL SULFATE 3 ML SOLUTION IH SCH (23:45)
[2019-11-02 23:54] VITALS: BP 130/58
[2019-11-03 03:50] VITALS: BP 127/73
[2019-11-03 03:54] LABS: BASOPHILS % (AUTO) 0.2 % (0.0-5.0); EOSINOPHILS % (AUTO) 0.1 % (0.0-8.0); HEMATOCRIT 36.8 % (36-48); MEAN CORPUSCULAR HEMOGLOBIN 26.6 pg (27.0-33.0); MEAN CORPUSCULAR HGB CONC 32.6 g/dL (32.0-36.0); MEAN CORPUSCULAR VOLUME 81.6 fL (79-99); MONOCYTES % (AUTO) 7.6 % (3.0-13.0); NEUTROPHILS % (AUTO) 81.7 % (40.0-77.0); PLATELET COUNT (AUTO) 203 K/uL (130-400); RED BLOOD CELL COUNT(AUTO) 4.51 MIL/uL (4.00-5.50); RED CELL DISTRIBUTION WIDTH 17.2 % (11.0-15.5); WHITE BLOOD COUNT (AUTO) 11.1 K/uL (4.8-10.8)
[2019-11-03 04:40] LABS: ALBUMIN 3.3 g/dL (3.5-5.0); BILIRUBIN,TOTAL 0.2 mg/dL (0.2-1.0); CREATININE 0.5 mg/dL (0.5-1.5); POTASSIUM 3.8 mmol/L (3.5-5.1); TOTAL PROTEIN, SERUM 7.4 g/dL (6.0-8.3)
[2019-11-03] MEDS: CEFTRIAXONE SODIUM 1 GM IVP SCH ×2 (06:01→20:29)
[2019-11-03] MEDS ORDERED: IPRATROPIUM/ALBUTEROL SULFATE 3 ML SOLUTION IH ONE ×3 (06:13→23:56)
[2019-11-03] MEDS: IPRATROPIUM/ALBUTEROL SULFATE 3 ML SOLUTION IH SCH ×3 (07:22→19:15)
[2019-11-03 07:25] VITALS: BP 95/78
[2019-11-03] MEDS: LEVETIRACETAM 100 MG/ML 5 ML UDCUP PO SCH ×2 (08:43→20:34)
[2019-11-03] MEDS: PHENOBARBITAL 20 MG/5 ML PO SCH ×3 (08:43→20:29)
[2019-11-03] MEDS: FAMOTIDINE/PF 20 MG/2 ML VIAL IV SCH ×2 (08:44→20:30)
[2019-11-03] MEDS: ZINC SULFATE 220 CAPSULE PO SCH ×2 (08:44→20:31)
[2019-11-03] MEDS: BACLOFEN 10 MG TABLET PO SCH ×4 (08:45→20:30)
[2019-11-03] MEDS: THIAMINE HCL 100 MG TABLET PEG SCH ×2 (08:45→20:30)
--- NOTE | 2019-11-03 08:49 | NUR ---
MEDICATION TASK CLEAN UP FOR MEDICATION THAT WERE DUE AT 11/02/2019 AT 3889
[2019-11-03] MEDS: DULOXETINE HCL 30 MG CAP GT SCH ×2 (08:50→20:30)
[2019-11-03] MEDS: CLONAZEPAM 2 MG TABLET PEG SCH ×3 (08:51→20:29)
[2019-11-03] MEDS: GABAPENTIN 300 MG CAPSULE GT SCH ×3 (08:51→20:30)
[2019-11-03] MEDS: QUETIAPINE FUMARATE 25 MG TAB PO SCH ×2 (08:53→17:05)
[2019-11-03] MEDS ORDERED: GABAPENTIN 300 MG CAPSULE GT SCH (09:00)
[2019-11-03] MEDS ORDERED: CLONAZEPAM 2 MG TABLET PEG SCH (09:00)
[2019-11-03] MEDS ORDERED: DULOXETINE HCL 30 MG CAP GT SCH (09:00)
[2019-11-03] MEDS ORDERED: SODIUM CHLORIDE 3% FOR INHALATION 4 ML/AMP VIAL.NEB IH ONE ×2 (10:43→19:11)
[2019-11-03] MEDS ORDERED: IPRATROPIUM/ALBUTEROL SULFATE 3 ML SOLUTION IH SCH (10:46)
[2019-11-03 11:45] VITALS: BP 94/58
[2019-11-03] MEDS: NUT TX IMPAIRED RENAL FXN SOY PO SCH ×2 (12:00→21:00)
[2019-11-03 15:45] VITALS: BP 116/81
[2019-11-03] MEDS: SERTRALINE HCL 50 MG TABLET PO SCH (17:05)
--- NOTE | 2019-11-03 17:22 | NUR ---
CM NOTE CM attempted to follow up with mother regarding d/c planning. No family at bedside. Attempted to call mother to number on facesheet. No answer. CM to reattempt visit tomorrow.
--- NOTE | 2019-11-03 17:29 | NUR ---
Attempted to call mother Rubi to obtain telephone consent for CT chest but no answer message was left.
[2019-11-03] MEDS ORDERED: IOHEXOL-350 75 ML VIAL IV ONE (18:38)
[2019-11-03 19:35] VITALS: BP 110/52
[2019-11-03] MEDS: SODIUM CHLORIDE 0.9% 1000ML 1,000 ML IV SCH (20:28)
[2019-11-03] MEDS: AZITHROMYCIN 500MG+NS 250ML 250 ML IV SCH (20:29)
[2019-11-03] MEDS ORDERED: QUETIAPINE FUMARATE 25 MG TAB PO SCH (21:00)
[2019-11-03] MEDS ORDERED: QUETIAPINE FUMARATE 50 MG PO SCH (21:00)
[2019-11-03 23:48] VITALS: BP 99/57
[2019-11-04] MEDS: IPRATROPIUM/ALBUTEROL SULFATE 3 ML SOLUTION IH SCH ×3 (00:09→11:12)
[2019-11-04 03:35] VITALS: BP 114/64
[2019-11-04 03:57] LABS: CREATININE 0.5 mg/dL (0.5-1.5); POTASSIUM 3.9 mmol/L (3.5-5.1)
[2019-11-04 04:00] VITALS: BP 114/64
[2019-11-04 04:03] LABS: BASOPHILS % (AUTO) 0.3 % (0.0-5.0); EOSINOPHILS % (AUTO) 0.8 % (0.0-8.0); HEMATOCRIT 35.1 % (36-48); LYMPHOCYTES % (AUTO) 26.6 % (21.0-51.0); MEAN CORPUSCULAR HEMOGLOBIN 26.7 pg (27.0-33.0); MEAN CORPUSCULAR HGB CONC 32.2 g/dL (32.0-36.0); MEAN CORPUSCULAR VOLUME 82.8 fL (79-99); MONOCYTES % (AUTO) 5.8 % (3.0-13.0); NEUTROPHILS % (AUTO) 66.2 % (40.0-77.0); PLATELET COUNT (AUTO) 200 K/uL (130-400); RED BLOOD CELL COUNT(AUTO) 4.24 MIL/uL (4.00-5.50); RED CELL DISTRIBUTION WIDTH 17.5 % (11.0-15.5); WHITE BLOOD COUNT (AUTO) 6.2 K/uL (4.8-10.8)
[2019-11-04] MEDS ORDERED: IPRATROPIUM/ALBUTEROL SULFATE 3 ML SOLUTION IH ONE (06:05)
[2019-11-04 07:08] VITALS: BP 102/56
[2019-11-04] MEDS ORDERED: LEVE500L PO (08:48)
[2019-11-04] MEDS: ZINC SULFATE 220 CAPSULE PO SCH (08:59)
[2019-11-04] MEDS: FAMOTIDINE/PF 20 MG/2 ML VIAL IV SCH (08:59)
[2019-11-04] MEDS: CEFTRIAXONE SODIUM 1 GM IVP SCH (08:59)
[2019-11-04] MEDS: LEVETIRACETAM 100 MG/ML 5 ML UDCUP PO SCH (09:00)
[2019-11-04] MEDS: DULOXETINE HCL 30 MG CAP GT SCH (09:00)
[2019-11-04] MEDS: QUETIAPINE FUMARATE 25 MG TAB PO SCH (09:00)
[2019-11-04] MEDS: GABAPENTIN 300 MG CAPSULE GT SCH ×2 (09:00→14:55)
[2019-11-04] MEDS: THIAMINE HCL 100 MG TABLET PEG SCH (09:00)
[2019-11-04] MEDS: BACLOFEN 10 MG TABLET PO SCH ×2 (09:00→14:55)
[2019-11-04] MEDS: SERTRALINE HCL 50 MG TABLET PO SCH (09:00)
[2019-11-04] MEDS ORDERED: LEVETIRACETAM 250 MG TABLET PO SCH (09:00)
--- NOTE | 2019-11-04 09:00 | NUR ---
NO RESIDUALS ASPIRATED 100ML OF WATER GIVEN BEFORE MEDICATION AND BOLUS FEEDING. TOLERATED WELL. PT BED REPOSITIONED TO 45 DEGREE POSITION. PT APPEARS COMFORTABLE.
[2019-11-04] MEDS: CLONAZEPAM 2 MG TABLET PEG SCH ×2 (09:01→14:55)
[2019-11-04] MEDS: PHENOBARBITAL 20 MG/5 ML PO SCH ×2 (09:01→14:55)
[2019-11-04 11:00] VITALS: BP 146/71
--- NOTE | 2019-11-04 12:22 | NUR ---
RD NOTIFICATION ON AUG 27, 2019 PT CAME IN WEIGHING 130# AND IS NOW 119#; THAT IS 8% WT LOSS CHANGE IN APPROX 2 MONTHS. MEDS REVIEWED. LABS REVIEWED. SKIN IS INTACT. RD RECOMMENDS TO CONTINUE TUBE FEEDING USING SUPLENA 1.8 RECOMMEND 4 CANS DAILY 1 CAN 8AM, 1 CAN 12PM, 1 CAN 4PM, 1 CAN 8PM FLUSH WITH 100ML BEFORE AND AFTER EACH FEEDING MONITOR RESIDUALS, LABS, BM RN NOTIFIED. Addendum: 11/04/19 at [address] Amended: Links added.
[2019-11-04] MEDS ORDERED: AMOXICILLIN/POTASSIUM CLAV 875-125 TABLET PO SCH (14:00)
--- NOTE | 2019-11-04 14:31 | NUR ---
DC PLAN PER PREVIOUS VISIT PATIENT HAS ALL DME AT HOME. LIVES WITH MOTHER. ANOXIC BRAIN INJURY BEDBOUND CONTRACTED NON VERBAL. NO NEEDS VERBALIZED BY MOTHER OR STAFF. PENDING EMS FOR HOME. Addendum: 11/04/19 at 1433 by JUAN SIMPSON RN CM Amended: Links added.
--- NOTE | 2019-11-04 14:46 | NUR ---
PRESCRIPTION CALLED IN TO [facility] EMMY SEPULVEDA.
--- NOTE | 2019-11-04 14:55 | NUR ---
NO RESIDUALS ASPIRATED 100ML OF WATER GIVEN BEFORE MEDICATION AND BOLUS FEEDING. TOLERATED WELL. PT BED REPOSITIONED TO 45 DEGREE POSITION. PT APPEARS COMFORTABLE.
--- NOTE | 2019-11-04 19:45 | NUR ---
DISCHARGE INSTRUCTIONS GIVEN, MOTHER AT NURSE'S STATION, COPY OF FILLER SIFTER HELPER RECOMMENDATIONS GIVEN, APPOINTMENT WITH DR Ashlie VILLAGRAN, GIVEN. PT'S MOTHER HAD NO FURTHER QUESTIONS.
== END 2019-11-04 17:19 | disposition home or self-care (01) ==
LOC: EDH 12:38 → INTOOBSV 12:39 → EDHIP 12:39 → 2DH 19:53
PROVIDERS: ADMIT Hospitalist; ATTEND Hospitalist
DX: J96.01 Acute respiratory failure with hypoxia (principal); J18.9 Pneumonia, unspecified organism; F41.9 Anxiety disorder, unspecified; F32.9 Major depressive disorder, single episode, unspecified; N39.0 Urinary tract infection, site not specified; Z88.1 Allergy status to other antibiotic agents; Z88.8 Allergy status to other drugs, medicaments and biological substances; Z86.14 Personal history of Methicillin resistant Staphylococcus aureus infection; Z87.820 Personal history of traumatic brain injury
CPT/HCPCS: 36415 ×3; 71045; 71275; 80048; 80053 ×2; 81001; 82550; 83605; 83880; 84484 ×2; 85025 ×3; 85610; 85730; 87040 ×2; 87071; 87077 ×2; 87088; 87186 ×2; 87205; 87804 ×2; 93005; 93970; 94640 ×10; 94664; 96365; 96375; 96376 ×2; 99285; G0378 ×13; J0456 ×2; J0696 ×5; J3490 ×4; J7030; Q9967